=== PATIENT | female | born 1930 | race African-American/Black ===

== ENCOUNTER 2016-07-26 21:41 | Inpatient (IN) | payer MEDICARE ==
--- NOTE | 2016-07-26 21:58 | ER Document Report ---
ED Medical Screen (RME) - General Stated Complaint: HEADACHE DIFFICULTY BREATHING Time seen by provider: 21:56 Mode of Arrival: Wheelchair Information source: Patient, Relative Notes: 85-year-old female presents to ED with cold flulike symptoms with heavy breathing and wheezing. Feeling faint. Has a pacemaker and high blood pressure. Has a headache. Has a history of a previous stroke. I have greeted and performed a rapid initial assessment of this patient. A comprehensive ED assessment and evaluation of the patient, analysis of test results and completion of medical decision making process will be conducted by an additional ED providers.
[2016-07-27 00:14] LABS: HEMATOCRIT 32.6 % (36.0-47.0); HEMOGLOBIN 10.8 g/dL (12.0-15.5); HGB HCT DIFFERENCE -0.2; MEAN CORPUSCULAR HEMOGLOBIN 26.1 pg (27.0-33.4); MEAN CORPUSCULAR HGB CONC 33.1 g/dL (32.0-36.0); MEAN CORPUSCULAR VOLUME 79 fl (80-97); RED BLOOD COUNT 4.12 10^6/uL (3.72-5.28); RED CELL DISTRIBUTION WIDTH 15.7 % (11.5-14.0)
[2016-07-27] MEDS ORDERED: IPRATROPIUM/ALBUTEROL 0.5-2.5 MG/3 ML AMPUL NEB ONE (00:14)
[2016-07-27] MEDS ORDERED: FUROSEMIDE INJ/PF 40 MG/4 ML SDV IV ONE ×2 (00:15→05:00)
--- NOTE | 2016-07-27 00:15 | ER Document Report ---
ED General - General Chief Complaint: Breathing Difficulty Stated Complaint: HEADACHE DIFFICULTY BREATHING Mode of Arrival: Wheelchair Notes: Patient is an 85-year-old female with past medical history of CHF, A. fib status post pacemaker placement, hypertension and hyperlipidemia who presents with 2 days of progressively worsening shortness of breath and cough. Notes that laying flat or exerting himself worsens her symptoms. Nothing improves her symptoms. She is currently taking 30 mg of Lasix per day. She does not weigh herself daily and has not noted any increased weight gain. She denies any chest pain, headache, neck pain or altered mental status. She has not seen her primary care doctor regarding today's concerns. She has a history of similar symptoms in the past with prior CHF exacerbations. TRAVEL OUTSIDE OF THE [place] IN LAST 30 DAYS: No - Related Data Allergies/Adverse Reactions: No Known Allergies Allergy (Unverified 07/27/16 01:44) Past Medical History - General Information source: Patient, Relative - Social History Smoking Status: Never Smoker Chew tobacco use (# tins/day): No Frequency of alcohol use: None Drug Abuse: Bath salts Lives with: Spouse/Significant other Family History: Reviewed & Not Pertinent Patient has suicidal ideation: No Patient has homicidal ideation: No Renal/ Medical History: Denies: Hx Peritoneal Dialysis Review of Systems - Review of Systems Notes: Constitutional: Negative for fever. HENT: Negative for sore throat. Eyes: Negative for visual changes. Cardiovascular: Negative for chest pain. Respiratory: Positive for shortness of breath. Gastrointestinal: Negative for abdominal pain, vomiting or diarrhea. Genitourinary: Negative for dysuria. Musculoskeletal: Negative for back pain. Skin: Negative for rash. Neurological: Negative for headaches, weakness or numbness. 10 point ROS negative except as marked above and in HPI. Physical Exam - Vital signs Vitals: Temp Pulse Resp BP Pulse Ox 99.5 F 92 36 H 142/71 H 96 07/26/16 21:56 07/26/16 21:56 07/26/16 21:56 07/26/16 21:56 07/26/16 21:56 Interpretation: Hypertensive, Tachypneic Notes: PHYSICAL EXAMINATION: GENERAL: Moderately ill in appearance with associated moderate respiratory distress. HEAD: Atraumatic, normocephalic. EYES: Pupils equal round and reactive to light, extraocular movements intact, sclera anicteric, conjunctiva are normal. ENT: nares patent, oropharynx clear without exudates. Moist mucous membranes. NECK: Normal range of motion, supple without lymphadenopathy LUNGS: Bibasilar rales. Somewhat diminished air movement throughout. HEART: Regular rate and rhythm without murmurs ABDOMEN: Soft, nontender, normoactive bowel sounds. No guarding, no rebound. No masses appreciated. EXTREMITIES: Normal range of motion, 1+ pitting edema in the bilateral lower extremities. No cyanosis. NEUROLOGICAL: No focal neurological deficits. Moves all extremities spontaneously and on command. PSYCH: Normal mood, normal affect. SKIN: Warm, Dry, normal turgor, no rashes or lesions noted. Course - Re-evaluation Re-evalutation: 07/27/16 00:13 Patient arrives in respiratory distress, tachypnea with respiratory of 36 at the time my assessment. She is poor air movement bilaterally with diminished breath sounds at the bases. Her chest x-ray shows pulmonary edema and vascular congestion in addition to cardiomegaly. She is not wheezing on exam but does have tight air movement throughout. Immediately upon the time my assessment and initiated BiPAP. Awaiting laboratories. Will place patient on [facility] and reassess 07/27/16 01:30 Patient's work of breathing on to reassessments is much improved on BiPAP. Respiratory rate now is down to the mid 20s. Saturating 100% on 30% FiO2 on BiPAP. IV Lasix has been administered. Laboratories demonstrate a markedly elevated proBNP consistent with a CHF exacerbation as the etiology of patient's presentation today. Will discuss with the hospitalist for admission. - Vital Signs Vital signs: Temp Pulse Resp BP Pulse Ox 99.5 F 92 26 H 142/70 H 100 07/26/16 21:56 07/26/16 21:56 07/27/16 02:31 07/27/16 02:31 07/27/16 02:31 - Laboratory Result Diagrams: 07/26/16 23:56 07/26/16 23:56 Laboratory results interpreted by me: 07/26/16 07/26/16 07/26/16 23:56 23:56 23:56 Hgb 10.8 L Hct 32.6 L MCV 79 L MCH 26.1 L RDW 15.7 H Band Neutrophils % 2 L Monocytes % (Manual) 16 H Sodium 145.8 H Carbon Dioxide 34 H BUN 22 H Est GFR (Non-Af Amer) 52 L NT-Pro-B Natriuret Pep 8510 H - Diagnostic Test Radiology reviewed: Image reviewed, Reports reviewed Radiology results interpreted by me: 07/27/16 00:16 Chest x-ray: Vascular congestion and pulmonary edema. Cardiomegaly. - EKG Interpretation by Me Additional EKG results interpreted by me: 07/27/16 01:31 Atrial fibrillation. Rate 98. No ST elevations or depressions. QTC is 460. Critical Care Note - Critical Care Note Total time excluding time spent on procedures (mins): 35 Comments: Critical care time spent obtaining history from patient or surrogate, discussions with consultants, development of treatment plan with patient or surrogate, evaluation of patient's response to treatment, examination of patient , ordering and performing treatments and interventions, ordering and review of laboratory studies, re-evaluation of patient's condition, ordering and review of radiographic studies and review of old charts Discharge - Discharge Clinical Impression: Respiratory distress CHF exacerbation Qualifiers: Congestive heart failure type: unspecified congestive heart failure type Qualified Code(s): I50.9 - Heart failure, unspecified Condition: Fair Disposition: ADMITTED INPATIENT Admitting Provider: Hospitalist - [facility] Admitted: Telemetry
[2016-07-27 00:30] LABS: ALANINE AMINOTRANSFERASE 40 U/L (9-52); ALBUMIN 3.5 g/dL (3.5-5.0); ALKALINE PHOSPHATASE 66 U/L (38-126); ANION GAP 9 (5-19); ASPARTATE AMINO TRANSFERASE 30 U/L (14-36); BILIRUBIN,DIRECT 0.1 mg/dL (0.0-0.4); BILIRUBIN,TOTAL 0.5 mg/dL (0.2-1.3); BLOOD UREA NITROGEN 22 mg/dL (7-20); CALCIUM 9.1 mg/dL (8.4-10.2); CARBON DIOXIDE 34 mmol/L (22-30); CHLORIDE 103 mmol/L (98-107); CREATINE KINASE 105 U/L (30-135); CREATININE RESULT 1.01 mg/dL (0.52-1.25); GLUCOSE 97 mg/dL (75-110); POTASSIUM 3.8 mmol/L (3.6-5.0); SODIUM 145.8 mmol/L (137-145); TOTAL PROTEIN 6.3 g/dL (6.3-8.2)
[2016-07-27 00:42] LABS: CREATINE KINASE MB 0.98 ng/mL (<4.55); TROPONIN I 0.029 ng/mL
[2016-07-27 01:01] LABS: ANISOCYTOSIS SLIGHT; BAND NEUTROPHILS % (MANUAL) 2 % (3-5); BASOPHILS % (MANUAL) 0 % (0-2); BURR CELLS SLIGHT; EOSINOPHILS % (MANUAL) 0 % (0-6); HYPOCHROMASIA SLIGHT; LYMPHOCYTES % (MANUAL) 23 % (13-45); MICROCYTOSIS SLIGHT; OVALOCYTES SLIGHT; POIKILOCYTOSIS SLIGHT; SCHISTOCYTES SLIGHT; TOTAL CELLS COUNTED 100; TOXIC GRANULATION SLIGHT; TOXIC VACUOLATION PRESENT
[2016-07-27] MEDS ORDERED: NITROGLYCERIN/D5W 250 ML IV PRN (01:33)
[2016-07-27] MEDS ORDERED: ACETAMINOPHEN 325 MG TABLET PO PRN (01:33)
[2016-07-27] MEDS ORDERED: LACTULOSE SYRUP 20 GM/30 ML UDCUP PO ONE ×2 (01:36→05:00)
[2016-07-27] MEDS ORDERED: POTASSIUM CHLORIDE 10 MEQ TABLET.SA PO SCH (02:00)
[2016-07-27 02:39] LABS: CREATINE KINASE MB 0.95 ng/mL (<4.55); TROPONIN I 0.025 ng/mL
[2016-07-27] MEDS ORDERED: LORAZEPAM INJ 2 MG/1 ML VIAL IV ONE ×2 (06:03→14:53)
[2016-07-27] MEDS ORDERED: LORAZEPAM INJ 2 MG/1 ML VIAL ONE ×2 (06:16→14:57)
[2016-07-27] MEDS: HEPARIN SOD (PORCINE) 5,000 UNIT/ML 1 ML SYRINGE SUBCUT SCH ×2 (06:18→13:39)
[2016-07-27] MEDS ORDERED: ENALAPRILAT DIHYDRATE INJ/PF 1.25 MG/1 ML SDV IV ONE (06:20)
[2016-07-27] MEDS ORDERED: METOPROLOL TARTRATE PF/INJ 5 MG/5 ML SDV IV ONE (06:20)
--- NOTE | 2016-07-27 06:29 | PDOC H&P ---
History of Present Illness Admission Date/PCP: 07/27/16 01:33 ALBERT VIVAR MD Patient complains of: Shortness of breath History of Present Illness: MARTY GAGE is a 85 year old female with a past medical history of CHF, atrial fibrillation status post pacemaker placement, hypertension dyslipidemia and severe anxiety with Ativan dependence. Presents with 2 days of worsening exertional shortness of breath and nonproductive cough as well as orthopnea. Patient is a poor historian and with decompensated congestive heart failure and anxiety referred to the hospitalist for admission Past Medical History Cardiac Medical History: Reports: Atrial Fibrillation Psychiatric Medical History: Reports: General Anxiety Disorder Social History Information Source: [facility] Records Lives with: Spouse/Significant other Smoking Status: Never Smoker Drugs: None - Advance Directive Resuscitation Status: Full Code Family History Family History: Reviewed & Not Pertinent, Other - Unobtainable Parental Family History Reviewed: Yes - unobtainable Children Family History Reviewed: Yes Sibling(s) Family History Reviewed.: Yes Medication/Allergy Allergies/Adverse Reactions: No Known Allergies Allergy (Unverified 07/27/16 01:44) Review of Systems ROS unobtainable: Due to mental status - Unobtainable Physical Exam Vital Signs: Temp Pulse Resp BP Pulse Ox 99.5 F 92 13 138/62 H 99 07/26/16 21:56 07/26/16 21:56 07/27/16 05:01 07/27/16 05:00 07/27/16 05:01 General appearance: PRESENT: disheveled, severe distress Head exam: PRESENT: atraumatic, normocephalic Eye exam: PRESENT: conjunctiva pink, EOMI, PERRLA. ABSENT: scleral icterus Ear exam: PRESENT: normal external ear exam Mouth exam: PRESENT: moist, tongue midline Neck exam: PRESENT: JVD. ABSENT: carotid bruit, lymphadenopathy, thyromegaly Respiratory exam: PRESENT: accessory muscle use, crackles, symmetrical, tachypnea, wheezes. ABSENT: rhonchi, stridor Cardiovascular exam: PRESENT: gallop, RRR. ABSENT: diastolic murmur, rubs, systolic murmur Pulses: PRESENT: normal dorsalis pedis pul GI/Abdominal exam: PRESENT: hypoactive bowel sounds, normal bowel sounds, soft, tenderness - Without guarding left lower quadrant. ABSENT: distended, guarding , mass, organolmegaly, rebound Rectal exam: PRESENT: deferred Extremities exam: PRESENT: full ROM. ABSENT: calf tenderness, clubbing, pedal edema Neurological exam: PRESENT: alert, awake, oriented to person, oriented to place , oriented to situation, CN II-XII grossly intact. ABSENT: motor sensory deficit Psychiatric exam: PRESENT: agitated, anxious Skin exam: PRESENT: dry, intact, warm. ABSENT: cyanosis, rash Results Laboratory Results: 07/27/16 07/27/16 02:02 02:02 Creatine Kinase 90 CK-MB (CK-2) 0.95 Troponin I 0.025 Impressions: Chest X-Ray 07/26/16 21:59 IMPRESSION: CARDIAC ENLARGEMENT. VASCULAR CONGESTION.Small right pleural effusion. Assessment & Plan - Diagnosis (1) Severe anxiety Is this a current diagnosis for this admission?: YesPlan: Benzodiazepine dependent complicating shortness of breath as she is retaining CO2 she will be placed on BiPAP (2) CHF exacerbation Qualifiers: Congestive heart failure type: unspecified congestive heart failure type Qualified Code(s): I50.9 - Heart failure, unspecified Is this a current diagnosis for this admission?: YesPlan: Optimize blood pressure and heart rate with aggressive treatment of anxiety, education fluid restriction and gentle diuresis (3) Respiratory distress Is this a current diagnosis for this admission?: YesPlan: Multifactorial shortness of breath secondary to CHF exacerbation and hypoventilation as she has CO2 retention she is placed on BiPAP with albuterol Atrovent nebulizer - Time Time Spent: 30 to 50 Minutes
[2016-07-27] MEDS ORDERED: ALBUTEROL SULFATE 0.083% NEB 2.5 MG/3 ML AMPUL NEB PRN (07:47)
[2016-07-27] MEDS ORDERED: IPRATROPIUM/ALBUTEROL 0.5-2.5 MG/3 ML AMPUL NEB SCH (08:00)
--- NOTE | 2016-07-27 08:09 | EKG REPORT ---
SEVERITY:- ABNORMAL ECG - ATRIAL FIBRILLATION LEFT AXIS DEVIATION PROBABLE LVH WITH SECONDARY REPOL ABNRM : Confirmed by: Maxwell Hamilton MD 27-Jul-2016 08:08:32
[2016-07-27 09:14] LABS: CREATINE KINASE MB 1.03 ng/mL (<4.55); TROPONIN I 0.026 ng/mL
[2016-07-27] MEDS: NITROGLYCERIN 2% OINTMENT 1 GM PACKET TP SCH ×3 (09:24→22:19)
[2016-07-27] MEDS ORDERED: LORAZEPAM 0.5 MG TABLET PO SCH (10:00)
[2016-07-27] MEDS ORDERED: FUROSEMIDE INJ/PF 40 MG/4 ML SDV IV SCH (10:00)
[2016-07-27] MEDS ORDERED: METOPROLOL TARTRATE 25 MG TABLET PO SCH (10:00)
[2016-07-27] MEDS ORDERED: INFLUENZA ADLT QUAD (36MOS+) 2016-17 VAC 0.5 ML SYR IM PRN (10:23)
[2016-07-27] MEDS: POTASSIUM CHLORIDE 10 MEQ TABLET.SA PO SCH (11:43)
[2016-07-27] MEDS: DOCUSATE SODIUM 100 MG CAPSULE PO SCH (11:43)
[2016-07-27] MEDS: FUROSEMIDE INJ/PF 40 MG/4 ML SDV IV SCH ×2 (11:45→22:19)
[2016-07-27] MEDS ORDERED: HALOPERIDOL LACTATE INJ 5 MG/1 ML VIAL IV ONE (14:53)
[2016-07-27] MEDS ORDERED: HALOPERIDOL LACTATE INJ 5 MG/1 ML VIAL ONE (14:58)
[2016-07-27 16:07] LABS: CREATINE KINASE MB 1.24 ng/mL (<4.55); TROPONIN I 0.024 ng/mL
--- NOTE | 2016-07-27 16:52 | PDOC PROGRESS REPORT ---
Subjective Progress Note for:: 07/27/16 Subjective:: Patient has no complaints at the time of my evaluation. Review of systems or history limited by advanced dementia and encephalopathy. She denies chest pain , headache, abdominal pain, nausea, vomiting. Physical Exam Vital Signs: Temp Pulse Resp BP Pulse Ox 98.4 F 89 22 H 153/98 H 100 07/27/16 11:00 07/27/16 14:00 07/27/16 11:00 07/27/16 11:00 07/27/16 11:00 Intake & Output 07/26/16 07/27/16 07/28/16 06:59 06:59 06:59 Weight 70.7 kg 71.1 kg GENERAL: No acute distress HEENT: Conjunctiva clear, nonicteric, moist mucous membranes, no JVD, midline trachea RESPIRATORY: Clear to auscultation bilaterally, no wheezes, no rhonchi CARDIAC: Regular rate and rhythm, no murmurs/gallops/rubs ABDOMEN: Soft, nondistended, nontender, positive bowel sounds, no rebound, no guarding EXTREMETIES: No edema, cyanosis, clubbing NEUROLOGIC: Alert, oriented to person only, CN's grossly intact, no focal deficits SKIN: No rash, wounds PSYCH: Normal mood, normal affect Results Laboratory Results: 07/27/16 07/27/16 07/27/16 02:02 02:02 08:30 Creatine Kinase 90 94 CK-MB (CK-2) 0.95 Troponin I 0.025 07/27/16 07/27/16 07/27/16 08:30 15:27 15:27 Creatine Kinase 102 CK-MB (CK-2) 1.03 1.24 Troponin I 0.026 0.024 Impressions: Chest X-Ray 07/26/16 21:59 IMPRESSION: CARDIAC ENLARGEMENT. VASCULAR CONGESTION.Small right pleural effusion. Assessment & Plan - Diagnosis (1) Acute hypoxemic respiratory failure Is this a current diagnosis for this admission?: YesPlan: Continue oxygen supplementation. Treat CHF exacerbation. (2) CHF exacerbation Qualifiers: Congestive heart failure type: unspecified congestive heart failure type Qualified Code(s): I50.9 - Heart failure, unspecified Is this a current diagnosis for this admission?: YesPlan: Continue IV Lasix. Nitropaste. Repeat chest x-ray in the morning. Continue metoprolol. EF unknown at this time. Check echocardiogram. (3) Hypertension Is this a current diagnosis for this admission?: YesPlan: Continue Nitropaste. Resume outpatient dose of labetalol. When necessary IV hydralazine. (4) A-fib Is this a current diagnosis for this admission?: YesPlan: Pacemaker. Xarelto. Labetalol. (5) Hypothyroid Is this a current diagnosis for this admission?: YesPlan: Synthroid. (6) Severe anxiety Is this a current diagnosis for this admission?: YesPlan: When necessary Ativan. (7) Dementia Is this a current diagnosis for this admission?: YesPlan: Continue supportive care. - Time Time Spent with patient: 35 or more minutes
[2016-07-27] MEDS ORDERED: LORAZEPAM PO SCH (18:00)
[2016-07-27] MEDS: LABETALOL HCL 200 MG TABLET PO SCH (18:54)
[2016-07-27] MEDS: LORAZEPAM 1 MG TABLET PO SCH (18:55)
--- NOTE | 2016-07-27 20:33 | XCELERA REPORT ---
[address] [address] Transthoracic Echocardiogram Report Name: MARTY GAGE Age: 85 yrs Gender: Female : 1930 Patient Status: Inpatient Patient Location: 3N\S\[facility]\S\B Study Date: 07/27/2016 02:12 PM Height: 65 in Weight: 164 lb BSA: 1.8 m2 Procedure: A complete two-dimensional transthoracic echocardiogram was performed (2D, M-mode, spectral and color flow Doppler). The study was technically difficult with many images being suboptimal in quality. Reason For Study: chf Ordering Physician: NEELAM PORTILLO Performed By: Radha Pierre Interpretation Summary The left ventricular ejection fraction is normal. There is moderate concentric left ventricular hypertrophy. Doppler measurements suggest pseudonormalized left ventricular relaxation, which is associated with grade II/IV or mild to moderate diastolic dysfunction Wall motion cannot be accurately commented on, but no definite regional wall motion abnormalities noted. The left ventricle is grossly normal size. The right ventricular systolic function is normal. The left atrium is severely dilated. The right atrium is mildly dilated. There is a moderate amount of mitral regurgitation There is no mitral valve stenosis. There is moderate aortic stenosis There is a peak gradient of 55, mean 30 mm of Hg. There is a mild to moderate amount of aortic regurgitation There is a mild to moderate amount of tricuspid regurgitation There is moderate pulmonary hypertension by echo Right ventricular systolic pressure is estimated to be elevated at 50- 60mmHg. There is no pericardial effusion. MMode/2D Measurements \T\ Calculations RVDd: 2.8 cm LVIDd: 4.9 cm FS: 38.8 % Ao root diam: IVSd: 1.6 cm LVIDs: 3.0 cm EDV(Teich): 3.2 cm LVPWd: 1.7 cm 113.7 ml Ao root area: ESV(Teich): 35.2 ml 8.0 cm2 EF(Teich): LA dimension: 69.0 % 6.0 cm LVOT diam: 2.3 cm LA A2Cs: LA A4Cs: LA length: 7.7 cm LVOT area: 4.0 cm2 35.6 cm2 36.0 cm2 LA Vol Index (BP): LA Volume: 140.7 ml 77.4 ml/m2 Doppler Measurements \T\ Calculations MV E max rachele: MV P1/2t max rachele: Ao V2 max: AI max rachele: 143.8 cm/sec 146.2 cm/sec 376.4 cm/sec 437.7 cm/sec MV A max rachele: MV P1/2t: 64.5 msec Ao max PG: AI max P.3 cm/sec MVA(P1/2t): 3.4 cm2 56.7 mmHg 76.7 mmHg MV E/A: 1.7 MV dec slope: Ao V2 mean: AI dec slope: 267.3 cm/sec 251.2 cm/sec2 664.2 cm/sec2 Ao mean PG: AI P1/2t: 32.5 mmHg 510.4 msec Ao V2 VTI: 75.5 cm HEIDI(I,D): 1.7 cm2 HEIDI(V,D): 1.7 cm2 LV V1 max PG: SV(LVOT): 131.2 ml PA V2 max: TR max rachele: 10.7 mmHg 109.6 cm/sec 357.0 cm/sec LV V1 mean PG: PA max PG: TR max P.2 mmHg 4.8 mmHg 51.0 mmHg LV V1 max: 163.7 cm/sec LV V1 mean: 116.5 cm/sec LV V1 VTI: 32.6 cm Left Ventricle The left ventricle is grossly normal size. There is moderate concentric left ventricular hypertrophy. The left ventricular ejection fraction is normal. Doppler measurements suggest pseudonormalized left ventricular relaxation, which is associated with grade II/IV or mild to moderate diastolic dysfunction. Wall motion cannot be accurately commented on, but no definite regional wall motion abnormalities noted. Right Ventricle The right ventricle is grossly normal size. There is normal right ventricular wall thickness. The right ventricular systolic function is normal. Atria The right atrium is mildly dilated. The left atrium is severely dilated. Interarterial septum not well visualized and not well dopplered. Cannot comment on ASD/PFO presence. Mitral Valve There is moderate mitral annular calcification. There is no mitral valve stenosis. There is a moderate amount of mitral regurgitation. Aortic Valve The aortic valve is moderately calcified. There is moderate aortic stenosis. There is a peak gradient of 55, mean 30 mm of Hg. There is a mild to moderate amount of aortic regurgitation. Tricuspid Valve The tricuspid valve is not well visualized secondary to technical limitations. There is no tricuspid stenosis. There is a mild to moderate amount of tricuspid regurgitation. There is moderate pulmonary hypertension by echo. Right ventricular systolic pressure is estimated to be elevated at 50-60mmHg. Pulmonic Valve The pulmonic valve is not well visualized. Great Vessels The aortic root is not well visualized. The inferior vena cava appeared normal and decreased > 50% with respiration (RAP 5-10 mmHg). Effusions There is no pericardial effusion. : NEELAM PORTILLO > Seun Stark
[2016-07-27] MEDS: MIRTAZAPINE 15 MG TABLET PO SCH (22:19)
[2016-07-28] MEDS: HYDRALAZINE HCL INJ/PF 20 MG/1 ML SDV IV PRN ×2 (00:28→06:59)
[2016-07-28] MEDS: LORAZEPAM INJ 2 MG/1 ML VIAL IV PRN ×2 (01:31→06:47)
[2016-07-28] MEDS: NITROGLYCERIN 2% OINTMENT 1 GM PACKET TP SCH ×2 (03:05→09:20)
[2016-07-28] MEDS ORDERED: METOPROLOL TARTRATE PF/INJ 5 MG/5 ML SDV IV PRN (05:29)
[2016-07-28] MEDS ORDERED: METOPROLOL TARTRATE PF/INJ 5 MG/5 ML SDV IV ONE (05:47)
[2016-07-28 05:54] LABS: ARTERIAL BLOOD O2 SATURATION 96.7 % (94-98)
[2016-07-28 07:24] LABS: ABSOLUTE EOSINOPHILS # (AUTO) 0.1 10^3/uL (0.0-0.6); ABSOLUTE MONOCYTES (AUTO) 1.2 10^3/uL (0.1-1.4); ABSOLUTE NEUT (AUTO) 5.3 10^3/uL (1.7-8.2); BASOPHILS % (AUTO) 0.3 % (0-2); EOSINOPHILS % (AUTO) 0.7 % (0-6); HEMOGLOBIN 11.3 g/dL (12.0-15.5); HGB HCT DIFFERENCE -1.1; LYMPHOCYTES % (AUTO) 23.7 % (13-45); MEAN CORPUSCULAR HEMOGLOBIN 25.6 pg (27.0-33.4); MEAN CORPUSCULAR HGB CONC 32.3 g/dL (32.0-36.0); MEAN CORPUSCULAR VOLUME 79 fl (80-97); MONOCYTES % (AUTO) 13.4 % (3-13); RED BLOOD COUNT 4.43 10^6/uL (3.72-5.28); RED CELL DISTRIBUTION WIDTH 15.6 % (11.5-14.0); SEGMENTED NEUTROPHILS % (AUTO) 61.9 % (42-78); WHITE BLOOD COUNT 8.6 10^3/uL (4.0-10.5)
[2016-07-28 07:40] LABS: ANION GAP 16 (5-19); BLOOD UREA NITROGEN 20 mg/dL (7-20); CALCIUM 9.5 mg/dL (8.4-10.2); CARBON DIOXIDE 31 mmol/L (22-30); CHLORIDE 101 mmol/L (98-107); CREATININE RESULT 0.88 mg/dL (0.52-1.25); GLUCOSE 114 mg/dL (75-110); MAGNESIUM 1.5 mg/dL (1.6-2.3); POTASSIUM 3.9 mmol/L (3.6-5.0); SODIUM 147.8 mmol/L (137-145)
[2016-07-28] MEDS: LORAZEPAM 1 MG TABLET PO SCH ×2 (07:57→18:39)
[2016-07-28] MEDS: LABETALOL HCL 200 MG TABLET PO SCH (07:57)
[2016-07-28] MEDS ORDERED: (PENDING PHARMACY ID) (Lorazepam [Lorazepam] 2 MG) PO SCH (08:00)
--- NOTE | 2016-07-28 08:26 | EKG REPORT ---
SEVERITY:- ABNORMAL ECG - ATRIAL FIBRILLATION PROBABLE LVH WITH SECONDARY REPOL ABNRM : Confirmed by: Maxwell Hamilton MD 28-Jul-2016 08:26:10
[2016-07-28] MEDS: LEVOTHYROXINE SODIUM 0.1 MG TABLET PO SCH (09:20)
[2016-07-28] MEDS: LANSOPRAZOLE 30 MG TAB.RAP.DR PO SCH (09:20)
[2016-07-28] MEDS: POTASSIUM CHLORIDE 10 MEQ TABLET.SA PO SCH (09:20)
[2016-07-28] MEDS: DOCUSATE SODIUM 100 MG CAPSULE PO SCH (09:20)
[2016-07-28] MEDS: MAGNESIUM OXIDE 400 MG TABLET PO SCH ×2 (09:20→18:39)
[2016-07-28] MEDS: FUROSEMIDE INJ/PF 40 MG/4 ML SDV IV SCH ×2 (09:21→23:33)
[2016-07-28] MEDS ORDERED: BENAZEPRIL HCL 20 MG PO SCH (16:00)
--- NOTE | 2016-07-28 17:25 | PDOC PROGRESS REPORT ---
Subjective Progress Note for:: 07/28/16 Subjective:: Patient has no complaints at the time of my evaluation. Review of systems or history limited by advanced dementia and encephalopathy. She denies chest pain , headache, abdominal pain, nausea, vomiting. Physical Exam Vital Signs: Temp Pulse Resp BP Pulse Ox 98.1 F 106 H 35 H 132/73 H 100 07/28/16 07:44 07/28/16 14:00 07/28/16 09:29 07/28/16 10:54 07/28/16 10:54 Intake & Output 07/27/16 07/28/16 07/29/16 06:59 06:59 06:59 Intake Total 279 Balance 279 Weight 70.7 kg 71 kg GENERAL: No acute distress HEENT: Conjunctiva clear, nonicteric, moist mucous membranes, no JVD, midline trachea RESPIRATORY: Clear to auscultation bilaterally, no wheezes, no rhonchi CARDIAC: Regular rate and rhythm, no murmurs/gallops/rubs ABDOMEN: Soft, nondistended, nontender, positive bowel sounds, no rebound, no guarding EXTREMETIES: No edema, cyanosis, clubbing NEUROLOGIC: Alert, oriented to person only, CN's grossly intact, no focal deficits SKIN: No rash, wounds PSYCH: Normal mood, normal affect Results Laboratory Results: 07/28/16 06:07 07/28/16 06:07 07/28/16 07/28/16 07/28/16 05:40 06:07 06:07 WBC 8.6 RBC 4.43 Hgb 11.3 L Hct 35.0 L MCV 79 L MCH 25.6 L MCHC 32.3 RDW 15.6 H Plt Count 234 Seg Neutrophils % 61.9 Lymphocytes % 23.7 Monocytes % 13.4 H Eosinophils % 0.7 Basophils % 0.3 Absolute Neutrophils 5.3 Absolute Lymphocytes 2.0 Absolute Monocytes 1.2 Absolute Eosinophils 0.1 Absolute Basophils 0.0 Carbonic Acid 1.48 H HCO3/H2CO3 Ratio 23:1 ABG pH 7.46 H ABG pCO2 49.2 H ABG pO2 84.5 ABG HCO3 34.1 H ABG O2 Saturation 96.7 ABG Base Excess 9.0 FiO2 25% Sodium 147.8 H Potassium 3.9 Chloride 101 Carbon Dioxide 31 H Anion Gap 16 BUN 20 Creatinine 0.88 Est GFR ( Amer) > 60 Est GFR (Non-Af Amer) > 60 Glucose 114 H Calcium 9.5 Magnesium 1.5 L 07/27/16 07/27/16 07/27/16 02:02 02:02 08:30 Creatine Kinase 90 94 CK-MB (CK-2) 0.95 Troponin I 0.025 07/27/16 07/27/16 07/27/16 08:30 15:27 15:27 Creatine Kinase 102 CK-MB (CK-2) 1.03 1.24 Troponin I 0.026 0.024 07/28/16 06:07 Creatine Kinase CK-MB (CK-2) Troponin I 0.027 Impressions: Chest X-Ray 07/28/16 00:00 IMPRESSION: No consolidation or effusion. Resolved small right Pleural effusion seen previously. Assessment & Plan - Diagnosis (1) Acute hypoxemic respiratory failure Is this a current diagnosis for this admission?: YesPlan: Continue oxygen supplementation. Treat CHF exacerbation. (2) CHF exacerbation Qualifiers: Congestive heart failure type: unspecified congestive heart failure type Qualified Code(s): I50.9 - Heart failure, unspecified Is this a current diagnosis for this admission?: YesPlan: Acutely decompensated secondary to left ventricular diastolic dysfunction and moderate aortic stenosis, EF normal. Continue IV Lasix. Discontinue Nitropaste. Continue metoprolol. (3) Hypertension Is this a current diagnosis for this admission?: YesPlan: Discontinue nitroglycerin paste. Discontinue labetalol. Start Toprol-XL 100 mg twice daily. Start Norvasc 5 mg daily. When necessary IV hydralazine. (4) A-fib Is this a current diagnosis for this admission?: YesPlan: Pacemaker. Xarelto. Metoprolol. Followed by Dr. Cox cardiology. (5) Hypothyroid Is this a current diagnosis for this admission?: YesPlan: Synthroid. (6) Severe anxiety Is this a current diagnosis for this admission?: YesPlan: When necessary Ativan. (7) Dementia Is this a current diagnosis for this admission?: YesPlan: Continue supportive care. Family desires placement at an assisted living facility. (8) Hypomagnesemia Is this a current diagnosis for this admission?: YesPlan: Start magnesium oxide. - Time Time Spent with patient: 35 or more minutes Anticipated discharge: Other - Assisted living facility
[2016-07-28] MEDS: BENAZEPRIL HCL 20 MG TABLET PO SCH (18:38)
[2016-07-28] MEDS: RIVAROXABAN 10 MG TABLET PO SCH (18:39)
[2016-07-28] MEDS: METOPROLOL SUCCINATE 50 MG TAB.SR.24H PO SCH (23:32)
[2016-07-28] MEDS: MIRTAZAPINE 15 MG TABLET PO SCH (23:32)
[2016-07-28] MEDS: AMLODIPINE BESYLATE 5 MG TABLET PO SCH (23:33)
[2016-07-29] MEDS: LORAZEPAM 1 MG TABLET PO SCH ×2 (08:19→17:26)
[2016-07-29] MEDS: DOCUSATE SODIUM 100 MG CAPSULE PO SCH (10:20)
[2016-07-29] MEDS: FUROSEMIDE INJ/PF 40 MG/4 ML SDV IV SCH (10:20)
[2016-07-29] MEDS: LANSOPRAZOLE 30 MG TAB.RAP.DR PO SCH (10:20)
[2016-07-29] MEDS: METOPROLOL SUCCINATE 50 MG TAB.SR.24H PO SCH ×2 (10:21→21:24)
[2016-07-29] MEDS: POTASSIUM CHLORIDE 10 MEQ TABLET.SA PO SCH (10:21)
[2016-07-29] MEDS: LEVOTHYROXINE SODIUM 0.1 MG TABLET PO SCH (10:22)
[2016-07-29] MEDS: MAGNESIUM OXIDE 400 MG TABLET PO SCH ×2 (10:22→17:25)
--- NOTE | 2016-07-29 11:54 | Physician Advisory Note ---
Physician Advisor ProgressNote .: Pursuant to the plan for [facility], I have reviewed the medical record for this patient. Physician Advisor Statement: Possible documentation opportunities if attending agrees: 1. "hypernatremia, likely due to " 2. "Acute hypercapneic respiratory failure, requiring Bipap for hypercarbia" - Initial O2 sat was 96% on RA, with accessory muscle use documented in H&P. Subseq.ly has had 2 O2 sats in 80s documented, but without concomitant increased work of breathing documented to be present at that time. 3. "Acute on Chronic CHF, diastolic & valvular" [to be explicit enough to be sure not to get a query - documentation "as is" may be enough for javascript web developer, but may not] As always, if concerned about any unstable VS or abnormal labs, please comment on them & note what doing about them, & please document each day the potential clinical problems you are concerned could occur if pt not kept in hospital for tx at this time. Thanks for your help with documentation accuracy/specificity improvement! Arlen Manzano MD [facility] Physician Advisor, Fellow of Hospital Medicine
--- NOTE | 2016-07-29 15:33 | PDOC PROGRESS REPORT ---
Subjective Progress Note for:: 07/29/16 Subjective:: Patient has no complaints at the time of my evaluation. Review of systems or history limited by advanced dementia and encephalopathy. She denies chest pain , headache, abdominal pain, nausea, vomiting. Physical Exam Vital Signs: Temp Pulse Resp BP Pulse Ox 97.6 F 91 24 H 158/85 H 100 07/29/16 10:53 07/29/16 14:00 07/29/16 10:53 07/29/16 10:53 07/29/16 10:53 Intake & Output 07/28/16 07/29/16 07/30/16 06:59 06:59 06:59 Intake Total 279 45 Balance 279 45 Weight 71 kg 71 kg GENERAL: No acute distress HEENT: Conjunctiva clear, nonicteric, moist mucous membranes, no JVD, midline trachea RESPIRATORY: Clear to auscultation bilaterally, no wheezes, no rhonchi CARDIAC: Regular rate and rhythm, no murmurs/gallops/rubs ABDOMEN: Soft, nondistended, nontender, positive bowel sounds, no rebound, no guarding EXTREMETIES: No edema, cyanosis, clubbing NEUROLOGIC: Alert, oriented to person only, CN's grossly intact, no focal deficits SKIN: No rash, wounds PSYCH: Normal mood, normal affect Results Laboratory Results: 07/28/16 06:07 07/28/16 06:07 07/27/16 07/27/16 07/27/16 02:02 02:02 08:30 Creatine Kinase 90 94 CK-MB (CK-2) 0.95 Troponin I 0.025 07/27/16 07/27/16 07/27/16 08:30 15:27 15:27 Creatine Kinase 102 CK-MB (CK-2) 1.03 1.24 Troponin I 0.026 0.024 07/28/16 06:07 Creatine Kinase CK-MB (CK-2) Troponin I 0.027 Impressions: Chest X-Ray 07/28/16 00:00 IMPRESSION: No consolidation or effusion. Resolved small right Pleural effusion seen previously. Assessment & Plan - Diagnosis (1) Acute hypoxemic respiratory failure Is this a current diagnosis for this admission?: YesPlan: Continue oxygen supplementation. Treat CHF exacerbation. (2) CHF exacerbation Qualifiers: Congestive heart failure type: unspecified congestive heart failure type Qualified Code(s): I50.9 - Heart failure, unspecified Is this a current diagnosis for this admission?: YesPlan: Acutely decompensated secondary to left ventricular diastolic dysfunction and moderate aortic stenosis, EF normal. Continue IV Lasix. Continue metoprolol. (3) Hypertension Is this a current diagnosis for this admission?: YesPlan: Continue Toprol-XL 100 mg twice daily, Norvasc 5 mg daily, benazepril 20 mg daily. When necessary IV hydralazine. (4) A-fib Is this a current diagnosis for this admission?: YesPlan: Pacemaker. Xarelto. Metoprolol. Followed by Dr. Cox cardiology. (5) Hypothyroid Is this a current diagnosis for this admission?: YesPlan: Synthroid. (6) Severe anxiety Is this a current diagnosis for this admission?: YesPlan: When necessary Ativan. (7) Dementia Is this a current diagnosis for this admission?: YesPlan: Continue supportive care. Family desires placement at an assisted living facility. (8) Hypomagnesemia Is this a current diagnosis for this admission?: YesPlan: Continue magnesium oxide. - Time Time Spent with patient: 35 or more minutes
[2016-07-29] MEDS: BENAZEPRIL HCL 20 MG TABLET PO SCH (17:20)
[2016-07-29] MEDS: RIVAROXABAN 10 MG TABLET PO SCH (17:21)
[2016-07-29] MEDS: AMLODIPINE BESYLATE 5 MG TABLET PO SCH (21:25)
[2016-07-29] MEDS: MIRTAZAPINE 15 MG TABLET PO SCH (21:25)
[2016-07-29] MEDS ORDERED: FUROSEMIDE INJ/PF 20 MG/2 ML SDV IV SCH (22:00)
[2016-07-29] MEDS: LORAZEPAM INJ 2 MG/1 ML VIAL IV PRN (23:32)
[2016-07-30 05:15] LABS: ABSOLUTE EOSINOPHILS # (AUTO) 0.1 10^3/uL (0.0-0.6); ABSOLUTE LYMPHOCYTES (AUTO) 2.1 10^3/uL (0.5-4.7); ABSOLUTE NEUT (AUTO) 3.9 10^3/uL (1.7-8.2); BASOPHILS % (AUTO) 0.6 % (0-2); EOSINOPHILS % (AUTO) 2.1 % (0-6); HEMATOCRIT 38.1 % (36.0-47.0); HEMOGLOBIN 12.3 g/dL (12.0-15.5); HGB HCT DIFFERENCE -1.2; LYMPHOCYTES % (AUTO) 29.2 % (13-45); MEAN CORPUSCULAR HEMOGLOBIN 25.7 pg (27.0-33.4); MEAN CORPUSCULAR HGB CONC 32.3 g/dL (32.0-36.0); MEAN CORPUSCULAR VOLUME 80 fl (80-97); MONOCYTES % (AUTO) 13.8 % (3-13); RED BLOOD COUNT 4.79 10^6/uL (3.72-5.28); RED CELL DISTRIBUTION WIDTH 15.9 % (11.5-14.0); SEGMENTED NEUTROPHILS % (AUTO) 54.3 % (42-78); WHITE BLOOD COUNT 7.2 10^3/uL (4.0-10.5)
[2016-07-30 05:35] LABS: ANION GAP 13 (5-19); BLOOD UREA NITROGEN 24 mg/dL (7-20); CALCIUM 9.9 mg/dL (8.4-10.2); CARBON DIOXIDE 35 mmol/L (22-30); CHLORIDE 99 mmol/L (98-107); CREATININE RESULT 0.79 mg/dL (0.52-1.25); GLUCOSE 114 mg/dL (75-110); POTASSIUM 4.5 mmol/L (3.6-5.0); SODIUM 146.8 mmol/L (137-145)
[2016-07-30] MEDS: LORAZEPAM INJ 2 MG/1 ML VIAL IV PRN (05:56)
[2016-07-30] MEDS: POTASSIUM CHLORIDE 10 MEQ TABLET.SA PO SCH (09:33)
[2016-07-30] MEDS: DOCUSATE SODIUM 100 MG CAPSULE PO SCH (09:33)
[2016-07-30] MEDS: LORAZEPAM 1 MG TABLET PO SCH ×2 (09:34→22:27)
[2016-07-30] MEDS: MAGNESIUM OXIDE 400 MG TABLET PO SCH ×2 (09:34→17:56)
[2016-07-30] MEDS: LANSOPRAZOLE 30 MG TAB.RAP.DR PO SCH (09:34)
[2016-07-30] MEDS: LEVOTHYROXINE SODIUM 0.1 MG TABLET PO SCH (09:35)
[2016-07-30] MEDS: FUROSEMIDE 20 MG TABLET PO SCH (09:35)
[2016-07-30] MEDS: METOPROLOL SUCCINATE 50 MG TAB.SR.24H PO SCH ×2 (09:36→22:27)
[2016-07-30] MEDS: BENAZEPRIL HCL 20 MG TABLET PO SCH (17:55)
[2016-07-30] MEDS: RIVAROXABAN 10 MG TABLET PO SCH (17:57)
--- NOTE | 2016-07-30 22:13 | PDOC PROGRESS REPORT ---
Subjective Progress Note for:: 07/30/16 Subjective:: Patient has no complaints at the time of my evaluation. Review of systems or history limited by advanced dementia and encephalopathy. She denies chest pain , dyspnea, headache, abdominal pain, nausea, vomiting. Physical Exam Vital Signs: Temp Pulse Resp BP Pulse Ox 97.4 F 81 16 128/67 H 100 07/30/16 20:03 07/30/16 20:03 07/30/16 20:03 07/30/16 20:03 07/30/16 20:03 Intake & Output 07/29/16 07/30/16 07/31/16 06:59 06:59 06:59 Intake Total 45 249 160 Balance 45 249 160 Weight 71 kg 71 kg GENERAL: No acute distress HEENT: Conjunctiva clear, nonicteric, moist mucous membranes, no JVD, midline trachea RESPIRATORY: Clear to auscultation bilaterally, no wheezes, no rhonchi CARDIAC: Regular rate and rhythm, harsh systolic murmur ABDOMEN: Soft, nondistended, nontender, positive bowel sounds, no rebound, no guarding EXTREMETIES: No edema, cyanosis, clubbing NEUROLOGIC: Alert, oriented to person only, CN's grossly intact, no focal deficits SKIN: No rash, wounds PSYCH: Normal mood, normal affect Results Laboratory Results: 07/30/16 04:29 07/30/16 04:29 07/30/16 07/30/16 04:29 04:29 WBC 7.2 RBC 4.79 Hgb 12.3 Hct 38.1 MCV 80 MCH 25.7 L MCHC 32.3 RDW 15.9 H Plt Count 226 Seg Neutrophils % 54.3 Lymphocytes % 29.2 Monocytes % 13.8 H Eosinophils % 2.1 Basophils % 0.6 Absolute Neutrophils 3.9 Absolute Lymphocytes 2.1 Absolute Monocytes 1.0 Absolute Eosinophils 0.1 Absolute Basophils 0.0 Sodium 146.8 H Potassium 4.5 Chloride 99 Carbon Dioxide 35 H Anion Gap 13 BUN 24 H Creatinine 0.79 Est GFR ( Amer) > 60 Est GFR (Non-Af Amer) > 60 Glucose 114 H Calcium 9.9 07/27/16 07/27/16 07/27/16 02:02 02:02 08:30 Creatine Kinase 90 94 CK-MB (CK-2) 0.95 Troponin I 0.025 0307/27/16 07/27/16 08:30 15:27 15:27 Creatine Kinase 102 CK-MB (CK-2) 1.03 1.24 Troponin I 0.026 0.024 07/28/16 06:07 Creatine Kinase CK-MB (CK-2) Troponin I 0.027 Impressions: Chest X-Ray 07/28/16 00:00 IMPRESSION: No consolidation or effusion. Resolved small right Pleural effusion seen previously. Assessment & Plan - Diagnosis (1) Acute hypoxemic respiratory failure Is this a current diagnosis for this admission?: YesPlan: Continue oxygen supplementation. (2) CHF exacerbation Qualifiers: Congestive heart failure type: unspecified congestive heart failure type Qualified Code(s): I50.9 - Heart failure, unspecified Is this a current diagnosis for this admission?: YesPlan: Acutely decompensated secondary to left ventricular diastolic dysfunction and moderate aortic stenosis, EF normal. Now compensated. Stop IV Lasix. Start Lasix 20mg po daily. Avoid overdiuresis due to valvular heart disease. Continue metoprolol. (3) Hypertension Is this a current diagnosis for this admission?: YesPlan: Continue Toprol-XL 100 mg twice daily, Norvasc 5 mg daily, benazepril 20 mg daily. When necessary IV hydralazine. (4) A-fib Is this a current diagnosis for this admission?: YesPlan: Pacemaker. Xarelto. Metoprolol. Followed by Dr. Cox of cardiology in [place]. (5) Hypothyroid Is this a current diagnosis for this admission?: YesPlan: Synthroid. (6) Severe anxiety Is this a current diagnosis for this admission?: YesPlan: When necessary Ativan. Slowly taper off of scheduled Ativan (decrease to 2mg twice daily for next 5 days, then 1mg twice daily x 5 days, then 1mg QHS x 5 days, then 1mg q8 hours PRN only) and transition to Risperdal if needed for anxiety/sundowning. (7) Dementia Is this a current diagnosis for this admission?: YesPlan: Continue supportive care. Family desires placement at an assisted living facility. (8) Hypomagnesemia Is this a current diagnosis for this admission?: YesPlan: Continue magnesium oxide. - Time Time Spent with patient: 25-34 minutes Anticipated discharge: Other - assisted living Within: when bed available
[2016-07-30] MEDS: MIRTAZAPINE 15 MG TABLET PO SCH (22:26)
[2016-07-30] MEDS: AMLODIPINE BESYLATE 5 MG TABLET PO SCH (22:27)
[2016-07-31 06:34] LABS: ABSOLUTE EOSINOPHILS # (AUTO) 0.2 10^3/uL (0.0-0.6); ABSOLUTE LYMPHOCYTES (AUTO) 1.9 10^3/uL (0.5-4.7); ABSOLUTE MONOCYTES (AUTO) 0.8 10^3/uL (0.1-1.4); ABSOLUTE NEUT (AUTO) 2.4 10^3/uL (1.7-8.2); BASOPHILS % (AUTO) 0.7 % (0-2); EOSINOPHILS % (AUTO) 3.6 % (0-6); HEMATOCRIT 35.6 % (36.0-47.0); HEMOGLOBIN 11.3 g/dL (12.0-15.5); HGB HCT DIFFERENCE -1.7; LYMPHOCYTES % (AUTO) 35.1 % (13-45); MEAN CORPUSCULAR HEMOGLOBIN 25.2 pg (27.0-33.4); MEAN CORPUSCULAR HGB CONC 31.8 g/dL (32.0-36.0); MEAN CORPUSCULAR VOLUME 79 fl (80-97); MONOCYTES % (AUTO) 14.9 % (3-13); RED CELL DISTRIBUTION WIDTH 15.3 % (11.5-14.0); SEGMENTED NEUTROPHILS % (AUTO) 45.7 % (42-78); WHITE BLOOD COUNT 5.3 10^3/uL (4.0-10.5)
[2016-07-31 06:51] LABS: ANION GAP 10 (5-19); BLOOD UREA NITROGEN 28 mg/dL (7-20); CALCIUM 8.8 mg/dL (8.4-10.2); CARBON DIOXIDE 34 mmol/L (22-30); CHLORIDE 100 mmol/L (98-107); CREATININE RESULT 0.87 mg/dL (0.52-1.25); GLUCOSE 97 mg/dL (75-110); POTASSIUM 4.1 mmol/L (3.6-5.0); SODIUM 144.4 mmol/L (137-145)
[2016-07-31] MEDS: MAGNESIUM OXIDE 400 MG TABLET PO SCH ×2 (10:03→17:26)
[2016-07-31] MEDS: METOPROLOL SUCCINATE 50 MG TAB.SR.24H PO SCH ×2 (10:03→22:24)
[2016-07-31] MEDS: POTASSIUM CHLORIDE 10 MEQ TABLET.SA PO SCH (10:04)
[2016-07-31] MEDS: DOCUSATE SODIUM 100 MG CAPSULE PO SCH (10:05)
[2016-07-31] MEDS: LANSOPRAZOLE 30 MG TAB.RAP.DR PO SCH (10:05)
[2016-07-31] MEDS: LEVOTHYROXINE SODIUM 0.1 MG TABLET PO SCH (10:05)
[2016-07-31] MEDS: LORAZEPAM 1 MG TABLET PO SCH ×2 (10:05→22:25)
[2016-07-31] MEDS: FUROSEMIDE 20 MG TABLET PO SCH (10:06)
[2016-07-31] MEDS: RIVAROXABAN 10 MG TABLET PO SCH (17:24)
[2016-07-31] MEDS: BENAZEPRIL HCL 20 MG TABLET PO SCH (17:25)
--- NOTE | 2016-07-31 19:27 | PDOC PROGRESS REPORT ---
Subjective Progress Note for:: 07/31/16 Subjective:: The patient cannot give symptoms because of her advanced dementia. She seems to be breathing easily. Physical Exam Vital Signs: Temp Pulse Resp BP Pulse Ox 97.9 F 87 18 105/57 L 97 07/31/16 15:09 07/31/16 15:09 07/31/16 15:09 07/31/16 15:09 07/31/16 15:09 Intake & Output 07/30/16 07/31/16 08/01/16 06:59 06:59 06:59 Intake Total 249 340 Balance 249 340 Weight 71 kg 72.6 kg Additional comments: GENERAL: No acute distress HEENT: Conjunctiva clear, nonicteric, moist mucous membranes, no JVD, midline trachea RESPIRATORY: Clear to auscultation bilaterally, no wheezes, no rhonchi CARDIAC: Regular rate and rhythm, harsh systolic murmur ABDOMEN: Soft, nondistended, nontender, positive bowel sounds, no rebound, no guarding EXTREMETIES: No edema, cyanosis, clubbing NEUROLOGIC: Alert, oriented to person only, CN's grossly intact, no focal deficits SKIN: No rash, wounds PSYCH: Normal mood, normal affect Results Laboratory Results: 07/31/16 05:29 07/31/16 05:29 07/31/16 07/31/16 05:29 05:29 WBC 5.3 RBC 4.50 Hgb 11.3 L Hct 35.6 L MCV 79 L MCH 25.2 L MCHC 31.8 L RDW 15.3 H Plt Count 238 Seg Neutrophils % 45.7 Lymphocytes % 35.1 Monocytes % 14.9 H Eosinophils % 3.6 Basophils % 0.7 Absolute Neutrophils 2.4 Absolute Lymphocytes 1.9 Absolute Monocytes 0.8 Absolute Eosinophils 0.2 Absolute Basophils 0.0 Sodium 144.4 Potassium 4.1 Chloride 100 Carbon Dioxide 34 H Anion Gap 10 BUN 28 H Creatinine 0.87 Est GFR ( Amer) > 60 Est GFR (Non-Af Amer) > 60 Glucose 97 Calcium 8.8 07/27/16 07/27/16 07/27/16 02:02 02:02 08:30 Creatine Kinase 90 94 CK-MB (CK-2) 0.95 Troponin I 0.025 NT-Pro-B Natriuret Pep 07/27/16 07/27/16 07/27/16 08:30 15:27 15:27 Creatine Kinase 102 CK-MB (CK-2) 1.03 1.24 Troponin I 0.026 0.024 NT-Pro-B Natriuret Pep 07/28/16 07/31/16 06:07 05:29 Creatine Kinase CK-MB (CK-2) Troponin I 0.027 NT-Pro-B Natriuret Pep 6950 H Impressions: Chest X-Ray 07/28/16 00:00 IMPRESSION: No consolidation or effusion. Resolved small right Pleural effusion seen previously. Assessment & Plan - Diagnosis (1) Acute hypoxemic respiratory failure Is this a current diagnosis for this admission?: YesPlan: Continue supplemental oxygen. (2) CHF exacerbation Qualifiers: Congestive heart failure type: unspecified congestive heart failure type Qualified Code(s): I50.9 - Heart failure, unspecified Is this a current diagnosis for this admission?: YesPlan: Ejection fraction normal. She has diastolic dysfunction and moderate aortic stenosis. Compensated on current Rx. (3) Hypertension Is this a current diagnosis for this admission?: YesPlan: Continue current Rx. (4) A-fib Is this a current diagnosis for this admission?: YesPlan: On metoprolol, Xarelto, and she has a permanent pacemaker. She follows with Dr. Cox, security control center operator in [place] (5) Hypothyroid Is this a current diagnosis for this admission?: YesPlan: Continue current Rx. (6) Dementia Is this a current diagnosis for this admission?: YesPlan: Continue supportive care. Family desires placement at an assisted living facility. (7) Hypomagnesemia Is this a current diagnosis for this admission?: YesPlan: Continue supplementation.
[2016-07-31] MEDS: AMLODIPINE BESYLATE 5 MG TABLET PO SCH (22:25)
[2016-07-31] MEDS: MIRTAZAPINE 15 MG TABLET PO SCH (22:25)
[2016-08-01] MEDS: LORAZEPAM INJ 2 MG/1 ML VIAL IV PRN (04:59)
[2016-08-01] MEDS: LANSOPRAZOLE 30 MG TAB.RAP.DR PO SCH (10:33)
[2016-08-01] MEDS: POTASSIUM CHLORIDE 10 MEQ TABLET.SA PO SCH (10:33)
[2016-08-01] MEDS: MAGNESIUM OXIDE 400 MG TABLET PO SCH ×2 (10:33→16:01)
[2016-08-01] MEDS: METOPROLOL SUCCINATE 50 MG TAB.SR.24H PO SCH (10:33)
[2016-08-01] MEDS: LEVOTHYROXINE SODIUM 0.1 MG TABLET PO SCH (10:33)
[2016-08-01] MEDS: LORAZEPAM 1 MG TABLET PO SCH (10:33)
[2016-08-01] MEDS: FUROSEMIDE 20 MG TABLET PO SCH (10:33)
[2016-08-01] MEDS: DOCUSATE SODIUM 100 MG CAPSULE PO SCH (10:34)
[2016-08-01] MEDS: RIVAROXABAN 10 MG TABLET PO SCH (16:01)
[2016-08-01] MEDS: BENAZEPRIL HCL 20 MG TABLET PO SCH (16:01)
--- NOTE | 2016-08-01 16:44 | PDOC PROGRESS REPORT ---
Subjective Progress Note for:: 08/01/16 Subjective:: The patient has advanced dementia. The plan is for placement in an assisted living facility. She is unable to converse. She appears generally comfortable. Physical Exam Vital Signs: Temp Pulse Resp BP Pulse Ox 97.6 F 84 17 148/65 H 100 08/01/16 12:05 08/01/16 14:00 08/01/16 12:05 08/01/16 12:05 08/01/16 12:05 Intake & Output 07/31/16 08/01/16 08/02/16 06:59 06:59 06:59 Intake Total 340 0 Output Total 200 Balance 340 -200 Weight 72.6 kg 72.6 kg Additional comments: GENERAL: No acute distress HEENT: Conjunctiva clear, nonicteric, moist mucous membranes, no JVD, midline trachea RESPIRATORY: Clear to auscultation bilaterally, no wheezes, no rhonchi CARDIAC: Regular rate and rhythm, harsh systolic murmur ABDOMEN: Soft, nondistended, nontender, positive bowel sounds, no rebound, no guarding EXTREMETIES: No edema, cyanosis, clubbing NEUROLOGIC: Alert, oriented to person only, CN's grossly intact, no focal deficits SKIN: No rash, wounds PSYCH: Normal mood, normal affect Results Laboratory Results: 07/31/16 05:29 07/31/16 05:29 07/27/16 08:30 Blood Blood Culture - Final NO GROWTH IN 5 DAYS 07/27/16 02:02 Blood Blood Culture - Final NO GROWTH IN 5 DAYS 07/27/16 07/27/16 07/27/16 02:02 02:02 08:30 Creatine Kinase 90 94 CK-MB (CK-2) 0.95 Troponin I 0.025 NT-Pro-B Natriuret Pep 07/27/16 07/27/16 07/27/16 08:30 15:27 15:27 Creatine Kinase 102 CK-MB (CK-2) 1.03 1.24 Troponin I 0.026 0.024 NT-Pro-B Natriuret Pep 07/28/16 07/31/16 06:07 05:29 Creatine Kinase CK-MB (CK-2) Troponin I 0.027 NT-Pro-B Natriuret Pep 6950 H Impressions: Chest X-Ray 07/28/16 00:00 IMPRESSION: No consolidation or effusion. Resolved small right Pleural effusion seen previously. Assessment & Plan - Diagnosis (1) Acute hypoxemic respiratory failure Is this a current diagnosis for this admission?: YesPlan: Continue supplemental oxygen. (2) CHF exacerbation Qualifiers: Congestive heart failure type: unspecified congestive heart failure type Qualified Code(s): I50.9 - Heart failure, unspecified Is this a current diagnosis for this admission?: YesPlan: She has left ventricular diastolic dysfunction and moderate aortic stenosis, with a normal ejection fraction. CHF is compensated on current Rx. (3) Hypertension Is this a current diagnosis for this admission?: YesPlan: Continue current Rx. (4) A-fib Is this a current diagnosis for this admission?: YesPlan: Rate controlled on metoprolol. She is on Xarelto for stroke prevention. She has a permanent pacemaker. She follows with Dr. Cox, mash filter operator in [place]. (5) Hypothyroid Is this a current diagnosis for this admission?: YesPlan: Continue current Rx. (6) Dementia Is this a current diagnosis for this admission?: YesPlan: Continue supportive care. Family desires placement at an assisted living facility. (7) Hypomagnesemia Is this a current diagnosis for this admission?: YesPlan: Continue supplementation.
[2016-08-02] MEDS: METOPROLOL SUCCINATE 50 MG TAB.SR.24H PO SCH ×3 (00:21→22:49)
[2016-08-02] MEDS: LORAZEPAM 1 MG TABLET PO SCH ×3 (00:21→22:49)
[2016-08-02] MEDS: MIRTAZAPINE 15 MG TABLET PO SCH ×2 (00:22→22:49)
[2016-08-02] MEDS: AMLODIPINE BESYLATE 5 MG TABLET PO SCH ×2 (00:22→22:49)
[2016-08-02 09:47] LABS: ANION GAP 11 (5-19); BLOOD UREA NITROGEN 28 mg/dL (7-20); CALCIUM 9.5 mg/dL (8.4-10.2); CARBON DIOXIDE 33 mmol/L (22-30); CHLORIDE 101 mmol/L (98-107); CREATININE RESULT 0.96 mg/dL (0.52-1.25); GLUCOSE 91 mg/dL (75-110); POTASSIUM 4.5 mmol/L (3.6-5.0); SODIUM 144.8 mmol/L (137-145)
[2016-08-02] MEDS: FUROSEMIDE 20 MG TABLET PO SCH (11:02)
--- NOTE | 2016-08-02 11:02 | PDOC DISCHARGE SUMMARY ---
General - Admit/Disc Date/PCP Admission Date/Primary Care Provider: 07/27/16 01:33 ALBERT VIVAR MD Discharge Date: 08/02/16 - Discharge Diagnosis (1) Acute hypoxemic respiratory failure Is this a current diagnosis for this admission?: YesSummary: Continue supplemental oxygen as needed. (2) CHF exacerbation Is this a current diagnosis for this admission?: YesSummary: She has left ventricular diastolic dysfunction and moderate aortic stenosis, with a normal ejection fraction. CHF is now compensated on current Rx. (3) Hypertension Is this a current diagnosis for this admission?: YesSummary: Hypertension is controlled on current Rx. Care should be taken with antihypertensive medications and diuretics in the face of aortic stenosis. (4) Aortic stenosis, moderate Is this a current diagnosis for this admission?: Yes (5) A-fib Is this a current diagnosis for this admission?: YesSummary: Rate controlled on current medications. She is on Xarelto for stroke prevention. She has a permanent pacemaker. She follows with Dr. Cox, materials engineer in [place]. (6) Hypothyroid Is this a current diagnosis for this admission?: YesSummary: Continue current levothyroxine. (7) Dementia Is this a current diagnosis for this admission?: YesSummary: Continue supportive care. The family has directed placement at an assisted living facility. (8) Hypomagnesemia Is this a current diagnosis for this admission?: YesSummary: Continue supplementation. - Additional Information Resuscitation Status: Full Code Discharge Diet: Cardiac Discharge Activity: Activity As Tolerated, Balance Activity w/Rest, Weigh Daily Home Medications: Benazepril HCl [Lotensin] 20 mg PO ACSUPPER 07/28/16 Esomeprazole Magnesium [Nexium] 40 mg PO DAILY 07/28/16 Furosemide [Lasix] 60 mg PO DAILY 07/28/16 Levothyroxine Sodium [Synthroid 0.1 mg Tablet] 0.1 mg PO DAILY 07/28/16 Amlodipine Besylate [Norvasc 5 mg Tablet] 5 mg PO QHS #0 tablet 08/02/16 Docusate Sodium [Colace 100 mg Capsule] 100 mg PO DAILY #0 capsule 08/02/16 Lorazepam [Ativan 1 mg Tablet] 2 mg PO Q12 #0 tablet 08/02/16 Magnesium Oxide [Mag-Ox 400 mg Tablet] 400 mg PO BID #0 tablet 08/02/16 Metoprolol Succinate [Toprol Xl 50 mg Tab.sr] 100 mg PO Q12 #0 tab.sr.24h Mirtazapine [Remeron 15 mg Tablet] 15 mg PO QHS #0 tablet 08/02/16 Potassium Chloride [Klor-Con 10 Meq Tablet.sa] 40 meq PO DAILY #0 tablet.sa Rivaroxaban [Xarelto 10 mg Tablet] 10 mg PO ACSUPPER #0 tablet 08/02/16 History of Present Illness Patient complains of: Shortness of breath History of Present Illness: MARTY GAGE is a 85 year old female with a past medical history of CHF, atrial fibrillation status post pacemaker placement, hypertension dyslipidemia and severe anxiety with Ativan dependence. Presents with 2 days of worsening exertional shortness of breath and nonproductive cough as well as orthopnea. Patient is a poor historian and with decompensated congestive heart failure and anxiety referred to the hospitalist for admission Hospital Course Hospital Course: The patient's medications were adjusted. Care was taken not to overcorrect with antihypertensives and diuretics in the face of moderate aortic stenosis. The patient's benzodiazepines were reduced. Her hemodynamics remained stable. Her CHF became clinically compensated. Her breathing became unlabored. She gradually became more awake alert and her appetite improved. She has underlying dementia. The family directed admission to an assisted living facility. Physical Exam Vital Signs: Temp Pulse Resp BP Pulse Ox 97.8 F 79 24 H 149/71 H 99 08/02/16 07:44 08/02/16 07:44 08/02/16 07:44 08/02/16 07:44 08/02/16 07:44 Intake & Output 08/01/16 08/02/16 08/03/16 06:59 06:59 06:59 Intake Total 0 427 Output Total 200 Balance -200 427 Weight 72.6 kg 71.3 kg Additional comments: GENERAL: No acute distress, awake, conversant HEENT: Conjunctiva clear, nonicteric, moist mucous membranes, no JVD, midline trachea RESPIRATORY: Clear to auscultation bilaterally, no wheezes, no rhonchi CARDIAC: Regular rate and rhythm, harsh systolic murmur ABDOMEN: Soft, nondistended, nontender, positive bowel sounds, no rebound, no guarding EXTREMETIES: No edema, cyanosis, clubbing NEUROLOGIC: Alert, oriented to person only, CN's grossly intact, no focal deficits SKIN: No rash, wounds PSYCH: Normal mood, normal affect, dementia Results Laboratory Results: 07/31/16 05:29 08/02/16 09:13 08/02/16 09:13 Sodium 144.8 Potassium 4.5 Chloride 101 Carbon Dioxide 33 H Anion Gap 11 BUN 28 H Creatinine 0.96 Est GFR ( Amer) > 60 Est GFR (Non-Af Amer) 55 L Glucose 91 Calcium 9.5 Magnesium 2.0 07/27/16 08:30 Blood Blood Culture - Final NO GROWTH IN 5 DAYS 07/27/16 07/27/16 07/27/16 02:02 02:02 08:30 Creatine Kinase 90 94 CK-MB (CK-2) 0.95 Troponin I 0.025 NT-Pro-B Natriuret Pep 07/27/16 07/27/16 07/27/16 08:30 15:27 15:27 Creatine Kinase 102 CK-MB (CK-2) 1.03 1.24 Troponin I 0.026 0.024 NT-Pro-B Natriuret Pep 07/28/16 07/31/16 08/02/16 06:07 05:29 09:13 Creatine Kinase CK-MB (CK-2) Troponin I 0.027 NT-Pro-B Natriuret Pep 6950 H 9080 H Impressions: Chest X-Ray 07/28/16 00:00 IMPRESSION: No consolidation or effusion. Resolved small right Pleural effusion seen previously. Qualifiers PATEINT BEING DISCHARGED WITH ANY OF THE FOLLOWING DIAGNOSIS?: Heart Failure HF Pt with Afib discharged with Warfarin?: Yes HF Pt discharged on evidence-based Beta Nathalie?: Yes
[2016-08-02] MEDS: DOCUSATE SODIUM 100 MG CAPSULE PO SCH (11:03)
[2016-08-02] MEDS: LANSOPRAZOLE 30 MG TAB.RAP.DR PO SCH (11:03)
[2016-08-02] MEDS: POTASSIUM CHLORIDE 10 MEQ TABLET.SA PO SCH (11:03)
[2016-08-02] MEDS: LEVOTHYROXINE SODIUM 0.1 MG TABLET PO SCH (11:04)
[2016-08-02] MEDS: MAGNESIUM OXIDE 400 MG TABLET PO SCH ×2 (11:06→18:50)
[2016-08-02] MEDS: RIVAROXABAN 10 MG TABLET PO SCH (18:50)
[2016-08-02] MEDS: BENAZEPRIL HCL 20 MG TABLET PO SCH (18:50)
[2016-08-03 09:11] VITALS: BP 147/63
[2016-08-03] MEDS: LORAZEPAM 1 MG TABLET PO SCH (10:26)
[2016-08-03] MEDS: DOCUSATE SODIUM 100 MG CAPSULE PO SCH (10:26)
[2016-08-03] MEDS: LANSOPRAZOLE 30 MG TAB.RAP.DR PO SCH (10:27)
[2016-08-03] MEDS: LEVOTHYROXINE SODIUM 0.1 MG TABLET PO SCH (10:27)
[2016-08-03] MEDS: POTASSIUM CHLORIDE 10 MEQ TABLET.SA PO SCH (10:27)
[2016-08-03] MEDS: MAGNESIUM OXIDE 400 MG TABLET PO SCH (10:27)
[2016-08-03] MEDS: METOPROLOL SUCCINATE 50 MG TAB.SR.24H PO SCH (10:28)
[2016-08-03] MEDS: FUROSEMIDE 20 MG TABLET PO SCH (10:29)
== END 2016-08-03 13:30 | DRG 291 ==
LOC: ER 21:41 → EH 07-27 01:33 → UNDOADMIN 07-27 01:37 → EH 07-27 01:37 → 3N 07-27 09:43 → 4W 07-28 03:53 → 4N 07-31 06:23
PROVIDERS: ADMIT Internal Medicine; ATTEND Internal Medicine
PROC: 5A09357 Assistance with Respiratory Ventilation, Less than 24 Consecutive Hours, Continuous Positive Airway Pressure (ICD-10-PCS; principal; 2016-07-27)
PROC: 3E0F73Z Introduction of Anti-inflammatory into Respiratory Tract, Via Natural or Artificial Opening (ICD-10-PCS; 2016-07-27)
DX: I11.0 Hypertensive heart disease with heart failure (principal); J96.01 Acute respiratory failure with hypoxia; I50.33 Acute on chronic diastolic (congestive) heart failure; I35.0 Nonrheumatic aortic (valve) stenosis; I48.91 Unspecified atrial fibrillation; E03.9 Hypothyroidism, unspecified; F03.90 Unspecified dementia, unspecified severity, without behavioral disturbance, psychotic disturbance, mood disturbance, and anxiety; E83.42 Hypomagnesemia; F41.1 Generalized anxiety disorder; Z78.1 Physical restraint status; Z95.0 Presence of cardiac pacemaker; Z79.899 Other long term (current) drug therapy
CPT/HCPCS: 36415; 36600; 71010; 71020; 80048; 80053; 82550; 82553; 82803; 83735; 83880; 84443; 84484; 85025; 87040; 93005; 93010; 93306; 94660; 99291; J0360; J1630; J1644; J1940; J2060; J3490; J7620

== ENCOUNTER 2017-01-27 13:33 | Inpatient (IN) | payer MEDICARE ==
[2017-01-27] MEDS ORDERED: ALBUTEROL SULFATE 0.083% NEB 2.5 MG/3 ML AMPUL NEB ONE (14:52)
[2017-01-27] MEDS ORDERED: IPRATROPIUM/ALBUTEROL 0.5-2.5 MG/3 ML AMPUL NEB ONE (14:52)
[2017-01-27] MEDS ORDERED: ACETAMINOPHEN 325 MG TABLET PO ONE (15:00)
[2017-01-27 15:03] LABS: ABSOLUTE BASOPHILS # (AUTO) 0.1 10^3/uL (0.0-0.2); ABSOLUTE LYMPHOCYTES (AUTO) 1.9 10^3/uL (0.5-4.7); ABSOLUTE MONOCYTES (AUTO) 1.5 10^3/uL (0.1-1.4); ABSOLUTE NEUT (AUTO) 8.7 10^3/uL (1.7-8.2); BASOPHILS % (AUTO) 0.9 % (0-2); HEMATOCRIT 39.2 % (36.0-47.0); HEMOGLOBIN 12.9 g/dL (12.0-15.5); HGB HCT DIFFERENCE -0.5; LYMPHOCYTES % (AUTO) 15.5 % (13-45); MEAN CORPUSCULAR HEMOGLOBIN 26.8 pg (27.0-33.4); MEAN CORPUSCULAR VOLUME 81 fl (80-97); MONOCYTES % (AUTO) 12.5 % (3-13); RED BLOOD COUNT 4.82 10^6/uL (3.72-5.28); RED CELL DISTRIBUTION WIDTH 17.5 % (11.5-14.0); SEGMENTED NEUTROPHILS % (AUTO) 71.1 % (42-78); WHITE BLOOD COUNT 12.3 10^3/uL (4.0-10.5)
[2017-01-27 15:05] LABS: VENOUS BLOOD PCO2 45.4 mmHg (35-63); VENOUS BLOOD PH 7.44 (7.30-7.42)
[2017-01-27 15:12] LABS: PROTHROMBIN TIME 15.4 SEC (11.4-15.4)
[2017-01-27 15:27] LABS: ALANINE AMINOTRANSFERASE 62 U/L (9-52); ALBUMIN 3.7 g/dL (3.5-5.0); ALKALINE PHOSPHATASE 73 U/L (38-126); ANION GAP 11 (5-19); ASPARTATE AMINO TRANSFERASE 63 U/L (14-36); BILIRUBIN,DIRECT 0.4 mg/dL (0.0-0.4); BILIRUBIN,TOTAL 0.5 mg/dL (0.2-1.3); BLOOD UREA NITROGEN 45 mg/dL (7-20); CALCIUM 9.2 mg/dL (8.4-10.2); CARBON DIOXIDE 31 mmol/L (22-30); CHLORIDE 100 mmol/L (98-107); CREATININE RESULT 3.15 mg/dL (0.52-1.25); GLUCOSE 139 mg/dL (75-110); POTASSIUM 4.8 mmol/L (3.6-5.0); SODIUM 141.6 mmol/L (137-145); TOTAL PROTEIN 6.7 g/dL (6.3-8.2)
--- NOTE | 2017-01-27 15:29 | RADIOLOGY REPORT (SQ) ---
EXAM DESCRIPTION: CHEST SINGLE VIEW COMPLETED DATE/TIME: 01/27/2017 3:16 pm REASON FOR STUDY: db COMPARISON: 07/28/2016 EXAM PARAMETERS: NUMBER OF VIEWS: One view. TECHNIQUE: Single frontal radiographic view of the chest acquired. RADIATION DOSE: NA LIMITATIONS: None. FINDINGS: LUNGS AND PLEURA: Ill-defined small area of opacification in the left upper lobe in an are a usually obscured by the pacemaker MEDIASTINUM AND HILAR STRUCTURES: No masses. Contour normal. HEART AND VASCULAR STRUCTURES: Cardiomegaly. BONES: No acute findings. HARDWARE: None in the chest. OTHER: No other significant finding. IMPRESSION: 1. Cardiomegaly without failure. 2. Question 10 mm left pulmonary nodule. Consider CT. TECHNICAL DOCUMENTATION: JOB ID: [id number]
--- NOTE | 2017-01-27 15:49 | ER Document Report ---
ED General - General Chief Complaint: Wheezing >1yr age Stated Complaint: DIFFICULTY BREATHING Time Seen by Provider: 01/27/17 14:16 Mode of Arrival: Stretcher Information source: Relative, Outside Facility Records TRAVEL OUTSIDE OF THE [place] IN LAST 30 DAYS: No - HPI Patient complains to provider of: Fever, cough, change in mental status Onset: Other - 5 days Onset/Duration: Gradual Associated symptoms: Nonproductive cough, Fever, Shortness of breath Notes: Patient is an 86-year-old female sent from local long term for complaints of fever, cough, wheezing, niece at bedside reports symptoms have been going on for the past 5 days and worsening, patient has had decreased p.o. intake, with a nonproductive cough and now has altered mental status as well, patient was febrile on arrival with a pulse ox of 93%, patient denies any pain at time of my evaluation - Related Data Allergies/Adverse Reactions: No Known Allergies Allergy (Unverified 07/27/16 01:44) Home Medications: Current Home Medications Docusate Sodium [Colace 100 mg Capsule] 100 mg PO DAILY 01/27/17 [History] Furosemide [Lasix 20 mg Tablet] 20 mg PO DAILY 01/27/17 [History] Haloperidol [Haldol 5 mg Tablet] 5 mg PO DAILYP PRN 01/27/17 [History] Levothyroxine Sodium [Synthroid] 112 mcg PO DAILY 01/27/17 [History] Lisinopril [Prinivil] 20 mg PO QAM 01/27/17 [History] Lorazepam [Ativan] 2 mg PO DAILY 01/27/17 [History] Magnesium Oxide [Mag-Ox 400 mg Tablet] 400 mg PO BID 01/27/17 [History] Melatonin 5 mg PO QHS 01/27/17 [History] Metolazone [Zaroxolyn 2.5 Mg Tablet] 2.5 mg PO DAILY 01/27/17 [History] Metoprolol Succinate [Toprol XL 100 mg Tablet] 150 mg PO DAILY 01/27/17 [History ] Mirtazapine [Remeron 15 mg Tablet] 15 mg PO QHS 01/27/17 [History] Omeprazole 20 mg PO DAILY 01/27/17 [History] Potassium Chloride [K-Tab ER] 40 meq PO DAILY 01/27/17 [History] Rivaroxaban [Xarelto 10 mg Tablet] 10 mg PO QPM 01/27/17 [History] Past Medical History - General Information source: Patient - Social History Smoking Status: Unknown if Ever Smoked Chew tobacco use (# tins/day): No Frequency of alcohol use: None Drug Abuse: None Family History: Reviewed & Not Pertinent, Other - Unobtainable - Past Medical History Cardiac Medical History: Reports: Hx Atrial Fibrillation, Hx Congestive Heart Failure, Hx Hypercholesterolemia, Hx Hypertension Renal/ Medical History: Denies: Hx Peritoneal Dialysis Psychiatric Medical History: Denies: Hx Depression - Immunizations Hx Diphtheria, Pertussis, Tetanus Vaccination: Yes Hx Pneumococcal Vaccination: 05/09/13 Review of Systems - Review of Systems Constitutional: Fever EENT: No symptoms reported Cardiovascular: No symptoms reported Respiratory: See HPI Gastrointestinal: Poor appetite, Poor fluid intake Genitourinary: No symptoms reported Female Genitourinary: No symptoms reported Musculoskeletal: No symptoms reported Skin: No symptoms reported Hematologic/Lymphatic: No symptoms reported Neurological/Psychological: Confusion -: Yes All other systems reviewed and negative Physical Exam - Vital signs Vitals: Temp Pulse Resp BP Pulse Ox 102.0 F H 97 24 H 146/74 H 93 01/27/17 13:42 01/27/17 13:42 01/27/17 13:42 01/27/17 13:42 01/27/17 13:42 Interpretation: Hypertensive, Tachycardic, Febrile - General In distress: None - HEENT Head: Normocephalic, Atraumatic Eyes: Normal Conjunctiva: Normal Extraocular movements intact: Yes Eyelashes: Normal Pupils: PERRL Mucous membranes: Dry - Respiratory Respiratory status: No respiratory distress, Other - Pacemaker palpated in the left anterior chest wall Chest status: Nontender Breath sounds: Nonproductive cough, Rhonchi, Wheezing Chest palpation: Normal - Cardiovascular Rhythm: Irregularly irregular, Tachycardia - Abdominal Inspection: Normal Distension: No distension Bowel sounds: Normal Tenderness: Nontender Organomegaly: No organomegaly - Back Back: Normal - Extremities General upper extremity: Normal inspection General lower extremity: Normal inspection - Neurological Cognition: Confused Orientation: Disoriented to place, Disoriented to time, Disoriented to events [place] Coma Scale Eye Opening: Spontaneous [place] Coma Scale Verbal: Confused [place] Coma Scale Motor: Obeys Commands [place] Coma Scale Total: 14 - Skin Skin Temperature: Hot Skin Moisture: Dry Skin Color: Normal Course - Re-evaluation Re-evalutation: 01/27/17 16:33 Patient was discussed with hospitalist, Dr. Velez who requests a KUB, the study has been ordered, however patient has no abdominal pain or tenderness, she will be admitted for fever of unknown source with acute renal failure and leukocytosis, IV Rocephin has been ordered, IV fluids have been ordered as well , patient will be admitted for further evaluation and treatment 01/27/17 20:56 - Vital Signs Vital signs: Temp Pulse Resp BP Pulse Ox 100.2 F 99 20 128/65 H 93 01/27/17 18:00 01/27/17 18:19 01/27/17 18:00 01/27/17 18:00 01/27/17 18:00 - Laboratory Result Diagrams: 01/27/17 14:45 01/27/17 14:45 Laboratory results interpreted by me: 01/27/17 01/27/17 01/27/17 14:45 14:45 14:45 WBC 12.3 H MCH 26.8 L RDW 17.5 H Absolute Neutrophils 8.7 H Absolute Monocytes 1.5 H VBG pH 7.44 H Carbon Dioxide 31 H BUN 45 H Creatinine 3.15 H Est GFR ( Amer) 17 L Est GFR (Non-Af Amer) 14 L Glucose 139 H AST 63 H ALT 62 H Urine Protein Urine Blood 01/27/17 15:52 WBC MCH RDW Absolute Neutrophils Absolute Monocytes VBG pH Carbon Dioxide BUN Creatinine Est GFR ( Amer) Est GFR (Non-Af Amer) Glucose AST ALT Urine Protein 30 H Urine Blood MODERATE H - Diagnostic Test Radiology reviewed: Image reviewed, Reports reviewed - EKG Interpretation by Me Rate: Tachycardia Rhythm: A.Fib When compared to previous EKG there are: No significant change - Transfer of Care Care transferred to following provider: Dr Velez Discharge - Discharge Clinical Impression: SIRS (systemic inflammatory response syndrome), Acute renal insufficiency Condition: Fair Disposition: ADMITTED INPATIENT Admitting Provider: Hospitalist Unit Admitted: Telemetry Sepsis - Sepsis Documentation Sepsis Patient: Yes - Vital Signs Vitals: Temp Pulse Resp BP Pulse Ox 100.2 F 99 20 128/65 H 93 01/27/17 18:00 01/27/17 18:19 01/27/17 18:00 01/27/17 18:00 01/27/17 18:00 Interpretation: Hypertensive, Febrile - Cardiovascular Peripheral Pulse Strength: Normal Capillary refill: < 3 seconds Rhythm: Irregularly irregular Heart Sounds: Normal auscultation - Respiratory Breath Sounds: Rhonchi, Wheezing, Nonproductive cough - Skin Skin Color: Normal
[2017-01-27 16:26] LABS: APPEARANCE,URINE CLEAR; BILIRUBIN,URINE NEGATIVE (NEGATIVE); GLUCOSE, URINE NEGATIVE (NEGATIVE); KETONES,URINE NEGATIVE (NEGATIVE); LEUKOCYTE ESTERASE,URINE NEGATIVE (NEGATIVE); NITRITE,URINE NEGATIVE (NEGATIVE); PROTEIN,URINE 30 mg/dL (NEGATIVE); UROBILINOGEN,URINE NEGATIVE mg/dL (<2.0)
[2017-01-27] MEDS ORDERED: CEFTRIAXONE INJ 1000 MG VIAL IV ONE (16:29)
[2017-01-27] MEDS: NORMAL SALINE 1000 ML 1,000 ML IV PRN ×5 (16:40→18:46)
[2017-01-27 17:14] LABS: FREE T3 2.8 pg/mL (2.77-5.27)
--- NOTE | 2017-01-27 17:22 | RADIOLOGY REPORT (SQ) ---
EXAM DESCRIPTION: KUB/ABDOMEN (SINGLE VIEW) COMPLETED DATE/TIME: 01/27/2017 4:53 pm REASON FOR STUDY: fever COMPARISON: None. NUMBER OF VIEWS: One view. TECHNIQUE: Supine radiographic image of the abdomen acquired. LIMITATIONS: None. FINDINGS: BOWEL GAS PATTERN: Multiple gas-filled nondistended loops of bowel including large and sma ll bowel. CALCIFICATIONS: No suspicious calcifications. SOFT TISSUES: No gross mass or suggestion of organomegaly. HARDWARE: None in the abdomen. BONES: No acute fracture. No worrisome bone lesions. OTHER: No other significant finding. IMPRESSION: Nonspecific abdomen. Considerable bowel gas as described. TECHNICAL DOCUMENTATION: JOB ID: [id number]- All Rights Reserved
[2017-01-27 17:27] LABS: THYROID STIMULATING HORMONE 0.65 uIU/mL (0.47-4.68)
[2017-01-27] MEDS ORDERED: DEXTROSE 40% GEL 15 GM TUBE PO PRN ×2 (17:50)
[2017-01-27] MEDS ORDERED: DEXTROSE 50%-WATER 25 GM/50 ML DISP.SYRIN IV PRN ×2 (17:50)
[2017-01-27] MEDS ORDERED: GLUCAGON,HUMAN RECOMB 1 MG INJ SUBCUT PRN (17:50)
[2017-01-27] MEDS ORDERED: ONDANSETRON HCL INJ/PF 4 MG/2 ML SDV IV PRN (17:56)
--- NOTE | 2017-01-27 18:32 | EKG REPORT ---
SEVERITY:- ABNORMAL ECG - ATRIAL FIBRILLATION, V-RATE 92-134 ABNORMAL T, CONSIDER ISCHEMIA, LATERAL LEADS : Confirmed by: Maxwell Hamilton MD 27-Jan-2017 18:31:07
[2017-01-27] MEDS: DOCUSATE SODIUM 100 MG CAPSULE PO SCH (18:45)
--- NOTE | 2017-01-27 18:57 | PDOC H&P ---
History of Present Illness Admission Date/PCP: 01/27/17 16:40 MARIA VICTORIA ARMANDO Patient complains of: Altered mental status History of Present Illness: MARTY GAGE is a 86 year old female, with history of chronic atrial fibrillation, congestive heart failure, hypertension, aortic stenosis, hypothyroidism and dementia was brought to the emergency room because of change in mental status. For the past 3 days the patient has been noted to have coughing with intermittent wheezing but no definite shortness of breath. Since started to develop low-grade fever. No reported abdominal pain nausea or vomiting. Likewise there is no reported diarrhea. The patient normally does not complain according to the family. When the symptoms first started he was given cough medication and since then family noted that she was lethargic. Oral intake has declined. The patient was brought to the emergency room for evaluation. Patient temperature was elevated with mild elevation of WBC. Creatinine was likewise elevated. The patient was given intravenous fluids and was referred for admission. Patient unable to give information due to mental status therefore unobtainable and information obtained from the family at bedside and from prior records. Past Medical History Past Medical History: Medication reconciliation pending verification from the patient's pharmacist. Cardiac Medical History: Reports: Atrial Fibrillation, Congestive Heart Failure , Hyperlipidema, Hypertension, Heart Murmur - Aortic stenosis Neurological Medical History: Reports: Other - Dementia Endocrine Medical History: Reports: Hypothyroidism Psychiatric Medical History: Reports: General Anxiety Disorder Denies: Depression Past Surgical History Past Surgical History: Denies: None Social History Information Source: Relative Lives with: Longterm Smoking Status: Never Smoker Frequency of Alcohol Use: None Hx Recreational Drug Use: No Drugs: None Hx Prescription Drug Abuse: No - Advance Directive Resuscitation Status: Full Code Family History Family History: Hypertension, Other - Heart disease Parental Family History Reviewed: Yes Children Family History Reviewed: Yes Sibling(s) Family History Reviewed.: Yes Medication/Allergy Home Medications: Docusate Sodium [Colace 100 mg Capsule] 100 mg PO DAILY 01/27/17 Furosemide [Lasix 20 mg Tablet] 20 mg PO DAILY 01/27/17 Haloperidol [Haldol 5 mg Tablet] 5 mg PO DAILYP PRN 01/27/17 Levothyroxine Sodium [Synthroid] 112 mcg PO DAILY 01/27/17 Lisinopril [Prinivil] 20 mg PO QAM 01/27/17 Lorazepam [Ativan] 2 mg PO DAILY 01/27/17 Magnesium Oxide [Mag-Ox 400 mg Tablet] 400 mg PO BID 01/27/17 Melatonin 5 mg PO QHS 01/27/17 Metolazone [Zaroxolyn 2.5 Mg Tablet] 2.5 mg PO DAILY 01/27/17 Metoprolol Succinate [Toprol XL 100 mg Tablet] 150 mg PO DAILY 01/27/17 Mirtazapine [Remeron 15 mg Tablet] 15 mg PO QHS 01/27/17 Omeprazole 20 mg PO DAILY 01/27/17 Potassium Chloride [K-Tab ER] 40 meq PO DAILY 01/27/17 Rivaroxaban [Xarelto 10 mg Tablet] 10 mg PO QPM 01/27/17 Allergies/Adverse Reactions: No Known Allergies Allergy (Unverified 07/27/16 01:44) Review of Systems ROS unobtainable: Due to mental status - Other than stated in the history by the family no other information available at this time Physical Exam Vital Signs: Temp Pulse Resp BP Pulse Ox 100.2 F 99 20 128/65 H 93 01/27/17 18:00 01/27/17 18:19 01/27/17 18:00 01/27/17 18:00 01/27/17 18:00 Intake & Output 01/26/17 01/27/17 01/28/17 06:59 06:59 06:59 Weight 65.77 kg General appearance: PRESENT: no acute distress, obese, other - Occasionally answers questions Head exam: PRESENT: normocephalic Eye exam: PRESENT: conjunctiva pink, EOMI, PERRLA - Sluggish. ABSENT: scleral icterus Ear exam: PRESENT: normal external ear exam. ABSENT: drainage Mouth exam: PRESENT: dry mucosa, neck supple, tongue midline Throat exam: ABSENT: post pharyngeal erythema, tonsillar exudate Neck exam: ABSENT: carotid bruit, JVD, lymphadenopathy, thyromegaly Respiratory exam: PRESENT: wheezes - Occasional. ABSENT: rales, rhonchi, unlabored Cardiovascular exam: PRESENT: RRR. ABSENT: diastolic murmur, rubs, systolic murmur Pulses: PRESENT: normal dorsalis pedis pul Vascular exam: PRESENT: normal capillary refill GI/Abdominal exam: PRESENT: normal bowel sounds, soft. ABSENT: distended, guarding, mass, organolmegaly, rebound, tenderness Rectal exam: PRESENT: deferred Extremities exam: PRESENT: other - Trace lower extremity edema. ABSENT: calf tenderness, clubbing Neurological exam: PRESENT: altered - Occasionally responds to questions, other - Moves all 4 extremities seems to be equal Psychiatric exam: PRESENT: normal mood. ABSENT: agitated Focused psych exam: ABSENT: restlessness Skin exam: PRESENT: dry, warm. ABSENT: cyanosis Results Impressions: Chest X-Ray 01/27/17 14:52 IMPRESSION: 1. Cardiomegaly without failure. 2. Question 10 mm left pulmonary nodule. Consider CT. KUB X-Ray 01/27/17 16:32 IMPRESSION: Nonspecific abdomen. Considerable bowel gas as described. Assessment & Plan - Diagnosis (1) Altered mental status, unspecified Qualifiers: Altered mental status type: disorientation Qualified Code(s): R41.0 - Disorientation, unspecified Is this a current diagnosis for this admission?: Yes (2) Acute renal failure Qualifiers: Acute renal failure type: unspecified Qualified Code(s): N17.9 - Acute kidney failure, unspecified Is this a current diagnosis for this admission?: Yes (3) Dehydration Is this a current diagnosis for this admission?: Yes (4) Urinary tract infection Qualifiers: Urinary tract infection type: site unspecified Is this a current diagnosis for this admission?: Yes (5) Pulmonary nodule Is this a current diagnosis for this admission?: Yes (6) A-fib Qualifiers: Atrial fibrillation type: chronic Qualified Code(s): I48.2 - Chronic atrial fibrillation Is this a current diagnosis for this admission?: Yes (7) Aortic stenosis, moderate Is this a current diagnosis for this admission?: Yes (8) Dementia Qualifiers: Dementia type: unspecified type Dementia behavioral disturbance: without behavioral disturbance Qualified Code(s): F03.90 - Unspecified dementia without behavioral disturbance Is this a current diagnosis for this admission?: Yes (9) Hypertension Qualifiers: Hypertension type: essential hypertension Qualified Code(s): I10 - Essential (primary) hypertension Is this a current diagnosis for this admission?: Yes (10) Hypothyroid Qualifiers: Hypothyroidism type: acquired Qualified Code(s): E03.9 - Hypothyroidism, unspecified Is this a current diagnosis for this admission?: Yes - Time Time Spent: 50 to 70 Minutes - Inpatient Certification Based on my medical assessment, after consideration of the patient's comorbidities, presenting symptoms, or acuity I expect that the services needed warrant INPATIENT care.: Yes I certify that my determination is in accordance with my understanding of Medicare's requirements for reasonable and necessary INPATIENT services [42 CFR 412.3e].: Yes Medical Necessity: Significant Comorbidiites Make Outpatient Treatment Too Risky , Need Close Monitoring Due to Risk of Patient Decompensation, Need For IV Fluids, Need For Continuous Telemetry Monitoring, Risk of Complication if Not Cared For in Hospital 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 We will hydrate the patient with normal saline and monitor creatinine. In the meantime we will culture the urine and monitor liver functions. Begin the patient on intravenous quinolone to cover for urinary tract infection and possible respiratory tract infection. In the meantime I will check a KUB for impaction. I have discussed with family regarding presence of lung nodule and workup including biopsy. Family refused any aggressive measures at this time. DVT prophylaxis with Lovenox will be placed. We will also place the patient on oxygen protocol. As needed bronchodilators will be given for wheezing. Further testing depends on initial evaluation and response to treatment as outlined above.
[2017-01-27] MEDS ORDERED: LEVOFLOXACIN 750 MG/D5W RTU 750 MG/150 ML RTUPB IV ONE (19:00)
[2017-01-27] MEDS: IPRATROPIUM/ALBUTEROL 0.5-2.5 MG/3 ML AMPUL NEB SCH (20:39)
[2017-01-27] MEDS: HEPARIN SOD (PORCINE) 5,000 UNIT/ML 1 ML SYRINGE SUBCUT SCH (23:15)
[2017-01-27] MEDS: ACETAMINOPHEN 325 MG TABLET PO PRN (23:16)
[2017-01-28] MEDS: IPRATROPIUM/ALBUTEROL 0.5-2.5 MG/3 ML AMPUL NEB SCH ×4 (01:45→20:20)
[2017-01-28] MEDS: LANSOPRAZOLE 30 MG TAB.RAP.DR PO SCH ×2 (05:48→17:30)
[2017-01-28] MEDS: HEPARIN SOD (PORCINE) 5,000 UNIT/ML 1 ML SYRINGE SUBCUT SCH (05:48)
[2017-01-28 06:10] LABS: ABSOLUTE BASOPHILS # (AUTO) 0.1 10^3/uL (0.0-0.2); ABSOLUTE MONOCYTES (AUTO) 1.7 10^3/uL (0.1-1.4); ABSOLUTE NEUT (AUTO) 8.1 10^3/uL (1.7-8.2); BASOPHILS % (AUTO) 0.8 % (0-2); EOSINOPHILS % (AUTO) 0.1 % (0-6); HEMATOCRIT 34.9 % (36.0-47.0); HEMOGLOBIN 11.8 g/dL (12.0-15.5); HGB HCT DIFFERENCE 0.5; LYMPHOCYTES % (AUTO) 16.7 % (13-45); MEAN CORPUSCULAR HEMOGLOBIN 27.6 pg (27.0-33.4); MEAN CORPUSCULAR HGB CONC 33.9 g/dL (32.0-36.0); MEAN CORPUSCULAR VOLUME 81 fl (80-97); RED BLOOD COUNT 4.28 10^6/uL (3.72-5.28); RED CELL DISTRIBUTION WIDTH 17.6 % (11.5-14.0); SEGMENTED NEUTROPHILS % (AUTO) 68.4 % (42-78); WHITE BLOOD COUNT 11.8 10^3/uL (4.0-10.5)
[2017-01-28 06:39] LABS: ALANINE AMINOTRANSFERASE 40 U/L (9-52); ALKALINE PHOSPHATASE 61 U/L (38-126); ASPARTATE AMINO TRANSFERASE 41 U/L (14-36); BILIRUBIN,DIRECT 0.4 mg/dL (0.0-0.4); BILIRUBIN,TOTAL 0.6 mg/dL (0.2-1.3); BLOOD UREA NITROGEN 42 mg/dL (7-20); CALCIUM 8.9 mg/dL (8.4-10.2); CARBON DIOXIDE 31 mmol/L (22-30); CREATININE RESULT 3.07 mg/dL (0.52-1.25); GLUCOSE 105 mg/dL (75-110); POTASSIUM 4.4 mmol/L (3.6-5.0); SODIUM 143.2 mmol/L (137-145); TOTAL PROTEIN 5.8 g/dL (6.3-8.2)
[2017-01-28 06:40] LABS: ANION GAP 9 (5-19); CHLORIDE 103 mmol/L (98-107)
--- NOTE | 2017-01-28 09:41 | PDOC PROGRESS REPORT ---
Subjective Progress Note for:: 01/28/17 Subjective:: Patient is more awake and alert. Denies any pain or discomfort. Denies any PND orthopnea nor chest pain. No nausea or vomiting. Denies diarrhea as well. No reported distress or agitation. Physical Exam Vital Signs: Temp Pulse Resp BP Pulse Ox 98.2 F 106 H 18 124/67 97 01/28/17 03:54 01/28/17 07:49 01/28/17 07:49 01/28/17 03:54 01/28/17 07:49 Intake & Output 01/27/17 01/28/17 01/29/17 06:59 06:59 06:59 Intake Total 880 Balance 880 Weight 65.77 kg General appearance: PRESENT: no acute distress, cooperative Head exam: PRESENT: normocephalic Eye exam: PRESENT: EOMI Mouth exam: PRESENT: dry mucosa, neck supple Neck exam: ABSENT: JVD Respiratory exam: PRESENT: clear to auscultation roscoe. ABSENT: rhonchi, wheezes Cardiovascular exam: PRESENT: RRR. ABSENT: gallop GI/Abdominal exam: PRESENT: hypoactive bowel sounds, soft. ABSENT: distended Extremities exam: ABSENT: pedal edema Neurological exam: PRESENT: alert, awake Skin exam: PRESENT: dry, warm. ABSENT: cyanosis Results Laboratory Results: 01/28/17 05:56 01/28/17 05:56 01/28/17 01/28/17 01/28/17 05:56 05:56 05:56 WBC 11.8 H RBC 4.28 Hgb 11.8 L Hct 34.9 L MCV 81 MCH 27.6 MCHC 33.9 RDW 17.6 H Plt Count 140 L Seg Neutrophils % 68.4 Lymphocytes % 16.7 Monocytes % 14.0 H Eosinophils % 0.1 Basophils % 0.8 Absolute Neutrophils 8.1 Absolute Lymphocytes 2.0 Absolute Monocytes 1.7 H Absolute Eosinophils 0.0 Absolute Basophils 0.1 Sodium 143.2 Potassium 4.4 Chloride 103 Carbon Dioxide 31 H Anion Gap 9 BUN 42 H Creatinine 3.07 H Est GFR ( Amer) 17 L Est GFR (Non-Af Amer) 14 L Glucose 105 Calcium 8.9 Total Bilirubin 0.6 AST 41 H ALT 40 Alkaline Phosphatase 61 Ammonia < 8.7 L Total Protein 5.8 L Albumin 3.0 L Impressions: Chest X-Ray 01/27/17 14:52 IMPRESSION: 1. Cardiomegaly without failure. 2. Question 10 mm left pulmonary nodule. Consider CT. KUB X-Ray 01/27/17 16:32 IMPRESSION: Nonspecific abdomen. Considerable bowel gas as described. Assessment & Plan - Diagnosis (1) Altered mental status, unspecified Qualifiers: Altered mental status type: disorientation Qualified Code(s): R41.0 - Disorientation, unspecified Is this a current diagnosis for this admission?: Yes (2) Acute renal failure Qualifiers: Acute renal failure type: unspecified Qualified Code(s): N17.9 - Acute kidney failure, unspecified Is this a current diagnosis for this admission?: Yes (3) Dehydration Is this a current diagnosis for this admission?: Yes (4) Urinary tract infection Qualifiers: Urinary tract infection type: site unspecified Is this a current diagnosis for this admission?: Yes (5) Pulmonary nodule Is this a current diagnosis for this admission?: Yes (6) A-fib Qualifiers: Atrial fibrillation type: chronic Qualified Code(s): I48.2 - Chronic atrial fibrillation Is this a current diagnosis for this admission?: Yes (7) Aortic stenosis, moderate Is this a current diagnosis for this admission?: Yes (8) Dementia Qualifiers: Dementia type: unspecified type Dementia behavioral disturbance: without behavioral disturbance Qualified Code(s): F03.90 - Unspecified dementia without behavioral disturbance Is this a current diagnosis for this admission?: Yes (9) Hypertension Qualifiers: Hypertension type: essential hypertension Qualified Code(s): I10 - Essential (primary) hypertension Is this a current diagnosis for this admission?: Yes (10) Hypothyroid Qualifiers: Hypothyroidism type: acquired Qualified Code(s): E03.9 - Hypothyroidism, unspecified Is this a current diagnosis for this admission?: Yes - Time Time Spent with patient: 25-34 minutes - Plan Summary Plan Summary: Patient's anatomy slowly improving. We will continue gentle IV hydration. In the meantime I will continue to hold patient Xarelto full dose for now. We will resume the patient's beta-jac and Ativan at a lower dose. Continue antibiotics and follow cultures. Continue supportive care. We will begin diet. Physical therapy when more awake and alert.
[2017-01-28] MEDS: ACETAMINOPHEN 325 MG TABLET PO PRN (09:48)
[2017-01-28] MEDS: DOCUSATE SODIUM 100 MG CAPSULE PO SCH ×2 (09:48→17:30)
[2017-01-28] MEDS ORDERED: (PENDING PHARMACY ID) (Metoprolol Succinate [Toprol Xl 100 Mg Tablet] 150 MG) PO SCH (10:00)
[2017-01-28] MEDS ORDERED: RIVAROXABAN 15 MG TABLET PO ONE (10:30)
[2017-01-28] MEDS: LORAZEPAM 1 MG TABLET PO SCH (11:01)
[2017-01-28] MEDS: METOPROLOL SUCCINATE 50 MG TAB.SR.24H PO SCH (11:01)
[2017-01-28] MEDS: LEVOTHYROXINE SODIUM 0.112 MG TABLET PO SCH (11:01)
[2017-01-28] MEDS ORDERED: LEVOFLOXACIN 500 MG/D5W RTU 500 MG/100 ML RTUPB IV SCH (20:00)
[2017-01-28] MEDS: NORMAL SALINE 1000 ML 1,000 ML IV PRN (20:21)
[2017-01-28] MEDS: MIRTAZAPINE 15 MG TABLET PO SCH (21:39)
[2017-01-29] MEDS: IPRATROPIUM/ALBUTEROL 0.5-2.5 MG/3 ML AMPUL NEB SCH ×4 (01:12→19:51)
[2017-01-29] MEDS: ACETAMINOPHEN 325 MG TABLET PO PRN ×2 (03:48→21:02)
[2017-01-29 05:41] LABS: ANION GAP 12 (5-19); BLOOD UREA NITROGEN 46 mg/dL (7-20); CALCIUM 8.8 mg/dL (8.4-10.2); CARBON DIOXIDE 25 mmol/L (22-30); CHLORIDE 105 mmol/L (98-107); CREATININE RESULT 2.74 mg/dL (0.52-1.25); GLUCOSE 95 mg/dL (75-110); POTASSIUM 4.3 mmol/L (3.6-5.0); SODIUM 141.6 mmol/L (137-145)
--- NOTE | 2017-01-29 06:11 | EKG REPORT ---
SEVERITY:- ABNORMAL ECG - ATRIAL FIBRILLATION, V-RATE 96-165 MULTIFORM VENTRICULAR PREMATURE COMPLEXES PROBABLE LVH WITH SECONDARY REPOL ABNRM BORDERLINE PROLONGED QT INTERVAL : Confirmed by: Maxwell Hamilton MD 29-Jan-2017 06:10:32
[2017-01-29] MEDS: LANSOPRAZOLE 30 MG TAB.RAP.DR PO SCH ×2 (06:33→17:38)
--- NOTE | 2017-01-29 09:09 | PDOC PROGRESS REPORT ---
Subjective Progress Note for:: 01/29/17 Subjective:: Patient had a fever last night. No bowel movement yet so far. No reported nausea vomiting, diarrhea, shortness of breath or coughing. Patient denies any distinct pain or discomfort. Patient tolerating oral intake well. Physical Exam Vital Signs: Temp Pulse Resp BP Pulse Ox 97.8 F 120 H 16 146/88 H 98 01/29/17 03:16 01/29/17 07:00 01/29/17 03:16 01/29/17 03:16 01/29/17 03:16 Intake & Output 01/28/17 01/29/17 01/30/17 06:59 06:59 06:59 Intake Total 880 3000 Balance 880 3000 Weight 65.77 kg 65.77 kg General appearance: PRESENT: no acute distress, cooperative Head exam: PRESENT: normocephalic Eye exam: PRESENT: EOMI Mouth exam: PRESENT: moist, neck supple Neck exam: ABSENT: JVD Respiratory exam: PRESENT: clear to auscultation roscoe Cardiovascular exam: PRESENT: irregular rhythm. ABSENT: gallop GI/Abdominal exam: PRESENT: hypoactive bowel sounds, soft. ABSENT: distended Extremities exam: PRESENT: other - Trace pretibial edema Neurological exam: PRESENT: alert, awake Skin exam: PRESENT: dry, warm. ABSENT: cyanosis Results Laboratory Results: 01/28/17 05:56 01/29/17 03:42 01/29/17 03:42 Sodium 141.6 Potassium 4.3 Chloride 105 Carbon Dioxide 25 Anion Gap 12 BUN 46 H Creatinine 2.74 H Est GFR ( Amer) 20 L Est GFR (Non-Af Amer) 16 L Glucose 95 Calcium 8.8 Impressions: Chest X-Ray 01/27/17 14:52 IMPRESSION: 1. Cardiomegaly without failure. 2. Question 10 mm left pulmonary nodule. Consider CT. KUB X-Ray 01/27/17 16:32 IMPRESSION: Nonspecific abdomen. Considerable bowel gas as described. Assessment & Plan - Diagnosis (1) Altered mental status, unspecified Qualifiers: Altered mental status type: disorientation Qualified Code(s): R41.0 - Disorientation, unspecified Is this a current diagnosis for this admission?: Yes (2) Acute renal failure Qualifiers: Acute renal failure type: unspecified Qualified Code(s): N17.9 - Acute kidney failure, unspecified Is this a current diagnosis for this admission?: Yes (3) Dehydration Is this a current diagnosis for this admission?: Yes (4) Urinary tract infection Qualifiers: Urinary tract infection type: site unspecified Is this a current diagnosis for this admission?: Yes (5) Pulmonary nodule Is this a current diagnosis for this admission?: Yes (6) A-fib Qualifiers: Atrial fibrillation type: chronic Qualified Code(s): I48.2 - Chronic atrial fibrillation Is this a current diagnosis for this admission?: Yes (7) Aortic stenosis, moderate Is this a current diagnosis for this admission?: Yes (8) Dementia Qualifiers: Dementia type: unspecified type Dementia behavioral disturbance: without behavioral disturbance Qualified Code(s): F03.90 - Unspecified dementia without behavioral disturbance Is this a current diagnosis for this admission?: Yes (9) Hypertension Qualifiers: Hypertension type: essential hypertension Qualified Code(s): I10 - Essential (primary) hypertension Is this a current diagnosis for this admission?: Yes (10) Hypothyroid Qualifiers: Hypothyroidism type: acquired Qualified Code(s): E03.9 - Hypothyroidism, unspecified Is this a current diagnosis for this admission?: Yes - Time Time Spent with patient: 25-34 minutes - Plan Summary Plan Summary: Continue gentle IV hydration and monitoring of creatinine. Give Dulcolax suppository. Follow cultures. Discontinue Levaquin and begin Invanz. Continue other medication and supportive care.
[2017-01-29] MEDS ORDERED: BISACODYL 10 MG SUPP.RECT PR ONE (10:00)
[2017-01-29] MEDS ORDERED: ERTAPENEM SODIUM INJ 1 GM VIAL IV SCH (10:00)
[2017-01-29] MEDS: DOCUSATE SODIUM 100 MG CAPSULE PO SCH ×2 (10:08→17:38)
[2017-01-29] MEDS: LORAZEPAM 1 MG TABLET PO SCH (10:08)
[2017-01-29] MEDS: LEVOTHYROXINE SODIUM 0.112 MG TABLET PO SCH (10:08)
[2017-01-29] MEDS: METOPROLOL SUCCINATE 50 MG TAB.SR.24H PO SCH (10:09)
[2017-01-29] MEDS ORDERED: ERTAPENEM SODIUM 0.5 GM in NORMAL SALINE 50 ML IV SCH (12:00)
[2017-01-29] MEDS: RIVAROXABAN 15 MG TABLET PO SCH (17:37)
[2017-01-29] MEDS ORDERED: LEVOFLOXACIN 750 MG/D5W RTU 750 MG/150 ML RTUPB IV SCH (18:00)
[2017-01-29] MEDS: MIRTAZAPINE 15 MG TABLET PO SCH (21:02)
[2017-01-30] MEDS: ACETAMINOPHEN 325 MG TABLET PO PRN (01:20)
[2017-01-30] MEDS: IPRATROPIUM/ALBUTEROL 0.5-2.5 MG/3 ML AMPUL NEB SCH ×4 (01:21→20:06)
[2017-01-30] MEDS: LANSOPRAZOLE 30 MG TAB.RAP.DR PO SCH ×2 (05:21→18:05)
[2017-01-30 06:05] LABS: ANION GAP 10 (5-19); BLOOD UREA NITROGEN 42 mg/dL (7-20); CALCIUM 9.4 mg/dL (8.4-10.2); CARBON DIOXIDE 24 mmol/L (22-30); CHLORIDE 108 mmol/L (98-107); GLUCOSE 102 mg/dL (75-110); POTASSIUM 4.3 mmol/L (3.6-5.0); SODIUM 141.9 mmol/L (137-145)
[2017-01-30] MEDS ORDERED: NORMAL SALINE 1000 ML 1,000 ML IV PRN (10:08)
[2017-01-30] MEDS: DOCUSATE SODIUM 100 MG CAPSULE PO SCH ×2 (10:12→18:06)
[2017-01-30] MEDS: METOPROLOL SUCCINATE 50 MG TAB.SR.24H PO SCH (10:12)
[2017-01-30] MEDS: LEVOTHYROXINE SODIUM 0.112 MG TABLET PO SCH (10:13)
[2017-01-30] MEDS: LORAZEPAM 1 MG TABLET PO SCH (10:13)
--- NOTE | 2017-01-30 10:13 | PDOC PROGRESS REPORT ---
Subjective Progress Note for:: 01/30/17 Subjective:: No reported respiratory discomfort, temperature spikes, nausea vomiting or diarrhea. Patient noted to be tachycardic on the monitor. Patient denies pain at this time. Denies shortness of breath as well. Physical Exam Vital Signs: Temp Pulse Resp BP Pulse Ox 98.8 F 119 H 18 172/90 H 100 01/30/17 07:50 01/30/17 08:51 01/30/17 07:50 01/30/17 08:51 01/30/17 07:50 Intake & Output 01/29/17 01/30/17 01/31/17 06:59 06:59 06:59 Intake Total 3000 2460 Output Total 1800 Balance 3000 660 Weight 65.77 kg 65.7 kg General appearance: PRESENT: no acute distress, cooperative Head exam: PRESENT: normocephalic Eye exam: PRESENT: EOMI Mouth exam: PRESENT: moist, neck supple Neck exam: ABSENT: JVD Respiratory exam: PRESENT: rhonchi - Bilateral. ABSENT: wheezes Cardiovascular exam: PRESENT: irregular rhythm, tachycardia. ABSENT: gallop GI/Abdominal exam: PRESENT: soft. ABSENT: distended, tenderness Extremities exam: ABSENT: pedal edema Neurological exam: PRESENT: alert, awake Skin exam: PRESENT: dry, warm. ABSENT: cyanosis Results Laboratory Results: 01/28/17 05:56 01/30/17 04:55 01/30/17 04:55 Sodium 141.9 Potassium 4.3 Chloride 108 H Carbon Dioxide 24 Anion Gap 10 BUN 42 H Creatinine 2.60 H Est GFR ( Amer) 21 L Est GFR (Non-Af Amer) 17 L Glucose 102 Calcium 9.4 Impressions: Chest X-Ray 01/27/17 14:52 IMPRESSION: 1. Cardiomegaly without failure. 2. Question 10 mm left pulmonary nodule. Consider CT. KUB X-Ray 01/27/17 16:32 IMPRESSION: Nonspecific abdomen. Considerable bowel gas as described. Assessment & Plan - Diagnosis (1) Altered mental status, unspecified Qualifiers: Altered mental status type: disorientation Qualified Code(s): R41.0 - Disorientation, unspecified Is this a current diagnosis for this admission?: Yes (2) Acute renal failure Qualifiers: Acute renal failure type: unspecified Qualified Code(s): N17.9 - Acute kidney failure, unspecified Is this a current diagnosis for this admission?: Yes (3) Dehydration Is this a current diagnosis for this admission?: Yes (4) Urinary tract infection Qualifiers: Urinary tract infection type: site unspecified Is this a current diagnosis for this admission?: Yes (5) Pulmonary nodule Is this a current diagnosis for this admission?: Yes (6) A-fib Qualifiers: Atrial fibrillation type: chronic Qualified Code(s): I48.2 - Chronic atrial fibrillation Is this a current diagnosis for this admission?: Yes (7) Aortic stenosis, moderate Is this a current diagnosis for this admission?: Yes (8) Dementia Qualifiers: Dementia type: unspecified type Dementia behavioral disturbance: without behavioral disturbance Qualified Code(s): F03.90 - Unspecified dementia without behavioral disturbance Is this a current diagnosis for this admission?: Yes (9) Hypertension Qualifiers: Hypertension type: essential hypertension Qualified Code(s): I10 - Essential (primary) hypertension Is this a current diagnosis for this admission?: Yes (10) Hypothyroid Qualifiers: Hypothyroidism type: acquired Qualified Code(s): E03.9 - Hypothyroidism, unspecified Is this a current diagnosis for this admission?: Yes - Time Time Spent with patient: 25-34 minutes - Plan Summary Plan Summary: Obtain a chest x-ray. Give 1 dose of intravenous Lasix. Decrease intravenous fluids to 50 mL/h and monitor creatinine in the morning. We are going to give 1 dose of IV Cardizem. Continue metoprolol.
--- NOTE | 2017-01-30 11:38 | RADIOLOGY REPORT (SQ) ---
EXAM DESCRIPTION: CHEST SINGLE VIEW COMPLETED DATE/TIME: 01/30/2017 10:45 am REASON FOR STUDY: Pulmonary vascular congestion COMPARISON: 01/27/2017 EXAM PARAMETERS: NUMBER OF VIEWS: One view. TECHNIQUE: Single frontal radiographic view of the chest acquired. RADIATION DOSE: NA LIMITATIONS: None. FINDINGS: LUNGS AND PLEURA: No opacities, masses or pneumothorax. No pleural effusion. MEDIASTINUM AND HILAR STRUCTURES: No masses. Contour normal. HEART AND VASCULAR STRUCTURES: Cardiac silhouette remains enlarged and is unchanged in configuration. BONES: No acute findings. HARDWARE: Transvenous pacemaker is unchanged in position. OTHER: No other significant finding. IMPRESSION: NO ACUTE RADIOGRAPHIC FINDING IN THE CHEST. TECHNICAL DOCUMENTATION: JOB ID: [id number]
[2017-01-30] MEDS ORDERED: DILTIAZEM HCL INJ 25 MG/5 ML VIAL IV ONE (12:30)
[2017-01-30] MEDS ORDERED: FUROSEMIDE INJ/PF 40 MG/4 ML SDV IV ONE (12:30)
[2017-01-30] MEDS: RIVAROXABAN 15 MG TABLET PO SCH (18:06)
[2017-01-30] MEDS: MIRTAZAPINE 15 MG TABLET PO SCH (21:23)
[2017-01-31] MEDS: IPRATROPIUM/ALBUTEROL 0.5-2.5 MG/3 ML AMPUL NEB SCH ×4 (01:30→20:04)
[2017-01-31] MEDS ORDERED: METOPROLOL TARTRATE PF/INJ 5 MG/5 ML SDV IV PRN (02:20)
[2017-01-31] MEDS ORDERED: NORMAL SALINE 1000 ML 250 ML IV ONE (02:45)
[2017-01-31 03:23] LABS: ADD ON TESTING BLD IN LAB ACKNOWLEDGE
[2017-01-31 03:29] LABS: MAGNESIUM 1.8 mg/dL (1.6-2.3)
[2017-01-31] MEDS: LANSOPRAZOLE 30 MG TAB.RAP.DR PO SCH ×2 (05:15→17:42)
[2017-01-31 07:46] LABS: ANION GAP 11 (5-19); BLOOD UREA NITROGEN 42 mg/dL (7-20); CALCIUM 9.3 mg/dL (8.4-10.2); CARBON DIOXIDE 25 mmol/L (22-30); CHLORIDE 109 mmol/L (98-107); CREATININE RESULT 2.77 mg/dL (0.52-1.25); GLUCOSE 107 mg/dL (75-110); POTASSIUM 4.3 mmol/L (3.6-5.0); SODIUM 145.1 mmol/L (137-145)
[2017-01-31] MEDS: LORAZEPAM 1 MG TABLET PO SCH (10:07)
[2017-01-31] MEDS: DOCUSATE SODIUM 100 MG CAPSULE PO SCH ×2 (10:07→17:42)
[2017-01-31] MEDS: LEVOTHYROXINE SODIUM 0.112 MG TABLET PO SCH (10:07)
[2017-01-31] MEDS: METOPROLOL SUCCINATE 50 MG TAB.SR.24H PO SCH (10:07)
[2017-01-31] MEDS ORDERED: NORMAL SALINE 1000 ML 1,000 ML IV PRN (10:27)
--- NOTE | 2017-01-31 10:39 | PDOC PROGRESS REPORT ---
Subjective Progress Note for:: 01/31/17 Subjective:: Patient denies any nausea vomiting or chest pain. Denies having any shortness of breath at the moment. No diarrhea. [place] slightly better today than yesterday. Overall the patient improved and is more awake alert and responsive. Rating oral intake well. No reported temperature spikes. Heart rate uncontrolled, given 250 mL of bolus and started on as needed IV metoprolol. Physical Exam Vital Signs: Temp Pulse Resp BP Pulse Ox 98.6 F 115 H 18 135/80 H 95 01/31/17 07:47 01/31/17 08:32 01/31/17 08:32 01/31/17 07:47 01/31/17 08:32 Intake & Output 01/30/17 01/31/17 02/01/17 06:59 06:59 06:59 Intake Total 2460 1580 Output Total 1800 Balance 660 1580 Weight 65.7 kg 69.1 kg General appearance: PRESENT: no acute distress, cooperative Head exam: PRESENT: normocephalic Eye exam: PRESENT: EOMI Mouth exam: PRESENT: moist, neck supple Neck exam: ABSENT: JVD Respiratory exam: PRESENT: clear to auscultation roscoe - Anteriorly, other - Dry crepitations posteriorly. ABSENT: rhonchi, wheezes Cardiovascular exam: PRESENT: irregular rhythm. ABSENT: gallop GI/Abdominal exam: PRESENT: soft. ABSENT: distended, tenderness Extremities exam: PRESENT: other - Trace pretibial edema Neurological exam: PRESENT: alert, awake Results Laboratory Results: 01/28/17 05:56 01/31/17 06:50 01/30/17 01/31/17 04:55 06:50 Sodium 145.1 H Potassium 4.3 Chloride 109 H Carbon Dioxide 25 Anion Gap 11 BUN 42 H Creatinine 2.77 H Est GFR ( Amer) 20 L Est GFR (Non-Af Amer) 16 L Glucose 107 Calcium 9.3 Magnesium 1.8 Impressions: KUB X-Ray 01/27/17 16:32 IMPRESSION: Nonspecific abdomen. Considerable bowel gas as described. Chest X-Ray 01/30/17 00:00 IMPRESSION: NO ACUTE RADIOGRAPHIC FINDING IN THE CHEST. Assessment & Plan - Diagnosis (1) Altered mental status, unspecified Qualifiers: Altered mental status type: disorientation Qualified Code(s): R41.0 - Disorientation, unspecified Is this a current diagnosis for this admission?: Yes (2) Acute renal failure Qualifiers: Acute renal failure type: unspecified Qualified Code(s): N17.9 - Acute kidney failure, unspecified Is this a current diagnosis for this admission?: Yes (3) Dehydration Is this a current diagnosis for this admission?: Yes (4) Urinary tract infection Qualifiers: Urinary tract infection type: site unspecified Is this a current diagnosis for this admission?: Yes (5) Pulmonary nodule Is this a current diagnosis for this admission?: Yes (6) A-fib Qualifiers: Atrial fibrillation type: chronic Qualified Code(s): I48.2 - Chronic atrial fibrillation Is this a current diagnosis for this admission?: Yes (7) Aortic stenosis, moderate Is this a current diagnosis for this admission?: Yes (8) Dementia Qualifiers: Dementia type: unspecified type Dementia behavioral disturbance: without behavioral disturbance Qualified Code(s): F03.90 - Unspecified dementia without behavioral disturbance Is this a current diagnosis for this admission?: Yes (9) Hypertension Qualifiers: Hypertension type: essential hypertension Qualified Code(s): I10 - Essential (primary) hypertension Is this a current diagnosis for this admission?: Yes (10) Hypothyroid Qualifiers: Hypothyroidism type: acquired Qualified Code(s): E03.9 - Hypothyroidism, unspecified Is this a current diagnosis for this admission?: Yes - Time Time Spent with patient: 25-34 minutes - I am going to increase the patient's IV fluid and monitor creatinine. We will begin oral Cardizem. We will consult cardiology for further evaluation. We will check a free T4 as well. Continue supportive care.
[2017-01-31] MEDS: DILTIAZEM HCL 30 MG TABLET PO SCH ×2 (11:37→17:41)
[2017-01-31] MEDS: RIVAROXABAN 15 MG TABLET PO SCH (17:42)
[2017-01-31] MEDS: MIRTAZAPINE 15 MG TABLET PO SCH (21:51)
[2017-02-01] MEDS: DILTIAZEM HCL 30 MG TABLET PO SCH ×4 (00:03→18:04)
[2017-02-01] MEDS: IPRATROPIUM/ALBUTEROL 0.5-2.5 MG/3 ML AMPUL NEB SCH ×3 (02:03→13:34)
[2017-02-01] MEDS: LANSOPRAZOLE 30 MG TAB.RAP.DR PO SCH ×2 (05:20→18:04)
--- NOTE | 2017-02-01 09:27 | PDOC CONSULTATION ---
Consultation Consult Date: 01/31/17 Attending physician:: LIUDMILA WEISS Consult reason:: Atrial fibrillation with rapid ventricular response History of Present Illness Admission Date/PCP: 01/27/17 17:50 MARIA VICTORIA ARMANDO Patient complains of: Fatigue History of Present Illness: MARTY GAGE is a 86 year old female, with history of chronic atrial fibrillation, congestive heart failure, hypertension, aortic stenosis, hypothyroidism and dementia was brought to the emergency room because of change in mental status. For the past 3 days the patient has been noted to have coughing with intermittent wheezing but no definite shortness of breath. Since started to develop low-grade fever. No reported abdominal pain nausea or vomiting. Likewise there is no reported diarrhea. The patient normally does not complain according to the family. When the symptoms first started he was given cough medication and since then family noted that she was lethargic. Oral intake has declined. The patient was brought to the emergency room for evaluation. Patient temperature was elevated with mild elevation of WBC. Creatinine was likewise elevated. The patient was given intravenous fluids and was referred for admission. Patient unable to give information due to mental status therefore unobtainable and information obtained from the family at bedside and from prior records. A friend was in the room but no immediate family present when I examined the patient. This history was reviewed and confirmed. Past Medical History Cardiac Medical History: Reports: Atrial Fibrillation, Congestive Heart Failure , Hyperlipidema, Hypertension, Heart Murmur - Aortic stenosis Neurological Medical History: Reports: Other - Dementia Endocrine Medical History: Reports: Hypothyroidism Psychiatric Medical History: Reports: General Anxiety Disorder Denies: Depression Past Surgical History Past Surgical History: Denies: None Social History Information Source: [facility] Records [facility] with: [facility] Smoking Status: Never Smoker Frequency of Alcohol Use: None Hx Recreational Drug Use: No Drugs: None Hx Prescription Drug Abuse: No - Advance Directive Resuscitation Status: Full Code Surrogate healthcare decision maker:: Patient's daughter is the surrogate decision-maker Family History Family History: Hypertension, Other - Heart disease Parental Family History Reviewed: Yes Children Family History Reviewed: Yes Sibling(s) Family History Reviewed.: Yes Medication/Allergy Home Medications: Docusate Sodium [Colace 100 mg Capsule] 100 mg PO DAILY 01/27/17 Furosemide [Lasix 20 mg Tablet] 20 mg PO DAILY 01/27/17 Haloperidol [Haldol 5 mg Tablet] 5 mg PO DAILYP PRN 01/27/17 Levothyroxine Sodium [Synthroid] 112 mcg PO DAILY 01/27/17 Lisinopril [Prinivil] 20 mg PO QAM 01/27/17 Lorazepam [Ativan] 2 mg PO DAILY 01/27/17 Magnesium Oxide [Mag-Ox 400 mg Tablet] 400 mg PO BID 01/27/17 Melatonin 5 mg PO QHS 01/27/17 Metolazone [Zaroxolyn 2.5 Mg Tablet] 2.5 mg PO DAILY 01/27/17 Metoprolol Succinate [Toprol XL 100 mg Tablet] 150 mg PO DAILY 01/27/17 Mirtazapine [Remeron 15 mg Tablet] 15 mg PO QHS 01/27/17 Omeprazole 20 mg PO DAILY 01/27/17 Potassium Chloride [K-Tab ER] 40 meq PO DAILY 01/27/17 Rivaroxaban [Xarelto 10 mg Tablet] 10 mg PO QPM 01/27/17 Allergies/Adverse Reactions: No Known Allergies Allergy (Unverified 07/27/16 01:44) Review of Systems Review of Systems: Cannot obtain this because of dementia and no immediate family members present. Please see HPI and past medical history for details Physical Exam Vital Signs: Temp Pulse Resp BP Pulse Ox 97.5 F 101 H 20 125/62 97 01/31/17 15:57 01/31/17 20:05 01/31/17 20:05 01/31/17 15:57 01/31/17 20:05 Intake & Output 01/30/17 01/31/17 02/01/17 06:59 06:59 06:59 Intake Total 2460 1580 2103 Output Total 1800 600 Balance 660 1580 1503 Weight 65.7 kg 69.1 kg Exam: GENERAL: well-nourished and in no acute distress. Patient is alert but not oriented to place time or person. HEAD: Atraumatic, normocephalic. EYES: Pupils equal round and reactive to light, extraocular movements intact, sclera anicteric, conjunctiva are normal. ENT: TMs normal, nares patent, oropharynx clear without exudates. Moist mucous membranes. No oral ulcerations or bleeding gums noted NECK: supple without lymphadenopathy or JVD. Trachea is central. No cervical or axillary lymphadenopathy noted. Carotids are 2+ LUNGS: Breath sounds bibasilar fine crackles at bases. No significant dullness noted. CHEST: Palpation of chest wall shows no significant chest wall tenderness. HEART: [place] [employer], No PSH, 2/6 KVNG aortic area, 1/6 barber systolic murmur mitral area, rubs or gallops. ABDOMEN: Soft, no significant tenderness appreciated, normoactive bowel sounds. No guarding, no rebound. No rigidity noted . No masses appreciated. EXTREMITIES: Pedal pulses are 1-2+, no calf tenderness noted, Trace + pedal edema noted. No clubbing or cyanosis. NEUROLOGICAL: Patient is alert but is not able to participate in neurological exam because of patient's current mental status PSYCH: Patient cannot participate in a neurologic and psych exam because of the patient's current mental status SKIN: No significant ecchymosis, rash, ulcerations or signs of pruritus noted. MUSCULOSKELETAL EXAM: No significant joint swelling noted. Results Laboratory Results: 01/28/17 05:56 01/31/17 06:50 01/30/17 01/31/17 01/31/17 04:55 06:50 06:50 Sodium 145.1 H Potassium 4.3 Chloride 109 H Carbon Dioxide 25 Anion Gap 11 BUN 42 H Creatinine 2.77 H Est GFR ( Amer) 20 L Est GFR (Non-Af Amer) 16 L Glucose 107 Calcium 9.3 Magnesium 1.8 Free T4 1.62 EKG Comments: Atrial fibrillation with rapid ventricular response. No acute ST-T wave changes are noted. Impressions: KUB X-Ray 01/27/17 16:32 IMPRESSION: Nonspecific abdomen. Considerable bowel gas as described. Chest X-Ray 01/30/17 00:00 IMPRESSION: NO ACUTE RADIOGRAPHIC FINDING IN THE CHEST. Assessment & Plan - Diagnosis (1) Atrial fibrillation with RVR Is this a current diagnosis for this admission?: Yes (2) Aortic stenosis, moderate Is this a current diagnosis for this admission?: Yes (3) Acute renal insufficiency Is this a current diagnosis for this admission?: Yes (4) Dementia Qualifiers: Dementia type: unspecified type Dementia behavioral disturbance: without behavioral disturbance Qualified Code(s): F03.90 - Unspecified dementia without behavioral disturbance Is this a current diagnosis for this admission?: Yes - Notes Notes: Atrial fibrillation with rapid ventricular response. Patient has chronic atrial fibrillation. Heart rate response increased because of possibly volume depletion and fever. Agree with adding Cardizem to the regimen of beta- jac. Tight control is probably not indicated in this patient as long as she is tolerating the heart rate well. As regards chronic anticoagulation, patient would be considered just a borderline candidate and decision of chronic anticoagulation is best left to patient's primary care physician. Aortic stenosis: Patient has moderate aortic stenosis. By auscultation, did not feel that this is critical. Continue close observation. Acute renal insufficiency: Believe that patient may have some degree of chronic renal failure therefore this could be acute on chronic renal insufficiency. Continue slow hydration. Dementia: Currently stable. - Time Time Spent: 30 to 50 Minutes - CODE STATUS was discussed, patient remains full code. Surrogate decision-maker unchanged. Multiple medical problems were addressed. More than 50% of the time spent coordinating care, discussing management plans with involved caregivers. Management plans discussed with involved personnels. Medical decision making was of moderate to high complexity , patient's has multiple comorbidities. Medications reviewed and adjusted accordingly: Yes
[2017-02-01] MEDS: METOPROLOL SUCCINATE 50 MG TAB.SR.24H PO SCH (09:48)
[2017-02-01] MEDS: LEVOTHYROXINE SODIUM 0.112 MG TABLET PO SCH (09:48)
[2017-02-01] MEDS: LORAZEPAM 1 MG TABLET PO SCH (09:49)
[2017-02-01] MEDS: DOCUSATE SODIUM 100 MG CAPSULE PO SCH ×2 (09:49→18:05)
--- NOTE | 2017-02-01 12:16 | PDOC TRANSFER SUMMARY ---
General - Admit/Disc Date/PCP Admission Date/Primary Care Provider: 01/27/17 17:50 MARIA VICTORIA ARMANDO Discharge Date: 02/01/17 - Discharge Diagnosis (1) Altered mental status, unspecified Is this a current diagnosis for this admission?: Yes Summary: [place] to be secondary to a urinary tract infection. Patient does have dementia baseline but is alert and oriented currently. (2) Urinary tract infection Is this a current diagnosis for this admission?: Yes Summary: Cultures have been negative. Antibiotics have been stopped. (3) Acute renal failure Is this a current diagnosis for this admission?: Yes Summary: Patient has acute on chronic renal failure stage IV. (4) Pulmonary nodule Is this a current diagnosis for this admission?: Yes (5) Diastolic CHF Is this a current diagnosis for this admission?: Yes Summary: Chronic diastolic congestive heart failure (6) Aortic stenosis, moderate Is this a current diagnosis for this admission?: Yes (7) Dementia Is this a current diagnosis for this admission?: Yes (8) Hypertension Is this a current diagnosis for this admission?: Yes (9) Hypomagnesemia Is this a current diagnosis for this admission?: Yes (10) Hypothyroid Is this a current diagnosis for this admission?: Yes (11) A-fib Is this a current diagnosis for this admission?: Yes - Additional Information Resuscitation Status: Full Code Discharge Diet: Cardiac Discharge Activity: Activity As Tolerated Home Medications: Docusate Sodium [Colace 100 mg Capsule] 100 mg PO DAILY 01/27/17 Furosemide [Lasix 20 mg Tablet] 20 mg PO DAILY 01/27/17 Haloperidol [Haldol 5 mg Tablet] 5 mg PO DAILYP PRN 01/27/17 Levothyroxine Sodium [Synthroid] 112 mcg PO DAILY 01/27/17 Lisinopril [Prinivil] 20 mg PO QAM 01/27/17 Magnesium Oxide [Mag-Ox 400 mg Tablet] 400 mg PO BID 01/27/17 Melatonin 5 mg PO QHS 01/27/17 Metolazone [Zaroxolyn 2.5 mg Tablet] 2.5 mg PO DAILY 01/27/17 Metoprolol Succinate [Toprol XL 100 mg Tablet] 150 mg PO DAILY 01/27/17 Mirtazapine [Remeron 15 mg Tablet] 15 mg PO QHS 01/27/17 Omeprazole 20 mg PO DAILY 01/27/17 Rivaroxaban [Xarelto 10 mg Tablet] 10 mg PO QPM 01/27/17 Diltiazem HCl [Cardizem 30 mg Tablet] 30 mg PO Q6 tablet 02/01/17 Lorazepam [Ativan] 2 mg PO DAILY #30 tablet 02/01/17 History of Present Illness Admission Date/PCP: 01/27/17 17:50 MARIA VICTORIA ARMANDO History of Present Illness: MARTY GAGE is a 86 year old female, with history of chronic atrial fibrillation, congestive heart failure, hypertension, aortic stenosis, hypothyroidism and dementia was brought to the emergency room because of change in mental status. For the past 3 days the patient has been noted to have coughing with intermittent wheezing but no definite shortness of breath. Since started to develop low-grade fever. No reported abdominal pain nausea or vomiting. Likewise there is no reported diarrhea. The patient normally does not complain according to the family. When the symptoms first started he was given cough medication and since then family noted that she was lethargic. Oral intake has declined. The patient was brought to the emergency room for evaluation. Patient temperature was elevated with mild elevation of WBC. Creatinine was likewise elevated. The patient was given intravenous fluids and was referred for admission. Patient unable to give information due to mental status therefore unobtainable and information obtained from the family at bedside and from prior records. Hospital Course Hospital Course: 86-year-old female admitted with altered mental status. Patient was found to have a urinary tract infection. Patient had been treated with antibiotics including Rocephin, Levaquin, ertapenem. The patient had negative cultures. She received 3 days of antibiotics. The patient's mental status has returned to her baseline. [place] that her mental status change most likely was secondary to urinary tract infection even though the cultures were negative. Patient while hospitalized also did develop atrial fibrillation with rapid ventricular rate. Patient was evaluated by cardiology and they recommended adding on diltiazem which was done. Since that time patient has been rate controlled. She is on anticoagulation. The patient's other medical problems all were hospitalization. Unchanged during this patient is transferred back to [facility] where she was prior to this admission. Physical Exam Vital Signs: Temp Pulse Resp BP Pulse Ox 98.4 F 88 17 154/67 H 96 02/01/17 07:17 02/01/17 07:53 02/01/17 07:53 02/01/17 07:17 02/01/17 07:53 Intake & Output 01/31/17 02/01/17 02/02/17 06:59 06:59 06:59 Intake Total 1580 3609 Output Total 1500 Balance 1580 2109 Weight 69.1 kg 70.7 kg General appearance: PRESENT: no acute distress Eye exam: PRESENT: conjunctiva pink. ABSENT: scleral icterus Mouth exam: PRESENT: moist, tongue midline Neck exam: ABSENT: JVD Respiratory exam: PRESENT: clear to auscultation roscoe. ABSENT: rales, rhonchi, wheezes Cardiovascular exam: PRESENT: RRR. ABSENT: diastolic murmur, rubs, systolic murmur Pulses: PRESENT: normal dorsalis pedis pul GI/Abdominal exam: PRESENT: normal bowel sounds, soft. ABSENT: distended, guarding, mass, organolmegaly, rebound, tenderness Extremities exam: ABSENT: calf tenderness, clubbing, pedal edema Neurological exam: PRESENT: alert, awake, oriented to person, oriented to place. ABSENT: oriented to time, oriented to situation Psychiatric exam: PRESENT: appropriate affect Skin exam: PRESENT: dry, intact, warm. ABSENT: cyanosis, rash Results Laboratory Results: 01/28/17 05:56 01/31/17 06:50 Impressions: KUB X-Ray 01/27/17 16:32 IMPRESSION: Nonspecific abdomen. Considerable bowel gas as described. Chest X-Ray 01/30/17 00:00 IMPRESSION: NO ACUTE RADIOGRAPHIC FINDING IN THE CHEST. Transfer Plan - Disposition Transfer Plan: We will transfer to [facility] nurse [facility] when a bed becomes available. - Time Spent with Patient Time spent with patient: Greater than 30 Minutes Qualifiers PATEINT BEING DISCHARGED WITH ANY OF THE FOLLOWING DIAGNOSIS?: No Plan Discharge Plan: Transfer to [facility] nurse [facility]. Time Spent: Greater than 30 Minutes
[2017-02-01] MEDS: RIVAROXABAN 15 MG TABLET PO SCH (18:05)
--- NOTE | 2017-02-01 19:42 | PDOC PROGRESS REPORT ---
Subjective Progress Note for:: 02/01/17 Subjective:: Patient seems to be doing somewhat better and is showing significant improvement in general status. Patient noted to be sitting in the chair. Patient is not noted to have any chest arm or neck discomfort. Patient not noted to have or describing any PND, orthopnea.. Patient not noted to have fever chills. Patient does not seem to be in any other significant discomfort. Patient is maintaining atrial fibrillation with relatively controlled ventricular response. System review: No significant changes Medications reviewed. Physical Exam Vital Signs: Temp Pulse Resp BP Pulse Ox 97.7 F 104 H 18 150/85 H 96 02/01/17 17:32 02/01/17 17:32 02/01/17 17:32 02/01/17 17:32 02/01/17 17:32 Intake & Output 01/31/17 02/01/17 02/02/17 06:59 06:59 06:59 Intake Total 1580 3609 360 Output Total 1500 300 Balance 1580 2109 60 Weight 69.1 kg 70.7 kg Exam: GENERAL: well-nourished and in no acute distress. Patient is more alert but not oriented to place time or person. Patient does respond appropriately to questions with yes and no answers. HEAD: Atraumatic, normocephalic. EYES: Pupils equal round and reactive to light, extraocular movements intact, sclera anicteric, conjunctiva are normal. ENT: TMs normal, nares patent, oropharynx clear without exudates. Moist mucous membranes. No oral ulcerations or bleeding gums noted NECK: supple without lymphadenopathy or JVD. Trachea is central. No cervical or axillary lymphadenopathy noted. Carotids are 2+ LUNGS: Breath sounds bibasilar fine crackles at bases. No significant dullness noted. CHEST: Palpation of chest wall shows no significant chest wall tenderness. HEART: [employer], No PSH, 2/6 KVNG aortic area, 1/6 barber systolic murmur mitral area, rubs or gallops. ABDOMEN: Soft, no significant tenderness appreciated, normoactive bowel sounds. No guarding, no rebound. No rigidity noted . No masses appreciated. EXTREMITIES: Pedal pulses are 1-2+, no calf tenderness noted, Trace + pedal edema noted. No clubbing or cyanosis. NEUROLOGICAL: Patient is alert but is not able to participate in neurological exam because of patient's current mental status PSYCH: Patient cannot participate in a neurologic and psych exam because of the patient's current mental status SKIN: No significant ecchymosis, rash, ulcerations or signs of pruritus noted. MUSCULOSKELETAL EXAM: No significant joint swelling noted. Results Laboratory Results: 01/28/17 05:56 01/31/17 06:50 Impressions: KUB X-Ray 01/27/17 16:32 IMPRESSION: Nonspecific abdomen. Considerable bowel gas as described. Chest X-Ray 01/30/17 00:00 IMPRESSION: NO ACUTE RADIOGRAPHIC FINDING IN THE CHEST. Assessment & Plan - Diagnosis (1) Atrial fibrillation with RVR Is this a current diagnosis for this admission?: Yes (2) Aortic stenosis, moderate Is this a current diagnosis for this admission?: Yes (3) Acute renal insufficiency Is this a current diagnosis for this admission?: Yes (4) Dementia Qualifiers: Dementia type: unspecified type Dementia behavioral disturbance: without behavioral disturbance Qualified Code(s): F03.90 - Unspecified dementia without behavioral disturbance Is this a current diagnosis for this admission?: Yes - Notes Notes: Atrial fibrillation with rapid ventricular response. Patient has chronic atrial fibrillation. Heart rate response increased because of possibly volume depletion and fever. Heart rate is under better control. Continue with Cardizem every 30 mg q. 6 or switch to Cardizem CD 120 mg p.o. daily tight control is probably not indicated in this patient as long as she is tolerating the heart rate well. As regards chronic anticoagulation, patient would be considered just a borderline candidate and decision of chronic anticoagulation is best left to patient's primary care physician. Aortic stenosis: Patient has moderate aortic stenosis. By auscultation, did not feel that this is critical. Continue close observation. Acute renal insufficiency: Believe that patient may have some degree of chronic renal failure therefore this could be acute on chronic renal insufficiency. Continue slow hydration. Dementia: Currently stable. - Time Time with patient: 15-25 minutes - CODE STATUS was discussed, patient remains full code. Surrogate decision-maker unchanged. Multiple medical problems were addressed. More than 50% of the time spent coordinating care, discussing management plans with involved caregivers. Management plans discussed with involved personnels. Medical decision making was of moderate to high complexity , patient's has multiple comorbidities. Medications reviewed and adjusted accordingly: Yes
[2017-02-01 20:06] VITALS: BP 154/68
== END 2017-02-01 19:30 | DRG 683 ==
LOC: ER 13:33 → EH 16:40 → UNDOADMIN 16:40 → EH 17:50 → 4N 17:59 → EH 17:59
DX: N17.9 Acute kidney failure, unspecified (principal); N39.0 Urinary tract infection, site not specified; I13.0 Hypertensive heart and chronic kidney disease with heart failure and stage 1 through stage 4 chronic kidney disease, or unspecified chronic kidney disease; I50.32 Chronic diastolic (congestive) heart failure; N18.4 Chronic kidney disease, stage 4 (severe); E86.0 Dehydration; R91.1 Solitary pulmonary nodule; I35.0 Nonrheumatic aortic (valve) stenosis; F03.90 Unspecified dementia, unspecified severity, without behavioral disturbance, psychotic disturbance, mood disturbance, and anxiety; I48.2 Chronic atrial fibrillation; E83.42 Hypomagnesemia; I10 Essential (primary) hypertension; E78.5 Hyperlipidemia, unspecified; E03.9 Hypothyroidism, unspecified; F41.1 Generalized anxiety disorder; Z79.899 Other long term (current) drug therapy
CPT/HCPCS: 36415; 51701; 71010; 74000; 80048; 80053; 80076; 81001; 82140; 82803; 83605; 83735; 84439; 84443; 84481; 85025; 85610; 87040; 87086; 93005; 93010; 94640; 99285; J0696; J1335; J1644; J1940; J1956; J3490; J7030; J7620

== ENCOUNTER → 2017-04-24 | Outpatient (CLI) | payer MEDICARE, MEDICAID ==
[2017-04-24 15:36] LABS: APPEARANCE,URINE SLIGHTLY-CLOUDY; BILIRUBIN,URINE NEGATIVE (NEGATIVE); GLUCOSE, URINE NEGATIVE (NEGATIVE); KETONES,URINE NEGATIVE (NEGATIVE); LEUKOCYTE ESTERASE,URINE NEGATIVE (NEGATIVE); NITRITE,URINE NEGATIVE (NEGATIVE); PROTEIN,URINE NEGATIVE (NEGATIVE); URINE SPECIFIC GRAVITY 1.015; UROBILINOGEN,URINE NEGATIVE mg/dL (<2.0)
== END ==
LOC: PNR 15:15
PROVIDERS: ATTEND Internal Medicine
DX: N17.9 Acute kidney failure, unspecified (principal); N39.0 Urinary tract infection, site not specified
CPT/HCPCS: 81001; 87086

== ENCOUNTER 2017-05-16 14:32 | Inpatient (IN) | payer MEDICARE, MEDICAID ==
--- NOTE | 2017-05-16 14:50 | ER Document Report ---
ED General - General Chief Complaint: Altered Mental Status Stated Complaint: ALTERED MENTAL STATUS Time Seen by Provider: 05/16/17 14:40 Notes: The patient is an 86-year-old female, past medical history dementia, CKD, a fib , HTN, presents from [facility] long-term after she has been restless and more confused over the past 3 days. The niece is in the room and said that the patient is acting at baseline on arrival to the ER. Patient is noticed to have a mild right facial droop, but the niece said that this is old. Patient denies any complaints at this time and she is AAOx2 (oriented to person and time, not place). TRAVEL OUTSIDE OF THE [place] IN LAST 30 DAYS: No - Related Data Allergies/Adverse Reactions: No Known Allergies Allergy (Unverified 07/27/16 01:44) Past Medical History - General Information source: Patient - Social History Smoking Status: Unknown if Ever Smoked Family History: Hypertension, Other - Heart disease - Past Medical History Cardiac Medical History: Reports: Hx Atrial Fibrillation, Hx Congestive Heart Failure, Hx Hypercholesterolemia, Hx Hypertension, Hx Heart Murmur - Aortic stenosis Endocrine Medical History: Reports: Hx Hypothyroidism Renal/ Medical History: Denies: Hx Peritoneal Dialysis Psychiatric Medical History: Denies: Hx Depression - Immunizations Hx Diphtheria, Pertussis, Tetanus Vaccination: Yes Hx Pneumococcal Vaccination: 05/09/13 Review of Systems - Review of Systems Notes: REVIEW OF SYSTEMS: CONSTITUTIONAL: -fevers, -chills EENT: -eye pain, -difficulty swallowing, -nasal congestion CARDIOVASCULAR: -chest pain, -syncope. RESPIRATORY: -cough, -SOB GASTROINTESTINAL: -abdominal pain, -nausea, -vomiting, -diarrhea GENITOURINARY: -dysuria, -hematuria MUSCULOSKELETAL: -back pain, -neck pain SKIN: -rash or skin lesions. HEMATOLOGIC: -easy bruising or bleeding. LYMPHATIC: -swollen, enlarged glands. NEUROLOGICAL: -headache, -neurologic symptoms PSYCHIATRIC: -anxiety, -depression. ALL OTHER SYSTEMS REVIEWED AND NEGATIVE. Physical Exam - Vital signs Vitals: Temp Pulse Resp BP Pulse Ox 97.8 F 64 17 123/62 100 05/16/17 14:40 05/16/17 14:40 05/16/17 14:40 05/16/17 14:40 05/16/17 14:40 - Notes Notes: PHYSICAL EXAMINATION: GENERAL: Well-appearing, well-nourished and in no acute distress. HEAD: Atraumatic, normocephalic. EYES: Pupils equal round and reactive to light, extraocular movements intact, sclera anicteric, conjunctiva are normal. ENT: nares patent, oropharynx clear without exudates. Moist mucous membranes. NECK: Normal range of motion, supple without lymphadenopathy LUNGS: Breath sounds clear to auscultation bilaterally and equal. No wheezes rales or rhonchi. HEART: Regular rate and rhythm without murmurs ABDOMEN: Soft, nontender, normoactive bowel sounds. No guarding, no rebound. No masses appreciated. EXTREMITIES: Normal range of motion, no pitting or edema. No cyanosis. NEUROLOGICAL: Partial right-sided facial droop (chronic in nature, according to niece). Normal speech. Normal sensory and motor exams. PSYCH: Normal mood, normal affect. SKIN: Warm, Dry, normal turgor, no rashes or lesions noted. Course - Re-evaluation Re-evalutation: Patient with restlessness over the past few days. Her mental status is at baseline, according to family members. CT head and chest x-ray did not show any acute abnormalities. Her potassium is 6.9 and creatinine has slightly increased from 2.9 to 3.1 today. EKG shows early peaked T-waves in V2 and V3. Patient has no other complaints. 05/16/17 16:[address] Will (Adult Health Clinical Nurse Specialist) and she will consult on patient. Recommending the hyperkalemia cocktail, including calcium, bicarb, fluid and Lasix, insulin and dextrose and Kayexalate. Recommends admission to the hospitalist and she will consult. 05/16/17 16:[address] Tfifany Stephens. Spoke to Dr. Pulliam and will admit patient as Inpatient to IM for further treatment and monitoring of her hyperkalemia. - Vital Signs Vital signs: Temp Pulse Resp BP Pulse Ox 97.8 F 64 17 123/62 100 05/16/17 14:40 05/16/17 14:40 05/16/17 14:40 05/16/17 14:40 05/16/17 14:40 - Laboratory Result Diagrams: 05/16/17 15:22 05/16/17 15:22 Laboratory results interpreted by me: 05/16/17 05/16/17 15:22 15:22 Hgb 11.8 L MCH 26.2 L MCHC 30.6 L RDW 17.6 H Sodium 148.3 H Potassium 6.9 H* Chloride 115 H Carbon Dioxide 21 L BUN 43 H Creatinine 3.17 H Est GFR ( Amer) 17 L Est GFR (Non-Af Amer) 14 L Glucose 127 H ALT 57 H - Diagnostic Test Radiology reviewed: Image reviewed, Reports reviewed Radiology results interpreted by me: Head CT: NAD CXR: NAD - EKG Interpretation by Me EKG shows normal: Sinus rhythm Voltage: Consistant with LVH Additional EKG results interpreted by me: Early peaked T-waves in V2-V3, PVC Discharge - Discharge Clinical Impression: Hyperkalemia Condition: Stable Disposition: ADMITTED INPATIENT Admitting Provider: Hospitalist - [facility] Admitted: [facility]
--- NOTE | 2017-05-16 15:16 | RADIOLOGY REPORT (SQ) ---
EXAM DESCRIPTION: CT HEAD WITHOUT COMPLETED DATE/TIME: 05/16/2017 3:02 pm REASON FOR STUDY: AMS COMPARISON: None. TECHNIQUE: Axial images acquired through the brain without intravenous contrast. Images reviewed wi th bone, brain and subdural windows. Images stored on PACS. All CT scanners at this facility use dose modulation, iterative reconstruction, and/or weight based d osing when appropriate to reduce radiation dose to as low as reasonably achievable (ALARA). [facility]: Dose Right [facility]: CareDose [facility]: Dose Right [facility]: Teradose 4D [facility]: Smart [employer] RADIATION DOSE: CT Rad equipment meets quality standard of care and radiation dose reduction techniq ues were employed. CTDIvol: 64.6 mGy. DLP: 1163 mGy-cm.mGy. LIMITATIONS: Motion. FINDINGS: VENTRICLES: Prominent. CEREBRUM: No masses. No hemorrhage. No midline shift. Areas of low density in the white matter mos t likely due to chronic micro-vascular ischemic change. No evidence for acute infarction. CEREBELLUM: No masses. No hemorrhage. No alteration of density. No evidence for acute infarction. EXTRAAXIAL SPACES: Age-related involutional change. No fluid collections. No masses. ORBITS AND GLOBE: No intra- or extraconal masses. Normal contour of globe without masses. CALVARIUM: No fracture. PARANASAL SINUSES: No fluid or mucosal thickening. SOFT TISSUES: No mass or hematoma. OTHER: No other significant finding. IMPRESSION: CHRONIC CHANGES OF ATROPHY AND MICROVASCULAR ISCHEMIA. NO ACUTE PROCESS. EVIDENCE OF ACUTE STROKE: NO. TECHNICAL DOCUMENTATION: JOB ID: [id number] Quality ID # [id number]: Final reports with documentation of one or more dose reduction techniques (e.g., Au tomated exposure control, adjustment of the mA and/or kV according to patient size, use of iterative reconstruction technique) 2010 [employer]- All Rights Reserved
[2017-05-16 15:36] LABS: ABSOLUTE BASOPHILS # (AUTO) 0.2 10^3/uL (0.0-0.2); ABSOLUTE NEUT (AUTO) 3.9 10^3/uL (1.7-8.2); BASOPHILS % (AUTO) 1.9 % (0-2); EOSINOPHILS % (AUTO) 0.4 % (0-6); HEMATOCRIT 38.6 % (36.0-47.0); HEMOGLOBIN 11.8 g/dL (12.0-15.5); LYMPHOCYTES % (AUTO) 36.8 % (13-45); MEAN CORPUSCULAR HEMOGLOBIN 26.2 pg (27.0-33.4); MEAN CORPUSCULAR HGB CONC 30.6 g/dL (32.0-36.0); MEAN CORPUSCULAR VOLUME 86 fl (80-97); PLATELET COUNT 311 10^3/uL (150-450); RED BLOOD COUNT 4.51 10^6/uL (3.72-5.28); RED CELL DISTRIBUTION WIDTH 17.6 % (11.5-14.0); SEGMENTED NEUTROPHILS % (AUTO) 48.9 % (42-78); TOTAL CELLS COUNTED % (AUTO) 100 %; WHITE BLOOD COUNT 8.1 10^3/uL (4.0-10.5)
--- NOTE | 2017-05-16 15:44 | RADIOLOGY REPORT (SQ) ---
EXAM DESCRIPTION: CHEST SINGLE VIEW COMPLETED DATE/TIME: 05/16/2017 3:09 pm REASON FOR STUDY: AMS COMPARISON: 01/30/2017 EXAM PARAMETERS: NUMBER OF VIEWS: One view. TECHNIQUE: Single frontal radiographic view of the chest acquired. RADIATION DOSE: NA LIMITATIONS: None. FINDINGS: LUNGS AND PLEURA: No opacities, masses or pneumothorax. No pleural effusion. MEDIASTINUM AND HILAR STRUCTURES: Stable. HEART AND VASCULAR STRUCTURES: Cardiomegaly stable. No overt CHF. BONES: No acute findings. HARDWARE: Transvenous pacer. OTHER: No other significant finding. IMPRESSION: Cardiomegaly. Transvenous pacer. Nothing acute. TECHNICAL DOCUMENTATION: JOB ID: [id number] [employer]- All Rights Reserved
[2017-05-16 15:50] LABS: ALBUMIN 3.9 g/dL (3.5-5.0); ANION GAP 12 (5-19); BLOOD UREA NITROGEN 43 mg/dL (7-20); CALCIUM 9.3 mg/dL (8.4-10.2); CARBON DIOXIDE 21 mmol/L (22-30); CHLORIDE 115 mmol/L (98-107); GLUCOSE 127 mg/dL (75-110); SODIUM 148.3 mmol/L (137-145); TOTAL PROTEIN 6.6 g/dL (6.3-8.2)
[2017-05-16 15:51] LABS: ALANINE AMINOTRANSFERASE 57 U/L (9-52); ALKALINE PHOSPHATASE 84 U/L (38-126); ASPARTATE AMINO TRANSFERASE 36 U/L (14-36); BILIRUBIN,DIRECT 0.3 mg/dL (0.0-0.4); BILIRUBIN,TOTAL 0.3 mg/dL (0.2-1.3); CREATINE KINASE 77 U/L (30-135)
[2017-05-16 15:56] LABS: POTASSIUM 6.9 mmol/L (3.6-5.0)
[2017-05-16] MEDS ORDERED: SODIUM BICARBONATE 8.4% INJ 50 MEQ/50 ML DISP.SYRIN IV ONE (16:02)
[2017-05-16] MEDS ORDERED: NORMAL SALINE 1000 ML 1,000 ML IV ONE (16:02)
[2017-05-16] MEDS ORDERED: CALCIUM GLUCONATE 1000 MG/10 ML INJ IV ONE (16:02)
[2017-05-16] MEDS ORDERED: FUROSEMIDE INJ/PF 40 MG/4 ML SDV IV ONE (16:06)
[2017-05-16] MEDS ORDERED: SODIUM POLYSTYRENE SULFONATE 15 GM/60 ML PO ONE (16:06)
[2017-05-16] MEDS ORDERED: DEXTROSE 50%-WATER 25 GM/50 ML DISP.SYRIN IV ONE (16:11)
[2017-05-16] MEDS ORDERED: INSULIN REG, HUMAN 100 UNIT/ML 3 ML VIAL (PYX) IV ONE (16:11)
[2017-05-16 16:44] LABS: APPEARANCE,URINE CLEAR; BILIRUBIN,URINE NEGATIVE (NEGATIVE); COLOR,URINE YELLOW; GLUCOSE, URINE NEGATIVE (NEGATIVE); KETONES,URINE NEGATIVE (NEGATIVE); LEUKOCYTE ESTERASE,URINE NEGATIVE (NEGATIVE); NITRITE,URINE NEGATIVE (NEGATIVE); PROTEIN,URINE NEGATIVE (NEGATIVE); URINE SPECIFIC GRAVITY 1.013; UROBILINOGEN,URINE NEGATIVE mg/dL (<2.0)
--- NOTE | 2017-05-16 17:07 | EKG REPORT ---
SEVERITY:- ABNORMAL ECG - VENTRICULAR-PACED COMPLEXES, ATRIAL FIB/FLUTTER. LVH WITH SECONDARY REPOLARIZATION ABNORMALITY : Confirmed by: Maxwell Hamilton MD 16-May-2017 17:06:20
[2017-05-16] MEDS ORDERED: ONDANSETRON HCL INJ/PF 4 MG/2 ML SDV IV PRN (17:13)
[2017-05-16] MEDS ORDERED: ONDANSETRON 4 MG TAB.RAPDIS PO PRN (17:13)
[2017-05-16] MEDS ORDERED: ALBUTEROL SULFATE 0.083% NEB 2.5 MG/3 ML AMPUL NEB PRN (17:13)
--- NOTE | 2017-05-16 17:32 | PDOC H&P ---
History of Present Illness Admission Date/PCP: 05/16/17 17:19 Patient complains of: Confusion History of Present Illness: MARTY GAGE is a 86 year old female is a resident of [facility] who presents with altered mental status. The patient is unable to relate any history but according the emergency room physician the patient has had change in her mental status. She does have dementia baseline but was more confused and had some questionable facial droop. The patient presented to emergency room she was found to have an elevated potassium as well as worsening creatinine. She does have a history of chronic renal failure stage IV. The patient the time my exam denies anything and she has no children but her niece is at the bedside. Patient denies any shortness of breath. Denies any chest pain. There has been no fevers or chills. Past Medical History Cardiac Medical History: Reports: Atrial Fibrillation, Congestive Heart Failure - Diastolic dysfunction, Hyperlipidema, Hypertension, Heart Murmur - Aortic stenosis Pulmonary Medical History: Reports: Other - Pulmonary nodule. This is not being worked up because of her age and demen Endocrine Medical History: Reports: Hypothyroidism Renal/ Medical History: Reports: Chronic Kidney Disease GI Medical History: Reports: None Skin Medical History: Reports: None Psychiatric Medical History: Reports: Dementia, General Anxiety Disorder Traumatic Medical History: Reports: None Hematology: Reports: None Infectious Medical History: Reports: None Past Surgical History Past Surgical History: Reports: None Social History Information Source: Relative, Emergency Med Personnel Lives with: Group Home Smoking Status: Never Smoker Frequency of Alcohol Use: None Hx Recreational Drug Use: No Drugs: None Hx Prescription Drug Abuse: No - Advance Directive Resuscitation Status: Full Code Surrogate healthcare decision maker:: Her niece is her power of finance attorney Family History Family History: CAD, Hypertension Parental Family History Reviewed: Yes Children Family History Reviewed: No Sibling(s) Family History Reviewed.: No Medication/Allergy Home Medications: Diltiazem HCl [Cardizem] 120 mg PO DAILY 05/16/17 Docusate Sodium [Colace 100 mg Capsule] 100 mg PO DAILY 05/16/17 Furosemide [Lasix 20 mg Tablet] 20 mg PO DAILY 05/16/17 Haloperidol [Haldol 5 mg Tablet] 5 mg PO DAILYP PRN 05/16/17 Levothyroxine Sodium [Synthroid] 112 mcg PO DAILY 05/16/17 Lisinopril [Zestril] 20 mg PO QAM 05/16/17 Lorazepam [Ativan 0.5 mg Tablet] 0.5 mg PO HSP PRN 05/16/17 Lorazepam [Ativan] 2 mg PO DAILY 05/16/17 Magnesium Oxide [Mag-Ox 400 mg Tablet] 400 mg PO BID 05/16/17 Melatonin/Pyridoxine [Melatonin 5 mg Tablet] 1 tab PO QHS 05/16/17 Metoprolol Succinate [Toprol XL 100 mg Tablet] 150 mg PO DAILY 05/16/17 Mirtazapine [Remeron 15 mg Tablet] 15 mg PO QHS 05/16/17 Omeprazole 20 mg PO DAILY 05/16/17 Potassium Chloride [K-Tab ER] 40 meq PO DAILY 05/16/17 Rivaroxaban [Xarelto 15 mg Tablet] 15 mg PO DAILY 05/16/17 Tramadol HCl [Ultram 50 mg Tablet] 50 mg PO Q4HP PRN 05/16/17 Allergies/Adverse Reactions: No Known Allergies Allergy (Unverified 07/27/16 01:44) Review of Systems Constitutional: ABSENT: chills, fever(s), headache(s), weight gain, weight loss Eyes: ABSENT: visual disturbances Ears: ABSENT: hearing changes Cardiovascular: ABSENT: chest pain, dyspnea on exertion, edema, orthropnea, palpitations Respiratory: ABSENT: cough, hemoptysis Genitourinary: ABSENT: dysuria, hematuria Musculoskeletal: ABSENT: joint swelling Integumentary: ABSENT: rash, wounds Neurological: PRESENT: abnormal speech, confusion, memory loss. ABSENT: syncope Psychiatric: ABSENT: anxiety, depression Endocrine: ABSENT: cold intolerance, heat intolerance, polydipsia, polyuria Hematologic/Lymphatic: ABSENT: easy bleeding, easy bruising Physical Exam Vital Signs: Temp Pulse Resp BP Pulse Ox 97.8 F 64 17 123/62 100 05/16/17 14:40 05/16/17 14:40 05/16/17 14:40 05/16/17 14:40 05/16/17 14:40 General appearance: PRESENT: no acute distress, well-developed, well-nourished Head exam: PRESENT: atraumatic, normocephalic Eye exam: PRESENT: conjunctiva pink, EOMI, PERRLA. ABSENT: scleral icterus Ear exam: PRESENT: normal external ear exam Mouth exam: PRESENT: moist, tongue midline Neck exam: ABSENT: carotid bruit, JVD, lymphadenopathy, thyromegaly Respiratory exam: PRESENT: clear to auscultation roscoe. ABSENT: rales, rhonchi, wheezes Cardiovascular exam: PRESENT: irregular rhythm, systolic murmur. ABSENT: diastolic murmur, rubs Pulses: PRESENT: normal carotid pulses Vascular exam: PRESENT: normal capillary refill GI/Abdominal exam: PRESENT: normal bowel sounds, soft. ABSENT: distended, guarding, mass, organolmegaly, rebound, tenderness Rectal exam: PRESENT: deferred Extremities exam: PRESENT: pedal edema - Trace pedal edema. ABSENT: calf tenderness, clubbing Neurological exam: PRESENT: awake, oriented to person, CN II-XII grossly intact. ABSENT: oriented to place, oriented to time, oriented to situation, motor sensory deficit Psychiatric exam: PRESENT: appropriate affect Skin exam: PRESENT: dry, intact, warm. ABSENT: cyanosis, rash Results Impressions: Head CT 05/16/17 14:40 IMPRESSION: CHRONIC CHANGES OF ATROPHY AND MICROVASCULAR ISCHEMIA. NO ACUTE PROCESS. EVIDENCE OF ACUTE STROKE: NO. Chest X-Ray 05/16/17 14:41 IMPRESSION: Cardiomegaly. Transvenous pacer. Nothing acute. Assessment & Plan - Diagnosis (1) Hyperkalemia Is this a current diagnosis for this admission?: Yes Plan: The patient has been given Kayexalate, insulin, calcium gluconate in the emergency room. We will monitor overnight and recheck again in the morning. This most likely secondary to worsening chronic renal failure. I discussed with the family whether or not they would consider dialysis if her potassium would not improve and they were uncertain as to what action to take. Will consult Dr. Will of nephrology. (2) Acute renal failure Qualifiers: Is this a current diagnosis for this admission?: Yes Plan: Patient has stage IV chronic renal failure. Her creatinine has worsened some and she also has hyperkalemia. Patient hyperkalemia is being treated with Kayexalate, calcium gluconate. Dr. Will has been consulted (3) Aortic stenosis, moderate Is this a current diagnosis for this admission?: Yes (4) Dementia Qualifiers: Is this a current diagnosis for this admission?: Yes Plan: Patient has moderate to severe dementia. She is a resident of [facility]. (5) Hypertension Qualifiers: Is this a current diagnosis for this admission?: Yes (6) Hypothyroid Qualifiers: Is this a current diagnosis for this admission?: Yes Plan: We will continue with the Synthroid. (7) Pulmonary nodule Is this a current diagnosis for this admission?: Yes Plan: She had a pulmonary nodule present on her last chest x-ray. Given her age and dementia no workup was done at that time. Chest x-ray today does not show any obvious nodule. (8) A-fib Qualifiers: Is this a current diagnosis for this admission?: Yes Plan: Continue with diltiazem for rate control. Patient takes Xarelto for anticoagulation. (9) Diastolic CHF Is this a current diagnosis for this admission?: Yes Plan: Patient has chronic renal failure is worsening. She however appears to be euvolemic at this time. - Time Time Spent: 50 to 70 Minutes - Plan Summary Plan Summary: Patient will be admitted as an observation. If her potassium comes back at an acceptable range, she could be sent back to [facility] after being seen by nephrology tomorrow.
[2017-05-16] MEDS ORDERED: TRAMADOL HCL 50 MG TABLET PO PRN (17:33)
[2017-05-16] MEDS ORDERED: ENOXAPARIN SODIUM INJ 30 MG/0.3 ML DISP.SYRIN SUBCUT ONE (18:00)
[2017-05-16] MEDS: MAGNESIUM OXIDE 400 MG TABLET PO SCH (18:09)
[2017-05-16] MEDS ORDERED: (PENDING PHARMACY ID) (Melatonin/Pyridoxine [Melatonin 5 Mg Tablet] 1 TAB) PO SCH ×2 (19:00→22:00)
[2017-05-16 19:48] LABS: ALANINE AMINOTRANSFERASE 61 U/L (9-52); ALBUMIN 3.4 g/dL (3.5-5.0); ALKALINE PHOSPHATASE 76 U/L (38-126); ANION GAP 12 (5-19); ASPARTATE AMINO TRANSFERASE 35 U/L (14-36); BILIRUBIN,DIRECT 0.6 mg/dL (0.0-0.4); BILIRUBIN,TOTAL 0.7 mg/dL (0.2-1.3); BLOOD UREA NITROGEN 40 mg/dL (7-20); CARBON DIOXIDE 24 mmol/L (22-30); CHLORIDE 116 mmol/L (98-107); GLUCOSE 88 mg/dL (75-110); SODIUM 151.6 mmol/L (137-145)
[2017-05-16 19:58] LABS: POTASSIUM 5.9 mmol/L (3.6-5.0)
[2017-05-16] MEDS ORDERED: LORAZEPAM 0.5 MG TABLET PO PRN (22:00)
[2017-05-16] MEDS ORDERED: MIRTAZAPINE 15 MG TABLET ONE (22:31)
[2017-05-16] MEDS: FAMOTIDINE 20 MG TABLET PO SCH (22:37)
[2017-05-16] MEDS: MIRTAZAPINE 15 MG TABLET PO SCH (22:38)
[2017-05-16] MEDS: HALOPERIDOL 5 MG TABLET PO PRN (23:14)
[2017-05-17] MEDS: HYDRALAZINE HCL INJ/PF 20 MG/1 ML SDV IV PRN (02:05)
[2017-05-17] MEDS ORDERED: LORAZEPAM INJ 2 MG/1 ML VIAL IV ONE (04:15)
[2017-05-17 05:20] LABS: HEMATOCRIT 37.1 % (36.0-47.0); MEAN CORPUSCULAR HEMOGLOBIN 26.7 pg (27.0-33.4); MEAN CORPUSCULAR HGB CONC 32.3 g/dL (32.0-36.0); PLATELET COUNT 270 10^3/uL (150-450); RED BLOOD COUNT 4.49 10^6/uL (3.72-5.28); RED CELL DISTRIBUTION WIDTH 16.8 % (11.5-14.0); WHITE BLOOD COUNT 7.7 10^3/uL (4.0-10.5)
[2017-05-17 05:21] LABS: MEAN CORPUSCULAR VOLUME 83 fl (80-97)
[2017-05-17 05:34] LABS: ANION GAP 12 (5-19); BLOOD UREA NITROGEN 40 mg/dL (7-20); CALCIUM 9.7 mg/dL (8.4-10.2); CARBON DIOXIDE 23 mmol/L (22-30); CHLORIDE 113 mmol/L (98-107); GLUCOSE 112 mg/dL (75-110); POTASSIUM 5.5 mmol/L (3.6-5.0); SODIUM 147.8 mmol/L (137-145)
[2017-05-17] MEDS ORDERED: METOPROLOL TARTRATE PF/INJ 5 MG/5 ML SDV IV ONE (06:00)
[2017-05-17] MEDS ORDERED: (PENDING PHARMACY ID) (Lisinopril [Zestril] 20 MG) PO SCH (08:00)
[2017-05-17] MEDS: FAMOTIDINE 20 MG TABLET PO SCH ×2 (09:30→22:52)
[2017-05-17] MEDS: DOCUSATE SODIUM 100 MG CAPSULE PO SCH (09:30)
[2017-05-17] MEDS: MAGNESIUM OXIDE 400 MG TABLET PO SCH ×2 (09:30→18:03)
[2017-05-17] MEDS: FUROSEMIDE 20 MG TABLET PO SCH (09:31)
[2017-05-17] MEDS: LORAZEPAM 1 MG TABLET PO SCH (09:31)
[2017-05-17] MEDS: DILTIAZEM HCL 120 MG CAP.SR.24H PO SCH (09:32)
[2017-05-17] MEDS: METOPROLOL SUCCINATE 50 MG TAB.SR.24H PO SCH (09:32)
[2017-05-17] MEDS: LISINOPRIL 10 MG TABLET PO SCH (09:33)
[2017-05-17] MEDS ORDERED: (PENDING PHARMACY ID) (Diltiazem Hcl [Cardizem] 120 MG) PO SCH (10:00)
[2017-05-17] MEDS ORDERED: (PENDING PHARMACY ID) (Metoprolol Succinate [Toprol Xl 100 Mg Tablet] 150 MG) PO SCH (10:00)
[2017-05-17] MEDS ORDERED: LEVOTHYROXINE SODIUM 0.112 MG TABLET PO SCH (10:00)
[2017-05-17] MEDS ORDERED: ENOXAPARIN SODIUM INJ 30 MG/0.3 ML DISP.SYRIN SUBCUT SCH ×2 (10:00)
[2017-05-17] MEDS: LANSOPRAZOLE 15 MG TAB.RAP.DR PO SCH (11:09)
[2017-05-17] MEDS: RIVAROXABAN 15 MG TABLET PO SCH (11:13)
--- NOTE | 2017-05-17 11:57 | Physician Advisory Note ---
Physician Advisor ProgressNote .: Pursuant to the plan for Alvin Sanchez, I have reviewed the medical record for this patient. Physician Advisor Statement: Nice documentation of CKD stage IV. Please consider documenting, if you agree: 1. "Chronic diastolic CHF" - coders need both acuity as well as type, or must query 2. "Acute hypernatremia, likely due to " [intravascular volume depletion?] 3. Medical necessity: if this pt is not felt safe for d/c today, please document the reasons/concerns, & may change to Inpatient status. Ex: "continued acute hypernatremia & hyperkalemia", "persistent tachypnea " 4. Type Afib: paroxysmal? chronic? 5. likely cause of AMS - ?athersclerotic cerebrovascular disease? Status: Medicare pt. Appropriately brought in as Obs to start with electrolyte abnormalities & ARF, AMS. Today, if felt not clinically safe for d/c, may document reasons & will then be appropriate for Inpt status. Thanks! CK
[2017-05-17] MEDS ORDERED: DEXTROSE 5%-1/2 NORMAL SALINE 1,000 ML IV ONE (17:10)
--- NOTE | 2017-05-17 17:39 | PDOC CONSULTATION ---
Consultation Consult Date: 05/17/17 Attending physician:: WAI PULLIAM Consult reason:: I was asked by Dr. Pulliam to see the patient because of hyperkalemia in a patient with underlying history of chronic kidney disease History of Present Illness Admission Date/PCP: 05/16/17 17:19 History of Present Illness: MARTY GAGE is a 86 year old female is a resident of [facility] who presents with altered mental status. The patient is unable to relate any history but according the emergency room physician the patient has had change in her mental status. She does have dementia baseline but was more confused and had some questionable facial droop. The patient presented to emergency room she was found to have an elevated potassium as well as worsening creatinine. She does have a history of chronic renal failure stage IV. The patient the time my exam denies anything and she has no children but her niece is at the bedside. Patient denies any shortness of breath. Denies any chest pain. There has been no fevers or chills. Today I talked with the patient's 2 nieces at bedside when I entered the room. Her power of attorney recruiter, Wendy Larson is also at bedside. 1 of the nieces related that yesterday prior to bringing the patient to the emergency room patient was unusually weak and has been laying down a lot. They admitted the patient gets confused but she can carry a conversation. Yesterday prior to bringing her to the emergency room the niece said that she could not really talk much and she could not even sit up like usual state. They said the patient has not really been eating or drinking but unknown as to how long this been going on. Today they thought she is more confused compared to last night when they left her in the emergency room. They thought after she was given some medication yesterday she looked better than when she arrived in the emergency room. There was no note of any cough, fever, problems with urination. There are not aware of any history of kidney problems nor kidney stones in the past. They also were not aware that the patient has not seen any aerial sprayer in the past. When I asked the patient if she has any complaints the only thing she said was she is nauseated and feels weak but denies everything else I asked. So when the patient presented yesterday she had a potassium of 6.9 today it is 5.5 after giving her medications. Her BUN and creatinine yesterday were 43 and 3.17 with EGFR of 17. Today she had a B BUN of 40 and creatinine of 2.79 with EGFR of 19. Previous labs on April 28, 2017 showed a BUN of 46 and creatinine of 2.96 with EGFR of 18 which seems to be her baseline. In the ER yesterday she was given calcium gluconate, sodium bicarbonate, Lasix, Kayexalate , and a liter of normal saline. Today the patient's blood pressure has been elevated and her blood pressure medications has been resumed. Past Medical History Cardiac Medical History: Reports: Atrial Fibrillation, Heart Murmur - Aortic stenosis, Hyperlipidemia Pulmonary Medical History: Reports: Other - Pulmonary nodule. This is not being worked up because of her age and demen Endocrine Medical History: Reports: Hypothyroidism Renal/ Medical History: Reports: Chronic Kidney Disease Stage IV Psychiatric Medical History: Reports: Dementia, General Anxiety Disorder Past Surgical History Past Surgical History: Reports: Hysterectomy, Pacemaker, Other - Cataract surgery and lipoma excisions Social History Information Source: Relative Lives with: [facility] Smoking Status: Former Smoker Frequency of Alcohol Use: None Hx Recreational Drug Use: No Drugs: None Hx Prescription Drug Abuse: No - Advance Directive Resuscitation Status: Full Code Family History Family History: CAD, Hypertension, Malignancy Parental Family History Reviewed: Yes Children Family History Reviewed: NA Sibling(s) Family History Reviewed.: Yes Medication/Allergy Home Medications: Diltiazem HCl [Cardizem] 120 mg PO DAILY 05/16/17 Docusate Sodium [Colace 100 mg Capsule] 100 mg PO DAILY 05/16/17 Furosemide [Lasix 20 mg Tablet] 20 mg PO DAILY 05/16/17 Haloperidol [Haldol 5 mg Tablet] 5 mg PO DAILYP PRN 05/16/17 Levothyroxine Sodium [Synthroid] 112 mcg PO DAILY 05/16/17 Lisinopril [Zestril] 20 mg PO QAM 05/16/17 Lorazepam [Ativan 0.5 mg Tablet] 0.5 mg PO HSP PRN 05/16/17 Lorazepam [Ativan] 2 mg PO DAILY 05/16/17 Magnesium Oxide [Mag-Ox 400 mg Tablet] 400 mg PO BID 05/16/17 Melatonin/Pyridoxine [Melatonin 5 mg Tablet] 1 tab PO QHS 05/16/17 Metoprolol Succinate [Toprol XL 100 mg Tablet] 150 mg PO DAILY 05/16/17 Mirtazapine [Remeron 15 mg Tablet] 15 mg PO QHS 05/16/17 Omeprazole 20 mg PO DAILY 05/16/17 Potassium Chloride [K-Tab ER] 40 meq PO DAILY 05/16/17 Rivaroxaban [Xarelto 15 mg Tablet] 15 mg PO DAILY 05/16/17 Tramadol HCl [Ultram 50 mg Tablet] 50 mg PO Q4HP PRN 05/16/17 Allergies/Adverse Reactions: No Known Allergies Allergy (Unverified 07/27/16 01:44) Review of Systems All systems: reviewed and no additional remarkable complaints except as stated Review of Systems: Constitutional: Admits weakness ABSENT: chills, fatigue, fever(s), headache(s), weight gain, weight loss Eyes: ABSENT: visual disturbances Ears: ABSENT: hearing changes Cardiovascular: ABSENT: chest pain, dyspnea on exertion, edema, orthropnea, palpitations Respiratory: ABSENT: cough, dyspnea, hemoptysis Gastrointestinal: Admits nausea ABSENT: abdominal pain, constipation, diarrhea, hematemesis, hematochezia, vomiting Genitourinary: ABSENT: dysuria, hematuria Musculoskeletal: ABSENT: joint swelling Integumentary: ABSENT: rash, wounds Neurological: Admits confusion as baseline ABSENT: abnormal gait, abnormal speech, dizziness, focal weakness, numbness, syncope Psychiatric: ABSENT: anxiety, depression Endocrine: ABSENT: cold intolerance, heat intolerance, polydipsia, polyuria Hematologic/Lymphatic: ABSENT: easy bleeding, easy bruising, lymphadenopathy Physical Exam Vital Signs: Temp Pulse Resp BP Pulse Ox 97.9 F 89 27 H 125/74 96 05/17/17 09:24 05/17/17 14:00 05/17/17 15:01 05/17/17 15:01 05/17/17 09:40 Intake & Output 05/16/17 05/17/17 05/18/17 06:59 06:59 06:59 Intake Total 25 Balance 25 Weight 69.4 kg Exam: General appearance: no acute distress, cooperative, well-developed, well- nourished Head exam: PRESENT: atraumatic, normocephalic Eye exam: PRESENT: Conjunctiva [place], EOMI, PERRLA. ABSENT: conjunctival injection, scleral icterus Mouth exam: PRESENT: moist, neck supple, tongue midline Neck exam: PRESENT: full ROM. ABSENT: carotid bruit, JVD, lymphadenopathy, thyromegaly Respiratory exam: PRESENT: Diminished to auscultation bilaterally. ABSENT: rales, rhonchi, stridor, wheezes Cardiovascular exam: PRESENT: Irregularly irregular +S1, +S2. Grade 3/6 systolic murmur Pulses: PRESENT: normal radial pulses, normal dorsalis pedis pulses GI/Abdominal exam: PRESENT: normal bowel sounds, soft. ABSENT: guarding, mass, tenderness Rectal exam: deferred Extremities exam: PRESENT: full ROM. ABSENT: calf tenderness, pedal edema Musculoskeletal: PRESENT: full ROM. ABSENT: deformity Neurological exam: PRESENT: alert, Awake, Oriented to person only, answers very few questions with some garbled speech CN II-XII grossly intact. ABSENT: motor sensory deficit Psychiatric exam: PRESENT: appropriate affect, normal mood. ABSENT: homicidal ideation, suicidal ideation Skin exam: PRESENT: intact, dry, warm. ABSENT: rash Results Laboratory Results: 05/17/17 04:50 05/17/17 04:50 05/16/17 05/17/17 05/17/17 19:25 04:50 04:50 WBC 7.7 RBC 4.49 Hgb 12.0 Hct 37.1 MCV 83 MCH 26.7 L MCHC 32.3 RDW 16.8 H Plt Count 270 Sodium 151.6 H 147.8 H Potassium 5.9 H D 5.5 H Chloride 116 H 113 H Carbon Dioxide 24 23 Anion Gap 12 12 BUN 40 H 40 H Creatinine 2.96 H 2.79 H Est GFR ( Amer) 18 L 19 L Est GFR (Non-Af Amer) 15 L 16 L Glucose 88 112 H Calcium 10.0 9.7 Total Bilirubin 0.7 AST 35 ALT 61 H Alkaline Phosphatase 76 Total Protein 6.0 L Albumin 3.4 L Impressions: Head CT 05/16/17 14:40 IMPRESSION: CHRONIC CHANGES OF ATROPHY AND MICROVASCULAR ISCHEMIA. NO ACUTE PROCESS. EVIDENCE OF ACUTE STROKE: NO. Chest X-Ray 05/16/17 14:41 IMPRESSION: Cardiomegaly. Transvenous pacer. Nothing acute. Assessment & Plan - Diagnosis (1) Acute kidney injury superimposed on chronic kidney disease Is this a current diagnosis for this admission?: Yes Plan: She initially presented with mild worsening of her kidney function which seems to have improved now to baseline. The acute worsening of kidney function is most likely secondary to dehydration causing prerenal azotemia. She does seem to have underlying chronic kidney disease stage IV most likely secondary to hypertensive nephrosclerosis without any associated proteinuria nor microhematuria. I explained the diagnosis to the patient nieces. I just told them to think the possibility of patient's kidney function getting worse and possibility of requiring dialysis in the future but not currently. I told them to discuss amongst themselves if they would want the patient to be on dialysis if ever kidney function starts getting worse in the future. Today they could not give me an answer to that. This is understandable considering the patient's overall medical condition including dementia. However I still urged him to think about it. (2) Chronic kidney disease (CKD), stage IV (severe) Is this a current diagnosis for this admission?: Yes Plan: Likely secondary to hypertensive nephrosclerosis. (3) Hyperkalemia Is this a current diagnosis for this admission?: Yes Plan: This is due to patient's mild worsening of kidney function and potassium supplementation. Patient does not need any potassium supplement after this episode. Also needs to be on low potassium and prerenal diet. Currently this is improving. (4) Hypernatremia Is this a current diagnosis for this admission?: Yes Plan: Likely due to dehydration because of poor oral intake. I will give her a liter of D5 0.45 at a 100 mL an hour. (5) Dehydration Is this a current diagnosis for this admission?: Yes (6) Dementia Qualifiers: Is this a current diagnosis for this admission?: Yes (7) Hypertension Qualifiers: Is this a current diagnosis for this admission?: Yes Plan: Continue home medications and as needed medications. (8) A-fib Qualifiers: Is this a current diagnosis for this admission?: Yes - Notes Notes: Thank you very much for this consultation. The patient needs to be followed up as an outpatient after this episode. I will follow-up with you while here in the hospital. - Time Time Spent: Greater than 70 Minutes
[2017-05-17] MEDS: MIRTAZAPINE 15 MG TABLET PO SCH (22:52)
[2017-05-17] MEDS: HALOPERIDOL 5 MG TABLET PO PRN (23:26)
--- NOTE | 2017-05-18 00:35 | RADIOLOGY REPORT (SQ) ---
EXAM DESCRIPTION: U/S RETROPERITON [facility] CLINICAL HISTORY: TIM/CKD COMPARISON: None. TECHNIQUE: Real-time sonographic images of the retroperitoneum were obtained using a curved multihertz transducer. Suboptimal evaluation due to patient motion. FINDINGS: The right kidney measures 9.7 cm in length. The left kidney measures 7.6 cm in length. There are cortical thinning and atrophy of the left kidney. The superior pole of the right kidney there is a 2.0 cm hypodense structure which is not definitely cystic. No hydronephrosis or solid mass. Images of the urinary bladder were not obtained. IMPRESSION: 1. There is a 2.0 cm hypodensity at the superior pole of the right kidney which is not definitely cystic. Correlation with contrast-enhanced CT or MRI of the abdomen recommended. 2. Atrophy of the left kidney.
[2017-05-18] MEDS: HYDRALAZINE HCL INJ/PF 20 MG/1 ML SDV IV PRN ×2 (00:47→10:45)
[2017-05-18] MEDS: LEVOTHYROXINE SODIUM 0.112 MG TABLET PO SCH (06:23)
[2017-05-18 06:33] LABS: ANION GAP 9 (5-19); BLOOD UREA NITROGEN 36 mg/dL (7-20); CALCIUM 9.3 mg/dL (8.4-10.2); CARBON DIOXIDE 25 mmol/L (22-30); CHLORIDE 113 mmol/L (98-107); GLUCOSE 115 mg/dL (75-110); PHOSPHORUS 3.7 mg/dL (2.5-4.5); POTASSIUM 4.8 mmol/L (3.6-5.0); SODIUM 147.2 mmol/L (137-145)
[2017-05-18] MEDS: DILTIAZEM HCL 120 MG CAP.SR.24H PO SCH (10:32)
[2017-05-18] MEDS: FUROSEMIDE 20 MG TABLET PO SCH (10:54)
[2017-05-18] MEDS: MAGNESIUM OXIDE 400 MG TABLET PO SCH ×2 (11:51→17:27)
[2017-05-18] MEDS: FAMOTIDINE 20 MG TABLET PO SCH ×2 (11:51→22:21)
[2017-05-18] MEDS: DOCUSATE SODIUM 100 MG CAPSULE PO SCH (11:51)
[2017-05-18] MEDS: LANSOPRAZOLE 15 MG TAB.RAP.DR PO SCH (11:51)
[2017-05-18] MEDS: METOPROLOL SUCCINATE 50 MG TAB.SR.24H PO SCH (11:56)
[2017-05-18] MEDS: RIVAROXABAN 15 MG TABLET PO SCH (11:58)
[2017-05-18] MEDS: LORAZEPAM 1 MG TABLET PO SCH (12:00)
[2017-05-18] MEDS: LISINOPRIL 10 MG TABLET PO SCH (12:00)
--- NOTE | 2017-05-18 13:34 | PDOC PROGRESS REPORT ---
Subjective Progress Note for:: 05/17/17 Subjective:: Patient seen while in ED. Was sleeping upon entering room. Opened her eyes but Did not answer questions. No other family members were present at time of my evaluation. Reason For Visit: HYPERKALEMIA,ARF Physical Exam Vital Signs: Temp Pulse Resp BP Pulse Ox 97.8 F 95 18 97/69 L 100 05/18/17 11:54 05/18/17 11:54 05/18/17 11:54 05/18/17 11:54 05/18/17 11:54 Intake & Output 05/17/17 05/18/17 05/19/17 06:59 06:59 06:59 Intake Total 806 Balance 806 Weight 69.6 kg General appearance: PRESENT: other - Resting comfortably, opened eyes, not answering questions Head exam: PRESENT: atraumatic, normocephalic Mouth exam: PRESENT: moist Respiratory exam: PRESENT: symmetrical, unlabored Cardiovascular exam: PRESENT: RRR, other - Systolic ejection murmur GI/Abdominal exam: PRESENT: soft. ABSENT: guarding, tenderness Neurological exam: PRESENT: other - Did not answer questions or follow commands. Opened eyes. Results Laboratory Results: 05/18/17 05:43 05/18/17 05/18/17 05:43 05:43 Sodium 147.2 H Potassium 4.8 Chloride 113 H Carbon Dioxide 25 Anion Gap 9 BUN 36 H Creatinine 2.55 H Est GFR ( Amer) 22 L Est GFR (Non-Af Amer) 18 L Glucose 115 H Calcium 9.3 Phosphorus 3.7 PTH Intact 258.4 H Impressions: Head CT 05/16/17 14:40 IMPRESSION: CHRONIC CHANGES OF ATROPHY AND MICROVASCULAR ISCHEMIA. NO ACUTE PROCESS. EVIDENCE OF ACUTE STROKE: NO. Chest X-Ray 05/16/17 14:41 IMPRESSION: Cardiomegaly. Transvenous pacer. Nothing acute. Renal Ultrasound 05/17/17 00:00 IMPRESSION: 1. There is a 2.0 cm hypodensity at the superior pole of the right kidney which is not definitely cystic. Correlation with contrast-enhanced CT or MRI of the abdomen recommended. 2. Atrophy of the left kidney. Assessment & Plan - Diagnosis (1) Hyperkalemia Is this a current diagnosis for this admission?: Yes Plan: Received Kayexalate, insulin, calcium gluconate in the emergency room with improvement in labs. Evaluated by Dr. Will of Nephrology who felt that hyperkalemia is likely related to acute on chronic renal disease. (2) Acute kidney injury superimposed on chronic kidney disease Is this a current diagnosis for this admission?: Yes Plan: Evaluated by nephrology. Improved in creatinine today. Not yet back to baseline. - Will need outpatient follow up with renal once discharged. - Continue to monitor with Daily BMPs. - Renal ultrasound obtained (3) Aortic stenosis, moderate Is this a current diagnosis for this admission?: Yes Plan: Murmur on exam, NTD (4) Dementia Qualifiers: Dementia type: unspecified type Is this a current diagnosis for this admission?: Yes Plan: Known severe dementia. May be contributing to change in mental status. CT head at admission negative for acute disease process. - Time Time Spent with patient: Less than 15 minutes - Inpatient Certification Based on my medical assessment, after consideration of the patient's comorbidities, presenting symptoms, or acuity I expect that the services needed warrant INPATIENT care.: Yes Medical Necessity: Risk of Complication if Not Cared For in Hospital
--- NOTE | 2017-05-18 15:01 | PDOC PROGRESS REPORT ---
Subjective Progress Note for:: 05/18/17 Subjective:: Patient seen while in ED. Was sleeping upon entering room. Opened her eyes but Did not answer questions. No other family members were present at time of my evaluation. Reason For Visit: HYPERKALEMIA,ARF Physical Exam Vital Signs: Temp Pulse Resp BP Pulse Ox 97.8 F 83 16 97/69 L 95 05/18/17 11:54 05/18/17 14:08 05/18/17 14:08 05/18/17 11:54 05/18/17 14:08 Intake & Output 05/17/17 05/18/17 05/19/17 06:59 06:59 06:59 Intake Total 806 200 Balance 806 200 Weight 69.6 kg General appearance: PRESENT: no acute distress, other - sleeping in bed Head exam: PRESENT: atraumatic, normocephalic Mouth exam: PRESENT: moist Respiratory exam: PRESENT: chest wall tenderness Cardiovascular exam: PRESENT: irregular rhythm, other - Rate controlled GI/Abdominal exam: PRESENT: soft. ABSENT: firm, tenderness Extremities exam: ABSENT: pedal edema Neurological exam: PRESENT: other - Unable to perform neuro exam Skin exam: PRESENT: dry. ABSENT: erythema Results Laboratory Results: 05/18/17 05:43 05/18/17 05/18/17 05:43 05:43 Sodium 147.2 H Potassium 4.8 Chloride 113 H Carbon Dioxide 25 Anion Gap 9 BUN 36 H Creatinine 2.55 H Est GFR ( Amer) 22 L Est GFR (Non-Af Amer) 18 L Glucose 115 H Calcium 9.3 Phosphorus 3.7 PTH Intact 258.[address] 05/16/17 14:40 IMPRESSION: CHRONIC CHANGES OF ATROPHY AND MICROVASCULAR ISCHEMIA. NO ACUTE PROCESS. EVIDENCE OF ACUTE STROKE: NO. Chest X-Ray 05/16/17 14:41 IMPRESSION: Cardiomegaly. Transvenous pacer. Nothing acute. Renal Ultrasound 05/17/17 00:00 IMPRESSION: 1. There is a 2.0 cm hypodensity at the superior pole of the right kidney which is not definitely cystic. Correlation with contrast-enhanced CT or MRI of the abdomen recommended. 2. Atrophy of the left kidney. Impressions: Head CT 05/16/17 14:40 IMPRESSION: CHRONIC CHANGES OF ATROPHY AND MICROVASCULAR ISCHEMIA. NO ACUTE PROCESS. EVIDENCE OF ACUTE STROKE: NO. Chest X-Ray 05/16/17 14:41 IMPRESSION: Cardiomegaly. Transvenous pacer. Nothing acute. Renal Ultrasound 05/17/17 00:00 IMPRESSION: 1. There is a 2.0 cm hypodensity at the superior pole of the right kidney which is not definitely cystic. Correlation with contrast-enhanced CT or MRI of the abdomen recommended. 2. Atrophy of the left kidney. Assessment & Plan - Diagnosis (1) Hyperkalemia Is this a current diagnosis for this admission?: Yes Plan: Received Kayexalate, insulin, calcium gluconate in the emergency room with improvement in labs. Evaluated by Dr. Wlil of Nephrology who felt that hyperkalemia is likely related to acute on chronic renal disease - Trending down, Cr 2.55 on 05/18. (2) Acute kidney injury superimposed on chronic kidney disease Is this a current diagnosis for this admission?: Yes (3) Aortic stenosis, moderate Is this a current diagnosis for this admission?: Yes Plan: Murmur on exam, NTD (4) Dementia Qualifiers: Dementia type: unspecified type Is this a current diagnosis for this admission?: Yes Plan: Known severe dementia. May be contributing to change in mental status. CT head at admission negative for acute disease process. (5) Somnolence Is this a current diagnosis for this admission?: Yes Plan: Per patient's daughter, more somnulent than usual. CTH reviewed and no acute abnormalities. While acute renal failure and electrolyte dysfunction can cause confusion, there degree of abnormality is not proportional to patient's mental status. Medications reviewed. She is on multiple sedating drugs, however these are home mediations. Will continue to closely monitor. May required additional work up on 05/19 if not improved. - Time Time Spent with patient: 15-24 minutes
[2017-05-18] MEDS: ACETAMINOPHEN 325 MG TABLET PO PRN (15:48)
--- NOTE | 2017-05-18 16:51 | PDOC PROGRESS REPORT ---
Subjective Progress Note for:: 05/18/17 Subjective:: When I went in to see the patient in her room she was sleeping. However her nurse, Maxine related to me that she is better. He said patient was previously awake and communicating. I was told that she also started eating and drinking fluids. However per hospitalist notes she was still somewhat confused more than usual per her nieces. Reason For Visit: HYPERKALEMIA,ARF Physical Exam Vital Signs: Temp Pulse Resp BP Pulse Ox 97.8 F 83 16 97/69 L 95 05/18/17 11:54 05/18/17 14:08 05/18/17 14:08 05/18/17 11:54 05/18/17 14:08 Intake & Output 05/17/17 05/18/17 05/19/17 06:59 06:59 06:59 Intake Total 806 200 Balance 806 200 Weight 69.6 kg Exam: General appearance: PRESENT: no acute distress, cooperative, well-developed, well-nourished, sleeping Head exam: PRESENT: atraumatic, normocephalic Eye exam: PRESENT: conjunctiva pink, PERRLA. ABSENT: scleral icterus Neck exam: ABSENT: JVD Respiratory exam: PRESENT: Diminished breath sounds. ABSENT: crackles, rales, rhonchi, unlabored, wheezes Cardiovascular exam: PRESENT: Irregularly irregular rate rhythm -+S1, +S2. Grade 3/6 systolic murmur GI/Abdominal exam: PRESENT: normal bowel sounds, soft. ABSENT: guarding, mass, tenderness Extremities exam: ABSENT: No edema Neurological exam: PRESENT: Asleep but arousable Skin exam: PRESENT: dry, warm, Results Laboratory Results: 05/18/17 05:43 05/18/17 05/18/17 05:43 05:43 Sodium 147.2 H Potassium 4.8 Chloride 113 H Carbon Dioxide 25 Anion Gap 9 BUN 36 H Creatinine 2.55 H Est GFR ( Amer) 22 L Est GFR (Non-Af Amer) 18 L Glucose 115 H Calcium 9.3 Phosphorus 3.7 PTH Intact 258.4 H Impressions: Head CT 05/16/17 14:40 IMPRESSION: CHRONIC CHANGES OF ATROPHY AND MICROVASCULAR ISCHEMIA. NO ACUTE PROCESS. EVIDENCE OF ACUTE STROKE: NO. Chest X-Ray 05/16/17 14:41 IMPRESSION: Cardiomegaly. Transvenous pacer. Nothing acute. Renal Ultrasound 05/17/17 00:00 IMPRESSION: 1. There is a 2.0 cm hypodensity at the superior pole of the right kidney which is not definitely cystic. Correlation with contrast-enhanced CT or MRI of the abdomen recommended. 2. Atrophy of the left kidney. Assessment & Plan - Diagnosis (1) Acute kidney injury superimposed on chronic kidney disease Is this a current diagnosis for this admission?: Yes Plan: She initially presented with mild worsening of her kidney function which seems to have improved now to baseline. The acute worsening of kidney function is most likely secondary to dehydration causing prerenal azotemia. She does seem to have underlying chronic kidney disease stage IV most likely secondary to hypertensive nephrosclerosis without any associated proteinuria nor microhematuria. I explained the diagnosis to the patient nieces. I just told them to think the possibility of patient's kidney function getting worse and possibility of requiring dialysis in the future but not currently. I told them to discuss amongst themselves if they would want the patient to be on dialysis if ever kidney function starts getting worse in the future. Today they could not give me an answer to that. This is understandable considering the patient's overall medical condition including dementia. However I still urged him to think about it. I think the patient's acute kidney injury has resolved and the patient's kidney function is very close to her baseline. (2) Chronic kidney disease (CKD), stage IV (severe) Is this a current diagnosis for this admission?: Yes Plan: Likely secondary to hypertensive nephrosclerosis. She does not have any significant proteinuria nor hematuria. Kidney ultrasound showed bilateral small kidneys with atrophic left kidney at 7.6 cm and relatively small right kidney of 9.77 cm with cortical thinning. This is consistent with chronic kidney disease. Patient's kidney function is very close to baseline. She does not need any renal replacement therapy at this time. She would need outpatient follow-up post discharge. (3) Hyperkalemia Is this a current diagnosis for this admission?: Yes Plan: This is due to patient's mild worsening of kidney function and potassium supplementation. Patient does not need any potassium supplement after this episode. Also needs to be on low potassium and prerenal diet. Now resolved. (4) Hypernatremia Is this a current diagnosis for this admission?: Yes Plan: Likely due to dehydration because of poor oral intake. She received a liter of D5 0.45 at a 100 mL an hour overnight. Encourage water intake of at least a liter a day. (5) Dehydration Is this a current diagnosis for this admission?: Yes (6) Dementia Qualifiers: Dementia type: unspecified type Is this a current diagnosis for this admission?: Yes (7) Hypertension Qualifiers: Is this a current diagnosis for this admission?: Yes Plan: Continue home medications and as needed medications. This seems to be labile. Adjust medications as necessary. (8) A-fib Qualifiers: Is this a current diagnosis for this admission?: Yes (9) Renal lesion Is this a current diagnosis for this admission?: Yes Plan: There is a 2 cm hypodense area in the superior pole of the right kidney. This recommended to do a contrast CT or MRI but that cannot be done due to the patient's kidney function and the risk for worsening kidney function. It was also mentioned that there was no solid masses so I assume this was not solid. I think the risk of doing either contrast CT or MRI with contrast is greater than its benefit at this time. This can be addressed at the later time. (10) Secondary hyperparathyroidism (of renal origin) Is this a current diagnosis for this admission?: Yes Plan: Start calcitriol. - Time Time with patient: 15-25 minutes
[2017-05-18] MEDS: MIRTAZAPINE 15 MG TABLET PO SCH (22:21)
[2017-05-19] MEDS: HALOPERIDOL 5 MG TABLET PO PRN (01:06)
[2017-05-19] MEDS: ACETAMINOPHEN 325 MG TABLET PO PRN (01:31)
[2017-05-19] MEDS ORDERED: HALOPERIDOL LACTATE INJ 5 MG/1 ML VIAL ONE (08:05)
[2017-05-19] MEDS ORDERED: HALOPERIDOL LACTATE INJ 5 MG/1 ML VIAL IV ONE (08:30)
[2017-05-19 09:30] LABS: HEMATOCRIT 35.4 % (36.0-47.0); HEMOGLOBIN 11.4 g/dL (12.0-15.5); MEAN CORPUSCULAR HEMOGLOBIN 26.5 pg (27.0-33.4); MEAN CORPUSCULAR HGB CONC 32.3 g/dL (32.0-36.0); MEAN CORPUSCULAR VOLUME 82 fl (80-97); PLATELET COUNT 225 10^3/uL (150-450); RED BLOOD COUNT 4.32 10^6/uL (3.72-5.28); RED CELL DISTRIBUTION WIDTH 16.7 % (11.5-14.0); WHITE BLOOD COUNT 5.8 10^3/uL (4.0-10.5)
[2017-05-19] MEDS: CALCITRIOL 0.25 MCG CAPSULE PO SCH (09:46)
[2017-05-19] MEDS: DOCUSATE SODIUM 100 MG CAPSULE PO SCH (09:46)
[2017-05-19] MEDS: FAMOTIDINE 20 MG TABLET PO SCH ×2 (09:47→22:47)
[2017-05-19] MEDS: DILTIAZEM HCL 120 MG CAP.SR.24H PO SCH (09:47)
[2017-05-19] MEDS: LISINOPRIL 10 MG TABLET PO SCH (09:47)
[2017-05-19] MEDS: METOPROLOL SUCCINATE 50 MG TAB.SR.24H PO SCH (09:48)
[2017-05-19] MEDS: FUROSEMIDE 20 MG TABLET PO SCH (09:48)
[2017-05-19] MEDS: MAGNESIUM OXIDE 400 MG TABLET PO SCH ×2 (09:49→22:47)
[2017-05-19] MEDS: LANSOPRAZOLE 15 MG TAB.RAP.DR PO SCH (09:49)
[2017-05-19] MEDS: LORAZEPAM 1 MG TABLET PO SCH (09:49)
[2017-05-19] MEDS: RIVAROXABAN 15 MG TABLET PO SCH (09:51)
[2017-05-19] MEDS: LEVOTHYROXINE SODIUM 0.112 MG TABLET PO SCH (09:56)
[2017-05-19 11:02] LABS: ANION GAP 12 (5-19); BLOOD UREA NITROGEN 32 mg/dL (7-20); CALCIUM 9.4 mg/dL (8.4-10.2); CARBON DIOXIDE 20 mmol/L (22-30); CHLORIDE 109 mmol/L (98-107); GLUCOSE 100 mg/dL (75-110); POTASSIUM 5.1 mmol/L (3.6-5.0); SODIUM 140.7 mmol/L (137-145)
--- NOTE | 2017-05-19 18:41 | PDOC PROGRESS REPORT ---
Subjective Progress Note for:: 05/19/17 Subjective:: No overnight events. This AM agitated and combative with staff. Placed in restraints and given IV Haldol * 1 dose. Improvement in agitation. Much more awake today, interactive, and answering questions. She is complaining of nausea today and inability to "keep food down". Has had 2 episodes of vomiting and started receiving Zofran. Denies fevers, chills, CP, abdominal pain. Upon further questioning has not had bowel movement in 2 days. Reason For Visit: HYPERKALEMIA,ARF Physical Exam Vital Signs: Temp Pulse Resp BP Pulse Ox 99.1 F 89 18 147/67 H 97 05/19/17 16:17 05/19/17 16:17 05/19/17 16:17 05/19/17 16:17 05/19/17 16:17 Intake & Output 05/18/17 05/19/17 05/20/17 06:59 06:59 06:59 Intake Total 806 1395 60 Output Total 0 0 Balance 806 1395 60 Weight 69.6 kg 68.7 kg General appearance: PRESENT: no acute distress, hard of hearing, other - lying bed. Eyes awake. Head exam: PRESENT: atraumatic, normocephalic Mouth exam: PRESENT: moist Neck exam: ABSENT: JVD Cardiovascular exam: PRESENT: irregular rhythm, systolic murmur GI/Abdominal exam: PRESENT: soft. ABSENT: guarding, tenderness Extremities exam: ABSENT: pedal edema Neurological exam: PRESENT: alert, awake, other - Speaking in full sentences with fluent speech. Interactive. No focal neuro changes. Psychiatric exam: PRESENT: other - Dementia, pleasant Results Laboratory Results: 05/19/17 08:58 05/19/17 08:58 05/19/17 05/19/17 08:58 08:58 WBC 5.8 RBC 4.32 Hgb 11.4 L Hct 35.4 L MCV 82 MCH 26.5 L MCHC 32.3 RDW 16.7 H Plt Count 225 Sodium 140.7 Potassium 5.1 H Chloride 109 H Carbon Dioxide 20 L Anion Gap 12 BUN 32 H Creatinine 2.41 H Est GFR ( Amer) 23 L Est GFR (Non-Af Amer) 19 L Glucose 100 Calcium 9.4 Impressions: Head CT 05/16/17 14:40 IMPRESSION: CHRONIC CHANGES OF ATROPHY AND MICROVASCULAR ISCHEMIA. NO ACUTE PROCESS. EVIDENCE OF ACUTE STROKE: NO. Chest X-Ray 05/16/17 14:41 IMPRESSION: Cardiomegaly. Transvenous pacer. Nothing acute. Renal Ultrasound 05/17/17 00:00 IMPRESSION: 1. There is a 2.0 cm hypodensity at the superior pole of the right kidney which is not definitely cystic. Correlation with contrast-enhanced CT or MRI of the abdomen recommended. 2. Atrophy of the left kidney. Assessment & Plan - Diagnosis (1) Hyperkalemia Is this a current diagnosis for this admission?: Yes Plan: Received Kayexalate, insulin, calcium gluconate in the emergency room with improvement in labs. - Followed by Dr. Will of Nephrology who felt that hyperkalemia is likely related to acute on chronic renal disease - Trending down, Cr 2.41 on 05/19. (2) Acute kidney injury superimposed on chronic kidney disease Is this a current diagnosis for this admission?: Yes Plan: Evaluated by nephrology. Improved in creatinine today - Will need outpatient follow up with renal once discharged. - Continue to monitor with Daily BMPs. - Renal ultrasound obtained, notable for 2cm mass. Ideally would pursue further work up to determine etiology. Unable to perform CT renal with IV contrast due to CKD. Patient would not be a good surgical candidate. Would be reasonable to recheck renal u/S in 3 months to assess size. (3) Aortic stenosis, moderate Is this a current diagnosis for this admission?: Yes Plan: Murmur on exam, NTD (4) Dementia Qualifiers: Dementia type: unspecified type Is this a current diagnosis for this admission?: Yes Plan: Known severe dementia. CT head at admission negative for acute disease process. Per daughters this evening, back to baseline (5) Somnolence Is this a current diagnosis for this admission?: Yes Plan: resolved, tramadol discontinued. CTM (6) Nausea & vomiting Qualifiers: Vomiting type: unspecified Vomiting Intractability: non-intractable Qualified Code(s): R11.2 - Nausea with vomiting, unspecified Is this a current diagnosis for this admission?: Yes Plan: New symptom of 05/19. Not entirely clear what is causing this. Patient has not had BM in 2 days. Also receiving Haldol this AM which can cause nausea. Has history of GERD however currently on PPI - Ordered Miralax - Has not received additional dose of Haldol since this AM - Continue PPI - Zofran PO and IV ordered PRN for N/V control - If not improved by tomorrow, will obtain abdominal Xray and work up further - Time Time Spent with patient: 15-24 minutes Within: within 24 hours
[2017-05-19] MEDS ORDERED: POLYETHYLENE GLYCOL 3350 POWDER 17 GM/1 PACKET PO ONE (19:00)
--- NOTE | 2017-05-19 19:01 | PDOC PROGRESS REPORT ---
Subjective Progress Note for:: 05/19/17 Subjective:: Patient was nauseated and tells me that every time she eats something she throws up. Her nieces are at bedside. Nurse reports that patient became combative so he was given Haldol. She is currently being given medication for nausea and vomiting. Otherwise her nieces confirmed that her mental status is better and that she is more awake and interactive at times. She answers selective questions. Reason For Visit: HYPERKALEMIA,ARF Physical Exam Vital Signs: Temp Pulse Resp BP Pulse Ox 99.1 F 89 18 147/67 H 97 05/19/17 16:17 05/19/17 16:17 05/19/17 16:17 05/19/17 16:17 05/19/17 16:17 Intake & Output 05/18/17 05/19/17 05/20/17 06:59 06:59 06:59 Intake Total 806 1395 60 Output Total 0 0 Balance 806 1395 60 Weight 69.6 kg 68.7 kg Exam: General appearance: PRESENT: no acute distress, cooperative, fairly nourished and fairly developed Head exam: PRESENT: atraumatic, normocephalic Eye exam: PRESENT: conjunctiva pink, PERRLA. ABSENT: scleral icterus Neck exam: ABSENT: JVD Respiratory exam: PRESENT: Diminished breath sounds. ABSENT: crackles, rales, rhonchi, unlabored, wheezes Cardiovascular exam: PRESENT: Irregularly irregular rate rhythm -+S1, +S2. Grade 2/6 systolic murmur GI/Abdominal exam: PRESENT: normal bowel sounds, soft. ABSENT: guarding, mass, tenderness Extremities exam: ABSENT: No edema Neurological exam: PRESENT: alert, awake, oriented to person only. Skin exam: PRESENT: dry, warm, Results Laboratory Results: 05/19/17 08:58 05/19/17 08:58 05/19/17 05/19/17 08:58 08:58 WBC 5.8 RBC 4.32 Hgb 11.4 L Hct 35.4 L MCV 82 MCH 26.5 L MCHC 32.3 RDW 16.7 H Plt Count 225 Sodium 140.7 Potassium 5.1 H Chloride 109 H Carbon Dioxide 20 L Anion Gap 12 BUN 32 H Creatinine 2.41 H Est GFR ( Amer) 23 L Est GFR (Non-Af Amer) 19 L Glucose 100 Calcium 9.4 Impressions: Head CT 05/16/17 14:40 IMPRESSION: CHRONIC CHANGES OF ATROPHY AND MICROVASCULAR ISCHEMIA. NO ACUTE PROCESS. EVIDENCE OF ACUTE STROKE: NO. Chest X-Ray 05/16/17 14:41 IMPRESSION: Cardiomegaly. Transvenous pacer. Nothing acute. Renal Ultrasound 05/17/17 00:00 IMPRESSION: 1. There is a 2.0 cm hypodensity at the superior pole of the right kidney which is not definitely cystic. Correlation with contrast-enhanced CT or MRI of the abdomen recommended. 2. Atrophy of the left kidney. Assessment & Plan - Diagnosis (1) Acute kidney injury superimposed on chronic kidney disease Is this a current diagnosis for this admission?: Yes Plan: She initially presented with mild worsening of her kidney function which seems to have improved now to baseline. The acute worsening of kidney function is most likely secondary to dehydration causing prerenal azotemia. She does seem to have underlying chronic kidney disease stage IV most likely secondary to hypertensive nephrosclerosis without any associated proteinuria nor microhematuria. I explained the diagnosis to the patient nieces. I just told them to think the possibility of patient's kidney function getting worse and possibility of requiring dialysis in the future but not currently. I told them to discuss amongst themselves if they would want the patient to be on dialysis if ever kidney function starts getting worse in the future. Today they could not give me an answer to that. This is understandable considering the patient's overall medical condition including dementia. However I still urged him to think about it. I think the patient's acute kidney injury has resolved and the patient's kidney function is very close to her baseline. Kidney function continues to improve. (2) Chronic kidney disease (CKD), stage IV (severe) Is this a current diagnosis for this admission?: Yes Plan: Likely secondary to hypertensive nephrosclerosis. She does not have any significant proteinuria nor hematuria. Kidney ultrasound showed bilateral small kidneys with atrophic left kidney at 7.6 cm and relatively small right kidney of 9.77 cm with cortical thinning. This is consistent with chronic kidney disease. Patient's kidney function is very close to baseline. She does not need any renal replacement therapy at this time. She would need outpatient follow-up post discharge. (3) Hyperkalemia Is this a current diagnosis for this admission?: Yes Plan: This is due to patient's mild worsening of kidney function and potassium supplementation. Patient does not need any potassium supplement after this episode. Also needs to be on low potassium and prerenal diet. Borderline today. (4) Hypernatremia Is this a current diagnosis for this admission?: Yes Plan: Resolved. (5) Dehydration Is this a current diagnosis for this admission?: Yes (6) Dementia Qualifiers: Dementia type: unspecified type Is this a current diagnosis for this admission?: Yes Plan: Advanced. (7) Hypertension Qualifiers: Is this a current diagnosis for this admission?: Yes Plan: Continue home medications and as needed medications. This seems to be labile. Adjust medications as necessary. (8) A-fib Qualifiers: Is this a current diagnosis for this admission?: Yes (9) Renal lesion Is this a current diagnosis for this admission?: Yes Plan: There is a 2 cm hypodense area in the superior pole of the right kidney. Radiology recommended to do a contrast CT or MRI but that cannot be done due to the patient's kidney function and the risk for worsening kidney function. It was also mentioned that there was no solid masses so I assume this was not solid. I think the risk of doing either contrast CT or MRI with contrast is greater than its benefit at this time. This can be addressed at the later time. Also with the patient's overall addition she is not really a candidate for any surgery or chemotherapy if ever a malignancy is discovered. I discussed this with the patient's nieces. (10) Secondary hyperparathyroidism (of renal origin) Is this a current diagnosis for this admission?: Yes Plan: Start calcitriol. - Time Time with patient: 15-25 minutes
[2017-05-19] MEDS: MIRTAZAPINE 15 MG TABLET PO SCH (22:47)
[2017-05-20] MEDS: LEVOTHYROXINE SODIUM 0.112 MG TABLET PO SCH (05:31)
[2017-05-20 08:04] LABS: HEMATOCRIT 34.9 % (36.0-47.0); HEMOGLOBIN 11.3 g/dL (12.0-15.5); MEAN CORPUSCULAR HEMOGLOBIN 26.5 pg (27.0-33.4); MEAN CORPUSCULAR HGB CONC 32.4 g/dL (32.0-36.0); MEAN CORPUSCULAR VOLUME 82 fl (80-97); PLATELET COUNT 214 10^3/uL (150-450); RED BLOOD COUNT 4.27 10^6/uL (3.72-5.28); RED CELL DISTRIBUTION WIDTH 16.8 % (11.5-14.0); WHITE BLOOD COUNT 4.8 10^3/uL (4.0-10.5)
[2017-05-20 08:22] LABS: ALANINE AMINOTRANSFERASE 42 U/L (9-52); ALBUMIN 3.1 g/dL (3.5-5.0); ALKALINE PHOSPHATASE 62 U/L (38-126); ANION GAP 7 (5-19); ASPARTATE AMINO TRANSFERASE 29 U/L (14-36); BILIRUBIN,DIRECT 0.3 mg/dL (0.0-0.4); BILIRUBIN,TOTAL 0.3 mg/dL (0.2-1.3); BLOOD UREA NITROGEN 34 mg/dL (7-20); CALCIUM 9.2 mg/dL (8.4-10.2); CARBON DIOXIDE 24 mmol/L (22-30); CHLORIDE 109 mmol/L (98-107); GLUCOSE 106 mg/dL (75-110); POTASSIUM 5.1 mmol/L (3.6-5.0); SODIUM 140.4 mmol/L (137-145); TOTAL PROTEIN 5.6 g/dL (6.3-8.2)
[2017-05-20] MEDS: LANSOPRAZOLE 15 MG TAB.RAP.DR PO SCH (08:48)
[2017-05-20] MEDS: ACETAMINOPHEN 325 MG TABLET PO PRN ×2 (08:48→23:16)
[2017-05-20] MEDS: LISINOPRIL 10 MG TABLET PO SCH (08:48)
[2017-05-20] MEDS: METOPROLOL SUCCINATE 50 MG TAB.SR.24H PO SCH (09:30)
[2017-05-20] MEDS: MAGNESIUM OXIDE 400 MG TABLET PO SCH ×2 (09:32→17:39)
[2017-05-20] MEDS: DOCUSATE SODIUM 100 MG CAPSULE PO SCH (09:32)
[2017-05-20] MEDS: FUROSEMIDE 20 MG TABLET PO SCH (09:32)
[2017-05-20] MEDS: RIVAROXABAN 15 MG TABLET PO SCH (09:32)
[2017-05-20] MEDS: DILTIAZEM HCL 120 MG CAP.SR.24H PO SCH (09:32)
[2017-05-20] MEDS: FAMOTIDINE 20 MG TABLET PO SCH ×2 (09:32→23:04)
[2017-05-20] MEDS ORDERED: PROCHLORPERAZINE MALEATE 5 MG TABLET PO PRN (11:14)
--- NOTE | 2017-05-20 13:33 | RADIOLOGY REPORT (SQ) ---
EXAM DESCRIPTION: KUB/ABDOMEN (SINGLE VIEW) COMPLETED DATE/TIME: 05/20/2017 12:30 pm REASON FOR STUDY: persistent nausea/vomiting COMPARISON: 01/27/2017 NUMBER OF VIEWS: One view. TECHNIQUE: Supine radiographic image of the abdomen acquired. LIMITATIONS: None. FINDINGS: BOWEL GAS PATTERN: Normal bowel gas pattern. No dilated loops. CALCIFICATIONS: No suspicious calcifications. SOFT TISSUES: No gross mass or suggestion of organomegaly. HARDWARE: None. BONES: No bone lesions or fracture. OTHER: No other significant finding. IMPRESSION: NO RADIOGRAPHIC EVIDENCE FOR ACUTE ABDOMINAL DISEASE.
--- NOTE | 2017-05-20 16:34 | RADIOLOGY REPORT (SQ) ---
EXAM DESCRIPTION: CHEST SINGLE VIEW COMPLETED DATE/TIME: 05/20/2017 4:15 pm REASON FOR STUDY: Rule out pneumonia COMPARISON: AP chest 05/16/2017, 01/30/2017 EXAM PARAMETERS: NUMBER OF VIEWS: One view. TECHNIQUE: Single frontal radiographic view of the chest acquired. RADIATION DOSE: NA LIMITATIONS: None. FINDINGS: LUNGS AND PLEURA: No opacities, masses or pneumothorax. No pleural effusion. MEDIASTINUM AND HILAR STRUCTURES: No masses. Contour normal. HEART AND VASCULAR STRUCTURES: Stable massive cardiomegaly BONES: No acute findings. HARDWARE: Left-sided multi lead pacemaker unchanged OTHER: No other significant finding. IMPRESSION: Massive cardiomegaly. Unchanged pacemaker. No acute infiltrates TECHNICAL DOCUMENTATION: JOB ID: [id number] [facility]- All Rights Reserved
--- NOTE | 2017-05-20 16:47 | PDOC PROGRESS REPORT ---
Subjective Progress Note for:: 05/20/17 Subjective:: Patient is more awake and alert today. She is actually communicative and answering questions. She denies any nausea, vomiting, abdominal pain, no shortness of breath. Her speech is a little bit garbled so difficult to understand most of the time. But overall her mental status is much improved today. Reason For Visit: HYPERKALEMIA,ARF Physical Exam Vital Signs: Temp Pulse Resp BP Pulse Ox 98.2 F 86 19 135/47 H 97 05/20/17 15:31 05/20/17 15:31 05/20/17 15:31 05/20/17 15:31 05/20/17 15:31 Intake & Output 05/19/17 05/20/17 05/21/17 06:59 06:59 06:59 Intake Total 1395 178 590 Output Total 0 500 Balance 1395 -322 590 Weight 68.7 kg 69.1 kg Exam: General appearance: PRESENT: no acute distress, cooperative, well-developed, well-nourished Head exam: PRESENT: atraumatic, normocephalic Eye exam: PRESENT: conjunctiva slightly pale, PERRLA. ABSENT: scleral icterus Neck exam: ABSENT: JVD Respiratory exam: PRESENT: Diminished breath sounds. ABSENT: crackles, rales, rhonchi, unlabored, wheezes Cardiovascular exam: PRESENT: Irregularly irregular rate rhythm -+S1, +S2. Grade 2/6 systolic murmur GI/Abdominal exam: PRESENT: normal bowel sounds, soft. ABSENT: guarding, mass, tenderness Extremities exam: ABSENT: No edema Neurological exam: PRESENT: alert, awake, oriented to person only but answering questions more. Skin exam: PRESENT: dry, warm, Results Laboratory Results: 05/20/17 07:40 05/20/17 07:40 05/20/17 05/20/17 07:40 07:40 WBC 4.8 RBC 4.27 Hgb 11.3 L Hct 34.9 L MCV 82 MCH 26.5 L MCHC 32.4 RDW 16.8 H Plt Count 214 Sodium 140.4 Potassium 5.1 H Chloride 109 H Carbon Dioxide 24 Anion Gap 7 BUN 34 H Creatinine 2.31 H Est GFR ( Amer) 24 L Est GFR (Non-Af Amer) 20 L Glucose 106 Calcium 9.2 Total Bilirubin 0.3 AST 29 ALT 42 Alkaline Phosphatase 62 Total Protein 5.6 L Albumin 3.1 L Impressions: Head CT 05/16/17 14:40 IMPRESSION: CHRONIC CHANGES OF ATROPHY AND MICROVASCULAR ISCHEMIA. NO ACUTE PROCESS. EVIDENCE OF ACUTE STROKE: NO. Renal Ultrasound 05/17/17 00:00 IMPRESSION: 1. There is a 2.0 cm hypodensity at the superior pole of the right kidney which is not definitely cystic. Correlation with contrast-enhanced CT or MRI of the abdomen recommended. 2. Atrophy of the left kidney. Chest X-Ray 05/20/17 00:00 IMPRESSION: Massive cardiomegaly. Unchanged pacemaker. No acute infiltrates KUB X-Ray 05/20/17 00:00 IMPRESSION: NO RADIOGRAPHIC EVIDENCE FOR ACUTE ABDOMINAL DISEASE. Assessment & Plan - Diagnosis (1) Acute kidney injury superimposed on chronic kidney disease Is this a current diagnosis for this admission?: Yes Plan: She initially presented with mild worsening of her kidney function which seems to have improved now to baseline. The acute worsening of kidney function is most likely secondary to dehydration causing prerenal azotemia. She does seem to have underlying chronic kidney disease stage IV most likely secondary to hypertensive nephrosclerosis without any associated proteinuria nor microhematuria. I explained the diagnosis to the patient nieces. I just told them to think the possibility of patient's kidney function getting worse and possibility of requiring dialysis in the future but not currently. I told them to discuss amongst themselves if they would want the patient to be on dialysis if ever kidney function starts getting worse in the future. Today they could not give me an answer to that. This is understandable considering the patient's overall medical condition including dementia. However I still urged him to think about it. I think the patient's acute kidney injury has resolved and the patient's kidney function is very close to her baseline. Kidney function continues to improve. (2) Chronic kidney disease (CKD), stage IV (severe) Is this a current diagnosis for this admission?: Yes Plan: Likely secondary to hypertensive nephrosclerosis. She does not have any significant proteinuria nor hematuria. Kidney ultrasound showed bilateral small kidneys with atrophic left kidney at 7.6 cm and relatively small right kidney of 9.77 cm with cortical thinning. This is consistent with chronic kidney disease. Patient's kidney function is very close to baseline. She does not need any renal replacement therapy at this time. She would need outpatient follow-up post discharge. (3) Hyperkalemia Is this a current diagnosis for this admission?: Yes Plan: This is due to patient's mild worsening of kidney function and potassium supplementation. Patient does not need any potassium supplement after this episode. Also needs to be on low potassium and prerenal diet. Borderline today. (4) Dehydration Is this a current diagnosis for this admission?: Yes (5) Dementia Qualifiers: Dementia type: unspecified type Is this a current diagnosis for this admission?: Yes Plan: Advanced. (6) Hypertension Qualifiers: Is this a current diagnosis for this admission?: Yes Plan: Continue home medications and as needed medications. This seems to be labile. Adjust medications as necessary. (7) A-fib Qualifiers: Is this a current diagnosis for this admission?: Yes (8) Renal lesion Is this a current diagnosis for this admission?: Yes Plan: There is a 2 cm hypodense area in the superior pole of the right kidney. Radiology recommended to do a contrast CT or MRI but that cannot be done due to the patient's kidney function and the risk for worsening kidney function. I think the risk of doing either contrast CT or MRI with contrast is greater than its benefit at this time. This can be addressed at the later time with a PET scan. Also with the patient's overall addition she is not really a candidate for any surgery or chemotherapy if ever a malignancy is discovered. I discussed this with the patient's nieces. (9) Secondary hyperparathyroidism (of renal origin) Is this a current diagnosis for this admission?: Yes Plan: Start calcitriol. - Time Time with patient: 15-25 minutes
[2017-05-20] MEDS ORDERED: IPRATROPIUM/ALBUTEROL 0.5-2.5 MG/3 ML AMPUL NEB PRN (18:23)
--- NOTE | 2017-05-20 19:12 | PDOC PROGRESS REPORT ---
Subjective Progress Note for:: 05/20/17 Subjective:: No overnight events. This AM more pleasant with less agitation. Had BM this AM. Also had 1 episode of NV, has using Zofran. Denies fevers, chills, CP, abdominal pain. Reason For Visit: HYPERKALEMIA,ARF Physical Exam Vital Signs: Temp Pulse Resp BP Pulse Ox 98.2 F 86 19 135/47 H 97 05/20/17 15:31 05/20/17 15:31 05/20/17 15:31 05/20/17 15:31 05/20/17 15:31 Intake & Output 05/19/17 05/20/17 05/21/17 06:59 06:59 06:59 Intake Total 1395 178 593 Output Total 0 500 Balance 1395 -322 593 Weight 68.7 kg 69.1 kg General appearance: PRESENT: no acute distress, other - Sitting up in bed, answering questions, dementia Head exam: PRESENT: atraumatic, normocephalic Mouth exam: PRESENT: moist Respiratory exam: ABSENT: decreased breath sounds, unlabored Cardiovascular exam: PRESENT: irregular rhythm. ABSENT: tachycardia GI/Abdominal exam: PRESENT: soft. ABSENT: tenderness Extremities exam: ABSENT: pedal edema Neurological exam: PRESENT: awake - Unable to perform neuro exam Skin exam: PRESENT: dry, warm Results Laboratory Results: 05/20/17 07:40 05/20/17 07:40 05/20/17 05/20/17 07:40 07:40 WBC 4.8 RBC 4.27 Hgb 11.3 L Hct 34.9 L MCV 82 MCH 26.5 L MCHC 32.4 RDW 16.8 H Plt Count 214 Sodium 140.4 Potassium 5.1 H Chloride 109 H Carbon Dioxide 24 Anion Gap 7 BUN 34 H Creatinine 2.31 H Est GFR ( Amer) 24 L Est GFR (Non-Af Amer) 20 L Glucose 106 Calcium 9.2 Total Bilirubin 0.3 AST 29 ALT 42 Alkaline Phosphatase 62 Total Protein 5.6 L Albumin 3.1 L Impressions: Head CT 05/16/17 14:40 IMPRESSION: CHRONIC CHANGES OF ATROPHY AND MICROVASCULAR ISCHEMIA. NO ACUTE PROCESS. EVIDENCE OF ACUTE STROKE: NO. Renal Ultrasound 05/17/17 00:00 IMPRESSION: 1. There is a 2.0 cm hypodensity at the superior pole of the right kidney which is not definitely cystic. Correlation with contrast-enhanced CT or MRI of the abdomen recommended. 2. Atrophy of the left kidney. Chest X-Ray 05/20/17 00:00 IMPRESSION: Massive cardiomegaly. Unchanged pacemaker. No acute infiltrates KUB X-Ray 05/20/17 00:00 IMPRESSION: NO RADIOGRAPHIC EVIDENCE FOR ACUTE ABDOMINAL DISEASE. Assessment & Plan - Diagnosis (1) Nausea & vomiting Qualifiers: Vomiting type: unspecified Vomiting Intractability: non-intractable Qualified Code(s): R11.2 - Nausea with vomiting, unspecified Is this a current diagnosis for this admission?: Yes Plan: New symptom of 05/19. Etiology not entire clear. Had BM today. Renal function improving. On PPI. - Abdominal flat plat 05/20: no abnormality - Continue bowel regimen, PPI - Added Compazine PO, continue Zofran PO and IV PRN (2) Hyperkalemia Is this a current diagnosis for this admission?: Yes Plan: Received Kayexalate, insulin, calcium gluconate in the emergency room with improvement in labs. - Followed by Dr. Will of Nephrology who felt that hyperkalemia is likely related to acute on chronic renal disease - Trending down, K 5.1 on 05/20. (3) Acute kidney injury superimposed on chronic kidney disease Is this a current diagnosis for this admission?: Yes Plan: Evaluated by nephrology. Improved in creatinine today, currently 2.31, UOP adequate - Will need outpatient follow up with renal once discharged. - Continue to monitor with Daily BMPs. - Renal ultrasound obtained, notable for 2cm mass. Ideally would pursue further work up to determine etiology. Unable to perform CT renal with IV contrast due to CKD. Patient would not be a good surgical candidate. Would be reasonable to recheck renal u/S in 3 months to assess size. (4) Aortic stenosis, moderate Is this a current diagnosis for this admission?: Yes (5) Dementia Qualifiers: Dementia type: unspecified type Is this a current diagnosis for this admission?: Yes Plan: Known severe dementia. CT head at admission negative for acute disease process. Now back to baseline (6) Somnolence Is this a current diagnosis for this admission?: Yes Plan: resolved, tramadol discontinued. CTM - Time Time Spent with patient: Less than 15 minutes Anticipated discharge: SNF Within: within 24 hours
[2017-05-20] MEDS: MIRTAZAPINE 15 MG TABLET PO SCH (23:04)
[2017-05-21] MEDS: HALOPERIDOL 5 MG TABLET PO PRN (02:28)
[2017-05-21 04:55] LABS: HEMATOCRIT 36.1 % (36.0-47.0); HEMOGLOBIN 11.6 g/dL (12.0-15.5); MEAN CORPUSCULAR HEMOGLOBIN 26.4 pg (27.0-33.4); MEAN CORPUSCULAR HGB CONC 32.2 g/dL (32.0-36.0); MEAN CORPUSCULAR VOLUME 82 fl (80-97); PLATELET COUNT 229 10^3/uL (150-450); WHITE BLOOD COUNT 5.1 10^3/uL (4.0-10.5)
[2017-05-21 05:18] LABS: ANION GAP 9 (5-19); BLOOD UREA NITROGEN 34 mg/dL (7-20); CALCIUM 8.9 mg/dL (8.4-10.2); CARBON DIOXIDE 23 mmol/L (22-30); CHLORIDE 107 mmol/L (98-107); GLUCOSE 102 mg/dL (75-110); POTASSIUM 4.8 mmol/L (3.6-5.0); SODIUM 138.8 mmol/L (137-145)
[2017-05-21] MEDS: LEVOTHYROXINE SODIUM 0.112 MG TABLET PO SCH (06:07)
[2017-05-21] MEDS: LISINOPRIL 10 MG TABLET PO SCH (08:17)
[2017-05-21] MEDS: LANSOPRAZOLE 15 MG TAB.RAP.DR PO SCH (08:17)
[2017-05-21] MEDS: RIVAROXABAN 15 MG TABLET PO SCH (10:03)
[2017-05-21] MEDS: FAMOTIDINE 20 MG TABLET PO SCH ×2 (10:03→21:39)
[2017-05-21] MEDS: DOCUSATE SODIUM 100 MG CAPSULE PO SCH (10:03)
[2017-05-21] MEDS: DILTIAZEM HCL 120 MG CAP.SR.24H PO SCH (10:04)
[2017-05-21] MEDS: CALCITRIOL 0.25 MCG CAPSULE PO SCH (10:04)
[2017-05-21] MEDS: MAGNESIUM OXIDE 400 MG TABLET PO SCH ×2 (10:04→17:00)
[2017-05-21] MEDS: FUROSEMIDE 20 MG TABLET PO SCH (10:04)
[2017-05-21] MEDS: METOPROLOL SUCCINATE 50 MG TAB.SR.24H PO SCH (10:05)
[2017-05-21] MEDS ORDERED: LANSOPRAZOLE 30 MG TAB.RAP.DR PO ONE (11:10)
[2017-05-21] MEDS ORDERED: LIDOCAINE 2% VISCOUS SOLN 20 ML UDCUP PO ONE (11:12)
[2017-05-21] MEDS ORDERED: MAG HYDROX/AL HYDROX/SIMETH SUSP 30 ML UDCUP PO ONE (11:12)
[2017-05-21] MEDS ORDERED: METOCLOPRAMIDE HCL ORAL SOLN 10 MG/10 ML UDCUP PO ONE (11:12)
--- NOTE | 2017-05-21 15:01 | PDOC PROGRESS REPORT ---
Subjective Progress Note for:: 05/21/17 Subjective:: No overnight events. Has not had anymore nausea or vomiting. Still complaining of upper airway gurgling. Denies fevers, chills, CP, SOB, abdominal pain. Reason For Visit: HYPERKALEMIA,ARF Physical Exam Vital Signs: Temp Pulse Resp BP Pulse Ox 98.6 F 100 20 153/77 H 96 05/21/17 12:08 05/21/17 12:08 05/21/17 12:08 05/21/17 12:08 05/21/17 12:08 Intake & Output 05/20/17 05/21/17 05/22/17 06:59 06:59 06:59 Intake Total 178 1493 Output Total 500 800 Balance -322 693 Weight 69.1 kg 59.9 kg General appearance: PRESENT: no acute distress, well-developed, other - Awake and conversant when prompted Head exam: PRESENT: normocephalic Mouth exam: PRESENT: moist Respiratory exam: PRESENT: clear to auscultation roscoe. ABSENT: rhonchi, wheezes Cardiovascular exam: PRESENT: RRR, systolic murmur GI/Abdominal exam: PRESENT: soft. ABSENT: tenderness Musculoskeletal exam: PRESENT: full ROM Neurological exam: PRESENT: alert, awake - answering questions appropriately Psychiatric exam: PRESENT: other - Baseline dementia Skin exam: PRESENT: dry Results Laboratory Results: 05/21/17 04:25 05/21/17 04:25 05/21/17 05/21/17 05/21/17 04:25 04:25 04:25 WBC 5.1 RBC 4.40 Hgb 11.6 L Hct 36.1 MCV 82 MCH 26.4 L MCHC 32.2 RDW 17.0 H Plt Count 229 Sodium 138.8 Potassium 4.8 Chloride 107 Carbon Dioxide 23 Anion Gap 9 BUN 34 H Creatinine 2.32 H Est GFR ( Amer) 24 L Est GFR (Non-Af Amer) 20 L Glucose 102 Calcium 8.9 Magnesium 2.1 Impressions: Head CT 05/16/17 14:40 IMPRESSION: CHRONIC CHANGES OF ATROPHY AND MICROVASCULAR ISCHEMIA. NO ACUTE PROCESS. EVIDENCE OF ACUTE STROKE: NO. Renal Ultrasound 05/17/17 00:00 IMPRESSION: 1. There is a 2.0 cm hypodensity at the superior pole of the right kidney which is not definitely cystic. Correlation with contrast-enhanced CT or MRI of the abdomen recommended. 2. Atrophy of the left kidney. Chest X-Ray 05/20/17 00:00 IMPRESSION: Massive cardiomegaly. Unchanged pacemaker. No acute infiltrates KUB X-Ray 05/20/17 00:00 IMPRESSION: NO RADIOGRAPHIC EVIDENCE FOR ACUTE ABDOMINAL DISEASE. Assessment & Plan - Diagnosis (1) Nausea & vomiting Qualifiers: Vomiting type: unspecified Vomiting Intractability: non-intractable Qualified Code(s): R11.2 - Nausea with vomiting, unspecified Is this a current diagnosis for this admission?: Yes Plan: Improved on 05/21; was a new symptom 05/19. Work up included negative abdominal and chest Xray. Had BM. No indication for azotemia or central reason for NV. Does have history of GERD. - Abdominal flat plat 05/20: no abnormality - Continue bowel regimen - Increased dose of PPI (doubled dose) and changed H2 jac to PM dosing - Continue Compazine PO and Zofran PO and IV PRN (2) Hyperkalemia Is this a current diagnosis for this admission?: Yes Plan: Received Kayexalate, insulin, calcium gluconate in the emergency room with improvement in labs. - Followed by Dr. Will of Nephrology who felt that hyperkalemia is likely related to acute on chronic renal disease - Trending down, K 4.8 on 05/21. (3) Acute kidney injury superimposed on chronic kidney disease Is this a current diagnosis for this admission?: Yes Plan: Evaluated by nephrology. Continuse to improve/stabilize, currently 2.32, UOP adequate - Will need outpatient follow up with renal once discharged. - Continue to monitor with Daily BMPs. - Renal ultrasound obtained, notable for 2cm mass. Ideally would pursue further work up to determine etiology. Unable to perform CT renal with IV contrast due to CKD. Patient would not be a good surgical candidate. Would be reasonable to recheck renal u/S in 3 months to assess size. (4) Aortic stenosis, moderate Is this a current diagnosis for this admission?: Yes Plan: Murmur on exam, NTD (5) Dementia Qualifiers: Dementia type: unspecified type Dementia behavioral disturbance: without behavioral disturbance Qualified Code(s): F03.90 - Unspecified dementia without behavioral disturbance Is this a current diagnosis for this admission?: Yes Plan: Known severe dementia. CT head at admission negative for acute disease process. Now back to baseline (6) V tach Is this a current diagnosis for this admission?: Yes Plan: Asymptomatic 10 beat run of Vtach on 05/21 - [place] CABELLO - Will obtained EKG - Continue on conveyor monitor - Time Time Spent with patient: Less than 15 minutes Anticipated discharge: SNF Disposition: discussed with patient's family that she was medically appropriate for discharge back to facility. Concern was expressed over decreased hospital staff pharmacist over weekend and not having safe discharge over weekend. Concern acknowledged. Recommended that family check to see what staff is available over the weekend. If they feel comfortable with discharge, will send. Otherwise will plan for Tuesday. - Plan Summary Plan Summary: medically improved. Pending discharge when felt safe.
--- NOTE | 2017-05-21 16:39 | EKG REPORT ---
SEVERITY:- ABNORMAL ECG - ATRIAL FIBRILLATION, V-RATE 72-121 BORDERLINE LEFT AXIS DEVIATION ABNORMAL T, CONSIDER ISCHEMIA, LATERAL LEADS : Confirmed by: Maxwell Hamilton MD 21-May-2017 16:38:52
[2017-05-21] MEDS: ACETAMINOPHEN 325 MG TABLET PO PRN (17:01)
[2017-05-21] MEDS: MIRTAZAPINE 15 MG TABLET PO SCH (21:40)
[2017-05-22] MEDS: HYDRALAZINE HCL INJ/PF 20 MG/1 ML SDV IV PRN ×2 (03:43→23:27)
[2017-05-22] MEDS: LEVOTHYROXINE SODIUM 0.112 MG TABLET PO SCH (05:36)
[2017-05-22] MEDS ORDERED: NITROGLYCERIN 0.4 MG/TAB 25 TAB/BOTTLE ONE (07:49)
[2017-05-22] MEDS ORDERED: LIDOCAINE 2% VISCOUS SOLN 20 ML UDCUP ONE (07:51)
[2017-05-22] MEDS ORDERED: METOCLOPRAMIDE HCL ORAL SOLN 10 MG/10 ML UDCUP ONE (07:51)
[2017-05-22] MEDS ORDERED: MAG HYDROX/AL HYDROX/SIMETH SUSP 30 ML UDCUP ONE (07:55)
[2017-05-22] MEDS: NITROGLYCERIN 0.4 MG/TAB 25 TAB/BOTTLE SL PRN ×2 (08:01→08:06)
[2017-05-22] MEDS ORDERED: METOPROLOL TARTRATE PF/INJ 5 MG/5 ML SDV IV ONE (08:18)
--- NOTE | 2017-05-22 08:36 | EKG REPORT ---
SEVERITY:- ABNORMAL ECG - ATRIAL FIBRILLATION, V-RATE 70-111 MULTIPLE PREMATURE COMPLEXES, VENT . LVH WITH SECONDARY REPOLARIZATION ABNORMALITY : Confirmed by: Maxwell Hamilton MD 22-May-2017 08:35:55
[2017-05-22] MEDS: LISINOPRIL 10 MG TABLET PO SCH (10:26)
[2017-05-22] MEDS: METOPROLOL SUCCINATE 50 MG TAB.SR.24H PO SCH (10:27)
[2017-05-22] MEDS: DOCUSATE SODIUM 100 MG CAPSULE PO SCH (10:32)
[2017-05-22] MEDS: FUROSEMIDE 20 MG TABLET PO SCH (10:32)
[2017-05-22] MEDS: MAGNESIUM OXIDE 400 MG TABLET PO SCH ×2 (10:32→17:46)
[2017-05-22] MEDS: RIVAROXABAN 15 MG TABLET PO SCH (10:33)
[2017-05-22] MEDS: DILTIAZEM HCL 120 MG CAP.SR.24H PO SCH (10:33)
[2017-05-22 11:12] LABS: ANION GAP 9 (5-19); BLOOD UREA NITROGEN 31 mg/dL (7-20); CARBON DIOXIDE 24 mmol/L (22-30); CHLORIDE 107 mmol/L (98-107); GLUCOSE 85 mg/dL (75-110); MAGNESIUM 2.1 mg/dL (1.6-2.3); POTASSIUM 4.5 mmol/L (3.6-5.0); SODIUM 139.7 mmol/L (137-145)
--- NOTE | 2017-05-22 14:22 | PDOC PROGRESS REPORT ---
Subjective Progress Note for:: 05/22/17 Subjective:: No overnight events. early this AM complaining of chest pain. Also noted to be calling out for family. EKG ordered and showed Afib with RVR. Received IV lopresor 5mg * 1 dose and GI cocktail with resolution of symptoms. Continues to have upper airway gurgling per family. Still complaining of upper airway gurgling. No more episodes of nausea or vomiting. Denies fevers, chills, CP, SOB , abdominal pain. Following discussion with family, code status changed from full code to DNR today. Reason For Visit: HYPERKALEMIA,ARF Physical Exam Vital Signs: Temp Pulse Resp BP Pulse Ox 98.3 F 87 26 H 141/74 H 97 05/22/17 11:42 05/22/17 11:42 05/22/17 11:42 05/22/17 11:42 05/22/17 11:42 Intake & Output 05/21/17 05/22/17 05/23/17 06:59 06:59 06:59 Intake Total 1493 690 0 Output Total 800 Balance 693 690 0 Weight 59.9 kg 75.1 kg General appearance: PRESENT: no acute distress, well-developed, well-nourished, other - Appears comfortable resting in bed Mouth exam: PRESENT: moist Respiratory exam: PRESENT: clear to auscultation roscoe, unlabored. ABSENT: chest wall tenderness Cardiovascular exam: PRESENT: irregular rhythm. ABSENT: systolic murmur GI/Abdominal exam: PRESENT: soft. ABSENT: tenderness Neurological exam: PRESENT: awake Psychiatric exam: PRESENT: other - Baseline dementia Results Laboratory Results: 05/21/17 04:25 05/22/17 10:43 05/22/17 10:43 Sodium 139.7 Potassium 4.5 Chloride 107 Carbon Dioxide 24 Anion Gap 9 BUN 31 H Creatinine 2.31 H Est GFR ( Amer) 24 L Est GFR (Non-Af Amer) 20 L Glucose 85 Calcium 9.0 Magnesium 2.1 05/22/17 07:52 Troponin I 0.048 Impressions: Head CT 05/16/17 14:40 IMPRESSION: CHRONIC CHANGES OF ATROPHY AND MICROVASCULAR ISCHEMIA. NO ACUTE PROCESS. EVIDENCE OF ACUTE STROKE: NO. Renal Ultrasound 05/17/17 00:00 IMPRESSION: 1. There is a 2.0 cm hypodensity at the superior pole of the right kidney which is not definitely cystic. Correlation with contrast-enhanced CT or MRI of the abdomen recommended. 2. Atrophy of the left kidney. Chest X-Ray 05/20/17 00:00 IMPRESSION: Massive cardiomegaly. Unchanged pacemaker. No acute infiltrates KUB X-Ray 05/20/17 00:00 IMPRESSION: NO RADIOGRAPHIC EVIDENCE FOR ACUTE ABDOMINAL DISEASE. Assessment & Plan - Diagnosis (1) Chest pain Qualifiers: Chest pain type: other chest pain Qualified Code(s): R07.89 - Other chest pain; R07.8 - Other chest pain Is this a current diagnosis for this admission?: Yes Plan: New symptoms, CP today. NO associated SOB, NV, diaphoresis - EKG: Afib with RVR - BMP ordered and lytes wnl - Received IV Lopressor and GI cocktail with resolution of symptoms - Trop 0.046, will repeat this afternoon - Continue on telemetry (2) Hyperkalemia Is this a current diagnosis for this admission?: Yes Plan: RESOLVED. Received Kayexalate, insulin, calcium gluconate in the emergency room with improvement in labs. - Followed by Dr. Will of Nephrology who felt that hyperkalemia is likely related to acute on chronic renal disease - Trending down, K 4.5 on 05/22. (3) Nausea & vomiting Qualifiers: Vomiting type: unspecified Vomiting Intractability: non-intractable Qualified Code(s): R11.2 - Nausea with vomiting, unspecified Is this a current diagnosis for this admission?: Yes Plan: Improved on 05/22; was a new symptom 05/19. Work up included negative abdominal and chest Xray. Had BM. No indication for azotemia or central reason for NV. Does have history of GERD. - Abdominal flat plat 05/20: no abnormality - Continue bowel regimen - Increased dose of PPI (doubled dose) and changed H2 jac to PM dosing - Upon further questioning with patient's family patient may also be silently aspirating. Aspiration precautions reviewed. - Continue Compazine PO and Zofran PO and IV PRN (4) Acute kidney injury superimposed on chronic kidney disease Is this a current diagnosis for this admission?: Yes Plan: Evaluated by nephrology. Continuse to improve/stabilize, currently 2.31, UOP adequate - Will need outpatient follow up with renal once discharged. - Continue to monitor with Daily BMPs. - Renal ultrasound obtained, notable for 2cm mass. Ideally would pursue further work up to determine etiology. Unable to perform CT renal with IV contrast due to CKD. Patient would not be a good surgical candidate. Would be reasonable to recheck renal u/S in 3 months to assess size. (5) Aortic stenosis, moderate Is this a current diagnosis for this admission?: Yes Plan: Murmur on exam, NTD (6) Dementia Qualifiers: Dementia type: unspecified type Dementia behavioral disturbance: without behavioral disturbance Qualified Code(s): F03.90 - Unspecified dementia without behavioral disturbance Is this a current diagnosis for this admission?: Yes Plan: Known severe dementia. CT head at admission negative for acute disease process. Now back to baseline (7) Somnolence Is this a current diagnosis for this admission?: Yes (8) DNR (do not resuscitate) discussion Is this a current diagnosis for this admission?: Yes Plan: MARIBEL discussion with technical staff assistant on 05/22. Patient's family understanding of code status change and meaning of code status. - Code changed from FULL code to DNR - Will be properly documented prior to discharge - Time Time Spent with patient: Less than 15 minutes Anticipated discharge: SNF Within: within 24 hours - Plan Summary Plan Summary: Medically stable for discharge, will return to facility on Tuesday 05/23
[2017-05-22] MEDS: FAMOTIDINE 20 MG TABLET PO SCH (21:33)
[2017-05-22] MEDS: MIRTAZAPINE 15 MG TABLET PO SCH (21:33)
[2017-05-23] MEDS: ACETAMINOPHEN 325 MG TABLET PO PRN (00:34)
[2017-05-23] MEDS: LEVOTHYROXINE SODIUM 0.112 MG TABLET PO SCH (06:13)
[2017-05-23] MEDS: LISINOPRIL 10 MG TABLET PO SCH (08:41)
[2017-05-23] MEDS: METOPROLOL SUCCINATE 50 MG TAB.SR.24H PO SCH (10:07)
[2017-05-23] MEDS: RIVAROXABAN 15 MG TABLET PO SCH (10:07)
[2017-05-23] MEDS: DILTIAZEM HCL 120 MG CAP.SR.24H PO SCH (10:08)
[2017-05-23] MEDS: FUROSEMIDE 20 MG TABLET PO SCH (10:08)
[2017-05-23] MEDS: DOCUSATE SODIUM 100 MG CAPSULE PO SCH (10:09)
[2017-05-23] MEDS: MAGNESIUM OXIDE 400 MG TABLET PO SCH (10:09)
[2017-05-23] MEDS: HALOPERIDOL 5 MG TABLET PO PRN (11:16)
--- NOTE | 2017-05-23 11:38 | PDOC TRANSFER SUMMARY ---
General - Admit/Disc Date/PCP Admission Date/Primary Care Provider: 05/17/17 16:19 Discharge Date: 05/23/17 - Discharge Diagnosis (1) Acute kidney injury superimposed on chronic kidney disease Is this a current diagnosis for this admission?: Yes Summary: Evaluated by nephrology while admitted. Improved during admission and close to baseline. Has had good urine output. Renal ultrasound during admission found 2cm mass. Ideally would pursue further work up to determine etiology. Unable to perform CT renal with IV contrast due to CKD. Patient would not be a good surgical candidate. Outpatient management: - Check basic metabolic panel (BMP) weekly (order by PCP or nephrology who can follow up results) - Follow up with nephrology in 1-2 weeks - Consider re-check renal u/S in 3 months to assess size if desired by family. However would not be good surgical candidate (2) Hyperkalemia Is this a current diagnosis for this admission?: Yes Summary: related to chronic kidney disease. Improvement in potassium level. Stopped home oral potassium. Check weekly BMP. (3) Nausea & vomiting Is this a current diagnosis for this admission?: Yes Summary: new symptom 05/19/16, resolved by 05/22. Work up included: work up included negative abdominal and chest Xray. Had BM. No indication for azotemia or central reason for NV. GERD medications changed. Cardiac work up negative. Outpatient management: - Script given for Compazine PO, as needed - Continue bowel regimen and monitor for bowel movement every 1-2 days - Continue aspiration precautions - Continue GERD medications (PPI and H2 jac) (4) Dementia Is this a current diagnosis for this admission?: Yes Summary: History of severe dementia. Occasionally has hyperactive symptoms (agitation) and hypoactive symptoms (somnolence). Outpatient management - Avoid deleriogenic medications, would BENZO unless absolutely required; discontinued home Ativan and Tramadol - Use Haldol PRN or atypical antipsychotic for agitation - Continue to monitor, management per facility rules (5) Somnolence Is this a current diagnosis for this admission?: Yes Summary: Combination of hypoactive delirium and medications. Management per above. Outpatient management - Avoid deleriogenic medications, would BENZO unless absolutely required; discontinued home Ativan and Tramadol - Use Haldol PRN or atypical antipsychotic for agitation - Continue to monitor, management per facility rules (6) DNR (do not resuscitate) discussion Is this a current diagnosis for this admission?: Yes Summary: discussion with family during hospitalization and code status changed from FULL code to DNR. Documents signed. (7) Chest pain Is this a current diagnosis for this admission?: Yes (8) Aortic stenosis, moderate Is this a current diagnosis for this admission?: Yes Summary: Murmur on exam, NTD - Additional Information Resuscitation Status: Full Code Discharge Diet: Cardiac, Other (Comments) - Cardiac, pre-renal, low potassium diet with mechanical soft ground meats. regular liquids, aspiration precautions Prescriptions: Famotidine [Pepcid 20 mg Tablet] 20 mg PO QHS #30 tablet Prochlorperazine Maleate [Compazine 5 mg Tablet] 5 mg PO Q4HP PRN 7 Days #20 tablet PRN Reason: Home Medications: Diltiazem HCl [Cardizem] 120 mg PO DAILY 05/16/17 Docusate Sodium [Colace 100 mg Capsule] 100 mg PO DAILY 05/16/17 Furosemide [Lasix 20 mg Tablet] 20 mg PO DAILY 05/16/17 Haloperidol [Haldol 5 mg Tablet] 5 mg PO DAILYP PRN 05/16/17 Levothyroxine Sodium [Synthroid] 112 mcg PO DAILY 05/16/17 Lisinopril [Zestril] 20 mg PO QAM 05/16/17 Magnesium Oxide [Mag-Ox 400 mg Tablet] 400 mg PO BID 05/16/17 Melatonin/Pyridoxine [Melatonin 5 mg Tablet] 1 tab PO QHS 05/16/17 Metoprolol Succinate [Toprol XL 100 mg Tablet] 150 mg PO DAILY 05/16/17 Mirtazapine [Remeron 15 mg Tablet] 15 mg PO QHS 05/16/17 Omeprazole 20 mg PO DAILY 05/16/17 Rivaroxaban [Xarelto 15 mg Tablet] 15 mg PO DAILY 05/16/17 Famotidine [Pepcid 20 mg Tablet] 20 mg PO QHS #30 tablet 05/23/17 Prochlorperazine Maleate [Compazine 5 mg Tablet] 5 mg PO Q4HP PRN 7 Days #20 tablet 05/23/17 History of Present Illness Admission Date/PCP: 05/17/17 16:19 Patient complains of: Altered mental status History of Present Illness: MARTY Susan GAGE is a 86 year old female is a resident of [facility] who presents with altered mental status. The patient is unable to relate any history but according the emergency room physician the patient has had change in her mental status. She does have dementia baseline but was more confused and had some questionable facial droop. The patient presented to emergency room she was found to have an elevated potassium as well as worsening creatinine. She does have a history of chronic renal failure stage IV. The patient the time my exam denies anything and she has no children but her niece is at the bedside. Patient denies any shortness of breath. Denies any chest pain. There has been no fevers or chills. med. Hospital Course Hospital Course: Per above. Physical Exam Vital Signs: Temp Pulse Resp BP Pulse Ox 97.4 F 87 16 174/63 H 99 05/23/17 07:47 05/23/17 07:47 05/23/17 03:25 05/23/17 07:47 05/23/17 07:47 Intake & Output 05/22/17 05/23/17 05/24/17 06:59 06:59 06:59 Intake Total 690 386 Output Total 700 Balance 690 -314 Weight 75.1 kg 71.7 kg General appearance: PRESENT: no acute distress, well-developed, well-nourished, other - Sitting up in bedside chair Mouth exam: PRESENT: moist Teeth exam: PRESENT: edentulous Respiratory exam: PRESENT: clear to auscultation roscoe, unlabored. ABSENT: wheezes Cardiovascular exam: PRESENT: irregular rhythm, systolic murmur GI/Abdominal exam: PRESENT: soft. ABSENT: guarding, tenderness Neurological exam: PRESENT: alert, awake, oriented to person, oriented to place - Answering questions appropriately Psychiatric exam: PRESENT: appropriate affect Results Laboratory Results: 05/21/17 04:25 05/22/17 10:43 05/22/17 05/22/17 07:52 14:10 Troponin I 0.048 0.043 Labs- Entire Visit 05/16/17 05/16/17 05/16/17 15:22 15:22 16:20 WBC 8.1 RBC 4.51 Hgb 11.8 L Hct 38.6 MCV 86 MCH 26.2 L MCHC 30.6 L RDW 17.6 H Plt Count 311 Seg Neutrophils % 48.9 Lymphocytes % 36.8 Monocytes % 12.0 Eosinophils % 0.4 Basophils % 1.9 Absolute Neutrophils 3.9 Absolute Lymphocytes 3.0 Absolute Monocytes 1.0 Absolute Eosinophils 0.0 Absolute Basophils 0.2 Sodium 148.3 H Potassium 6.9 H* Chloride 115 H Carbon Dioxide 21 L Anion Gap 12 BUN 43 H Creatinine 3.17 H Est GFR ( Amer) 17 L Est GFR (Non-Af Amer) 14 L Glucose 127 H Calcium 9.3 Phosphorus Magnesium Total Bilirubin 0.3 Direct Bilirubin 0.3 Neonat Total Bilirubin Not Reportable Neonat Direct Bilirubin Not Reportable Neonat Indirect Bili Not Reportable AST 36 ALT 57 H Alkaline Phosphatase 84 Creatine Kinase 77 Troponin I Total Protein 6.6 Albumin 3.9 PTH Intact Urine Color YELLOW Urine Appearance CLEAR Urine pH 5.0 Ur Specific Ault 1.013 Urine Protein NEGATIVE Urine Glucose (UA) NEGATIVE Urine Ketones NEGATIVE Urine Blood NEGATIVE Urine Nitrite NEGATIVE Urine Bilirubin NEGATIVE Urine Urobilinogen NEGATIVE Ur Leukocyte Esterase NEGATIVE Urine WBC (Auto) 0 Urine RBC (Auto) 0 U Hyaline Cast (Auto) 2 Urine Bacteria (Auto) TRACE Urine Mucus (Auto) RARE Urine Ascorbic Acid NEGATIVE 05/16/17 05/17/17 05/17/17 19:25 04:50 04:50 WBC 7.7 RBC 4.49 Hgb 12.0 Hct 37.1 MCV 83 MCH 26.7 L MCHC 32.3 RDW 16.8 H Plt Count 270 Seg Neutrophils % Lymphocytes % Monocytes % Eosinophils % Basophils % Absolute Neutrophils Absolute Lymphocytes Absolute Monocytes Absolute Eosinophils Absolute Basophils Sodium 151.6 H 147.8 H Potassium 5.9 H D 5.5 H Chloride 116 H 113 H Carbon Dioxide 24 23 Anion Gap 12 12 BUN 40 H 40 H Creatinine 2.96 H 2.79 H Est GFR ( Amer) 18 L 19 L Est GFR (Non-Af Amer) 15 L 16 L Glucose 88 112 H Calcium 10.0 9.7 Phosphorus Magnesium Total Bilirubin 0.7 Direct Bilirubin 0.6 H Neonat Total Bilirubin Not Reportable Neonat Direct Bilirubin Not Reportable Neonat Indirect Bili Not Reportable AST 35 ALT 61 H Alkaline Phosphatase 76 Creatine Kinase Troponin I Total Protein 6.0 L Albumin 3.4 L PTH Intact Urine Color Urine Appearance Urine pH Ur Specific Ault Urine Protein Urine Glucose (UA) Urine Ketones Urine Blood Urine Nitrite Urine Bilirubin Urine Urobilinogen Ur Leukocyte Esterase Urine WBC (Auto) Urine RBC (Auto) U Hyaline Cast (Auto) Urine Bacteria (Auto) Urine Mucus (Auto) Urine Ascorbic Acid 05/18/17 05/18/17 05/19/17 05:43 05:43 08:58 WBC 5.8 RBC 4.32 Hgb 11.4 L Hct 35.4 L MCV 82 MCH 26.5 L MCHC 32.3 RDW 16.7 H Plt Count 225 Seg Neutrophils % Lymphocytes % Monocytes % Eosinophils % Basophils % Absolute Neutrophils Absolute Lymphocytes Absolute Monocytes Absolute Eosinophils Absolute Basophils Sodium 147.2 H Potassium 4.8 Chloride 113 H Carbon Dioxide 25 Anion Gap 9 BUN 36 H Creatinine 2.55 H Est GFR ( Amer) 22 L Est GFR (Non-Af Amer) 18 L Glucose 115 H Calcium 9.3 Phosphorus 3.7 Magnesium Total Bilirubin Direct Bilirubin Neonat Total Bilirubin Neonat Direct Bilirubin Neonat Indirect Bili AST ALT Alkaline Phosphatase Creatine Kinase Troponin I Total Protein Albumin PTH Intact 258.4 H Urine Color Urine Appearance Urine pH Ur Specific Ault Urine Protein Urine Glucose (UA) Urine Ketones Urine Blood Urine Nitrite Urine Bilirubin Urine Urobilinogen Ur Leukocyte Esterase Urine WBC (Auto) Urine RBC (Auto) U Hyaline Cast (Auto) Urine Bacteria (Auto) Urine Mucus (Auto) Urine Ascorbic Acid 05/19/17 05/20/17 05/20/17 08:58 07:40 07:40 WBC 4.8 RBC 4.27 Hgb 11.3 L Hct 34.9 L MCV 82 MCH 26.5 L MCHC 32.4 RDW 16.8 H Plt Count 214 Seg Neutrophils % Lymphocytes % Monocytes % Eosinophils % Basophils % Absolute Neutrophils Absolute Lymphocytes Absolute Monocytes Absolute Eosinophils Absolute Basophils Sodium 140.7 140.4 Potassium 5.1 H 5.1 H Chloride 109 H 109 H Carbon Dioxide 20 L 24 Anion Gap 12 7 BUN 32 H 34 H Creatinine 2.41 H 2.31 H Est GFR ( Amer) 23 L 24 L Est GFR (Non-Af Amer) 19 L 20 L Glucose 100 106 Calcium 9.4 9.2 Phosphorus Magnesium Total Bilirubin 0.3 Direct Bilirubin 0.3 Neonat Total Bilirubin Not Reportable Neonat Direct Bilirubin Not Reportable Neonat Indirect Bili Not Reportable AST 29 ALT 42 Alkaline Phosphatase 62 Creatine Kinase Troponin I Total Protein 5.6 L Albumin 3.1 L PTH Intact Urine Color Urine Appearance Urine pH Ur Specific Ault Urine Protein Urine Glucose (UA) Urine Ketones Urine Blood Urine Nitrite Urine Bilirubin Urine Urobilinogen Ur Leukocyte Esterase Urine WBC (Auto) Urine RBC (Auto) U Hyaline Cast (Auto) Urine Bacteria (Auto) Urine Mucus (Auto) Urine Ascorbic Acid 05/21/17 05/21/17 05/21/17 04:25 04:25 04:25 WBC 5.1 RBC 4.40 Hgb 11.6 L Hct 36.1 MCV 82 MCH 26.4 L MCHC 32.2 RDW 17.0 H Plt Count 229 Seg Neutrophils % Lymphocytes % Monocytes % Eosinophils % Basophils % Absolute Neutrophils Absolute Lymphocytes Absolute Monocytes Absolute Eosinophils Absolute Basophils Sodium 138.8 Potassium 4.8 Chloride 107 Carbon Dioxide 23 Anion Gap 9 BUN 34 H Creatinine 2.32 H Est GFR ( Amer) 24 L Est GFR (Non-Af Amer) 20 L Glucose 102 Calcium 8.9 Phosphorus Magnesium 2.1 Total Bilirubin Direct Bilirubin Neonat Total Bilirubin Neonat Direct Bilirubin Neonat Indirect Bili AST ALT Alkaline Phosphatase Creatine Kinase Troponin I Total Protein Albumin PTH Intact Urine Color Urine Appearance Urine pH Ur Specific Ault Urine Protein Urine Glucose (UA) Urine Ketones Urine Blood Urine Nitrite Urine Bilirubin Urine Urobilinogen Ur Leukocyte Esterase Urine WBC (Auto) Urine RBC (Auto) U Hyaline Cast (Auto) Urine Bacteria (Auto) Urine Mucus (Auto) Urine Ascorbic Acid 05/22/17 05/22/17 05/22/17 07:52 10:43 14:10 WBC RBC Hgb Hct MCV MCH MCHC RDW Plt Count Seg Neutrophils % Lymphocytes % Monocytes % Eosinophils % Basophils % Absolute Neutrophils Absolute Lymphocytes Absolute Monocytes Absolute Eosinophils Absolute Basophils Sodium 139.7 Potassium 4.5 Chloride 107 Carbon Dioxide 24 Anion Gap 9 BUN 31 H Creatinine 2.31 H Est GFR ( Amer) 24 L Est GFR (Non-Af Amer) 20 L Glucose 85 Calcium 9.0 Phosphorus Magnesium 2.1 Total Bilirubin Direct Bilirubin Neonat Total Bilirubin Neonat Direct Bilirubin Neonat Indirect Bili AST ALT Alkaline Phosphatase Creatine Kinase Troponin I 0.048 0.043 Total Protein Albumin PTH Intact Urine Color Urine Appearance Urine pH Ur Specific Ault Urine Protein Urine Glucose (UA) Urine Ketones Urine Blood Urine Nitrite Urine Bilirubin Urine Urobilinogen Ur Leukocyte Esterase Urine WBC (Auto) Urine RBC (Auto) U Hyaline Cast (Auto) Urine Bacteria (Auto) Urine Mucus (Auto) Urine Ascorbic Acid Impressions: Head CT 05/16/17 14:40 IMPRESSION: CHRONIC CHANGES OF ATROPHY AND MICROVASCULAR ISCHEMIA. NO ACUTE PROCESS. EVIDENCE OF ACUTE STROKE: NO. Renal Ultrasound 05/17/17 00:00 IMPRESSION: 1. There is a 2.0 cm hypodensity at the superior pole of the right kidney which is not definitely cystic. Correlation with contrast-enhanced CT or MRI of the abdomen recommended. 2. Atrophy of the left kidney. Chest X-Ray 05/20/17 00:00 IMPRESSION: Massive cardiomegaly. Unchanged pacemaker. No acute infiltrates KUB X-Ray 05/20/17 00:00 IMPRESSION: NO RADIOGRAPHIC EVIDENCE FOR ACUTE ABDOMINAL DISEASE. Transfer Plan - Time Spent with Patient Time spent with patient: Less than 30 Minutes Qualifiers PATEINT BEING DISCHARGED WITH ANY OF THE FOLLOWING DIAGNOSIS?: No VTE patient discharged on overlapping Therapy?: No Plan Time Spent: Greater than 30 Minutes
[2017-05-23 12:02] VITALS: BP 161/65
== END 2017-05-23 14:35 | DRG 683 ==
LOC: ER 14:32 → INTOOBSV 17:19 → EH 17:19 → OBSVTOIN 05-17 16:19 → 3W 05-17 17:50 → 3S 05-22 21:24
PROVIDERS: ADMIT Internal Medicine; ATTEND Internal Medicine
DX: N17.9 Acute kidney failure, unspecified (principal); E87.0 Hyperosmolality and hypernatremia; I13.0 Hypertensive heart and chronic kidney disease with heart failure and stage 1 through stage 4 chronic kidney disease, or unspecified chronic kidney disease; I50.32 Chronic diastolic (congestive) heart failure; I47.2 Ventricular tachycardia; N18.4 Chronic kidney disease, stage 4 (severe); I48.91 Unspecified atrial fibrillation; E87.5 Hyperkalemia; E86.0 Dehydration; Z66 Do not resuscitate; R07.89 Other chest pain; N28.89 Other specified disorders of kidney and ureter; R40.0 Somnolence; E78.5 Hyperlipidemia, unspecified; I35.0 Nonrheumatic aortic (valve) stenosis; N25.81 Secondary hyperparathyroidism of renal origin; F03.90 Unspecified dementia, unspecified severity, without behavioral disturbance, psychotic disturbance, mood disturbance, and anxiety; F41.1 Generalized anxiety disorder; Z79.899 Other long term (current) drug therapy; Z95.0 Presence of cardiac pacemaker; Z87.891 Personal history of nicotine dependence
CPT/HCPCS: 36415; 51701; 70450; 71045; 74018; 76775; 80048; 80053; 81001; 82550; 83735; 83970; 84100; 84484; 85025; 85027; 87086; 93005; 93010; 94640; 96365; 96375; 99285; G0378; J0360; J0610; J1630; J1815; J1940; J2060; J2405; J3490; J7030; J7620

== ENCOUNTER 2017-06-14 10:54 | Emergency (ER) | payer MEDICARE, MEDICAID ==
--- NOTE | 2017-06-14 11:26 | ER Document Report ---
ED Respiratory Problem - General Chief Complaint: Shortness Of Breath Stated Complaint: SHORTNESS OF BREATH Time Seen by Provider: 06/14/17 11:25 Notes: Patient is here from a local senior care to be assessed for cough and difficulty breathing this morning. She had a routine appointment at her wire brush operator's office in [facility] (Dr. Ansari) yesterday and began developing some congestion at that time. He advised the patient to increase her Lasix from 30 mg a day to 40 mg a day. Since then, she is been noted to have more increasing difficulty breathing, coughing, fever. She is not on home oxygen. However, EMS noted her O2 sats to be below 90 and put her on CPAP while trans- porting her here. EMS also gave the patient 650 mg of Tylenol. Patient denies any pains anywhere. Denies any chest pains. No abdominal pains. Does have swelling of both lower extremities. Patient was admitted to this hospital 3 weeks ago for dehydration and high potassium. Patient has some degree of dementia but can answer most questions. PMH: Jes mcclendon, CHF. TRAVEL OUTSIDE OF THE [place] IN LAST 30 DAYS: No - Related Data Allergies/Adverse Reactions: No Known Allergies Allergy (Unverified 07/27/16 01:44) Past Medical History - Social History Smoking Status: Unknown if Ever Smoked Cigarette use (# per day): No Lives with: [facility] Family History: Reviewed & Not Pertinent, Hypertension, Other - Heart disease - Past Medical History Cardiac Medical History: Reports: Hx Atrial Fibrillation, Hx Congestive Heart Failure, Hx Hypercholesterolemia, Hx Hypertension, Hx Heart Murmur - Aortic stenosis Endocrine Medical History: Reports: Hx Hypothyroidism Psychiatric Medical History: Reports: Hx Dementia Past Surgical History: Reports: Hx Hysterectomy, Hx Pacemaker, Other - Cataract surgery and lipoma excisions - Immunizations Hx Diphtheria, Pertussis, Tetanus Vaccination: Yes Hx Pneumococcal Vaccination: 05/09/13 Review of Systems - Review of Systems Notes: REVIEW OF SYSTEMS: CONSTITUTIONAL : Denies fever. EENT: Denies eye, ear, nose or mouth or throat pain or other symptoms. CARDIOVASCULAR: Denies chest pain. Has bilateral peripheral edema of the lower extremities. RESPIRATORY: See HPI. GASTROINTESTINAL: Denies abdominal pain or nausea, vomiting, or diarrhea. GENITOURINARY: Denies difficulty or painful urinating, urinary frequency, blood in urine. MUSCULOSKELETAL: Denies back or neck pain. Denies joint pain or swelling. SKIN: Denies rash or skin lesions. NEUROLOGICAL: Denies LOC or altered mental status. Denies headache. Denies sensory loss or motor deficits. ALL OTHER SYSTEMS REVIEWED AND NEGATIVE. Physical Exam - Vital signs Vitals: Pulse Ox 100 06/14/17 11:01 Interpretation: Normal. No: Hypoxic - Notes Notes: PHYSICAL EXAMINATION: GENERAL: Well-appearing, in no acute distress. Off O2, O2 sat is 95%. HEAD: Atraumatic, normocephalic. ENT: oropharynx clear without exudates. Moist mucous membranes. NECK: Normal range of motion, supple. LUNGS: Breath sounds with a few basilar rales bilaterally. HEART: Irregular rate and rhythm without murmurs. ABDOMEN: Soft, nontender. No guarding or rebound. No masses. BACK: No tenderness throughout entire back. EXTREMITIES: Normal range of motion without pain. +2 to +3 pitting edema both lower extremities. No significant tenderness and negative Homans bilaterally. NEUROLOGICAL: Normal speech, gait not assessed. Normal sensory, motor, and reflex exams. Awake, alert, but not oriented 3. Answers questions appropriately. SKIN: Warm, dry, no rashes. Course - Re-evaluation Re-evalutation: 06/14/17 20:42 Patient's workup including flu testing was all normal or nothing acute. Patient appears to have chronic congestive heart failure. She was just seen by her wire brush operator yesterday with essentially the same complaints and physical findings. He recommended slight increase in the patient's Lasix. He did not feel that she needed to be admitted to the hospital yesterday and there is nothing really significantly different today. The only time the patient has been shown to have low oxygen was when EMS arrived at the scene and put her on CPAP. However, she has been off of oxygen and CPAP during her entire stay in the department and she never dropped her O2 sats out of the 90s and for the most part stayed about 9596% on room air. I did give the patient 20 mg of Lasix IV and when the family pointed out she did not have much response to that I gave her an additional 20 mg IV. Also, the patient's developed a cough productive of some sputum which seems to be infectious in origin, although I am not sure whether it is bacterial or viral. However, I recommended we put her on Zithromax as a precaution against possible bacterial upper respiratory infection. This patient is an elderly and debilitated individual, and I hope she will do well without hospitalization, but I really cannot find a reason for the patient to be admitted to this acute care facility. I even spoke with the hospitalist about whether she met any criteria for hospitalization and we could not come up with any such criteria at this time. She does reside in a senior care where she can be provided with nursing care and supervision and observation. She will also avoid being exposed to nosocomial infections here in the hospital. Patient's niece was advised to have them bring her back for reevaluation at any time if she is concerned that she is not doing well or getting worse. - Vital Signs Vital signs: Temp Pulse Resp BP Pulse Ox 98.4 F 33 H 151/90 H 93 06/14/17 11:22 06/14/17 18:39 06/14/17 18:39 06/14/17 18:39 - Laboratory Result Diagrams: 06/14/17 11:10 06/14/17 11:10 Laboratory results interpreted by me: 06/14/17 06/14/17 06/14/17 11:10 11:10 11:10 Hgb 10.4 L Hct 32.4 L MCH 25.7 L RDW 17.0 H Lymphocytes % 5.3 L Monocytes % 18.2 H Absolute Lymphocytes 0.3 L BUN 45 H Creatinine 2.76 H Est GFR ( Amer) 20 L Est GFR (Non-Af Amer) 16 L Glucose 143 H NT-Pro-B Natriuret Pep 85030 H Total Protein 6.1 L Urine Protein Urine Blood 06/14/17 14:10 Hgb Hct MCH RDW Lymphocytes % Monocytes % Absolute Lymphocytes BUN Creatinine Est GFR ( Amer) Est GFR (Non-Af Amer) Glucose NT-Pro-B Natriuret Pep Total Protein Urine Protein 30 H Urine Blood SMALL H Discharge - Discharge Clinical Impression: Upper respiratory infection, Congestive heart failure Condition: Stable Disposition: HOME, SELF-CARE Additional Instructions: Dyspnea, Nonspecific You were evaluated for shortness of breath, or dyspnea. Dyspnea has many causes, and some are more serious than others. Sometimes it's impossible to diagnose the cause of dyspnea with the tests that are available on an emergency basis. Based on our evaluation today, you do not need hospitalization now. We found no evidence of pneumonia, collapsed lung, blood clots in the lung, tumors , or heart failure. Causes of non-specific dyspnea can include asthma or bronchospasm, hyperventilation, emotional distress, heart disease, emphysema, fibrosis of the lung, and stiffness of the chest wall. In healthy individuals with a single episode, it's sometimes reasonable to do nothing but wait to see if the problem occurs again. Additional tests used to evaluate dyspnea can include cardiac stress testing, echocardiography, pulmonary function testing, CAT scan of the chest, bronchoscopy or pulmonary biopsy. Return if shortness of breath persists or worsens, or if you develop chest pain, fever, cough, confusion, or fainting. Congestive Heart Failure You have been diagnosed as having congestive heart failure (CHF). CHF occurs when the heart is unable to pump blood efficiently, leading to fluid buildup in the veins and lungs. Typical symptoms are swelling of the legs, shortness of breath on minor exertion, and fatigue. CHF is treated with salt restriction, medicine to eliminate excess water and salt from the body, and medication to help the heart contract more efficiently. Eliminate added salt and salty foods in your diet. Decrease your activity until excess fluid has been eliminated. It will also be helpful to raise the head of your bed so you can sleep more easily. Keep a daily record of your weight. This will help your physician monitor your progress. Once extra water has been eliminated, light aerobic exercise daily -- such as walking -- will be helpful (unless your physician has told you to restrict activity for other reasons). Be sure to follow up with the physician as instructed. Contact the doctor at once if you worsen in any way. Lasix Furosemide (Lasix) has been prescribed to eliminate excess fluid from your system. Lasix forces the kidney to put out extra salt and water in the urine. It is used for fluid retention due to heart or lung disease -- improving the symptoms of swelling, shortness of breath, and fatigue. Lasix may cause potassium loss (hypokalemia), so a potassium supplement is usually prescribed. If no potassium has been recommended for you, be sure to have your serum potassium checked after a short time on the medication. Contact your doctor if you have severe weakness or palpitations. Weigh yourself daily. Changes in your weight show how much salt and water your body is eliminating (or retaining). Generally, you should not lose more than about two pounds daily. Once you have lost the desired amount of extra fluid, continued weighing is recommended to monitor your condition. You were given some Lasix 40 mg in your IV. Continue to take your Lasix at [facility] 40 mg a day as currently prescribed. UPPER RESPIRATORY ILLNESS: You have a viral infection of the respiratory passages -- a "cold." This common infection causes nasal congestion, drainage, and often sore throat and cough. It is highly contagious. The disease usually lasts about 10 to 14 days. There is no "cure" for the viral infection -- it must run its course. If there is a complication, such as bacterial infection in the nose, sinuses, middle ear, or bronchial tubes, antibiotics may be required. The antibiotics won't affect the virus. Drink plenty of fluids. A humidifier may help. An expectorant medication or decongestant may make you more comfortable. Use acetaminophen or ibuprofen for fever or aches. See the doctor if fever persists over two days, if there is any significant worsening of your symptoms, or if you simply fail to improve as expected. Azithromycin Azithromycin (Zithromax) is a broad spectrum antibiotic in the same class as erythromycin. It can treat a variety of bacterial infections, but is most frequently used for respiratory infections. Azithromycin is extremely long-lasting. It accumulates in body tissues and continues to kill bacteria for many days. In order to improve absorption, Azithromycin should be taken at least one hour before or two hours after a meal. It does not have the same strong tendency to upset the stomach as erythromycin and is usually very well tolerated. Patients who have had a rash or other true allergic reactions to erythromycin should not take this medication. Call if you develop gastrointestinal distress, severe diarrhea, rash, hives, itching, or shortness of breath. FOLLOW-UP CARE: If you have been referred to a physician for follow-up care, call the physician s office for an appointment as you were instructed or within the next two days. If you experience worsening or a significant change in your symptoms, notify the physician immediately or return to the Emergency Department at any time for re-evaluation. Prescriptions: Azithromycin 250 mg PO DAILY #4 tablet Referrals: ABHIJEET MONROY, DO [Primary Care Provider] - Follow up as needed
[2017-06-14 11:39] LABS: ABSOLUTE LYMPHOCYTES (AUTO) 0.3 10^3/uL (0.5-4.7); BASOPHILS % (AUTO) 0.3 % (0-2); EOSINOPHILS % (AUTO) 0.1 % (0-6); HEMATOCRIT 32.4 % (36.0-47.0); HEMOGLOBIN 10.4 g/dL (12.0-15.5); LYMPHOCYTES % (AUTO) 5.3 % (13-45); MEAN CORPUSCULAR HEMOGLOBIN 25.7 pg (27.0-33.4); MEAN CORPUSCULAR VOLUME 81 fl (80-97); MONOCYTES % (AUTO) 18.2 % (3-13); PLATELET COUNT 194 10^3/uL (150-450); RED BLOOD COUNT 4.02 10^6/uL (3.72-5.28); SEGMENTED NEUTROPHILS % (AUTO) 76.1 % (42-78); TOTAL CELLS COUNTED % (AUTO) 100 %; WHITE BLOOD COUNT 5.3 10^3/uL (4.0-10.5)
[2017-06-14 11:54] LABS: ALANINE AMINOTRANSFERASE 30 U/L (9-52); ALBUMIN 3.8 g/dL (3.5-5.0); ALKALINE PHOSPHATASE 68 U/L (38-126); ANION GAP 12 (5-19); ASPARTATE AMINO TRANSFERASE 26 U/L (14-36); BILIRUBIN,TOTAL 0.5 mg/dL (0.2-1.3); BLOOD UREA NITROGEN 45 mg/dL (7-20); CALCIUM 9.2 mg/dL (8.4-10.2); CARBON DIOXIDE 27 mmol/L (22-30); CHLORIDE 106 mmol/L (98-107); GLUCOSE 143 mg/dL (75-110); POTASSIUM 4.6 mmol/L (3.6-5.0); SODIUM 144.9 mmol/L (137-145); TOTAL PROTEIN 6.1 g/dL (6.3-8.2)
[2017-06-14 12:02] LABS: BILIRUBIN,DIRECT 0.3 mg/dL (0.0-0.4)
[2017-06-14 12:05] LABS: CREATINE KINASE MB 2.5 ng/mL (<4.55)
--- NOTE | 2017-06-14 12:15 | RADIOLOGY REPORT (SQ) ---
EXAM DESCRIPTION: CHEST PA/LAT COMPLETED DATE/TIME: 06/14/2017 11:43 am REASON FOR STUDY: Short of breath and difficulty breathing COMPARISON: Chest films 05/20/2017, 05/16/2017, 07/26/2016 EXAM PARAMETERS: NUMBER OF VIEWS: two views TECHNIQUE: Digital Frontal and Lateral radiographic views of the chest acquired. RADIATION DOSE: NA LIMITATIONS: none FINDINGS: LUNGS AND PLEURA: No opacities, masses or pneumothorax. No pleural effusion. MEDIASTINUM AND HILAR STRUCTURES: No masses or contour abnormalities. HEART AND VASCULAR STRUCTURES: Stable massive cardiomegaly BONES: No acute findings. HARDWARE: Left-sided multi lead pacemaker unchanged OTHER: No other significant finding. IMPRESSION: Massive cardiomegaly. No acute infiltrates TECHNICAL DOCUMENTATION: JOB ID: [id number] [employer]- All Rights Reserved
[2017-06-14 12:25] LABS: TROPONIN I 0.105 ng/mL
[2017-06-14 14:28] LABS: APPEARANCE,URINE SLIGHTLY-CLOUDY; BILIRUBIN,URINE NEGATIVE (NEGATIVE); COLOR,URINE YELLOW; GLUCOSE, URINE NEGATIVE (NEGATIVE); KETONES,URINE NEGATIVE (NEGATIVE); LEUKOCYTE ESTERASE,URINE NEGATIVE (NEGATIVE); NITRITE,URINE NEGATIVE (NEGATIVE); PROTEIN,URINE 30 mg/dL (NEGATIVE); URINE SPECIFIC GRAVITY 1.012; UROBILINOGEN,URINE NEGATIVE mg/dL (<2.0)
[2017-06-14] MEDS ORDERED: AZITHROMYCIN 250 MG TABLET PO ONE (14:50)
[2017-06-14] MEDS ORDERED: FUROSEMIDE INJ/PF 20 MG/2 ML SDV IV ONE ×2 (14:50→17:42)
[2017-06-14 15:28] LABS: A TYPE INFLUENZA AG NEGATIVE (NEGATIVE); B INFLUENZA AG NEGATIVE (NEGATIVE)
[2017-06-14 18:56] VITALS: BP 151/90
--- NOTE | 2017-06-14 22:42 | EKG REPORT ---
SEVERITY:- ABNORMAL ECG - AFIB/FLUT AND V-PACED COMPLEXES BORDERLINE LEFT AXIS DEVIATION : Confirmed by: Seun Stark 14-Jun-2017 22:41:30
== END 2017-06-14 18:45 | disposition home or self-care (01) ==
LOC: ER 10:54
DX: I11.0 Hypertensive heart disease with heart failure (principal); I50.9 Heart failure, unspecified; Z79.899 Other long term (current) drug therapy; J06.9 Acute upper respiratory infection, unspecified; R05 Cough; R50.9 Fever, unspecified; F03.90 Unspecified dementia, unspecified severity, without behavioral disturbance, psychotic disturbance, mood disturbance, and anxiety; I48.91 Unspecified atrial fibrillation; Z95.0 Presence of cardiac pacemaker
CPT/HCPCS: 93005; 96376; 99285; 96374; 36415; 87040; 87070; 87086; 87205; 82553; 85025; 80053; 81001; 84484; 87804; 83880; 71046; 93010; A9270; J1940

== ENCOUNTER 2017-06-22 16:44 | Inpatient (IN) | payer MEDICARE, MEDICAID ==
[2017-06-22] MEDS ORDERED: FUROSEMIDE INJ/PF 40 MG/4 ML SDV IV ONE ×2 (17:31→20:42)
[2017-06-22] MEDS ORDERED: ASPIRIN 81 MG TABLET, CHEWABLE PO ONE (17:31)
--- NOTE | 2017-06-22 17:34 | ER Document Report ---
ED General - General Chief Complaint: Breathing Difficulty Stated Complaint: DIFFICULTY BREATHING Time Seen by Provider: 06/22/17 17:23 Mode of Arrival: Stretcher Information source: Patient Notes: This is an 86-year-old female with a history of CHF, atrial fibrillation, chronic kidney disease and chronic pedal edema who was sent in by the carpenter's assistant for worsening CHF. The patient was seen a week ago for respiratory complaints and discharge with plan for increased Lasix. Over that time, the patient is progressively worsened as far as shortness of breath. The patient's daughter states she is she has had a 12 pound weight gain. The patient denies chest pain. TRAVEL OUTSIDE OF THE [place] IN LAST 30 DAYS: No - Related Data Allergies/Adverse Reactions: No Known Allergies Allergy (Verified 06/22/17 16:44) Past Medical History - Social History Smoking Status: Former Smoker Frequency of alcohol use: None Drug Abuse: None Family History: Reviewed & Not Pertinent, Hypertension, Other - Heart disease Patient has suicidal ideation: No Patient has homicidal ideation: No - Past Medical History Cardiac Medical History: Reports: Hx Atrial Fibrillation, Hx Congestive Heart Failure, Hx Hypercholesterolemia, Hx Hypertension, Hx Heart Murmur - Aortic stenosis Endocrine Medical History: Reports: Hx Hypothyroidism Renal/ Medical History: Denies: Hx Peritoneal Dialysis Psychiatric Medical History: Reports: Hx Dementia Denies: Hx Depression Past Surgical History: Reports: Hx Hysterectomy, Hx Pacemaker, Other - Cataract surgery and lipoma excisions - Immunizations Hx Diphtheria, Pertussis, Tetanus Vaccination: Yes Hx Pneumococcal Vaccination: 05/09/13 Physical Exam - Vital signs Vitals: Temp Pulse Resp BP Pulse Ox 97.5 F 82 20 130/64 H 95 06/22/17 16:51 06/22/17 16:51 06/22/17 16:51 06/22/17 16:51 06/22/17 16:51 Notes: Physical exam: GENERAL: 86-year-old female, alert and oriented 3, appears dyspneic HEAD: Atraumatic, normocephalic. EYES: Pupils equal round and reactive to light, extraocular movements intact, sclera anicteric, conjunctiva are normal. ENT: TMs normal, nares patent, oropharynx clear without exudates. Moist mucous membranes. NECK: Normal range of motion, supple without obvious mass or JVD. LUNGS: Crackles bilaterally HEART: Regular rate and rhythm without murmurs, rubs or gallops. ABDOMEN: Soft, normoactive bowel sounds. No tenderness to palpation. No guarding, no rebound. No masses appreciated. EXTREMITIES: 2+ pedal edema NEUROLOGICAL: Cranial nerves II through XII grossly intact. Normal speech, moving all extremities. PSYCH: Normal mood, normal affect. SKIN: Warm, Dry, normal turgor, no rashes or lesions noted. Course - Re-evaluation Re-evalutation: I discussed case with Dr. Will who did recommend getting a little bit more Lasix and following the BUN and creatinine tomorrow. She did recommend admission to the hospital. The patient did have a bump in her BUN and creatinine. She is not a candidate for dialysis as per Dr. Will. 06/22/17 20:42 - Vital Signs Vital signs: Temp Pulse Resp BP Pulse Ox 97.5 F 82 20 130/64 H 98 06/22/17 16:51 06/22/17 16:51 06/22/17 16:51 06/22/17 16:51 06/22/17 17:31 - Laboratory Result Diagrams: 06/22/17 17:28 06/22/17 17:28 Laboratory results interpreted by me: 06/22/17 06/22/17 17:28 17:28 Hgb 10.7 L Hct 34.0 L MCH 25.6 L MCHC 31.3 L RDW 17.4 H Monocytes % 17.3 H BUN 64 H Creatinine 3.25 H Est GFR ( Amer) 16 L Est GFR (Non-Af Amer) 13 L Glucose 134 H Total Protein 6.0 L Albumin 3.4 L - Diagnostic Test Radiology reviewed: Image reviewed, Reports reviewed - Cardiomegaly - EKG Interpretation by N[facility] Rhythm: A.Fib - EKG shows atrial fibrillation with a ventricular rate of 79, left axis deviation, poor R-wave progression, no acute ST-T wave changes Discharge - Discharge Clinical Impression: CHF, Acute on chronic renal failure Condition: Stable Disposition: ADMITTED INPATIENT Admitting Provider: Hospitalist - Dr. Boateng (spoke with Dr Newman) Unit Admitted: Telemetry
[2017-06-22 17:38] LABS: ABSOLUTE BASOPHILS # (AUTO) 0.1 10^3/uL (0.0-0.2); ABSOLUTE EOSINOPHILS # (AUTO) 0.1 10^3/uL (0.0-0.6); ABSOLUTE NEUT (AUTO) 2.5 10^3/uL (1.7-8.2); BASOPHILS % (AUTO) 1.9 % (0-2); HEMOGLOBIN 10.7 g/dL (12.0-15.5); LYMPHOCYTES % (AUTO) 34.8 % (13-45); MEAN CORPUSCULAR HEMOGLOBIN 25.6 pg (27.0-33.4); MEAN CORPUSCULAR HGB CONC 31.3 g/dL (32.0-36.0); MEAN CORPUSCULAR VOLUME 82 fl (80-97); MONOCYTES % (AUTO) 17.3 % (3-13); PLATELET COUNT 271 10^3/uL (150-450); RED BLOOD COUNT 4.16 10^6/uL (3.72-5.28); RED CELL DISTRIBUTION WIDTH 17.4 % (11.5-14.0); TOTAL CELLS COUNTED % (AUTO) 100 %; WHITE BLOOD COUNT 5.7 10^3/uL (4.0-10.5)
--- NOTE | 2017-06-22 17:51 | RADIOLOGY REPORT (SQ) ---
EXAM DESCRIPTION: CHEST SINGLE VIEW COMPLETED DATE/TIME: 06/22/2017 5:42 pm REASON FOR STUDY: sob COMPARISON: Of 06/14/2017 EXAM PARAMETERS: NUMBER OF VIEWS: One view. TECHNIQUE: Single frontal radiographic view of the chest acquired. RADIATION DOSE: NA LIMITATIONS: None. FINDINGS: LUNGS AND PLEURA: No opacities, masses or pneumothorax. No pleural effusion. MEDIASTINUM AND HILAR STRUCTURES: No masses. Contour normal. HEART AND VASCULAR STRUCTURES: Cardiac silhouette remains enlarged and is unchanged in configuration. BONES: No acute findings. HARDWARE: Transvenous pacemaker is unchanged in position. OTHER: No other significant finding. IMPRESSION: No significant interval change. Cardiomegaly. No acute changes. Other findings as not ed above TECHNICAL DOCUMENTATION: JOB ID: [id number] [employer]- All Rights Reserved
[2017-06-22 18:05] LABS: ALANINE AMINOTRANSFERASE 43 U/L (9-52); ALBUMIN 3.4 g/dL (3.5-5.0); ALKALINE PHOSPHATASE 96 U/L (38-126); ANION GAP 9 (5-19); ASPARTATE AMINO TRANSFERASE 36 U/L (14-36); BILIRUBIN,DIRECT 0.4 mg/dL (0.0-0.4); BILIRUBIN,TOTAL 0.4 mg/dL (0.2-1.3); BLOOD UREA NITROGEN 64 mg/dL (7-20); CARBON DIOXIDE 28 mmol/L (22-30); CHLORIDE 104 mmol/L (98-107); CREATINE KINASE 53 U/L (30-135); GLUCOSE 134 mg/dL (75-110); SODIUM 141.3 mmol/L (137-145)
[2017-06-22 18:17] LABS: CREATINE KINASE MB 1.32 ng/mL (<4.55)
[2017-06-22 18:27] LABS: TROPONIN I 0.063 ng/mL
[2017-06-22] MEDS ORDERED: ACETAMINOPHEN 325 MG TABLET PO PRN (21:08)
[2017-06-22] MEDS ORDERED: HYDRALAZINE HCL INJ/PF 20 MG/1 ML SDV IV PRN (21:08)
[2017-06-22] MEDS ORDERED: MIRTAZAPINE 15 MG TABLET PO SCH (22:00)
[2017-06-22] MEDS ORDERED: LACTULOSE SYRUP 20 GM/30 ML UDCUP PO ONE (22:00)
[2017-06-22 22:11] LABS: CREATINE KINASE MB 1.06 ng/mL (<4.55)
[2017-06-22 22:16] LABS: TROPONIN I 0.06 ng/mL
[2017-06-22] MEDS: HEPARIN SOD (PORCINE) 5,000 UNIT/ML 1 ML SYRINGE SUBCUT SCH (22:49)
[2017-06-22] MEDS: MAGNESIUM OXIDE 400 MG TABLET PO SCH (22:50)
[2017-06-22] MEDS: FAMOTIDINE 20 MG TABLET PO SCH (22:50)
[2017-06-23 03:58] LABS: CREATINE KINASE MB 1.11 ng/mL (<4.55)
[2017-06-23 04:04] LABS: TROPONIN I 0.054 ng/mL
--- NOTE | 2017-06-23 04:07 | PDOC H&P ---
History of Present Illness Admission Date/PCP: 06/22/17 18:45 ABHIJEET MONROY DO Patient complains of: Cardiology referral History of Present Illness: MARTY GAGE is a 86 year old female, [facility] resident with a past medical history of atrial fibrillation on Xarelto, stage IV chronic kidney disease, congestive heart failure with pulmonary hypertension, moderate mitral, tricuspid and aortic regurgitation and dementia. Patient presents following examination by pressing machine operator with concerns for congestive heart failure exacerbation. In the emergency room she is found to be awake and alert oriented 1 at baseline lying supine at 30 incline on room air with oxygen saturation of 97%, rate controlled atrial fibrillation 78. Patient denies complaints but family member at bedside concern for lower extremity edema. Labs reveal acute on chronic renal failure and a BNP of 20,000. Chest x-ray is without evidence of acute heart failure. Patient denies palpitations, pain or recent change in medications or diet. Past Medical History Cardiac Medical History: Reports: Atrial Fibrillation, Congestive Heart Failure , Hyperlipidema, Hypertension, Heart Murmur - Aortic stenosis Endocrine Medical History: Reports: Hypothyroidism Psychiatric Medical History: Reports: Dementia Denies: Depression Past Surgical History Past Surgical History: Reports: Hysterectomy, Pacemaker, Other - Cataract surgery and lipoma excisions Social History Information Source: Patient, [facility]ge Office, [facility] Records Lives with: Snf Smoking Status: Former Smoker Frequency of Alcohol Use: None Hx Recreational Drug Use: No Drugs: None Hx Prescription Drug Abuse: No - Advance Directive Resuscitation Status: Do Not Resuscitate Family History Family History: Reviewed & Not Pertinent, Hypertension, Other - Heart disease Parental Family History Reviewed: Yes Children Family History Reviewed: Yes Sibling(s) Family History Reviewed.: Yes Medication/Allergy Home Medications: Acetaminophen [Tylenol] 650 mg PO Q6HP PRN 06/22/17 Diltiazem HCl [Cardizem 60 mg Tablet] 120 mg PO DAILY 06/22/17 Docusate Sodium [Colace] 100 mg PO DAILY 06/22/17 Famotidine [Pepcid 20 mg Tablet] 20 mg PO QHS 06/22/17 Ipratropium/Albuterol Sulfate [Duoneb 3 ml Ampul] 1 vial NEB RTQ6HP PRN Levothyroxine Sodium [Synthroid] 112 mcg PO DAILY 06/22/17 Lisinopril 20 mg PO DAILY 06/22/17 Loratadine [Claritin 10 mg Tablet] 10 mg PO DAILY 06/22/17 Magnesium Oxide [Mag-Ox 400 mg Tablet] 400 mg PO BID 06/22/17 Melatonin 5 mg PO QHS 06/22/17 Metoprolol Succinate [Toprol XL 100 mg Tablet] 150 mg PO DAILY 06/22/17 Mirtazapine [Remeron] 15 mg PO QHS 06/22/17 Omeprazole Magnesium [Prilosec Otc] 20 mg PO DAILY 06/22/17 Rivaroxaban [Xarelto] 15 mg PO DAILY 06/22/17 Allergies/Adverse Reactions: No Known Allergies Allergy (Verified 06/22/17 16:44) Review of Systems ROS unobtainable: Due to mental status Physical Exam Vital Signs: Temp Pulse Resp BP Pulse Ox 97.5 F 82 25 H 149/85 H 100 06/22/17 16:51 06/22/17 16:51 06/23/17 03:01 06/23/17 03:01 06/23/17 03:01 General appearance: PRESENT: no acute distress, well-developed, well-nourished Head exam: PRESENT: atraumatic, normocephalic Eye exam: PRESENT: conjunctiva pink, EOMI, PERRLA. ABSENT: scleral icterus Ear exam: PRESENT: normal external ear exam Mouth exam: PRESENT: moist, tongue midline Neck exam: ABSENT: carotid bruit, JVD, lymphadenopathy, thyromegaly Respiratory exam: PRESENT: clear to auscultation roscoe, crackles, symmetrical, unlabored. ABSENT: accessory muscle use, prolonged expiratory phas, rales, rhonchi, stridor, tachypnea, wheezes Cardiovascular exam: PRESENT: irregular rhythm. ABSENT: bradycardia, diastolic murmur, rubs, systolic murmur, tachycardia Pulses: PRESENT: normal dorsalis pedis pul Vascular exam: PRESENT: normal capillary refill GI/Abdominal exam: PRESENT: normal bowel sounds, soft. ABSENT: distended, guarding, mass, organolmegaly, rebound, tenderness Rectal exam: PRESENT: deferred Extremities exam: PRESENT: full ROM. ABSENT: calf tenderness, clubbing, pedal edema Neurological exam: PRESENT: alert, awake, oriented to person, oriented to place , oriented to time, oriented to situation, CN II-XII grossly intact. ABSENT: motor sensory deficit Psychiatric exam: PRESENT: appropriate affect, normal mood. ABSENT: homicidal ideation, suicidal ideation Skin exam: PRESENT: dry, intact, warm. ABSENT: cyanosis, rash Results Laboratory Results: 06/22/17 21:27 TSH 2.94 06/22/17 06/22/17 06/22/17 21:27 21:27 21:27 Creatine Kinase 45 CK-MB (CK-2) 1.06 Troponin I 0.060 NT-Pro-B Natriuret Pep 90118 H 06/23/17 03:15 Creatine Kinase 44 CK-MB (CK-2) Troponin I NT-Pro-B Natriuret Pep Impressions: Chest X-Ray 06/22/17 17:31 IMPRESSION: No significant interval change. Cardiomegaly. No acute changes. Other findings as noted above Assessment & Plan - Diagnosis (1) Chronic kidney disease (CKD), stage IV (severe) Is this a current diagnosis for this admission?: Yes Plan: Emergency room physician consult of patient's assignment agent Dr. Will recommending IV Lasix 40 mg 2. Follow-up chemistry and nephrology consult. (2) Dementia Qualifiers: Dementia type: unspecified type Dementia behavioral disturbance: without behavioral disturbance Qualified Code(s): F03.90 - Unspecified dementia without behavioral disturbance Is this a current diagnosis for this admission?: Yes Plan: Supportive care (3) A-fib Qualifiers: Is this a current diagnosis for this admission?: Yes Plan: Well-controlled continue telemetry monitoring and outpatient regiment (4) Diastolic CHF Is this a current diagnosis for this admission?: Yes Plan: Supportive care, incentive spirometry to avoid atelectasis. (5) Venous stasis Is this a current diagnosis for this admission?: Yes Plan: ZEESHAN stockings and education - Time Time Spent: 50 to 70 Minutes - Inpatient Certification Medical Necessity: Need Close Monitoring Due to Risk of Patient Decompensation
[2017-06-23] MEDS: HEPARIN SOD (PORCINE) 5,000 UNIT/ML 1 ML SYRINGE SUBCUT SCH ×3 (05:38→21:05)
[2017-06-23] MEDS: LEVOTHYROXINE SODIUM 0.112 MG TABLET PO SCH (05:38)
[2017-06-23] MEDS: RIVAROXABAN 15 MG TABLET PO SCH (08:20)
--- NOTE | 2017-06-23 08:53 | EKG REPORT ---
SEVERITY:- ABNORMAL ECG - ATRIAL FIBRILLATION LEFT VENTRICULAR HYPERTROPHY : Confirmed by: Seun Stark 23-Jun-2017 08:52:07
[2017-06-23] MEDS ORDERED: (PENDING PHARMACY ID) (Metoprolol Succinate [Toprol Xl 100 Mg Tablet] 150 MG) PO SCH (10:00)
[2017-06-23 10:16] LABS: CREATINE KINASE MB 1.24 ng/mL (<4.55); TROPONIN I 0.055 ng/mL
[2017-06-23] MEDS: DOCUSATE SODIUM 100 MG CAPSULE PO SCH (10:23)
[2017-06-23] MEDS: LORATADINE 10 MG TABLET PO SCH (10:24)
[2017-06-23] MEDS: MAGNESIUM OXIDE 400 MG TABLET PO SCH ×2 (10:24→21:05)
[2017-06-23] MEDS: DILTIAZEM HCL 60 MG TABLET PO SCH (10:26)
[2017-06-23] MEDS: FUROSEMIDE 40 MG TABLET PO SCH ×2 (10:27→17:19)
[2017-06-23] MEDS: METOPROLOL SUCCINATE 50 MG TAB.SR.24H PO SCH (10:27)
--- NOTE | 2017-06-23 19:35 | PDOC PROGRESS REPORT ---
Subjective Progress Note for:: 06/23/17 Subjective:: Doing a little better. Still with shortness of breath but a little better at this time. Still within I extremity swelling. Denies chest pain, fever or chills, no nausea or vomiting. Reason For Visit: CHF ARF Physical Exam Vital Signs: Temp Pulse Resp BP Pulse Ox 97.4 F 70 16 101/49 L 100 06/23/17 15:19 06/23/17 15:19 06/23/17 15:19 06/23/17 15:19 06/23/17 15:19 Intake & Output 06/22/17 06/23/17 06/24/17 06:59 06:59 06:59 Intake Total 3 Output Total 475 Balance -472 GEN: NAD, well-deloped, well-nourished CV: Irregular, NL S1S2, 2/6 systolic murmur RSB LUNGS: Few basilar crackles bilaterally ABDOMEN Soft, NT, +BS EXTERMITIES: 3+ lower extremity edema NEURO: Alert, oriented Results Laboratory Results: 06/22/17 21:27 TSH 2.94 06/22/17 06/22/17 06/22/17 21:27 21:27 21:27 Creatine Kinase 45 CK-MB (CK-2) 1.06 Troponin I 0.060 NT-Pro-B Natriuret Pep 88439 H 06/23/17 06/23/17 06/23/17 03:15 03:15 09:28 Creatine Kinase 44 46 CK-MB (CK-2) 1.11 Troponin I 0.054 NT-Pro-B Natriuret Pep 06/23/17 09:28 Creatine Kinase CK-MB (CK-2) 1.24 Troponin I 0.055 NT-Pro-B Natriuret Pep Impressions: Chest X-Ray 06/22/17 17:31 IMPRESSION: No significant interval change. Cardiomegaly. No acute changes. Other findings as noted above Assessment & Plan - Diagnosis (1) CHF exacerbation Is this a current diagnosis for this admission?: Yes Plan: Suspect this is diastolic. Likely secondary to worsening renal failure. Lasix by taxicab dispatcher. Nephrology to follow-up. (2) Chronic kidney disease (CKD), stage IV (severe) Is this a current diagnosis for this admission?: Yes Plan: This is severe/worsening. Awaiting nephrology follow-up. (3) Dementia Qualifiers: Dementia type: unspecified type Dementia behavioral disturbance: without behavioral disturbance Qualified Code(s): F03.90 - Unspecified dementia without behavioral disturbance Is this a current diagnosis for this admission?: Yes (4) Hypertension Qualifiers: Plan: Stable. Monitor. (5) Diastolic CHF Is this a current diagnosis for this admission?: Yes Plan: Lasix IV by nephrology. - Inpatient Certification Based on my medical assessment, after consideration of the patient's comorbidities, presenting symptoms, or acuity I expect that the services needed warrant INPATIENT care.: Yes I certify that my determination is in accordance with my understanding of Medicare's requirements for reasonable and necessary INPATIENT services [42 CFR 412.3e].: Yes Medical Necessity: Significant Comorbidiites Make Outpatient Treatment Too Risky , Need Close Monitoring Due to Risk of Patient Decompensation - Plan Summary Plan Summary: (4) Diastolic CHF Is this a current diagnosis for this admission?: Yes Plan: Supportive care, incentive spirometry to avoid atelectasis. (1) Chronic kidney disease (CKD), stage IV (severe) Is this a current diagnosis for this admission?: Yes Plan: Emergency room physician consult of patient's taxicab dispatcher Dr. Will recommending IV Lasix 40 mg 2. Follow-up chemistry and nephrology consult. -Awaiting taxicab dispatcher recommendation. (2) Dementia Qualifiers: Dementia type: unspecified type Dementia behavioral disturbance: without behavioral disturbance Qualified Code(s): F03.90 - Unspecified dementia without behavioral disturbance Is this a current diagnosis for this admission?: Yes Plan: Supportive care (3) A-fib Qualifiers: Is this a current diagnosis for this admission?: Yes Plan: Well-controlled continue telemetry monitoring and outpatient regiment (5) Venous stasis Is this a current diagnosis for this admission?: Yes Plan: ZEESHAN stockings and education
[2017-06-23 20:25] LABS: ABSOLUTE BASOPHILS # (AUTO) 0.1 10^3/uL (0.0-0.2); ABSOLUTE EOSINOPHILS # (AUTO) 0.1 10^3/uL (0.0-0.6); ABSOLUTE LYMPHOCYTES (AUTO) 1.3 10^3/uL (0.5-4.7); ABSOLUTE NEUT (AUTO) 3.9 10^3/uL (1.7-8.2); BASOPHILS % (AUTO) 0.8 % (0-2); EOSINOPHILS % (AUTO) 1.6 % (0-6); HEMOGLOBIN 10.6 g/dL (12.0-15.5); LYMPHOCYTES % (AUTO) 20.9 % (13-45); MEAN CORPUSCULAR HEMOGLOBIN 25.6 pg (27.0-33.4); MEAN CORPUSCULAR HGB CONC 32.1 g/dL (32.0-36.0); MEAN CORPUSCULAR VOLUME 80 fl (80-97); MONOCYTES % (AUTO) 16.2 % (3-13); PLATELET COUNT 276 10^3/uL (150-450); RED BLOOD COUNT 4.14 10^6/uL (3.72-5.28); SEGMENTED NEUTROPHILS % (AUTO) 60.5 % (42-78); TOTAL CELLS COUNTED % (AUTO) 100 %; WHITE BLOOD COUNT 6.4 10^3/uL (4.0-10.5)
[2017-06-23 20:40] LABS: ANION GAP 8 (5-19); BLOOD UREA NITROGEN 65 mg/dL (7-20); CARBON DIOXIDE 30 mmol/L (22-30); CHLORIDE 102 mmol/L (98-107); GLUCOSE 109 mg/dL (75-110); POTASSIUM 4.9 mmol/L (3.6-5.0); SODIUM 139.8 mmol/L (137-145)
[2017-06-23] MEDS: FAMOTIDINE 20 MG TABLET PO SCH (21:05)
[2017-06-23] MEDS ORDERED: FUROSEMIDE 40 MG TABLET PO SCH (21:23)
--- NOTE | 2017-06-23 21:39 | PDOC CONSULTATION ---
Consultation Consult Date: 06/23/17 Attending physician:: MARTINA BERTRAND Consult reason:: I was asked to see this patient because of acute worsening of kidney function with associated acute CHF exacerbation. History of Present Illness Admission Date/PCP: 06/22/17 18:45 ABHIJEET MONROY DO History of Present Illness: MARTY GAGE is a 86 year old female, alf resident with a past medical history of atrial fibrillation on Xarelto, stage IV chronic kidney disease, congestive heart failure with pulmonary hypertension, moderate mitral, tricuspid and aortic regurgitation and dementia. Patient presents following examination by snath handle assembler, Dr. Ansari with concerns for congestive heart failure exacerbation. In the emergency room she is found to be awake and alert oriented 1 at baseline lying supine at 30 incline on room air with oxygen saturation of 97%, rate controlled atrial fibrillation 78. Patient denies complaints but family member at bedside concern for worsening lower extremity edema. Labs reveal acute on chronic renal failure and a BNP of 20,000. Chest x -ray is without evidence of acute heart failure. Patient denies palpitations, pain or recent change in medications or diet. I was called by the emergency room physician last night and they recommended giving the patient a total of Lasix 80 mg IV. Also recommended the patient gets admitted to the hospital for further observation. When I saw the patient today she is comfortably lying in bed. She is demented and no reliable history can really be obtained from her. Her niece, Ms. Wendy Larson who is her POA is at bedside. She notices increased lower extremity edema and worsening dyspnea on exertion. Other than that there is really no other complaints. The patient is not specifically having some left hand swelling today. Yesterday she was admitted with a BUN of 64 creatinine of 3.25 and today she has a BUN of 65 and creatinine 2.95 taken about an hour ago. Her creatinine usually runs anywhere from 2.3-2.7 with estimated GFR on the 20s. Patient is incontinent. Currently she is on Lasix 40 mg orally twice daily. Past Medical History Cardiac Medical History: Reports: Atrial Fibrillation, Heart Murmur - Aortic stenosis, Hyperlipidemia Pulmonary Medical History: Reports: Other - Pulmonary no deal Endocrine Medical History: Reports: Hypothyroidism Renal/ Medical History: Reports: Chronic Kidney Disease Stage IV Psychiatric Medical History: Reports: Dementia, General Anxiety Disorder Hematology Medical History: Reports Anemia of Chronic Kidney Disease Past Surgical History Past Surgical History: Reports: Hysterectomy, Pacemaker, Other - Cataract surgery and lipoma excisions Social History Information Source: [facility] Records Lives with: Shelter Smoking Status: Never Smoker Frequency of Alcohol Use: None Hx Recreational Drug Use: No Drugs: None Hx Prescription Drug Abuse: No - Advance Directive Resuscitation Status: Do Not Resuscitate Family History Family History: CAD, Hypertension, Malignancy Parental Family History Reviewed: Yes Children Family History Reviewed: NA Sibling(s) Family History Reviewed.: Yes Medication/Allergy Home Medications: Acetaminophen [Tylenol] 650 mg PO Q6HP PRN 06/22/17 Diltiazem HCl [Cardizem 60 mg Tablet] 120 mg PO DAILY 06/22/17 Docusate Sodium [Colace] 100 mg PO DAILY 06/22/17 Famotidine [Pepcid 20 mg Tablet] 20 mg PO QHS 06/22/17 Ipratropium/Albuterol Sulfate [Duoneb 3 ml Ampul] 1 vial NEB RTQ6HP PRN Levothyroxine Sodium [Synthroid] 112 mcg PO DAILY 06/22/17 Lisinopril 20 mg PO DAILY 06/22/17 Loratadine [Claritin 10 mg Tablet] 10 mg PO DAILY 06/22/17 Magnesium Oxide [Mag-Ox 400 mg Tablet] 400 mg PO BID 06/22/17 Melatonin 5 mg PO QHS 06/22/17 Metoprolol Succinate [Toprol XL 100 mg Tablet] 150 mg PO DAILY 06/22/17 Mirtazapine [Remeron] 15 mg PO QHS 06/22/17 Omeprazole Magnesium [Prilosec Otc] 20 mg PO DAILY 06/22/17 Rivaroxaban [Xarelto] 15 mg PO DAILY 06/22/17 Allergies/Adverse Reactions: No Known Allergies Allergy (Verified 06/22/17 16:44) Review of Systems ROS unobtainable: Due to mental status Physical Exam Vital Signs: Temp Pulse Resp BP Pulse Ox 97.4 F 70 16 101/49 L 100 06/23/17 15:19 06/23/17 15:19 06/23/17 15:19 06/23/17 15:19 06/23/17 15:19 Intake & Output 06/22/17 06/23/17 06/24/17 06:59 06:59 06:59 Intake Total 3 Output Total 475 Balance -472 Exam: General appearance: no acute distress, cooperative, well-developed, well- nourished Head exam: PRESENT: atraumatic, normocephalic Eye exam: PRESENT: Conjunctiva slightly pale, EOMI, PERRLA. ABSENT: conjunctival injection, scleral icterus Mouth exam: PRESENT: moist, neck supple, tongue midline Neck exam: PRESENT: full ROM. ABSENT: carotid bruit, JVD, lymphadenopathy, thyromegaly Respiratory exam: PRESENT: Diminished to auscultation bilaterally. Positive anterior and posterior expiratory wheezes ABSENT: rales, rhonchi, stridor Cardiovascular exam: PRESENT: Irregular rate and rhythm, +S1, +S2. Grade 2/6 systolic murmur Pulses: PRESENT: normal radial pulses, normal dorsalis pedis pulses GI/Abdominal exam: PRESENT: normal bowel sounds, soft. ABSENT: guarding, mass, tenderness Rectal exam: deferred Extremities exam: PRESENT: full ROM. Grade 2 bilateral lower extremity pitting edema with bilateral upper extremity edema more on the left than on the right ABSENT: calf tenderness Musculoskeletal: PRESENT: full ROM. ABSENT: deformity Neurological exam: PRESENT: alert, Awake, Oriented to person only, reflexes normal, CN II-XII grossly intact. ABSENT: motor sensory deficit Psychiatric exam: PRESENT: appropriate affect, normal mood. ABSENT: homicidal ideation, suicidal ideation Skin exam: PRESENT: intact, dry, warm. ABSENT: rash Results Laboratory Results: 06/23/17 20:00 06/23/17 20:00 06/22/17 06/23/17 06/23/17 21:27 20:00 20:00 WBC 6.4 RBC 4.14 Hgb 10.6 L Hct 33.0 L MCV 80 MCH 25.6 L MCHC 32.1 RDW 17.0 H Plt Count 276 Seg Neutrophils % 60.5 Lymphocytes % 20.9 Monocytes % 16.2 H Eosinophils % 1.6 Basophils % 0.8 Absolute Neutrophils 3.9 Absolute Lymphocytes 1.3 Absolute Monocytes 1.0 Absolute Eosinophils 0.1 Absolute Basophils 0.1 Sodium 139.8 Potassium 4.9 Chloride 102 Carbon Dioxide 30 Anion Gap 8 BUN 65 H Creatinine 2.95 H Est GFR ( Amer) 18 L Est GFR (Non-Af Amer) 15 L Glucose 109 Calcium 9.0 TSH 2.94 06/22/17 06/22/17 06/22/17 21:27 21:27 21:27 Creatine Kinase 45 CK-MB (CK-2) 1.06 Troponin I 0.060 NT-Pro-B Natriuret Pep 00956 H 06/23/17 06/23/17 06/23/17 03:15 03:15 09:28 Creatine Kinase 44 46 CK-MB (CK-2) 1.11 Troponin I 0.054 NT-Pro-B Natriuret Pep 06/23/17 09:28 Creatine Kinase CK-MB (CK-2) 1.24 Troponin I 0.055 NT-Pro-B Natriuret Pep 06/05/17 06/21/17 23:30 22:30 BUN 43 H 57 H Creatinine 2.42 H 2.58 H Est GFR ( Amer) 23 L 21 L Impressions: Chest X-Ray 06/22/17 17:31 IMPRESSION: No significant interval change. Cardiomegaly. No acute changes. Other findings as noted above Assessment & Plan - Diagnosis (1) Acute kidney injury superimposed on chronic kidney disease Is this a current diagnosis for this admission?: Yes Plan: Likely secondary to acute prerenal factors with acute congestive heart failure. This is a typical cardiorenal syndrome. Patient seems to be nonoliguric. She had good response with IV Lasix last night with a little improvement of her kidney function. I will increase her maintenance diuretics to Lasix 80 mg p.o. twice daily. Continue to monitor kidney function. I talked to the patient's POA at bedside, Ms. Wendy Larson, about possible need of renal replacement therapy if her kidney function continues to get worse in the future. At this time she could not tell me if this is something that she would agree on doing but she will think about it. At this time though patient does not need any acute renal replacement therapy. (2) Chronic kidney disease (CKD), stage IV (severe) Is this a current diagnosis for this admission?: Yes Plan: This is due to hypertensive nephrosclerosis and cardiorenal syndrome. (3) CHF exacerbation Qualifiers: Qualified Code(s): I50.9 - Heart failure, unspecified Is this a current diagnosis for this admission?: Yes Plan: This is diastolic in nature with pulmonary hypertension and valvular heart disease. Adjust diuresis. (4) Anemia in chronic kidney disease (CKD) Qualifiers: Chronic kidney disease stage: stage 4 (severe) Qualified Code(s): N18.4 - Chronic kidney disease, stage 4 (severe); D63.1 - Anemia in chronic kidney disease; D63.1 - Anemia in chronic kidney disease Is this a current diagnosis for this admission?: Yes (5) Aortic stenosis, moderate Is this a current diagnosis for this admission?: Yes (6) Hypertension Qualifiers: (7) A-fib Qualifiers: Is this a current diagnosis for this admission?: Yes Plan: Currently rate controlled. (8) Dementia Qualifiers: Dementia type: unspecified type Dementia behavioral disturbance: without behavioral disturbance Qualified Code(s): F03.90 - Unspecified dementia without behavioral disturbance Is this a current diagnosis for this admission?: Yes - Notes Notes: Thank you very much for this consultation. We will follow the patient with you. - Time Time Spent: Greater than 70 Minutes
[2017-06-23] MEDS: FUROSEMIDE 80 MG TABLET PO SCH (22:10)
[2017-06-23 22:15] LABS: ARTERIAL BLOOD BASE EXCESS 2.9 mmol/L; ARTERIAL BLOOD FIO2 2L; ARTERIAL BLOOD H2CO3 1.55 mmol/L (1.05-1.35); ARTERIAL BLOOD PCO2 51.5 mmHg (35-45); ARTERIAL BLOOD PH 7.37 (7.35-7.45); ARTERIAL BLOOD PO2 96.2 mmHg (80-100); ARTERIAL BLOOD TOTAL CO2 30.6 mmol/L (21-25)
[2017-06-23 23:17] LABS: ANION GAP 11 (5-19); BLOOD UREA NITROGEN 65 mg/dL (7-20); CALCIUM 9.1 mg/dL (8.4-10.2); CARBON DIOXIDE 29 mmol/L (22-30); CHLORIDE 101 mmol/L (98-107); GLUCOSE 110 mg/dL (75-110); POTASSIUM 4.9 mmol/L (3.6-5.0); SODIUM 141.1 mmol/L (137-145)
[2017-06-24] MEDS: HEPARIN SOD (PORCINE) 5,000 UNIT/ML 1 ML SYRINGE SUBCUT SCH ×3 (05:01→23:49)
[2017-06-24] MEDS: LEVOTHYROXINE SODIUM 0.112 MG TABLET PO SCH (05:01)
[2017-06-24] MEDS: RIVAROXABAN 15 MG TABLET PO SCH (10:22)
[2017-06-24] MEDS: METOPROLOL SUCCINATE 50 MG TAB.SR.24H PO SCH (10:23)
[2017-06-24] MEDS: MAGNESIUM OXIDE 400 MG TABLET PO SCH ×2 (10:23→23:47)
[2017-06-24] MEDS: FUROSEMIDE 80 MG TABLET PO SCH ×2 (10:24→23:47)
[2017-06-24] MEDS: DOCUSATE SODIUM 100 MG CAPSULE PO SCH (10:24)
[2017-06-24] MEDS: LORATADINE 10 MG TABLET PO SCH (10:24)
[2017-06-24] MEDS: DILTIAZEM HCL 60 MG TABLET PO SCH (10:24)
[2017-06-24 11:35] LABS: ABSOLUTE BASOPHILS # (AUTO) 0.1 10^3/uL (0.0-0.2); ABSOLUTE EOSINOPHILS # (AUTO) 0.1 10^3/uL (0.0-0.6); ABSOLUTE LYMPHOCYTES (AUTO) 1.1 10^3/uL (0.5-4.7); ABSOLUTE MONOCYTES (AUTO) 0.7 10^3/uL (0.1-1.4); ABSOLUTE NEUT (AUTO) 2.5 10^3/uL (1.7-8.2); BASOPHILS % (AUTO) 2.4 % (0-2); EOSINOPHILS % (AUTO) 2.5 % (0-6); HEMATOCRIT 31.7 % (36.0-47.0); HEMOGLOBIN 10.2 g/dL (12.0-15.5); LYMPHOCYTES % (AUTO) 24.1 % (13-45); MEAN CORPUSCULAR HEMOGLOBIN 25.6 pg (27.0-33.4); MEAN CORPUSCULAR HGB CONC 32.1 g/dL (32.0-36.0); MEAN CORPUSCULAR VOLUME 80 fl (80-97); MONOCYTES % (AUTO) 15.7 % (3-13); PLATELET COUNT 318 10^3/uL (150-450); RED BLOOD COUNT 3.99 10^6/uL (3.72-5.28); RED CELL DISTRIBUTION WIDTH 16.2 % (11.5-14.0); SEGMENTED NEUTROPHILS % (AUTO) 55.3 % (42-78); TOTAL CELLS COUNTED % (AUTO) 100 %; WHITE BLOOD COUNT 4.5 10^3/uL (4.0-10.5)
[2017-06-24 11:51] LABS: ANION GAP 11 (5-19); BLOOD UREA NITROGEN 62 mg/dL (7-20); CARBON DIOXIDE 31 mmol/L (22-30); CHLORIDE 99 mmol/L (98-107); GLUCOSE 130 mg/dL (75-110); POTASSIUM 4.4 mmol/L (3.6-5.0); SODIUM 140.8 mmol/L (137-145)
--- NOTE | 2017-06-24 17:04 | PDOC PROGRESS REPORT ---
Subjective Progress Note for:: 06/24/17 Subjective:: Patient is looking much better today. I have never seen her more awake and alert and responding to questions none today. She answered every question I had for her. She denies any chest pains no shortness of breath. She told me that she is eating. She also tells me that she feels like her leg swelling is better and not as numb like yesterday. She did not voice any complaints at all. She is making urine. Reason For Visit: CHF,ACUTE CHRONIC RENAL FAILURE Physical Exam Vital Signs: Temp Pulse Resp BP Pulse Ox 98.3 F 106 H 12 110/80 95 06/24/17 16:00 06/24/17 16:00 06/24/17 16:00 06/24/17 16:00 06/24/17 16:00 Intake & Output 06/23/17 06/24/17 06/25/17 06:59 06:59 06:59 Intake Total 3 913 Output Total 1275 400 Balance -1272 513 Weight 73 kg Exam: General appearance: PRESENT: no acute distress, cooperative, well-developed, well-nourished Head exam: PRESENT: atraumatic, normocephalic Eye exam: PRESENT: conjunctiva pale, PERRLA. ABSENT: scleral icterus Neck exam: ABSENT: JVD Respiratory exam: PRESENT: Diminished breath sounds. ABSENT: crackles, rales, rhonchi, unlabored, wheezes Cardiovascular exam: PRESENT: Irregular rate rhythm -+S1, +S2. Grade 2/6 systolic murmur GI/Abdominal exam: PRESENT: normal bowel sounds, soft. ABSENT: guarding, mass, tenderness Extremities exam: Decreased grade 2 bilateral lower extremity edema Neurological exam: PRESENT: alert, awake, oriented to person, but not to place and time. Skin exam: PRESENT: dry, warm, Results Laboratory Results: 06/24/17 11:22 06/24/17 11:22 06/23/17 06/23/17 06/23/17 20:00 20:00 21:00 WBC 6.4 RBC 4.14 Hgb 10.6 L Hct 33.0 L MCV 80 MCH 25.6 L MCHC 32.1 RDW 17.0 H Plt Count 276 Seg Neutrophils % 60.5 Lymphocytes % 20.9 Monocytes % 16.2 H Eosinophils % 1.6 Basophils % 0.8 Absolute Neutrophils 3.9 Absolute Lymphocytes 1.3 Absolute Monocytes 1.0 Absolute Eosinophils 0.1 Absolute Basophils 0.1 Carbonic Acid 1.55 H HCO3/H2CO3 Ratio 18:1 ABG pH 7.37 ABG pCO2 51.5 H ABG pO2 96.2 ABG HCO3 29.0 H ABG O2 Saturation 97.0 ABG Base Excess 2.9 FiO2 2L Sodium 139.8 Potassium 4.9 Chloride 102 Carbon Dioxide 30 Anion Gap 8 BUN 65 H Creatinine 2.95 H Est GFR ( Amer) 18 L Est GFR (Non-Af Amer) 15 L Glucose 109 Calcium 9.0 06/23/17 06/24/17 06/24/17 22:25 11:22 11:22 WBC 4.5 RBC 3.99 Hgb 10.2 L Hct 31.7 L MCV 80 MCH 25.6 L MCHC 32.1 RDW 16.2 H Plt Count 318 Seg Neutrophils % 55.3 Lymphocytes % 24.1 Monocytes % 15.7 H Eosinophils % 2.5 Basophils % 2.4 H Absolute Neutrophils 2.5 Absolute Lymphocytes 1.1 Absolute Monocytes 0.7 Absolute Eosinophils 0.1 Absolute Basophils 0.1 Carbonic Acid HCO3/H2CO3 Ratio ABG pH ABG pCO2 ABG pO2 ABG HCO3 ABG O2 Saturation ABG Base Excess FiO2 Sodium 141.1 140.8 Potassium 4.9 4.4 Chloride 101 99 Carbon Dioxide 29 31 H Anion Gap 11 11 BUN 65 H 62 H Creatinine 2.86 H 2.64 H Est GFR ( Amer) 19 L 21 L Est GFR (Non-Af Amer) 16 L 17 L Glucose 110 130 H Calcium 9.1 9.0 06/22/17 06/22/17 06/22/17 21:27 21:27 21:27 Creatine Kinase 45 CK-MB (CK-2) 1.06 Troponin I 0.060 NT-Pro-B Natriuret Pep [id number] H 06/23/17 06/23/17 06/23/17 03:15 03:15 09:28 Creatine Kinase 44 46 CK-MB (CK-2) 1.11 Troponin I 0.054 NT-Pro-B Natriuret Pep 06/23/17 09:28 Creatine Kinase CK-MB (CK-2) 1.24 Troponin I 0.055 NT-Pro-B Natriuret Pep Impressions: Chest X-Ray 06/22/17 17:31 IMPRESSION: No significant interval change. Cardiomegaly. No acute changes. Other findings as noted above Assessment & Plan - Diagnosis (1) Acute kidney injury superimposed on chronic kidney disease Is this a current diagnosis for this admission?: Yes Plan: Likely secondary to acute prerenal factors with acute congestive heart failure. This is a typical cardiorenal syndrome. Patient seems to be nonoliguric. She had good response with IV Lasix last night with a little improvement of her kidney function. I increased her maintenance diuretics to Lasix 80 mg p.o. twice daily. Continue to monitor kidney function. I talked to the patient's POA at bedside, Ms. Wendy Larson, about possible need of renal replacement therapy if her kidney function continues to get worse in the future. At this time she could not tell me if this is something that she would agree on doing but she will think about it. At this time though patient does not need any acute renal replacement therapy. Today her kidney function is slowly improving. She is making urine and her lower extremity edema is is slowly improving. I think the patient can be sent back to the long term with the same dose of Lasix 80 mg twice daily. I would want to see her in my office in 2 weeks with repeat basic metabolic panel about 2 days prior to follow-up. Discussed this with the hospitalist this morning. (2) Chronic kidney disease (CKD), stage IV (severe) Is this a current diagnosis for this admission?: Yes Plan: This is due to hypertensive nephrosclerosis and cardiorenal syndrome. (3) CHF exacerbation Qualifiers: Qualified Code(s): I50.9 - Heart failure, unspecified Is this a current diagnosis for this admission?: Yes Plan: This is diastolic in nature with pulmonary hypertension and valvular heart disease. Adjusted diuretic dose. (4) Anemia in chronic kidney disease (CKD) Qualifiers: Chronic kidney disease stage: stage 4 (severe) Qualified Code(s): N18.4 - Chronic kidney disease, stage 4 (severe); D63.1 - Anemia in chronic kidney disease; D63.1 - Anemia in chronic kidney disease Is this a current diagnosis for this admission?: Yes (5) Aortic stenosis, moderate Is this a current diagnosis for this admission?: Yes (6) Hypertension Qualifiers: Qualified Code(s): I10 - Essential (primary) hypertension Is this a current diagnosis for this admission?: Yes Plan: Well-controlled. (7) A-fib Qualifiers: Is this a current diagnosis for this admission?: Yes Plan: Currently rate controlled. (8) Dementia Qualifiers: Dementia type: unspecified type Dementia behavioral disturbance: without behavioral disturbance Qualified Code(s): F03.90 - Unspecified dementia without behavioral disturbance Is this a current diagnosis for this admission?: Yes - Time Time with patient: 15-25 minutes
--- NOTE | 2017-06-24 18:22 | PDOC PROGRESS REPORT ---
Subjective Progress Note for:: 06/24/17 Subjective:: Doing much better. Denies chest pain or shortness of breath or palpitations. No fever or chills. Has intermittent dry cough. Feels her lower extremity swelling improving. Reason For Visit: CHF,ACUTE CHRONIC RENAL FAILURE Physical Exam Vital Signs: Temp Pulse Resp BP Pulse Ox 98.3 F 106 H 12 110/80 95 06/24/17 16:00 06/24/17 16:00 06/24/17 16:00 06/24/17 16:00 06/24/17 16:00 Intake & Output 06/23/17 06/24/17 06/25/17 06:59 06:59 06:59 Intake Total 3 913 Output Total 1275 400 Balance -1272 513 Weight 73 kg GEN: NAD, well-deloped, well-nourished CV: Irregular, NL S1S2, 2/6 systolic murmur RSB LUNGS: Clear to auscultation bilaterally ABDOMEN Soft, NT, +BS EXTERMITIES: 2+ lower extremity edema NEURO: Alert, oriented Results Laboratory Results: 06/24/17 11:22 06/24/17 11:22 06/23/17 06/23/17 06/23/17 20:00 20:00 21:00 WBC 6.4 RBC 4.14 Hgb 10.6 L Hct 33.0 L MCV 80 MCH 25.6 L MCHC 32.1 RDW 17.0 H Plt Count 276 Seg Neutrophils % 60.5 Lymphocytes % 20.9 Monocytes % 16.2 H Eosinophils % 1.6 Basophils % 0.8 Absolute Neutrophils 3.9 Absolute Lymphocytes 1.3 Absolute Monocytes 1.0 Absolute Eosinophils 0.1 Absolute Basophils 0.1 Carbonic Acid 1.55 H HCO3/H2CO3 Ratio 18:1 ABG pH 7.37 ABG pCO2 51.5 H ABG pO2 96.2 ABG HCO3 29.0 H ABG O2 Saturation 97.0 ABG Base Excess 2.9 FiO2 2L Sodium 139.8 Potassium 4.9 Chloride 102 Carbon Dioxide 30 Anion Gap 8 BUN 65 H Creatinine 2.95 H Est GFR ( Amer) 18 L Est GFR (Non-Af Amer) 15 L Glucose 109 Calcium 9.0 06/23/17 06/24/17 06/24/17 22:25 11:22 11:22 WBC 4.5 RBC 3.99 Hgb 10.2 L Hct 31.7 L MCV 80 MCH 25.6 L MCHC 32.1 RDW 16.2 H Plt Count 318 Seg Neutrophils % 55.3 Lymphocytes % 24.1 Monocytes % 15.7 H Eosinophils % 2.5 Basophils % 2.4 H Absolute Neutrophils 2.5 Absolute Lymphocytes 1.1 Absolute Monocytes 0.7 Absolute Eosinophils 0.1 Absolute Basophils 0.1 Carbonic Acid HCO3/H2CO3 Ratio ABG pH ABG pCO2 ABG pO2 ABG HCO3 ABG O2 Saturation ABG Base Excess FiO2 Sodium 141.1 140.8 Potassium 4.9 4.4 Chloride 101 99 Carbon Dioxide 29 31 H Anion Gap 11 11 BUN 65 H 62 H Creatinine 2.86 H 2.64 H Est GFR ( Amer) 19 L 21 L Est GFR (Non-Af Amer) 16 L 17 L Glucose 110 130 H Calcium 9.1 9.0 06/22/17 06/22/17 06/22/17 21:27 21:27 21:27 Creatine Kinase 45 CK-MB (CK-2) 1.06 Troponin I 0.060 NT-Pro-B Natriuret Pep 41553 H 06/23/17 06/23/17 06/23/17 03:15 03:15 09:28 Creatine Kinase 44 46 CK-MB (CK-2) 1.11 Troponin I 0.054 NT-Pro-B Natriuret Pep 06/23/17 09:28 Creatine Kinase CK-MB (CK-2) 1.24 Troponin I 0.055 NT-Pro-B Natriuret Pep Impressions: Chest X-Ray 06/22/17 17:31 IMPRESSION: No significant interval change. Cardiomegaly. No acute changes. Other findings as noted above Assessment & Plan - Diagnosis (1) CHF exacerbation Qualifiers: Qualified Code(s): I50.9 - Heart failure, unspecified Is this a current diagnosis for this admission?: Yes Plan: Suspect this is diastolic. Likely secondary to worsening renal failure. Lasix per news broadcaster. Discussed with Dr. Will Of nephrology this morning. She recommended observing patient overnight and rechecking BMP on current increased dose of Lasix, with possible discharge home in a.m. if renal function remains stable. (2) Chronic kidney disease (CKD), stage IV (severe) Is this a current diagnosis for this admission?: Yes Plan: This is severe/worsening. Nephrology input appreciated. (3) Dementia Qualifiers: Dementia type: unspecified type Dementia behavioral disturbance: without behavioral disturbance Qualified Code(s): F03.90 - Unspecified dementia without behavioral disturbance Is this a current diagnosis for this admission?: Yes Plan: Stable. (4) Hypertension Qualifiers: Is this a current diagnosis for this admission?: Yes Plan: Stable. Monitor. (5) Diastolic CHF Is this a current diagnosis for this admission?: Yes Plan: Lasix IV switch to p.o, dose increased to 80 mg twice a day per news broadcaster..
[2017-06-24] MEDS ORDERED: LACTULOSE SYRUP 20 GM/30 ML UDCUP PO ONE (21:30)
[2017-06-24] MEDS ORDERED: TRAZODONE HCL 50 MG TABLET PO ONE (21:30)
[2017-06-24] MEDS: FAMOTIDINE 20 MG TABLET PO SCH (23:47)
[2017-06-25] MEDS: HEPARIN SOD (PORCINE) 5,000 UNIT/ML 1 ML SYRINGE SUBCUT SCH ×2 (05:30→13:21)
[2017-06-25] MEDS: LEVOTHYROXINE SODIUM 0.112 MG TABLET PO SCH (05:45)
[2017-06-25] MEDS: RIVAROXABAN 15 MG TABLET PO SCH (07:41)
[2017-06-25] MEDS: LORATADINE 10 MG TABLET PO SCH (09:26)
[2017-06-25] MEDS: DILTIAZEM HCL 60 MG TABLET PO SCH (09:26)
[2017-06-25] MEDS: METOPROLOL SUCCINATE 50 MG TAB.SR.24H PO SCH (09:26)
[2017-06-25] MEDS: MAGNESIUM OXIDE 400 MG TABLET PO SCH (09:26)
[2017-06-25] MEDS: FUROSEMIDE 80 MG TABLET PO SCH (09:27)
[2017-06-25] MEDS: DOCUSATE SODIUM 100 MG CAPSULE PO SCH (09:27)
[2017-06-25 10:49] LABS: ABSOLUTE BASOPHILS # (AUTO) 0.1 10^3/uL (0.0-0.2); ABSOLUTE EOSINOPHILS # (AUTO) 0.1 10^3/uL (0.0-0.6); ABSOLUTE LYMPHOCYTES (AUTO) 1.2 10^3/uL (0.5-4.7); ABSOLUTE MONOCYTES (AUTO) 0.7 10^3/uL (0.1-1.4); ABSOLUTE NEUT (AUTO) 2.5 10^3/uL (1.7-8.2); BASOPHILS % (AUTO) 1.9 % (0-2); EOSINOPHILS % (AUTO) 2.1 % (0-6); HEMATOCRIT 33.4 % (36.0-47.0); HEMOGLOBIN 10.6 g/dL (12.0-15.5); LYMPHOCYTES % (AUTO) 26.8 % (13-45); MEAN CORPUSCULAR HEMOGLOBIN 25.2 pg (27.0-33.4); MEAN CORPUSCULAR HGB CONC 31.7 g/dL (32.0-36.0); MEAN CORPUSCULAR VOLUME 79 fl (80-97); MONOCYTES % (AUTO) 15.7 % (3-13); PLATELET COUNT 332 10^3/uL (150-450); RED BLOOD COUNT 4.21 10^6/uL (3.72-5.28); RED CELL DISTRIBUTION WIDTH 16.7 % (11.5-14.0); SEGMENTED NEUTROPHILS % (AUTO) 53.5 % (42-78); TOTAL CELLS COUNTED % (AUTO) 100 %; WHITE BLOOD COUNT 4.7 10^3/uL (4.0-10.5)
[2017-06-25 11:24] LABS: ANION GAP 9 (5-19); BLOOD UREA NITROGEN 67 mg/dL (7-20); CALCIUM 9.2 mg/dL (8.4-10.2); CARBON DIOXIDE 32 mmol/L (22-30); CHLORIDE 99 mmol/L (98-107); GLUCOSE 118 mg/dL (75-110); POTASSIUM 4.1 mmol/L (3.6-5.0); SODIUM 140.1 mmol/L (137-145)
[2017-06-25 14:37] VITALS: BP 90/50
--- NOTE | 2017-06-25 15:28 | PDOC DISCHARGE SUMMARY ---
General - Admit/Disc Date/PCP Admission Date/Primary Care Provider: 06/22/17 18:45 ABHIJEET MONROY, Discharge Date: 06/25/17 - Discharge Diagnosis (1) CHF exacerbation Is this a current diagnosis for this admission?: Yes (2) Chronic kidney disease (CKD), stage IV (severe) Is this a current diagnosis for this admission?: Yes (3) Dementia Is this a current diagnosis for this admission?: Yes (4) Hypertension Is this a current diagnosis for this admission?: Yes (5) Diastolic CHF Is this a current diagnosis for this admission?: Yes - Additional Information Resuscitation Status: Do Not Resuscitate Home Medications: Acetaminophen [Tylenol] 650 mg PO Q6HP PRN 06/22/17 Diltiazem HCl [Cardizem 60 mg Tablet] 120 mg PO DAILY 06/22/17 Docusate Sodium [Colace] 100 mg PO DAILY 06/22/17 Famotidine [Pepcid 20 mg Tablet] 20 mg PO QHS 06/22/17 Ipratropium/Albuterol Sulfate [Duoneb 3 ml Ampul] 1 vial NEB RTQ6HP PRN Levothyroxine Sodium [Synthroid] 112 mcg PO DAILY 06/22/17 Loratadine [Claritin 10 mg Tablet] 10 mg PO DAILY 06/22/17 Magnesium Oxide [Mag-Ox 400 mg Tablet] 400 mg PO BID 06/22/17 Melatonin 5 mg PO QHS 06/22/17 Metoprolol Succinate [Toprol XL 100 mg Tablet] 150 mg PO DAILY 06/22/17 Mirtazapine [Remeron] 15 mg PO QHS 06/22/17 Omeprazole Magnesium [Prilosec Otc] 20 mg PO DAILY 06/22/17 Rivaroxaban [Xarelto] 15 mg PO DAILY 06/22/17 Furosemide [Lasix 80 mg Tablet] 80 mg PO Q12 tablet 06/25/17 History of Present Illness History of Present Illness: MARTY GAGE is a 86 year old female, [facility] resident, with a past medical history of atrial fibrillation on Xarelto, stage IV chronic kidney disease, congestive heart failure with pulmonary hypertension, moderate mitral, tricuspid and aortic regurgitation and dementia. Patient presented following examination by raised printer with concerns for congestive heart failure exacerbation. In the emergency room oxygen saturation was 97%, rate controlled atrial fibrillation 78. Patient had significant lower extremity edema. Labs reveal acute on chronic renal failure and a BNP of 20,000. Chest x-ray is without evidence of acute heart failure. Patient denied palpitations, pain or recent change in medications or diet. Hospital Course Hospital Course: Patient was admitted to hospitalist service with CHF exacerbation and worsening renal failure. She was seen by Dr. Everett Will of nephrology who believed this was cardiorenal syndrome, CHF was diastolic and due to worsening renal failure. Patient was treated with IV Lasix 40 mg twice daily which she responded well to. She was nonoliguric. She was thought not to need hemodialysis/renal replacement at this time. Her Lasix was transitioned to 80 mg orally daily and her creatinine remained stable. She is feeling much better, denies chest pain or shortness of breath, lower extremity swelling improving, and she is currently being discharged back to [facility]. She will follow up with Dr. Will and Elan, microsoft dynamics ax developer and raised printer respectively. Physical Exam Vital Signs: Temp Pulse Resp BP Pulse Ox 97.4 F 62 14 90/50 L 96 06/25/17 12:00 06/25/17 12:00 06/25/17 12:00 06/25/17 12:00 06/25/17 12:00 Intake & Output 06/24/17 06/25/17 06/26/17 06:59 06:59 06:59 Intake Total 3 1023 Output Total 1275 1450 Balance -1272 -427 Weight 73 kg 73.6 kg GEN: NAD, well-deloped, well-nourished CV: Irregular, NL S1S2, 2/6 systolic murmur RSB LUNGS: Clear to auscultation bilaterally ABDOMEN Soft, NT, +BS EXTERMITIES: 2+ lower extremity edema NEURO: Alert, oriented Results Laboratory Results: 06/25/17 10:28 06/25/17 10:28 06/25/17 06/25/17 10:28 10:28 WBC 4.7 RBC 4.21 Hgb 10.6 L Hct 33.4 L MCV 79 L MCH 25.2 L MCHC 31.7 L RDW 16.7 H Plt Count 332 Seg Neutrophils % 53.5 Lymphocytes % 26.8 Monocytes % 15.7 H Eosinophils % 2.1 Basophils % 1.9 Absolute Neutrophils 2.5 Absolute Lymphocytes 1.2 Absolute Monocytes 0.7 Absolute Eosinophils 0.1 Absolute Basophils 0.1 Sodium 140.1 Potassium 4.1 Chloride 99 Carbon Dioxide 32 H Anion Gap 9 BUN 67 H Creatinine 2.76 H Est GFR ( Amer) 20 L Est GFR (Non-Af Amer) 16 L Glucose 118 H Calcium 9.2 06/22/17 06/22/17 06/22/17 21:27 21:27 21:27 Creatine Kinase 45 CK-MB (CK-2) 1.06 Troponin I 0.060 NT-Pro-B Natriuret Pep 10571 H 06/23/17 06/23/17 06/23/17 03:15 03:15 09:28 Creatine Kinase 44 46 CK-MB (CK-2) 1.11 Troponin I 0.054 NT-Pro-B Natriuret Pep 06/23/17 09:28 Creatine Kinase CK-MB (CK-2) 1.24 Troponin I 0.055 NT-Pro-B Natriuret Pep Impressions: Chest X-Ray 06/22/17 17:31 IMPRESSION: No significant interval change. Cardiomegaly. No acute changes. Other findings as noted above Plan Time Spent: Greater than 30 Minutes
== END 2017-06-25 16:40 | DRG 291 ==
LOC: ER 16:44 → EH 18:45 → INTOOBSV 18:45 → OBSVTOIN 18:45 → EH 06-23 09:33 → 4S 06-23 13:50
PROVIDERS: ADMIT Internal Medicine; ATTEND Internal Medicine
PROC: 5A09457 Assistance with Respiratory Ventilation, 24-96 Consecutive Hours, Continuous Positive Airway Pressure (ICD-10-PCS; principal; 2017-06-23)
DX: I13.0 Hypertensive heart and chronic kidney disease with heart failure and stage 1 through stage 4 chronic kidney disease, or unspecified chronic kidney disease (principal); I50.33 Acute on chronic diastolic (congestive) heart failure; N18.4 Chronic kidney disease, stage 4 (severe); N17.9 Acute kidney failure, unspecified; I48.91 Unspecified atrial fibrillation; D63.1 Anemia in chronic kidney disease; I27.20 Pulmonary hypertension, unspecified; I08.3 Combined rheumatic disorders of mitral, aortic and tricuspid valves; F03.90 Unspecified dementia, unspecified severity, without behavioral disturbance, psychotic disturbance, mood disturbance, and anxiety; I87.8 Other specified disorders of veins; E78.5 Hyperlipidemia, unspecified; E03.9 Hypothyroidism, unspecified; Z90.710 Acquired absence of both cervix and uterus; Z95.0 Presence of cardiac pacemaker; Z87.891 Personal history of nicotine dependence; Z66 Do not resuscitate; Z82.49 Family history of ischemic heart disease and other diseases of the circulatory system; Z79.899 Other long term (current) drug therapy
CPT/HCPCS: 36415; 36600; 71045; 80048; 80053; 82550; 82553; 82803; 83880; 84443; 84484; 85025; 93005; 93010; 94660; 94667; 94668; 94799; 99285; G0378; J0360; J1644; J1940; J3490

== ENCOUNTER → 2017-06-28 | Outpatient (CLI) | payer MEDICARE, MEDICAID ==
[2017-06-28 15:32] LABS: ANION GAP 15 (5-19); BLOOD UREA NITROGEN 75 mg/dL (7-20); CALCIUM 8.8 mg/dL (8.4-10.2); CARBON DIOXIDE 28 mmol/L (22-30); CHLORIDE 101 mmol/L (98-107); GLUCOSE 137 mg/dL (75-110); POTASSIUM 4.5 mmol/L (3.6-5.0); SODIUM 144.4 mmol/L (137-145)
== END ==
LOC: OD 13:09
PROVIDERS: ATTEND Family Medicine
DX: N17.9 Acute kidney failure, unspecified (principal); N18.9 Chronic kidney disease, unspecified; I50.9 Heart failure, unspecified; E03.9 Hypothyroidism, unspecified
CPT/HCPCS: 36415; 80048

== ENCOUNTER 2017-10-01 22:29 | Emergency (ER) | payer MEDICARE, MEDICAID ==
[2017-10-02 00:06] LABS: ABSOLUTE BASOPHILS # (AUTO) 0.1 10^3/uL (0.0-0.2); ABSOLUTE EOSINOPHILS # (AUTO) 0.1 10^3/uL (0.0-0.6); ABSOLUTE LYMPHOCYTES (AUTO) 1.6 10^3/uL (0.5-4.7); ABSOLUTE MONOCYTES (AUTO) 0.8 10^3/uL (0.1-1.4); ABSOLUTE NEUT (AUTO) 3.3 10^3/uL (1.7-8.2); EOSINOPHILS % (AUTO) 1.1 % (0-6); HEMATOCRIT 37.2 % (36.0-47.0); LYMPHOCYTES % (AUTO) 27.6 % (13-45); MEAN CORPUSCULAR HEMOGLOBIN 25.8 pg (27.0-33.4); MEAN CORPUSCULAR HGB CONC 32.3 g/dL (32.0-36.0); MEAN CORPUSCULAR VOLUME 80 fl (80-97); MONOCYTES % (AUTO) 12.9 % (3-13); PLATELET COUNT 230 10^3/uL (150-450); RED BLOOD COUNT 4.65 10^6/uL (3.72-5.28); RED CELL DISTRIBUTION WIDTH 18.3 % (11.5-14.0); SEGMENTED NEUTROPHILS % (AUTO) 57.4 % (42-78); TOTAL CELLS COUNTED % (AUTO) 100 %; WHITE BLOOD COUNT 5.8 10^3/uL (4.0-10.5)
--- NOTE | 2017-10-02 00:22 | ER Document Report ---
ED General - General Chief Complaint: Other Stated Complaint: ABNORMAL LABS Time Seen by Provider: 10/01/17 22:46 Cannot obtain history due to: Dementia Notes: Patient is an 86-year-old female who presents from [facility] with concerns of worsening renal function on routine labs. The patient is profoundly demented, does not provide any additional history, denies any acute complaints. Family at the bedside knows nothing more than that they were contacted by the nursing facility and instructed that the patient was being transferred due to her deterioration in renal function. Review of prior medical records demonstrates the patient has a history of chronic kidney disease and her last creatinine on the 15 of this month was apparently 3.7. TRAVEL OUTSIDE OF THE [place] IN LAST 30 DAYS: No - Related Data Allergies/Adverse Reactions: No Known Allergies Allergy (Verified 06/22/17 16:44) Past Medical History - General Information source: Patient, Relative - Social History Smoking Status: Former Smoker Chew tobacco use (# tins/day): No Frequency of alcohol use: None Drug Abuse: None Lives with: [facility] Family History: Reviewed & Not Pertinent, Hypertension, Other - Heart disease Patient has suicidal ideation: No Patient has homicidal ideation: No - Past Medical History Cardiac Medical History: Reports: Hx Atrial Fibrillation, Hx Congestive Heart Failure, Hx Hypercholesterolemia, Hx Hypertension, Hx Heart Murmur - Aortic stenosis Endocrine Medical History: Reports: Hx Hypothyroidism Renal/ Medical History: Denies: Hx Peritoneal Dialysis Psychiatric Medical History: Reports: Hx Dementia Denies: Hx Depression Past Surgical History: Reports: Hx Hysterectomy, Hx Pacemaker, Other - Cataract surgery and lipoma excisions - Immunizations Hx Diphtheria, Pertussis, Tetanus Vaccination: Yes Hx Pneumococcal Vaccination: 05/09/13 Review of Systems - Review of Systems Notes: Constitutional: Negative for fever. HENT: Negative for sore throat. Eyes: Negative for visual changes. Cardiovascular: Negative for chest pain. Respiratory: Negative for shortness of breath. Gastrointestinal: Negative for abdominal pain, vomiting or diarrhea. Genitourinary: Negative for dysuria. Musculoskeletal: Negative for back pain. Skin: Negative for rash. Neurological: Negative for headaches, weakness or numbness. 10 point ROS negative except as marked above and in HPI. Physical Exam - Vital signs Vitals: Temp Pulse Resp BP Pulse Ox 97.5 F 100 16 208/86 H 98 10/01/17 23:05 10/01/17 23:05 10/01/17 23:05 10/01/17 23:05 10/01/17 23:05 Interpretation: Hypertensive Notes: PHYSICAL EXAMINATION: GENERAL: Elderly, frail, no acute distress HEAD: Atraumatic, normocephalic. EYES: Pupils equal round and reactive to light, extraocular movements intact, sclera anicteric, conjunctiva are normal. ENT: nares patent, oropharynx clear without exudates. Moderately dry mucous membranes. NECK: Normal range of motion, supple without lymphadenopathy LUNGS: Breath sounds clear to auscultation bilaterally and equal. No wheezes rales or rhonchi. HEART: Regular rate and rhythm faint systolic ejection murmur ABDOMEN: Soft, nontender, normoactive bowel sounds. No guarding, no rebound. No masses appreciated. EXTREMITIES: Normal range of motion, no pitting or edema. No cyanosis. NEUROLOGICAL: No focal neurological deficits. Moves all extremities spontaneously and on command. PSYCH: Oriented only to person. SKIN: Warm, Dry, normal turgor, no rashes or lesions noted. Course - Re-evaluation Re-evalutation: 10/02/17 00:24 Patient presents with concerns of abnormal renal function on laboratories but no additional complaints. Will recheck the labs and then reassess the patient. 10/02/17 03:02 Patient's labs are unchanged from her baseline. Vitals localized to hypertension which patient again has at baseline but no additional acute changes. I reviewed these lab findings with the family who is agreeable with discharge at this time point. - Vital Signs Vital signs: Temp Pulse Resp BP Pulse Ox 97.5 F 100 16 208/86 H 98 10/01/17 23:05 10/01/17 23:05 10/01/17 23:05 10/01/17 23:05 10/01/17 23:05 - Laboratory Result Diagrams: 10/01/17 23:57 10/01/17 23:57 Laboratory results interpreted by me: 10/01/17 10/01/17 23:57 23:57 MCH 25.8 L RDW 18.3 H Sodium 128.6 L Potassium 5.4 H Chloride 88 L BUN 75 H Creatinine 2.70 H Est GFR ( Amer) 20 L Est GFR (Non-Af Amer) 17 L Discharge - Discharge Clinical Impression: Chronic kidney disease (CKD), stage IV (severe), Hyponatremia Hypertension Qualifiers: Hypertension type: unspecified Qualified Code(s): I10 - Essential (primary) hypertension Condition: Stable Disposition: HOME, SELF-CARE Additional Instructions: Her kidney function labs are unchanged from baseline. The patient may return for any additional concerns you may have
[2017-10-02 00:33] LABS: ANION GAP 13 (5-19); BLOOD UREA NITROGEN 75 mg/dL (7-20); CALCIUM 9.1 mg/dL (8.4-10.2); CARBON DIOXIDE 28 mmol/L (22-30); CHLORIDE 88 mmol/L (98-107); GLUCOSE 110 mg/dL (75-110); POTASSIUM 5.4 mmol/L (3.6-5.0); SODIUM 128.6 mmol/L (137-145)
[2017-10-02 04:02] VITALS: BP 180/84
--- NOTE | 2017-10-02 08:47 | EKG REPORT ---
SEVERITY:- ABNORMAL ECG - ATRIAL FIBRILLATION PROBABLE LVH WITH SECONDARY REPOL ABNRM : Confirmed by: Maxwell Hamilton MD 02-Oct-2017 08:45:55
== END 2017-10-02 03:55 | disposition home or self-care (01) ==
LOC: ER 22:29
DX: I12.9 Hypertensive chronic kidney disease with stage 1 through stage 4 chronic kidney disease, or unspecified chronic kidney disease (principal); N18.4 Chronic kidney disease, stage 4 (severe); E87.1 Hypo-osmolality and hyponatremia; F03.90 Unspecified dementia, unspecified severity, without behavioral disturbance, psychotic disturbance, mood disturbance, and anxiety; Z87.891 Personal history of nicotine dependence
CPT/HCPCS: 36415; 80048; 85025; 93005; 93010; 99285

== ENCOUNTER → 2017-11-11 | Outpatient (CLI) | payer MEDICARE, MEDICAID ==
[2017-11-11 17:57] LABS: ANION GAP 12 (5-19); BLOOD UREA NITROGEN 70 mg/dL (7-20); CALCIUM 9.3 mg/dL (8.4-10.2); CARBON DIOXIDE 33 mmol/L (22-30); CHLORIDE 96 mmol/L (98-107); GLUCOSE 114 mg/dL (75-110); POTASSIUM 4.3 mmol/L (3.6-5.0); SODIUM 141.1 mmol/L (137-145)
== END ==
LOC: PNR 16:54
PROVIDERS: ATTEND Family Medicine
DX: I50.9 Heart failure, unspecified (principal); N19 Unspecified kidney failure; E03.9 Hypothyroidism, unspecified; E83.42 Hypomagnesemia
CPT/HCPCS: 80048; 83735; 84443

== ENCOUNTER 2018-04-19 19:11 | Inpatient (IN) | payer MEDICARE, MEDICAID ==
--- NOTE | 2018-04-19 19:56 | ER Document Report ---
ED General - General Chief Complaint: Chest Tightness Stated Complaint: POSSIBLE RECTAL BLEEDING Time Seen by Provider: 04/19/18 19:26 Notes: 87-year-old female patient presents emergency department for evaluation of GI bleed and abdominal pain. Patient states that she has had abdominal pain on and off for the last day. Had a large bowel movement today and there is a lot of blood in the stool. Family members are present. Brought here for further evaluation. TRAVEL OUTSIDE OF THE [place] IN LAST 30 DAYS: No - HPI Onset: Just prior to arrival Onset/Duration: Gradual Quality of pain: Achy Severity: Moderate Pain Level: 2 Similar symptoms previously: No - Related Data Allergies/Adverse Reactions: No Known Allergies Allergy (Verified 06/22/17 16:44) Past Medical History - General Information source: Patient, Relative, Outside Facility Records - Social History Smoking Status: Never Smoker Frequency of alcohol use: None Drug Abuse: None Lives with: Long-Term Family History: Reviewed & Not Pertinent, Hypertension, Other - Heart disease Patient has suicidal ideation: No Patient has homicidal ideation: No - Past Medical History Cardiac Medical History: Reports: Hx Atrial Fibrillation, Hx Congestive Heart Failure, Hx Hypercholesterolemia, Hx Hypertension, Hx Heart Murmur - Aortic stenosis Endocrine Medical History: Reports: Hx Hypothyroidism Renal/ Medical History: Denies: Hx Peritoneal Dialysis Psychiatric Medical History: Reports: Hx Dementia Denies: Hx Depression Past Surgical History: Reports: Hx Hysterectomy, Hx Pacemaker, Other - Cataract surgery and lipoma excisions - Immunizations Hx Diphtheria, Pertussis, Tetanus Vaccination: Yes Hx Pneumococcal Vaccination: 05/09/13 Review of Systems - Review of Systems Notes: Constitutional: denies: Chills, Diaphoresis, Fever, Malaise, Weakness EENT: denies: Eye discharge, Blurred vision, Tearing, Double vision, Nose congestion, Nose discharge, Throat swelling, Mouth pain Cardiovascular: denies: Palpitations, Heart racing, Orthopnea, Dyspnea, Chest pain Respiratory: denies: Cough, Hurts to breathe, Wheezing, Shortness of breath Gastrointestinal: Complaining of abdominal pain and bloody stools. Nausea. No vomiting. Genitourinary: denies: Burning, Dysuria, Discharge, Frequency, Flank pain, Hematuria Musculoskeletal: denies: Joint pain, Joint swelling, Muscle pain, Muscle stiffness, back pain Hematologic/Lymphatic: denies: Anemia, Easy bleeding, Easy bruising, Blood clots Neurological/Psychological: denies: Confusion, Dementia, Depression, Loss of consciousness Skin: No lesions, no masses, no skin breakdown, no abscesses Physical Exam - Vital signs Vitals: Pulse Ox 96 04/19/18 19:38 Interpretation: Normal - General General appearance: Appears well, Alert - HEENT Head: Normocephalic, Atraumatic Eyes: Normal Pupils: PERRL - Respiratory Respiratory status: No respiratory distress Chest status: Nontender Breath sounds: Normal Chest palpation: Normal - Cardiovascular Rhythm: Regular Heart sounds: Normal auscultation Murmur: No - Abdominal Inspection: Normal Distension: No distension Bowel sounds: Normal Tenderness: Nontender Organomegaly: No organomegaly - Rectal Stool: Heme positive Hemorrhoids: External - Back Back: Normal, Nontender - Extremities General upper extremity: Normal inspection, Nontender, Normal color, Normal ROM , Normal temperature General lower extremity: Normal inspection, Nontender, Normal color, Normal ROM , Normal temperature. No: Berny's sign - Neurological Neuro grossly intact: Yes Cognition: Normal Orientation: AAOx4 Sushil Coma Scale Eye Opening: Spontaneous Sushil Coma Scale Verbal: Oriented Moffett Coma Scale Motor: Obeys Commands Sushil Coma Scale Total: 15 Speech: Normal Motor strength normal: LUE, RUE, LLE, RLE Sensory: Normal - Psychological Associated symptoms: Normal affect, Normal mood - Skin Skin Temperature: Warm Skin Moisture: Dry Skin Color: Normal Course - Re-evaluation Re-evalutation: 04/19/18 21:51 Patient has abdominal pains and CT scan ordered. Nothing acute was seen on CT scan. Normal hemoglobin and hematocrit however heme positive stool. Based on this evaluation feel uncomfortable discharging. Will type and screen. Will admit to the hospital for observation at this time. 04/19/18 21:51 Laboratory 04/19/18 04/19/18 04/19/18 19:49 19:49 19:49 WBC 12.2 H RBC 5.22 Hgb 14.3 Hct 43.8 MCV 84 MCH 27.4 MCHC 32.7 RDW 16.0 H Plt Count 185 Seg Neutrophils % 87.5 H Lymphocytes % 6.2 L Monocytes % 5.9 Eosinophils % 0.0 Basophils % 0.4 Absolute Neutrophils 10.6 H Absolute Lymphocytes 0.8 Absolute Monocytes 0.7 Absolute Eosinophils 0.0 Absolute Basophils 0.0 PT 13.7 INR 1.00 Sodium 146.8 H Potassium 4.3 Chloride 100 Carbon Dioxide 29 Anion Gap 18 BUN 76 H Creatinine 2.39 H Est GFR ( Amer) 23 L Est GFR (Non-Af Amer) 19 L Glucose 142 H Calcium 9.9 Total Bilirubin 0.8 Direct Bilirubin 0.6 H Neonat Total Bilirubin Not Reportable Neonat Direct Bilirubin Not Reportable Neonat Indirect Bili Not Reportable AST 47 H ALT 22 Alkaline Phosphatase 116 Creatine Kinase 46 CK-MB (CK-2) Troponin I Total Protein 8.4 H Albumin 4.8 Lipase Stool Occult Blood 04/19/18 04/19/18 04/19/18 19:49 19:49 19:49 WBC RBC Hgb Hct MCV MCH MCHC RDW Plt Count Seg Neutrophils % Lymphocytes % Monocytes % Eosinophils % Basophils % Absolute Neutrophils Absolute Lymphocytes Absolute Monocytes Absolute Eosinophils Absolute Basophils PT INR Sodium Potassium Chloride Carbon Dioxide Anion Gap BUN Creatinine Est GFR ( Amer) Est GFR (Non-Af Amer) Glucose Calcium Total Bilirubin Direct Bilirubin Neonat Total Bilirubin Neonat Direct Bilirubin Neonat Indirect Bili AST ALT Alkaline Phosphatase Creatine Kinase CK-MB (CK-2) 0.92 Troponin I 0.032 Total Protein Albumin Lipase 54.6 Stool Occult Blood POSITIVE Chest X-Ray 04/19/18 19:36 IMPRESSION: Cardiomegaly. No acute findings. Abdomen/Pelvis CT 04/19/18 20:09 IMPRESSION: No acute disease. Sigmoid diverticulosis without evidence for acute diverticulitis. - Vital Signs Vital signs: Temp Pulse Resp BP Pulse Ox 96 04/19/18 19:38 - Laboratory Result Diagrams: 04/19/18 19:49 04/19/18 19:49 Laboratory results interpreted by me: 04/19/18 04/19/18 19:49 19:49 WBC 12.2 H RDW 16.0 H Seg Neutrophils % 87.5 H Lymphocytes % 6.2 L Absolute Neutrophils 10.6 H Sodium 146.8 H BUN 76 H Creatinine 2.39 H Est GFR ( Amer) 23 L Est GFR (Non-Af Amer) 19 L Glucose 142 H Direct Bilirubin 0.6 H AST 47 H Total Protein 8.4 H Discharge - Discharge Clinical Impression: GI bleed Qualifiers: GI bleed type/associated pathology: unspecified gastrointestinal hemorrhage type Qualified Code(s): K92.2 - Gastrointestinal hemorrhage, unspecified Abdominal pain Qualifiers: Abdominal location: generalized Qualified Code(s): R10.84 - Generalized abdominal pain Condition: Good Disposition: ADMITTED INPATIENT [facility] Unit Admitted: Medical Floor Referrals: CONSTANCE HOLM MD [Primary Care Provider] - Follow up as needed
--- NOTE | 2018-04-19 20:13 | RADIOLOGY REPORT (SQ) ---
EXAM DESCRIPTION: CHEST SINGLE VIEW COMPLETED DATE/TIME: 04/19/2018 8:05 pm REASON FOR STUDY: cp COMPARISON: 06/14/2017 EXAM PARAMETERS: NUMBER OF VIEWS: One view. TECHNIQUE: Single frontal radiographic view of the chest acquired. RADIATION DOSE: NA LIMITATIONS: None. FINDINGS: LUNGS AND PLEURA: No opacities, masses or pneumothorax. No pleural effusion. MEDIASTINUM AND HILAR STRUCTURES: No masses. Contour normal. HEART AND VASCULAR STRUCTURES: Heart is enlarged. No failure. BONES: No acute findings. HARDWARE: Battery pack and leads are in place. OTHER: No other significant finding. IMPRESSION: Cardiomegaly. No acute findings. TECHNICAL DOCUMENTATION: JOB ID: [id number] [employer]- All Rights Reserved Reading location - IP/workstation name: [email or web address]
[2018-04-19 20:15] LABS: ABSOLUTE LYMPHOCYTES (AUTO) 0.8 10^3/uL (0.5-4.7); ABSOLUTE MONOCYTES (AUTO) 0.7 10^3/uL (0.1-1.4); ABSOLUTE NEUT (AUTO) 10.6 10^3/uL (1.7-8.2); BASOPHILS % (AUTO) 0.4 % (0-2); HEMATOCRIT 43.8 % (36.0-47.0); HEMOGLOBIN 14.3 g/dL (12.0-15.5); LYMPHOCYTES % (AUTO) 6.2 % (13-45); MEAN CORPUSCULAR HEMOGLOBIN 27.4 pg (27.0-33.4); MEAN CORPUSCULAR HGB CONC 32.7 g/dL (32.0-36.0); MEAN CORPUSCULAR VOLUME 84 fl (80-97); MONOCYTES % (AUTO) 5.9 % (3-13); PLATELET COUNT 185 10^3/uL (150-450); RED BLOOD COUNT 5.22 10^6/uL (3.72-5.28); SEGMENTED NEUTROPHILS % (AUTO) 87.5 % (42-78); TOTAL CELLS COUNTED % (AUTO) 100 %; WHITE BLOOD COUNT 12.2 10^3/uL (4.0-10.5)
[2018-04-19 20:21] LABS: PROTHROMBIN TIME 13.7 SEC (11.4-15.4)
[2018-04-19 20:48] LABS: CREATINE KINASE MB 0.92 ng/mL (<4.55); TROPONIN I 0.032 ng/mL
--- NOTE | 2018-04-19 20:55 | EKG REPORT ---
SEVERITY:- ABNORMAL ECG - ATRIAL FIBRILLATION, V-RATE 82-126 LVH WITH SECONDARY REPOLARIZATION ABNORMALITY : Confirmed by: Annika Nielson MD 19-Apr-2018 20:55:30
[2018-04-19 21:21] LABS: ALANINE AMINOTRANSFERASE 22 U/L (9-52); ALBUMIN 4.8 g/dL (3.5-5.0); ALKALINE PHOSPHATASE 116 U/L (38-126); ANION GAP 18 (5-19); ASPARTATE AMINO TRANSFERASE 47 U/L (14-36); BILIRUBIN,DIRECT 0.6 mg/dL (0.0-0.4); BILIRUBIN,TOTAL 0.8 mg/dL (0.2-1.3); BLOOD UREA NITROGEN 76 mg/dL (7-20); CALCIUM 9.9 mg/dL (8.4-10.2); CARBON DIOXIDE 29 mmol/L (22-30); CHLORIDE 100 mmol/L (98-107); CREATINE KINASE 46 U/L (30-135); GLUCOSE 142 mg/dL (75-110); POTASSIUM 4.3 mmol/L (3.6-5.0); SODIUM 146.8 mmol/L (137-145); TOTAL PROTEIN 8.4 g/dL (6.3-8.2)
--- NOTE | 2018-04-19 21:25 | RADIOLOGY REPORT (SQ) ---
EXAM DESCRIPTION: CT ABDOMEN PELVIS WITHOUT IV CONTRAST COMPLETED DATE/TME: 04/19/2018 20:09 CLINICAL HISTORY: 87 years, Female, diffuse abd pain, GI bleed This exam was performed according to our departmental dose-optimization program which includes automated exposure control, adjustment of the mA and/or kVp according to patient size and/or use of iterative reconstruction technique where applicable. FINDINGS: Visualized lung bases are within normal limits. Liver, spleen, pancreas, gallbladder, adrenal glands are within normal limits. Small 1 cm right renal cyst. No hydronephrosis. There is no renal, ureteral or bladder calculus. No dilated loops of bowel to suggest obstruction. Appendix is normal. Mild sigmoid diverticulosis without CT evidence for acute diverticulitis. Bladder is unremarkable. No abdominal or pelvic lymphadenopathy. Abdominal aorta is moderately calcified without aneurysm. IMPRESSION: No acute disease. Sigmoid diverticulosis without evidence for acute diverticulitis.
[2018-04-19] MEDS ORDERED: NORMAL SALINE 500 ML IV ONE (21:30)
[2018-04-19] MEDS ORDERED: ONDANSETRON HCL INJ/PF 4 MG/2 ML SDV IV ONE (21:30)
[2018-04-19] MEDS ORDERED: MORPHINE SULFATE 10 MG/ML INJ IV ONE (21:30)
[2018-04-19] MEDS ORDERED: MAGNESIUM HYDROXIDE SUSP 30 ML UDCUP PO PRN (21:46)
[2018-04-19] MEDS ORDERED: ONDANSETRON HCL INJ/PF 4 MG/2 ML SDV IV PRN (21:46)
[2018-04-19] MEDS ORDERED: MAG HYDROX/AL HYDROX/SIMETH SUSP 30 ML UDCUP PO PRN (21:46)
[2018-04-19] MEDS ORDERED: ONDANSETRON 4 MG TAB.RAPDIS PO PRN (21:46)
[2018-04-19] MEDS ORDERED: IPRATROPIUM/ALBUTEROL 0.5-2.5 MG/3 ML AMPUL NEB PRN (21:53)
[2018-04-19] MEDS ORDERED: MORPHINE SULFATE 10 MG/ML INJ IV PRN ×3 (21:59)
[2018-04-19] MEDS ORDERED: ACETAMINOPHEN 650 MG SUPP.RECT PR PRN (21:59)
[2018-04-19] MEDS ORDERED: FAMOTIDINE 20 MG TABLET PO SCH (22:00)
[2018-04-19] MEDS ORDERED: DILTIAZEM HCL 120 MG CAP.SR.24H PO ONE (22:30)
[2018-04-19] MEDS: METOCLOPRAMIDE HCL 10 MG TABLET PO SCH (22:37)
[2018-04-19] MEDS: SUCRALFATE SUSP 1 GM/10 ML UDCUP PO SCH (22:37)
[2018-04-19] MEDS: MIRTAZAPINE 15 MG TABLET PO SCH (22:41)
[2018-04-19 22:45] LABS: APPEARANCE,URINE CLEAR; BILIRUBIN,URINE NEGATIVE (NEGATIVE); COLOR,URINE YELLOW; GLUCOSE, URINE NEGATIVE (NEGATIVE); KETONES,URINE TRACE mg/dL (NEGATIVE); LEUKOCYTE ESTERASE,URINE NEGATIVE (NEGATIVE); NITRITE,URINE NEGATIVE (NEGATIVE); PROTEIN,URINE 30 mg/dL (NEGATIVE); URINE SPECIFIC GRAVITY 1.013; UROBILINOGEN,URINE NEGATIVE mg/dL (<2.0)
--- NOTE | 2018-04-20 04:18 | PDOC H&P ---
History of Present Illness Admission Date/PCP: 04/19/18 21:51 CONSTANCE HOLM MD Patient complains of: Bright red blood per rectum History of Present Illness: MARTY GAGE is a 87 year old female who presents the emergency room with her family with a 1 day history of moderate intermittent sharp, crampy abdominal pain primarily in the epigastric region but occasionally moving over the entire abdomen and lasting for a few seconds to a minute or 2 at a time. The patient had a large bowel movement earlier today and after the bowel movement there was noted to be blood in the water in the stool as well as bright red blood on the bed pad underneath her in the bed. The patient and her family deny prior similar episodes and have not identified any aggravating or ameliorating factors associated with her abdominal pain or rectal bleeding. In the emergency room patient was found to have a normal hemoglobin of 14.4 and normal and stable vital signs. She was admitted for further evaluation and treatment with a surgical consultation with Dr. Nj at the recommendation of the emergency room physician. Past Medical History Cardiac Medical History: Reports: Atrial Fibrillation, Congestive Heart Failure , Hyperlipidema, Hypertension, Heart Murmur - Aortic stenosis Pulmonary Medical History: Denies: Asthma, Chronic Obstructive Pulmonary Disease (COPD) EENT Medical History: Reports: None Neurological Medical History: Denies: Hemorrhagic CVA, Ischemic CVA, Seizures Endocrine Medical History: Reports: Hypothyroidism Denies: Diabetes Mellitus Type 1, Diabetes Mellitus Type 2 Renal/ Medical History: Reports: Chronic Kidney Disease Denies: Nephrolithiasis Malignancy Medical History: Reports: None GI Medical History: Denies: Cirrhosis, Hepatitis Musculoskeltal Medical History: Denies: Arthritis, Gout Skin Medical History: Denies: Eczema, Psoriasis Psychiatric Medical History: Reports: Dementia Denies: Alcohol Dependency, Depression, Substance Abuse, Tobacco Dependency Traumatic Medical History: Reports: None Hematology: Denies: Anemia, Bleeding Tendencies Infectious Medical History: Reports: None Past Surgical History Past Surgical History: Reports: Hysterectomy, Pacemaker, Other - Cataract surgery and lipoma excisions Social History Information Source: Patient, Relative Lives with: [facility] Smoking Status: Never Smoker Frequency of Alcohol Use: None Hx Recreational Drug Use: No Drugs: None Hx Prescription Drug Abuse: No - Advance Directive Resuscitation Status: Do Not Resuscitate Surrogate healthcare decision maker:: Daughter Family History Family History: Hypertension, Other - Heart disease Parental Family History Reviewed: Yes Children Family History Reviewed: Yes Sibling(s) Family History Reviewed.: Yes Medication/Allergy Home Medications: Acetaminophen [Tylenol] 650 mg PO Q6HP PRN 06/22/17 Diltiazem HCl [Cardizem 60 mg Tablet] 120 mg PO DAILY 06/22/17 Docusate Sodium [Colace] 100 mg PO DAILY 06/22/17 Famotidine [Pepcid 20 mg Tablet] 20 mg PO QHS 06/22/17 Ipratropium/Albuterol Sulfate [Duoneb 3 ml Ampul] 1 vial NEB [id number] PRN Levothyroxine Sodium [Synthroid] 112 mcg PO DAILY 06/22/17 Loratadine [Claritin 10 mg Tablet] 10 mg PO DAILY 06/22/17 Magnesium Oxide [Mag-Ox 400 mg Tablet] 400 mg PO BID 06/22/17 Melatonin 5 mg PO QHS 06/22/17 Metoprolol Succinate [Toprol XL 100 mg Tablet] 150 mg PO DAILY 06/22/17 Mirtazapine [Remeron] 15 mg PO QHS 06/22/17 Omeprazole Magnesium [Prilosec Otc] 20 mg PO DAILY 06/22/17 Rivaroxaban [Xarelto] 15 mg PO DAILY 06/22/17 Furosemide [Lasix 80 mg Tablet] 80 mg PO Q12 tablet 06/25/17 Allergies/Adverse Reactions: No Known Allergies Allergy (Verified 06/22/17 16:44) Review of Systems Constitutional: ABSENT: chills, fever(s) Eyes: ABSENT: visual disturbances, other - Ocular pain Ears: ABSENT: hearing changes, other - Ear pain Nose, Mouth, and Throat: ABSENT: mouth pain, sore throat Cardiovascular: ABSENT: chest pain, palpitations Respiratory: ABSENT: cough, dyspnea Gastrointestinal: PRESENT: as per HPI, abdominal pain, constipation, hematochezia, other - Rectal bleeding. ABSENT: diarrhea, melena, nausea, vomiting Genitourinary: ABSENT: dysuria, hematuria Musculoskeletal: ABSENT: back pain, joint swelling Integumentary: ABSENT: pruritus, rash Neurological: PRESENT: confusion, memory loss. ABSENT: abnormal speech, syncope , vertigo Psychiatric: ABSENT: anxiety, depression Endocrine: ABSENT: cold intolerance, heat intolerance Hematologic/Lymphatic: ABSENT: easy bleeding, easy bruising Physical Exam Vital Signs: Temp Pulse Resp BP Pulse Ox 96 04/19/18 19:38 General appearance: PRESENT: no acute distress, cooperative Head exam: PRESENT: atraumatic, normocephalic Eye exam: PRESENT: conjunctiva pink, EOMI. ABSENT: scleral icterus Ear exam: PRESENT: normal external ear exam. ABSENT: bleeding Mouth exam: PRESENT: dry mucosa, neck supple Neck exam: ABSENT: JVD, thyromegaly, tracheal deviation Respiratory exam: PRESENT: clear to auscultation roscoe, symmetrical, unlabored Cardiovascular exam: PRESENT: irregular rhythm - Irregularly irregular rate and rhythm, systolic murmur - Murmur of aortic stenosis. ABSENT: clicks, gallop, rubs Pulses: PRESENT: normal radial pulses, normal dorsalis pedis pul Vascular exam: PRESENT: normal capillary refill. ABSENT: pallor GI/Abdominal exam: PRESENT: normal bowel sounds, soft, tenderness - Mild generalized tenderness with slight increased tenderness in the epigastrium on deep palpation Rectal exam: PRESENT: deferred Extremities exam: ABSENT: joint swelling, pedal edema Musculoskeletal exam: ABSENT: deformity, dislocation Neurological exam: PRESENT: alert, oriented to person, oriented to place. ABSENT: oriented to time, oriented to situation Psychiatric exam: PRESENT: appropriate affect, normal mood Skin exam: ABSENT: jaundice, rash, urticaria Results Impressions: Chest X-Ray 04/19/18 19:36 IMPRESSION: Cardiomegaly. No acute findings. Abdomen/Pelvis CT 04/19/18 20:09 IMPRESSION: No acute disease. Sigmoid diverticulosis without evidence for acute diverticulitis. Assessment & Plan - Diagnosis (1) Rectal bleeding Is this a current diagnosis for this admission?: Yes Plan: Patient will be observed for any continued rectal bleeding and serial CBCs will be obtained to evaluate blood loss. A surgical consultation with Dr. Nj has been recommended by the emergency room physician. (2) Chronic kidney disease (CKD) Qualifiers: Chronic kidney disease stage: stage 4 (severe) Qualified Code(s): N18.4 - Chronic kidney disease, stage 4 (severe) Is this a current diagnosis for this admission?: Yes Plan: Patient is under her senior technical project manager care for this problem. Her current creatinine appears to be in line with her usual baseline. Dr. Holm can be consulted if necessary. (3) Hypothyroid Qualifiers: Is this a current diagnosis for this admission?: Yes Plan: Patient will be continued on her current thyroid replacement and a thyroid profile will be obtained to assess efficacy of therapy. (4) A-fib Qualifiers: Is this a current diagnosis for this admission?: Yes Plan: Patient will be continued on her current atrial fibrillation rate control regimen. (5) Diastolic CHF Is this a current diagnosis for this admission?: Yes Plan: Patient will be continued on her current therapy for congestive heart failure. - Time Time Spent: 30 to 50 Minutes Critical Time spent with patient: Less than 15 minutes Medications reviewed and adjusted accordingly: Yes Anticipated discharge: SNF - Inpatient Certification Based on my medical assessment, after consideration of the patient's comorbidities, presenting symptoms, or acuity I expect that the services needed warrant INPATIENT care.: Yes I certify that my determination is in accordance with my understanding of Medicare's requirements for reasonable and necessary INPATIENT services [42 CFR 412.3e].: Yes Medical Necessity: Need Close Monitoring Due to Risk of Patient Decompensation, Risk of Complication if Not Cared For in Hospital, Risk of Diagnosis Which Will Require Inpatient Eval/Care/Monitoring
[2018-04-20 05:45] LABS: ABSOLUTE LYMPHOCYTES (AUTO) 1.8 10^3/uL (0.5-4.7); ABSOLUTE MONOCYTES (AUTO) 1.6 10^3/uL (0.1-1.4); BASOPHILS % (AUTO) 0.2 % (0-2); HEMATOCRIT 46.9 % (36.0-47.0); HEMOGLOBIN 15.1 g/dL (12.0-15.5); LYMPHOCYTES % (AUTO) 12.4 % (13-45); MEAN CORPUSCULAR HEMOGLOBIN 27.1 pg (27.0-33.4); MEAN CORPUSCULAR HGB CONC 32.3 g/dL (32.0-36.0); MEAN CORPUSCULAR VOLUME 84 fl (80-97); MONOCYTES % (AUTO) 10.9 % (3-13); PLATELET COUNT 160 10^3/uL (150-450); RED BLOOD COUNT 5.59 10^6/uL (3.72-5.28); RED CELL DISTRIBUTION WIDTH 16.2 % (11.5-14.0); SEGMENTED NEUTROPHILS % (AUTO) 76.5 % (42-78); TOTAL CELLS COUNTED % (AUTO) 100 %; WHITE BLOOD COUNT 14.4 10^3/uL (4.0-10.5)
[2018-04-20] MEDS: LEVOTHYROXINE SODIUM 0.112 MG TABLET PO SCH (05:46)
[2018-04-20 06:56] LABS: ANION GAP 17 (5-19); BLOOD UREA NITROGEN 73 mg/dL (7-20); CALCIUM 9.5 mg/dL (8.4-10.2); CARBON DIOXIDE 29 mmol/L (22-30); CHLORIDE 101 mmol/L (98-107); GLUCOSE 126 mg/dL (75-110); SODIUM 146.9 mmol/L (137-145)
--- NOTE | 2018-04-20 07:03 | RADIOLOGY REPORT (SQ) ---
CLINICAL DATA: 79-year-old female, possible stroke, right sided facial droop and decreased grasp strength TECHNICAL DATA: Multiple axial CT images of the brain were performed followed by sagittal and coronal reconstructed images. The CT study is performed according to ALARA (as low as reasonably achievable) or ALARA/IMAGE GENTLY, with automatic adjustment of mA and/or kV according to patient size. Performed on: 04/20/2018 at 6:25 AM Comparisons: Prior head CT performed on 05/16/2017. FINDINGS: There is no evidence of mass, acute mass effect or midline shift. There are no acute extra-axial fluid collections. There is no evidence of acute intracranial hemorrhage. 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 The cerebral sulci and ventricles are prominent consistent with mild cerebral volume loss. There are scattered patchy areas of decreased subcortical and periventricular attenuation most consistent with mild chronic microangiopathy.. There is encephalomalacia within the left occipital lobe and posterior left temporal lobe. There is trace mucosal thickening of the paranasal sinuses. The mastoid air cells are clear. The orbital contents are grossly unremarkable. No acute osseous abnormalities are identified. There are mild atherosclerotic calcifications along the cavernous carotid arteries. IMPRESSION: 1. There is no evidence of acute intracranial pathology. 2. 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 3. 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 These were not definitely identified on the prior study. These critical findings were discussed with the patient's nurse, Karen on 04/20/2018 at 6:00 AM central time
[2018-04-20 07:07] LABS: FREE T3 3.11 pg/mL (2.77-5.27); FREE T4 (FREE THYROXINE) 2.03 ng/dL (0.78-2.19)
[2018-04-20 07:21] LABS: THYROID STIMULATING HORMONE 0.08 uIU/mL (0.47-4.68)
[2018-04-20] MEDS: FAMOTIDINE 20 MG TABLET PO SCH ×4 (08:09→21:20)
[2018-04-20] MEDS: SUCRALFATE SUSP 1 GM/10 ML UDCUP PO SCH ×4 (08:09→21:20)
[2018-04-20] MEDS: ACETAMINOPHEN 325 MG TABLET PO PRN (08:10)
[2018-04-20] MEDS: METOCLOPRAMIDE HCL 10 MG TABLET PO SCH ×4 (09:56→21:20)
[2018-04-20] MEDS: TORSEMIDE 20 MG TABLET PO SCH (09:57)
[2018-04-20] MEDS: MAGNESIUM OXIDE 400 MG TABLET PO SCH ×2 (09:59→17:18)
[2018-04-20] MEDS: DOCUSATE SODIUM 100 MG CAPSULE PO SCH ×2 (09:59→17:18)
[2018-04-20] MEDS: METOPROLOL SUCCINATE 50 MG TAB.SR.24H PO SCH (09:59)
[2018-04-20] MEDS ORDERED: (PENDING PHARMACY ID) (Metoprolol Succinate [Toprol Xl 100 Mg Tablet] 150 MG) PO SCH (10:00)
[2018-04-20] MEDS ORDERED: DEXTROSE 40% GEL 15 GM TUBE PO PRN ×2 (13:11)
[2018-04-20] MEDS ORDERED: GLUCAGON,HUMAN RECOMB 1 MG INJ SUBCUT PRN (13:11)
[2018-04-20] MEDS ORDERED: DEXTROSE 50%-WATER 25 GM/50 ML DISP.SYRIN IV PRN ×2 (13:11)
[2018-04-20] MEDS ORDERED: PEG 3350/NA SULF,BICARB,CL/KCL 4000 ML PO ONE (15:00)
[2018-04-20] MEDS ORDERED: RINGERS SOLUTION,LACTATED 1,000 ML IV PRN (17:26)
--- NOTE | 2018-04-20 17:39 | PDOC PROGRESS REPORT ---
Subjective Progress Note for:: 04/20/18 Subjective:: This patient was able to wake up and speak with me this morning, her healthcare power of deputy county attorney/niece was at the bedside. Both noticed that the patient's right mouth was slightly drooped but after she started speaking and she had something to drink that resolved. Patient was alert and oriented except to place, she did not know what hospital she was in. She reported no further rectal bleeding. Her nausea and vomiting were resolved after she had a bowel movement she states. No chest pain or difficulty breathing. Her buttocks are aching and she feels like she needs to be repositioned. She feels hungry and would like to try to eat something. Her nurse told me later in the afternoon that she had a fever of about 100. Reason For Visit: ABDOMINAL PAIN WITH BRIGHT RED BLOOD IN STOOL. Physical Exam Vital Signs: Temp Pulse Resp BP Pulse Ox 99.1 F 100 28 H 156/80 H 97 04/20/18 07:28 04/20/18 07:28 04/20/18 07:28 04/20/18 07:28 04/20/18 07:28 Intake & Output 04/19/18 04/20/18 04/21/18 06:59 06:59 06:59 Intake Total 500 237 Balance 500 237 Weight 76.8 kg General appearance: PRESENT: no acute distress, thin Head exam: PRESENT: atraumatic, normocephalic, other - Some bitemporal wasting Eye exam: ABSENT: conjunctival injection Mouth exam: PRESENT: dry mucosa Neck exam: ABSENT: tenderness Respiratory exam: PRESENT: clear to auscultation roscoe, unlabored. ABSENT: rales , rhonchi, wheezes Cardiovascular exam: PRESENT: RRR Pulses: PRESENT: normal radial pulses, +1 pedal pulses bilateral GI/Abdominal exam: PRESENT: firm, normal bowel sounds, soft. ABSENT: distended , guarding, tenderness Rectal exam: PRESENT: deferred Extremities exam: ABSENT: pedal edema Musculoskeletal exam: PRESENT: normal inspection Neurological exam: PRESENT: alert, awake, oriented to person, oriented to place , CN II-XII grossly intact Psychiatric exam: PRESENT: appropriate affect. ABSENT: anxious Skin exam: PRESENT: dry, intact, warm Results Laboratory Results: 04/20/18 04:39 04/20/18 06:15 04/19/18 04/19/18 04/20/18 22:13 22:23 04:39 WBC 14.4 H RBC 5.59 H Hgb 15.1 Hct 46.9 MCV 84 MCH 27.1 MCHC 32.3 RDW 16.2 H Plt Count 160 Seg Neutrophils % 76.5 Lymphocytes % 12.4 L Monocytes % 10.9 Eosinophils % 0.0 Basophils % 0.2 Absolute Neutrophils 11.0 H Absolute Lymphocytes 1.8 Absolute Monocytes 1.6 H Absolute Eosinophils 0.0 Absolute Basophils 0.0 Sodium Potassium Chloride Carbon Dioxide Anion Gap BUN Creatinine Est GFR ( Amer) Est GFR (Non-Af Amer) Glucose Calcium Magnesium TSH Free T4 Free T3 pg/mL Urine Color YELLOW Urine Appearance CLEAR Urine pH 5.0 Ur Specific [place] 1.013 Urine Protein 30 H Urine Glucose (UA) NEGATIVE Urine Ketones TRACE H Urine Blood SMALL H Urine Nitrite NEGATIVE Ur Leukocyte Esterase NEGATIVE Urine WBC (Auto) 0 Urine RBC (Auto) 4 Blood Type O POSITIVE Antibody Screen NEGATIVE 04/20/18 04/20/18 06:15 06:15 WBC RBC Hgb Hct MCV MCH MCHC RDW Plt Count Seg Neutrophils % Lymphocytes % Monocytes % Eosinophils % Basophils % Absolute Neutrophils Absolute Lymphocytes Absolute Monocytes Absolute Eosinophils Absolute Basophils Sodium 146.9 H Potassium 4.0 Chloride 101 Carbon Dioxide 29 Anion Gap 17 BUN 73 H Creatinine 2.31 H Est GFR ( Amer) 24 L Est GFR (Non-Af Amer) 20 L Glucose 126 H Calcium 9.5 Magnesium 2.5 H TSH 0.08 L Free T4 2.03 Free T3 pg/mL 3.11 Urine Color Urine Appearance Urine pH Ur Specific Gloster Urine Protein Urine Glucose (UA) Urine Ketones Urine Blood Urine Nitrite Ur Leukocyte Esterase Urine WBC (Auto) Urine RBC (Auto) Blood Type Antibody Screen 04/20/18 00:29 Troponin I 0.046 Impressions: Chest X-Ray 04/19/18 19:36 IMPRESSION: Cardiomegaly. No acute findings. Abdomen/Pelvis CT 04/19/18 20:09 IMPRESSION: No acute disease. Sigmoid diverticulosis without evidence for acute diverticulitis. Head CT 04/20/18 00:00 IMPRESSION: 1. There is no evidence of acute intracranial pathology. 2. 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 3. 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 These were not definitely identified on the prior study. These critical findings were discussed with the patient's nurse, Karen on 04/20/2018 at 6:00 AM central time Assessment & Plan - Diagnosis (1) Urinary tract infection Qualifiers: Urinary tract infection type: site unspecified Is this a current diagnosis for this admission?: Yes Plan: Patient's urinalysis has evidence of infection. She has had a low-grade fever today, she has had some intermittent confusion. I am starting her on ceftriaxone 1 g IV every 24 hours and will order a urine culture. Also, given her infection, fever and the fact that she is being prepped for colonoscopy am concerned about dehydration and so I started her on LR at 75 mL/h, judicious due to her heart failure. We will monitor closely for evidence of dehydration. She is making good urine now per her nurse. (2) Confusion Is this a current diagnosis for this admission?: Yes Plan: This evening at about as well as last night at the patient became confused. There was concern that she might be having a stroke. She had a CT scan of the head which was negative for signs of acute stroke. This evening she received some morphine for pain and when she woke up from sleep after receiving morphine she was confused. I have therefore discontinued her morphine. We will use Tylenol for pain at this time. I think she is having acute metabolic encephalopathy related to hospitalization. There is probably also a component of acute toxic encephalopathy related to morphine. (3) Rectal bleeding Is this a current diagnosis for this admission?: Yes Plan: Patient had constipation over the last few days, per her family she struggles with this. She had some rectal bleeding when she had a bowel movement. After she had a bowel movement her nausea and vomiting and proved. However, surgeon was consulted by the ER and deems colonoscopy necessary. Patient is currently being prepped for colonoscopy. Hemoglobin is stable. (4) Abdominal pain Qualifiers: Abdominal location: generalized Qualified Code(s): R10.84 - Generalized abdominal pain Is this a current diagnosis for this admission?: Yes Plan: This is improved and was associated with nausea and vomiting. sHe feels hungry now. She drank water while I was in her room and did not have any difficulty with nausea or emesis. Will order a regular diet. (5) Chronic kidney disease (CKD) Qualifiers: Chronic kidney disease stage: stage 4 (severe) Qualified Code(s): N18.4 - Chronic kidney disease, stage 4 (severe) Is this a current diagnosis for this admission?: Yes Plan: Stable. Follows with nephrology. No need for consultation at this time. (6) DNR (do not resuscitate) discussion Is this a current diagnosis for this admission?: Yes (7) Nausea & vomiting Qualifiers: Vomiting type: unspecified Vomiting Intractability: non-intractable Qualified Code(s): R11.2 - Nausea with vomiting, unspecified Is this a current diagnosis for this admission?: Yes Plan: Please see abdominal pain above (8) A-fib Qualifiers: Is this a current diagnosis for this admission?: Yes Plan: Stable, continue her current medications. Her niece tells me that she has been on anticoagulation in the past but that was discontinued secondary to bleeding, she does not have any other details. (9) Diastolic CHF Qualifiers: Heart failure chronicity: chronic Qualified Code(s): I50.32 - Chronic diastolic (congestive) heart failure Is this a current diagnosis for this admission?: Yes Plan: No evidence of exacerbation. She received her torsemide today. I am judiciously hydrating her overnight and will reassess her hydration status and her CHF in the morning. - Time Time Spent with patient: 35 or more minutes - Inpatient Certification Based on my medical assessment, after consideration of the patient's comorbidities, presenting symptoms, or acuity I expect that the services needed warrant INPATIENT care.: Yes I certify that my determination is in accordance with my understanding of Medicare's requirements for reasonable and necessary INPATIENT services [42 CFR 412.3e].: Yes Medical Necessity: Need For IV Fluids, Need For Continuous Telemetry Monitoring , Need for IV Antibiotics, Risk of Complication if Not Cared For in Hospital - Plan Summary Plan Summary: 1) Rectal bleeding Is this a current diagnosis for this admission?: Yes Plan: Patient will be observed for any continued rectal bleeding and serial CBCs will be obtained to evaluate blood loss. A surgical consultation with Dr. Nj has been recommended by the emergency room physician. (2) Chronic kidney disease (CKD) Qualifiers: Chronic kidney disease stage: stage 4 (severe) Qualified Code(s): N18.4 - Chronic kidney disease, stage 4 (severe) Is this a current diagnosis for this admission?: Yes Plan: Patient is under her woodyard operator care for this problem. Her current creatinine appears to be in line with her usual baseline. Dr. Will can be consulted if necessary. (3) Hypothyroid Qualifiers: Is this a current diagnosis for this admission?: Yes Plan: Patient will be continued on her current thyroid replacement and a thyroid profile will be obtained to assess efficacy of therapy. (4) A-fib Qualifiers: Is this a current diagnosis for this admission?: Yes Plan: Patient will be continued on her current atrial fibrillation rate control regimen. (5) Diastolic CHF Is this a current diagnosis for this admission?: Yes Plan: Patient will be continued on her current therapy for congestive heart failure.
[2018-04-20] MEDS ORDERED: CEFTRIAXONE 1 GM/D5W RTU 1 GM/50 ML RTUPB IV SCH (18:00)
[2018-04-20] MEDS: RINGERS SOLUTION,LACTATED 1,000 ML IV PRN (18:20)
--- NOTE | 2018-04-20 20:24 | PDOC CONSULTATION ---
Consultation Consult Date: 04/20/18 Consult reason:: lower gi bleed History of Present Illness Admission Date/PCP: 04/19/18 21:51 CONSTANCE HOLM MD Patient complains of: bloody bm History of Present Illness: MARTY GAGE is a 87 year old female who was admitted yesterday after a bloody bm yesterday morning. She did have some abdominal pains associated with nausea and vomiting. Her Hemoglobin is 14. Past Medical History Cardiac Medical History: Reports: Atrial Fibrillation, Congestive Heart Failure , Hyperlipidema, Hypertension, Heart Murmur - Aortic stenosis Pulmonary Medical History: Denies: Asthma, Chronic Obstructive Pulmonary Disease (COPD) EENT Medical History: Reports: None Neurological Medical History: Denies: Hemorrhagic CVA, Ischemic CVA, Seizures Endocrine Medical History: Reports: Hypothyroidism Denies: Diabetes Mellitus Type 1, Diabetes Mellitus Type 2 Renal/ Medical History: Reports: Chronic Kidney Disease Denies: Nephrolithiasis Malignancy Medical History: Reports: None GI Medical History: Denies: Cirrhosis, Hepatitis Musculoskeltal Medical History: Denies: Arthritis, Gout Skin Medical History: Denies: Eczema, Psoriasis Psychiatric Medical History: Reports: Dementia Denies: Alcohol Dependency, Depression, Substance Abuse, Tobacco Dependency Traumatic Medical History: Reports: None Hematology: Denies: Anemia, Bleeding Tendencies Infectious Medical History: Reports: None Past Surgical History Past Surgical History: Reports: Hysterectomy, Pacemaker, Other - Cataract surgery and lipoma excisions Social History Lives with: [facility] Smoking Status: Never Smoker Frequency of Alcohol Use: None Hx Recreational Drug Use: No Drugs: None Hx Prescription Drug Abuse: No - Advance Directive Resuscitation Status: Do Not Resuscitate Family History Family History: Hypertension, Other - Heart disease Parental Family History Reviewed: Yes Children Family History Reviewed: No Sibling(s) Family History Reviewed.: No Medication/Allergy Home Medications: Acetaminophen [Tylenol] 650 mg PO Q6HP PRN 06/22/17 Docusate Sodium [Colace] 100 mg PO DAILY 06/22/17 Famotidine [Pepcid 20 mg Tablet] 20 mg PO QHS 06/22/17 Ipratropium/Albuterol Sulfate [Duoneb 3 ml Ampul] 1 vial NEB [id number] PRN Levothyroxine Sodium [Synthroid] 112 mcg PO DAILY 06/22/17 Loratadine [Claritin 10 mg Tablet] 10 mg PO DAILY 06/22/17 Magnesium Oxide [Mag-Ox 400 mg Tablet] 400 mg PO DAILY 06/22/17 Melatonin 5 mg PO QHS 06/22/17 Metoprolol Succinate [Toprol XL 100 mg Tablet] 150 mg PO DAILY 06/22/17 Mirtazapine [Remeron] 7.5 mg PO QHS 06/22/17 Omeprazole Magnesium [Prilosec Otc] 20 mg PO DAILY 06/22/17 Furosemide [Lasix 80 mg Tablet] 80 mg PO Q12 tablet 06/25/17 Diltiazem HCl [Cardizem Cd 120 mg Capsule] 1 cap.sr PO DAILY 04/20/18 Ferrous Sulfate [Feosol] 325 mg PO DAILY 04/20/18 Polyethylene Glycol 3350 [Miralax Powder 17 gm/Packet] 1 packet PO DAILY Allergies/Adverse Reactions: No Known Allergies Allergy (Verified 06/22/17 16:44) Review of Systems Constitutional: PRESENT: other - no fever/chills Eyes: PRESENT: other - no visual/hearing changes Cardiovascular: PRESENT: other - no chest pains/cough Gastrointestinal: PRESENT: abdominal pain, hematochezia Physical Exam Vital Signs: Temp Pulse Resp BP Pulse Ox 99.9 F 89 20 123/57 L 96 04/20/18 15:05 04/20/18 15:05 04/20/18 15:05 04/20/18 15:05 04/20/18 15:05 Intake & Output 04/19/18 04/20/18 04/21/18 06:59 06:59 06:59 Intake Total 500 237 Balance 500 237 Weight 76.8 kg 76.8 kg General appearance: PRESENT: no acute distress Head exam: PRESENT: atraumatic Eye exam: PRESENT: conjunctiva pink Mouth exam: PRESENT: moist Neck exam: PRESENT: full ROM Respiratory exam: PRESENT: clear to auscultation roscoe Cardiovascular exam: PRESENT: RRR Pulses: PRESENT: normal radial pulses Vascular exam: PRESENT: normal capillary refill GI/Abdominal exam: PRESENT: soft, other - mild epigastric tenderness Rectal exam: PRESENT: heme (-) stool Extremities exam: PRESENT: full ROM Musculoskeletal exam: PRESENT: ambulatory Neurological exam: PRESENT: alert, oriented to person, oriented to time, oriented to situation Psychiatric exam: PRESENT: appropriate affect Skin exam: PRESENT: normal color, warm Results Laboratory Results: 04/20/18 04:39 04/20/18 06:15 04/19/18 04/19/18 04/20/18 22:13 22:23 04:39 WBC 14.4 H RBC 5.59 H Hgb 15.1 Hct 46.9 MCV 84 MCH 27.1 MCHC 32.3 RDW 16.2 H Plt Count 160 Seg Neutrophils % 76.5 Lymphocytes % 12.4 L Monocytes % 10.9 Eosinophils % 0.0 Basophils % 0.2 Absolute Neutrophils 11.0 H Absolute Lymphocytes 1.8 Absolute Monocytes 1.6 H Absolute Eosinophils 0.0 Absolute Basophils 0.0 Sodium Potassium Chloride Carbon Dioxide Anion Gap BUN Creatinine Est GFR ( Amer) Est GFR (Non-Af Amer) Glucose Calcium Magnesium TSH Free T4 Free T3 pg/mL Urine Color YELLOW Urine Appearance CLEAR Urine pH 5.0 Ur Specific Bear 1.013 Urine Protein 30 H Urine Glucose (UA) NEGATIVE Urine Ketones TRACE H Urine Blood SMALL H Urine Nitrite NEGATIVE Ur Leukocyte Esterase NEGATIVE Urine WBC (Auto) 0 Urine RBC (Auto) 4 Blood Type O POSITIVE Antibody Screen NEGATIVE 04/20/18 04/20/18 06:15 06:15 WBC RBC Hgb Hct MCV MCH MCHC RDW Plt Count Seg Neutrophils % Lymphocytes % Monocytes % Eosinophils % Basophils % Absolute Neutrophils Absolute Lymphocytes Absolute Monocytes Absolute Eosinophils Absolute Basophils Sodium 146.9 H Potassium 4.0 Chloride 101 Carbon Dioxide 29 Anion Gap 17 BUN 73 H Creatinine 2.31 H Est GFR ( Amer) 24 L Est GFR (Non-Af Amer) 20 L Glucose 126 H Calcium 9.5 Magnesium 2.5 H TSH 0.08 L Free T4 2.03 Free T3 pg/mL 3.11 Urine Color Urine Appearance Urine pH Ur Specific Bear Urine Protein Urine Glucose (UA) Urine Ketones Urine Blood Urine Nitrite Ur Leukocyte Esterase Urine WBC (Auto) Urine RBC (Auto) Blood Type Antibody Screen 04/20/18 00:29 Troponin I 0.046 Impressions: Chest X-Ray 04/19/18 19:36 IMPRESSION: Cardiomegaly. No acute findings. Abdomen/Pelvis CT 04/19/18 20:09 IMPRESSION: No acute disease. Sigmoid diverticulosis without evidence for acute diverticulitis. Head CT 04/20/18 00:00 IMPRESSION: 1. There is no evidence of acute intracranial pathology. 2. 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 3. 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 These were not definitely identified on the prior study. These critical findings were discussed with the patient's nurse, Karen on 04/20/2018 at 6:00 AM central time Assessment & Plan - Diagnosis (1) GI bleed Qualifiers: GI bleed type/associated pathology: unspecified gastrointestinal hemorrhage type Qualified Code(s): K92.2 - Gastrointestinal hemorrhage, unspecified (2) Rectal bleeding Is this a current diagnosis for this admission?: Yes (3) Atrial fibrillation with RVR Is this a current diagnosis for this admission?: No - Time Time Spent: 30 to 50 Minutes - Inpatient Certification Medical Necessity: Need For IV Fluids, Need for Surgery, Risk of Complication if Not Cared For in Hospital - Plan Summary Plan Summary: Will place on bowel prep. For colonoscopy by Dr Ovalle tomorrow ? EGD
[2018-04-20] MEDS: CEFTRIAXONE SODIUM 1,000 MG in DEXTROSE 5%-WATER 50 ML IV SCH (20:45)
[2018-04-20] MEDS: MIRTAZAPINE 15 MG TABLET PO SCH (21:20)
[2018-04-21] MEDS: LEVOTHYROXINE SODIUM 0.112 MG TABLET PO SCH (05:33)
[2018-04-21 06:11] LABS: ABSOLUTE LYMPHOCYTES (AUTO) 1.4 10^3/uL (0.5-4.7); ABSOLUTE MONOCYTES (AUTO) 1.6 10^3/uL (0.1-1.4); ABSOLUTE NEUT (AUTO) 11.9 10^3/uL (1.7-8.2); BASOPHILS % (AUTO) 0.1 % (0-2); HEMATOCRIT 37.8 % (36.0-47.0); LYMPHOCYTES % (AUTO) 9.3 % (13-45); MEAN CORPUSCULAR HEMOGLOBIN 27.2 pg (27.0-33.4); MEAN CORPUSCULAR HGB CONC 32.9 g/dL (32.0-36.0); MEAN CORPUSCULAR VOLUME 83 fl (80-97); MONOCYTES % (AUTO) 10.8 % (3-13); PLATELET COUNT 134 10^3/uL (150-450); RED BLOOD COUNT 4.57 10^6/uL (3.72-5.28); RED CELL DISTRIBUTION WIDTH 15.7 % (11.5-14.0); SEGMENTED NEUTROPHILS % (AUTO) 79.8 % (42-78); TOTAL CELLS COUNTED % (AUTO) 100 %; WHITE BLOOD COUNT 14.9 10^3/uL (4.0-10.5)
[2018-04-21 06:14] LABS: HEMOGLOBIN 12.4 g/dL (12.0-15.5)
[2018-04-21 06:23] LABS: ANION GAP 16 (5-19); BLOOD UREA NITROGEN 64 mg/dL (7-20); CALCIUM 8.8 mg/dL (8.4-10.2); CARBON DIOXIDE 30 mmol/L (22-30); CHLORIDE 100 mmol/L (98-107); GLUCOSE 110 mg/dL (75-110); SODIUM 145.5 mmol/L (137-145)
[2018-04-21 06:30] LABS: POTASSIUM 2.9 mmol/L (3.6-5.0)
[2018-04-21] MEDS: SUCRALFATE SUSP 1 GM/10 ML UDCUP PO SCH ×4 (08:07→22:26)
[2018-04-21] MEDS: FAMOTIDINE 20 MG TABLET PO SCH ×4 (08:07→22:27)
[2018-04-21] MEDS: METOCLOPRAMIDE HCL 10 MG TABLET PO SCH ×4 (08:08→22:28)
[2018-04-21] MEDS ORDERED: POTASSIUM CHLORIDE 20 MEQ/50 ML RTU IV ONE (08:15)
[2018-04-21] MEDS: RINGERS SOLUTION,LACTATED 1,000 ML IV PRN (08:56)
[2018-04-21] MEDS: DOCUSATE SODIUM 100 MG CAPSULE PO SCH (09:15)
[2018-04-21] MEDS: METOPROLOL SUCCINATE 50 MG TAB.SR.24H PO SCH (09:15)
[2018-04-21] MEDS: MAGNESIUM OXIDE 400 MG TABLET PO SCH (09:15)
--- NOTE | 2018-04-21 09:52 | PDOC PROGRESS REPORT ---
Subjective Progress Note for:: 04/21/18 Subjective:: Patient had no more bleeding overnight Reason For Visit: ABDOMINAL PAIN WITH BRIGHT RED BLOOD IN STOOL. Physical Exam Vital Signs: Temp Pulse Resp BP Pulse Ox 100.1 F 91 16 168/70 H 96 04/21/18 04:03 04/21/18 04:03 04/21/18 04:03 04/21/18 04:03 04/21/18 04:03 Intake & Output 04/20/18 04/21/18 04/22/18 06:59 06:59 06:59 Intake Total 500 2987 1000 Balance 500 2987 1000 Weight 76.8 kg 85.6 kg General appearance: PRESENT: mild distress GI/Abdominal exam: PRESENT: other - Abdomen benign no peritoneal signs no rigidity Results Laboratory Results: 04/21/18 05:14 04/21/18 05:14 04/21/18 04/21/18 05:14 05:14 WBC 14.9 H RBC 4.57 Hgb 12.4 D Hct 37.8 MCV 83 MCH 27.2 MCHC 32.9 RDW 15.7 H Plt Count 134 L Seg Neutrophils % 79.8 H Lymphocytes % 9.3 L Monocytes % 10.8 Eosinophils % 0.0 Basophils % 0.1 Absolute Neutrophils 11.9 H Absolute Lymphocytes 1.4 Absolute Monocytes 1.6 H Absolute Eosinophils 0.0 Absolute Basophils 0.0 Sodium 145.5 H Potassium 2.9 L* D Chloride 100 Carbon Dioxide 30 Anion Gap 16 BUN 64 H Creatinine 2.02 H Est GFR ( Amer) 28 L Est GFR (Non-Af Amer) 23 L Glucose 110 Calcium 8.8 Magnesium 1.9 04/20/18 00:29 Troponin I 0.046 Impressions: Chest X-Ray 04/19/18 19:36 IMPRESSION: Cardiomegaly. No acute findings. Abdomen/Pelvis CT 04/19/18 20:09 IMPRESSION: No acute disease. Sigmoid diverticulosis without evidence for acute diverticulitis. Head CT 04/20/18 00:00 IMPRESSION: 1. There is no evidence of acute intracranial pathology. 2. 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 3. 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 These were not definitely identified on the prior study. These critical findings were discussed with the patient's nurse, Karen on 04/20/2018 at 6:00 AM central time Assessment & Plan - Diagnosis (1) Gastrointestinal bleeding Is this a current diagnosis for this admission?: Yes Plan: Impression: Gastrointestinal bleeding, now abated; hemoglobin down to 12.4; history of previous colonoscopy unknown findings Recommendations: 1. Proceed with upper and lower endoscopy, conscious sedation, fifth floor, later today. 2. Risk benefits alternatives to the planned procedure plan the patient. I believe she understands and agrees to proceed. (2) DNR (do not resuscitate) discussion Is this a current diagnosis for this admission?: Yes
[2018-04-21] MEDS ORDERED: FENTANYL CITRATE INJ/PF 100 MCG/2 ML AMPUL ONE (10:30)
[2018-04-21] MEDS ORDERED: DIPHENHYDRAMINE HCL 50 MG/ML VIAL ONE (10:30)
[2018-04-21] MEDS ORDERED: ONDANSETRON HCL INJ/PF 4 MG/2 ML SDV ONE (10:30)
[2018-04-21] MEDS ORDERED: NALOXONE HCL INJ/PF 0.4 MG/1 ML SDV ONE (10:30)
[2018-04-21] MEDS ORDERED: FLUMAZENIL INJ 0.5 MG/5 ML VIAL ONE (10:31)
[2018-04-21] MEDS ORDERED: EPINEPHRINE INJ 1 MG/10 ML DISP.SYRIN ONE (10:31)
[2018-04-21] MEDS ORDERED: GLUCAGON,HUMAN RECOMB 1 MG INJ ONE (10:31)
[2018-04-21] MEDS: POTASSI CL 20 MEQ/50 ML RIDER 20 MEQ/50 ML RTUPB IV SCH ×2 (10:37→16:42)
[2018-04-21] MEDS: TORSEMIDE 20 MG TABLET PO SCH (10:39)
[2018-04-21] MEDS: MIDAZOLAM 2 MG/2 ML INJ ONE ×2 (13:22→13:43)
--- NOTE | 2018-04-21 14:16 | Operative Report ---
Operative Report DATE OF SURGERY: 04/21/18 PREOPERATIVE DIAGNOSIS: 1. Abdominal pain. 2. Gastrointestinal bleed POSTOPERATIVE DIAGNOSIS: Same with no active gastrointestinal bleeding or source identified. 2. Hiatal hernia. 3. Sigmoid colon polyp. 4. Lesion of the ileocecal valve. 5. Sigmoid diverticulosis OPERATION: 1. Esophagogastroduodenoscopy. 2. Total colonoscopy to cecum with photodocumentation. 3. Cold forceps biopsy of ileocecal valve. 4. Cold forceps polypectomy of descending colon polyp SURGEON: WAI EM ANESTHESIA: Moderate Sedation TISSUE REMOVED OR ALTERED: Biopsies of the ileocecal and left colonic mucosa COMPLICATIONS: None ESTIMATED BLOOD LOSS: Scant INTRAOPERATIVE FINDINGS: See below PROCEDURE: Patient was taken from the nursing floor to the endoscopy suite where she was placed in a semirecumbent left lateral decubitus position. Surgical plan surgical timeout were conducted. Oral mouthpiece was inserted. The flexible adult upper endoscope was advanced to the hypopharynx, down the esophagus through the stomach into the first and second portion of the duodenum. This was an excellent study, and well tolerated by the patient. The duodenum was normal. The scope was brought back through the pylorus which was fairly unremarkable. There was no evidence of bleeding tumor, stricture, or polyp. This was taken of the stomach. There was mild gastritis but no laura ulceration the scope was retroflexed in the stomach, and a good look at the GE junction obtained. There was a hiatal hernia, small. The scope was straightened out and brought back to the GE junction then the length of the esophagus. The Z line was approximately 39 cm from the incisor. The scope was withdrawn to the patient's oropharynx. She tolerated procedure well. She was then rotated into the left lateral decubitus position instrumentation set up for colonoscopy. Rectal exam was performed. There is no visible or palpable anorectal pathology. The flexible adult colonoscope was advanced to the anal rectal canal multiple to the cecum. This was a reasonably acceptable bowel prep with mild to moderate amount of residual green liquid stool. The ileocecal valve had an erythematous lobulated appearance to it. It was photographed, and biopsied. The remainder of the cecum appeared normal. Bleeding from the biopsy site was minimal. The scope was withdrawn through the length of the colon and no other gross pathology seen. There was no evidence of bleeding clot. There was scattered sigmoid diverticulosis. The sigmoid colon approximately 40 cm from the anal verge was a small sessile polyp which was removed with a cold forceps device and sent to pathology is sigmoid colon polyp. Bleeding was minimal Scope withdrawn the patient's anus. She tolerated procedure well. Surveillance guidelines recommend follow-up colonoscopy in 3 years, but this may not apply to this advanced 87-year-old with a DNR status.
--- NOTE | 2018-04-21 16:16 | PDOC PROGRESS REPORT ---
Subjective Progress Note for:: 04/21/18 Subjective:: she feels good today, awaiting her colonoscopy, she is hungry, had large BM this am after golytely. No CP or SOB. Backside feeling better now, still some left hip aching. No abd pain. Reason For Visit: ABDOMINAL PAIN WITH BRIGHT RED BLOOD IN STOOL. Physical Exam Vital Signs: Temp Pulse Resp BP Pulse Ox 97.5 F 108 H 24 H 156/86 H 99 04/21/18 12:35 04/21/18 14:20 04/21/18 14:20 04/21/18 14:20 04/21/18 14:20 Intake & Output 04/20/18 04/21/18 04/22/18 06:59 06:59 06:59 Intake Total 500 2987 1435 Balance 500 2987 1435 Weight 76.8 kg 85.6 kg General appearance: PRESENT: no acute distress, cooperative Head exam: PRESENT: atraumatic, normocephalic Eye exam: ABSENT: conjunctival injection, periorbital swelling, scleral icterus Ear exam: PRESENT: normal external ear exam Mouth exam: PRESENT: moist, neck supple, tongue midline Teeth exam: PRESENT: edentulous Neck exam: ABSENT: tenderness Respiratory exam: PRESENT: clear to auscultation roscoe, unlabored. ABSENT: rales , wheezes Cardiovascular exam: PRESENT: RRR, systolic murmur Pulses: PRESENT: normal radial pulses GI/Abdominal exam: PRESENT: normal bowel sounds, soft. ABSENT: distended, guarding, tenderness Rectal exam: PRESENT: deferred Musculoskeletal exam: PRESENT: normal inspection Neurological exam: PRESENT: alert, awake, oriented to person, oriented to place , oriented to situation, CN II-XII grossly intact Psychiatric exam: PRESENT: appropriate affect. ABSENT: anxious Skin exam: PRESENT: dry, intact, warm Results Laboratory Results: 04/21/18 05:14 04/21/18 05:14 04/21/18 04/21/18 05:14 05:14 WBC 14.9 H RBC 4.57 Hgb 12.4 D Hct 37.8 MCV 83 MCH 27.2 MCHC 32.9 RDW 15.7 H Plt Count 134 L Seg Neutrophils % 79.8 H Lymphocytes % 9.3 L Monocytes % 10.8 Eosinophils % 0.0 Basophils % 0.1 Absolute Neutrophils 11.9 H Absolute Lymphocytes 1.4 Absolute Monocytes 1.6 H Absolute Eosinophils 0.0 Absolute Basophils 0.0 Sodium 145.5 H Potassium 2.9 L* D Chloride 100 Carbon Dioxide 30 Anion Gap 16 BUN 64 H Creatinine 2.02 H Est GFR ( Amer) 28 L Est GFR (Non-Af Amer) 23 L Glucose 110 Calcium 8.8 Magnesium 1.9 04/20/18 00:29 Troponin I 0.046 Impressions: Chest X-Ray 04/19/18 19:36 IMPRESSION: Cardiomegaly. No acute findings. Abdomen/Pelvis CT 04/19/18 20:09 IMPRESSION: No acute disease. Sigmoid diverticulosis without evidence for acute diverticulitis. Head CT 04/20/18 00:00 IMPRESSION: 1. There is no evidence of acute intracranial pathology. 2. 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 3. 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 These were not definitely identified on the prior study. These critical findings were discussed with the patient's nurse, Karen on 04/20/2018 at 6:00 AM central time Assessment & Plan - Diagnosis (1) Urinary tract infection Qualifiers: Urinary tract infection type: site unspecified Is this a current diagnosis for this admission?: Yes Plan: gram neg rods in urine, awaiting spec and sens, will cont ceftriaxone and will await blood cultures (2) Confusion Is this a current diagnosis for this admission?: Yes Plan: Is now being treated with abx for UTI and has shown improvement in terms of confusion (3) Rectal bleeding Is this a current diagnosis for this admission?: Yes Plan: Had episode of bleeding after having hard BM with constipation, surgery has seen pt and deemed that upper and lower endosopies indicated, she is post procedure and has done well. Several sites biopsied and no source of GI bleed seen. (4) Abdominal pain Qualifiers: Abdominal location: generalized Qualified Code(s): R10.84 - Generalized abdominal pain Is this a current diagnosis for this admission?: Yes Plan: resolved after large BM. She also had some nausea and vomiting and resolved after large BM. Will start her on senna BID. (5) Chronic kidney disease (CKD) Qualifiers: Chronic kidney disease stage: stage 4 (severe) Qualified Code(s): N18.4 - Chronic kidney disease, stage 4 (severe) Is this a current diagnosis for this admission?: Yes Plan: stable, follows with renal as out pt, will renally dose meds and avoid nephrotoxins (6) DNR (do not resuscitate) discussion Is this a current diagnosis for this admission?: Yes (7) Nausea & vomiting Qualifiers: Vomiting type: unspecified Vomiting Intractability: non-intractable Qualified Code(s): R11.2 - Nausea with vomiting, unspecified Is this a current diagnosis for this admission?: Yes Plan: resolved after large BM (8) A-fib Qualifiers: Is this a current diagnosis for this admission?: Yes Plan: She was started on her metoprolol several days ago, will continue that. Her heart rate has started to increase some and I think her blood pressure can tolerate adding her diltiazem 120 mg daily, that has been added now. He used to be anticoagulated but due to a bleeding event, niece did not know details, she is no longer anticoagulated. (9) Diastolic CHF Qualifiers: Heart failure chronicity: chronic Qualified Code(s): I50.32 - Chronic diastolic (congestive) heart failure Is this a current diagnosis for this admission?: Yes Plan: Patient received some IV fluids last night while she was prepping for her colonoscopy. She is now done with the procedure, has a regular diet ordered and at this point I will stop her IV fluids and continue her diuretics. She is not having any breathing difficulty. - Time Time Spent with patient: 15-24 minutes Medications reviewed and adjusted accordingly: Yes - Inpatient Certification Based on my medical assessment, after consideration of the patient's comorbidities, presenting symptoms, or acuity I expect that the services needed warrant INPATIENT care.: Yes I certify that my determination is in accordance with my understanding of Medicare's requirements for reasonable and necessary INPATIENT services [42 CFR 412.3e].: Yes Medical Necessity: Need Close Monitoring Due to Risk of Patient Decompensation, Need for IV Antibiotics
[2018-04-21] MEDS ORDERED: POTASSI CL 20 MEQ/50 ML RIDER 20 MEQ/50 ML RTUPB IV ONE (16:41)
[2018-04-21] MEDS ORDERED: DILTIAZEM HCL 120 MG CAP.SR.24H PO ONE (17:00)
[2018-04-21] MEDS ORDERED: (PENDING PHARMACY ID) (Melatonin [Melatonin] 5 MG) PO SCH (22:00)
[2018-04-21] MEDS ORDERED: FAMOTIDINE 20 MG TABLET PO SCH (22:00)
[2018-04-21] MEDS: SENNOSIDES/DOCUSATE 8.6-50 MG 1 EACH TABLET PO SCH (22:20)
[2018-04-21] MEDS: CEFTRIAXONE SODIUM 1,000 MG in DEXTROSE 5%-WATER 50 ML IV SCH (22:26)
[2018-04-21] MEDS: MELATONIN 5 MG TABLET PO SCH (22:27)
[2018-04-21] MEDS: MIRTAZAPINE 15 MG TABLET PO SCH (22:27)
[2018-04-22 05:35] LABS: HEMATOCRIT 39.6 % (36.0-47.0); HEMOGLOBIN 13.1 g/dL (12.0-15.5); MEAN CORPUSCULAR HEMOGLOBIN 27.2 pg (27.0-33.4); MEAN CORPUSCULAR VOLUME 83 fl (80-97); PLATELET COUNT 147 10^3/uL (150-450); RED CELL DISTRIBUTION WIDTH 15.5 % (11.5-14.0); WHITE BLOOD COUNT 10.3 10^3/uL (4.0-10.5)
[2018-04-22] MEDS: LEVOTHYROXINE SODIUM 0.112 MG TABLET PO SCH (05:41)
[2018-04-22 05:55] LABS: ANION GAP 13 (5-19); BLOOD UREA NITROGEN 54 mg/dL (7-20); CALCIUM 9.3 mg/dL (8.4-10.2); CARBON DIOXIDE 30 mmol/L (22-30); CHLORIDE 100 mmol/L (98-107); GLUCOSE 105 mg/dL (75-110); POTASSIUM 3.4 mmol/L (3.6-5.0); SODIUM 142.8 mmol/L (137-145)
[2018-04-22 06:06] LABS: ABSOLUTE LYMPHOCYTES# (MANUAL) 1.6 10^3/uL (0.5-4.7); ABSOLUTE MONOCYTES # (MANUAL) 0.8 10^3/uL (0.1-1.4); ABSOLUTE NEUTROPHILS# (MANUAL) 7.7 10^3/uL (1.7-8.2); BAND NEUTROPHILS % (MANUAL) 6 % (3-5); BASOPHILS % (MANUAL) 0 % (0-2); EOSINOPHILS % (MANUAL) 1 % (0-6); LYMPHOCYTES % (MANUAL) 16 % (13-45); MONOCYTES % (MANUAL) 8 % (3-13); SEGMENTED NEUTROPHILS % (MAN) 69 % (42-78); TOTAL CELLS COUNTED 100
[2018-04-22 06:07] LABS: ANISOCYTOSIS 1+; OVALOCYTES 1+; PLATELET COMMENT DECREASED; POIKILOCYTOSIS 1+; TOXIC VACUOLATION PRESENT
[2018-04-22] MEDS: METOCLOPRAMIDE HCL 10 MG TABLET PO SCH ×4 (08:43→22:18)
[2018-04-22] MEDS: FAMOTIDINE 20 MG TABLET PO SCH ×4 (08:43→22:19)
[2018-04-22] MEDS: SUCRALFATE SUSP 1 GM/10 ML UDCUP PO SCH ×4 (08:43→22:16)
[2018-04-22] MEDS: LORATADINE 10 MG TABLET PO SCH (10:11)
[2018-04-22] MEDS: SENNOSIDES/DOCUSATE 8.6-50 MG 1 EACH TABLET PO SCH ×2 (10:11→17:07)
[2018-04-22] MEDS: MAGNESIUM OXIDE 400 MG TABLET PO SCH (10:11)
[2018-04-22] MEDS: METOPROLOL SUCCINATE 50 MG TAB.SR.24H PO SCH (10:11)
[2018-04-22] MEDS: DILTIAZEM HCL 120 MG CAP.SR.24H PO SCH (10:12)
[2018-04-22] MEDS: TORSEMIDE 20 MG TABLET PO SCH (10:14)
[2018-04-22] MEDS ORDERED: POTASSIUM CHLORIDE 20 MEQ/15 ML UDCUP PO ONE (16:30)
--- NOTE | 2018-04-22 16:38 | PDOC PROGRESS REPORT ---
Subjective Progress Note for:: 04/22/18 Subjective:: Patient is feeling significantly better. She is not having nausea or vomiting. She has had no blood per rectum. She is able to eat without difficulty. She does not feel confused or excessively tired. Walk around if possible but she has had left foot pain for quite some time and does not know why, hurts with ambulation. Reason For Visit: ABDOMINAL PAIN WITH BRIGHT RED BLOOD IN STOOL. Physical Exam Vital Signs: Temp Pulse Resp BP Pulse Ox 98.0 F 90 16 145/73 H 97 04/22/18 16:12 04/22/18 16:12 04/22/18 16:12 04/22/18 16:12 04/22/18 16:12 Intake & Output 04/21/18 04/22/18 04/23/18 06:59 06:59 06:59 Intake Total 2987 2650 Output Total 600 Balance 2987 2050 Weight 85.6 kg 78.8 kg General appearance: PRESENT: no acute distress, cooperative, thin Head exam: PRESENT: atraumatic, normocephalic Eye exam: ABSENT: conjunctival injection, scleral icterus Ear exam: PRESENT: normal external ear exam Mouth exam: PRESENT: neck supple Respiratory exam: PRESENT: clear to auscultation roscoe, unlabored. ABSENT: rales , rhonchi, wheezes Cardiovascular exam: PRESENT: RRR, systolic murmur Pulses: PRESENT: normal radial pulses GI/Abdominal exam: PRESENT: normal bowel sounds, soft. ABSENT: distended, firm , guarding, tenderness Rectal exam: PRESENT: deferred Gentrourinary exam: ABSENT: indwelling catheter Extremities exam: ABSENT: pedal edema Musculoskeletal exam: PRESENT: other - Patient has tenderness to palpation over the left distal foot. Does not recall if she has had trauma to the foot. Neurological exam: PRESENT: alert, awake, oriented to person, oriented to place , oriented to situation, CN II-XII grossly intact. ABSENT: aphasic Psychiatric exam: PRESENT: appropriate affect. ABSENT: anxious Skin exam: PRESENT: dry, intact, warm Results Laboratory Results: 04/22/18 04:37 04/22/18 04:37 04/21/18 04/22/18 04/22/18 19:51 04:37 04:37 WBC 10.3 RBC 4.80 Hgb 13.1 Hct 39.6 MCV 83 MCH 27.2 MCHC 33.0 RDW 15.5 H Plt Count 147 L Seg Neutrophils % Not Reportable Lymphocytes % Not Reportable Monocytes % Not Reportable Eosinophils % Not Reportable Basophils % Not Reportable Absolute Neutrophils Not Reportable Absolute Lymphocytes Not Reportable Absolute Monocytes Not Reportable Absolute Eosinophils Not Reportable Absolute Basophils Not Reportable Sodium 142.8 Potassium 4.0 D 3.4 L Chloride 100 Carbon Dioxide 30 Anion Gap 13 BUN 54 H Creatinine 2.07 H Est GFR ( Amer) 27 L Est GFR (Non-Af Amer) 23 L Glucose 105 Calcium 9.3 Magnesium 2.0 04/19/18 22:23 Clean Catch Midstream Urine Culture - Final Escherichia Coli 04/20/18 00:29 Troponin I 0.046 Impressions: Chest X-Ray 04/19/18 19:36 IMPRESSION: Cardiomegaly. No acute findings. Abdomen/Pelvis CT 04/19/18 20:09 IMPRESSION: No acute disease. Sigmoid diverticulosis without evidence for acute diverticulitis. Head CT 04/20/18 00:00 IMPRESSION: 1. There is no evidence of acute intracranial pathology. 2. 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 3. 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 These were not definitely identified on the prior study. These critical findings were discussed with the patient's nurse, Karen on 04/20/2018 at 6:00 AM central time Assessment & Plan - Diagnosis (1) Urinary tract infection Qualifiers: Urinary tract infection type: site unspecified Is this a current diagnosis for this admission?: Yes Plan: Patient is growing pansensitive E. coli in her urine, blood cultures negative to date. Continue ceftriaxone and can transition to oral on discharge. (2) Confusion Is this a current diagnosis for this admission?: Yes Plan: Confusion really resolved when we started treating for urinary tract infection. At this point no signs of a stroke. Patient has had a little bit of sundowning but that resolves by the time she wakes up in the morning. (3) Rectal bleeding Is this a current diagnosis for this admission?: Yes Plan: Possibly secondary to constipation and hemorrhoids. Patient did undergo colonoscopy and EGD. There were 2 biopsies taken and results are not yet returned, I have asked the patient's healthcare power of pulp mixer/niece to make sure that if she does not hear from the surgeon's office about biopsy results that she calls the office to get the results herself. (4) Abdominal pain Qualifiers: Abdominal location: generalized Qualified Code(s): R10.84 - Generalized abdominal pain Is this a current diagnosis for this admission?: Yes Plan: Resolved once constipation was resolved and UTI was treated. (5) Chronic kidney disease (CKD) Qualifiers: Chronic kidney disease stage: stage 4 (severe) Qualified Code(s): N18.4 - Chronic kidney disease, stage 4 (severe) Is this a current diagnosis for this admission?: Yes Plan: Stable chronic. Patient is scheduled for outpatient bilateral renal ultrasound. Family asked if we could do this while she is in the hospital and I spoke with the casey saw operator about this. As her hospitalization is not related to her renal disease we do not think that this will be covered by insurance as an inpatient and so we will continue this as an outpatient study. (6) DNR (do not resuscitate) discussion Is this a current diagnosis for this admission?: Yes (7) Nausea & vomiting Qualifiers: Vomiting type: unspecified Vomiting Intractability: non-intractable Qualified Code(s): R11.2 - Nausea with vomiting, unspecified Is this a current diagnosis for this admission?: Yes Plan: Resolved with resolution of constipation and treatment of UTI. (8) A-fib Qualifiers: Is this a current diagnosis for this admission?: Yes Plan: And is now on her diltiazem and metoprolol. Her rate is controlled. She is not on high coagulation secondary to a bleeding event some point in the past per her niece/healthcare power of pulp mixer. (9) Diastolic CHF Qualifiers: Heart failure chronicity: chronic Qualified Code(s): I50.32 - Chronic diastolic (congestive) heart failure Is this a current diagnosis for this admission?: Yes Plan: Stable, euvolemic, continue her home diuretic. - Time Time Spent with patient: 25-34 minutes Anticipated discharge: SNF - Inpatient Certification Based on my medical assessment, after consideration of the patient's comorbidities, presenting symptoms, or acuity I expect that the services needed warrant INPATIENT care.: Yes I certify that my determination is in accordance with my understanding of Medicare's requirements for reasonable and necessary INPATIENT services [42 CFR 412.3e].: Yes - Plan Summary Plan Summary: Patient is close to her baseline. We will ambulate her in the hallway, await blood culture results, hope for discharge in the morning if she is stable.
[2018-04-22] MEDS ORDERED: POTASSIUM CHLORIDE 10 MEQ CAPSULE.ER PO ONE (17:01)
[2018-04-22] MEDS: CEFTRIAXONE SODIUM 1,000 MG in DEXTROSE 5%-WATER 50 ML IV SCH (17:07)
--- NOTE | 2018-04-22 17:28 | RADIOLOGY REPORT (SQ) ---
EXAM DESCRIPTION: FOOT LEFT 2 VIEWS COMPLETED DATE/TIME: 04/22/2018 5:17 pm REASON FOR STUDY: foot pain COMPARISON: None. NUMBER OF VIEWS: Three views left foot. LIMITATIONS: No localizing clinical information available. FINDINGS: Osteopenic. Hallux valgus with bunion. No subluxation or dislocation. No acute displace d fracture appreciated. Minimal cortical thickening and irregularity along the proximal phalanges, 2 nd through 4th digits may reflect previous fractures. Pes planus. OTHER: No other significant finding. IMPRESSION: Pes planus, osteopenia, hallux valgus. No acute seen. TECHNICAL DOCUMENTATION: JOB ID: [id number] Reading location - IP/workstation name: [email or web address]
[2018-04-22] MEDS: MIRTAZAPINE 15 MG TABLET PO SCH (22:16)
[2018-04-22] MEDS: MELATONIN 5 MG TABLET PO SCH (22:19)
[2018-04-23] MEDS: ACETAMINOPHEN 325 MG TABLET PO PRN ×4 (01:10→17:57)
[2018-04-23] MEDS: LEVOTHYROXINE SODIUM 0.112 MG TABLET PO SCH (05:55)
[2018-04-23 06:02] LABS: ANION GAP 10 (5-19); BLOOD UREA NITROGEN 54 mg/dL (7-20); CALCIUM 8.9 mg/dL (8.4-10.2); CARBON DIOXIDE 31 mmol/L (22-30); CHLORIDE 99 mmol/L (98-107); GLUCOSE 121 mg/dL (75-110); POTASSIUM 3.8 mmol/L (3.6-5.0); SODIUM 139.6 mmol/L (137-145)
[2018-04-23] MEDS: FAMOTIDINE 20 MG TABLET PO SCH ×4 (08:49→21:19)
[2018-04-23] MEDS: SUCRALFATE SUSP 1 GM/10 ML UDCUP PO SCH ×4 (08:50→21:19)
[2018-04-23] MEDS: METOCLOPRAMIDE HCL 10 MG TABLET PO SCH ×4 (08:51→21:19)
[2018-04-23] MEDS: METOPROLOL SUCCINATE 50 MG TAB.SR.24H PO SCH (10:47)
[2018-04-23] MEDS: LORATADINE 10 MG TABLET PO SCH (10:48)
[2018-04-23] MEDS: MAGNESIUM OXIDE 400 MG TABLET PO SCH (10:48)
[2018-04-23] MEDS: DILTIAZEM HCL 120 MG CAP.SR.24H PO SCH (10:49)
[2018-04-23] MEDS: SENNOSIDES/DOCUSATE 8.6-50 MG 1 EACH TABLET PO SCH ×2 (10:49→18:05)
[2018-04-23] MEDS: TORSEMIDE 20 MG TABLET PO SCH ×2 (10:50→11:34)
--- NOTE | 2018-04-23 16:31 | PDOC PROGRESS REPORT ---
Subjective Progress Note for:: 04/23/18 Subjective:: Continues to feel better. Still with left foot pain, but this is chronic. Tylenol intermittently helps with the pain. Denies chest pain or shortness of breath, no fever or chills. Has been improvement in nausea and vomiting, no abdominal pain. Reason For Visit: ABDOMINAL PAIN WITH BRIGHT RED BLOOD IN STOOL. Physical Exam Vital Signs: Temp Pulse Resp BP Pulse Ox 98 F 93 16 122/70 96 04/23/18 12:00 04/23/18 12:00 04/23/18 12:00 04/23/18 12:00 04/23/18 12:00 Intake & Output 04/22/18 04/23/18 04/24/18 06:59 06:59 06:59 Intake Total 2650 50 Output Total 600 Balance 2049 50 Weight 78.8 kg 79.2 kg General appearance: PRESENT: no acute distress, cooperative, thin Head exam: PRESENT: atraumatic, normocephalic Eye exam: ABSENT: conjunctival injection, scleral icterus Ear exam: PRESENT: normal external ear exam Mouth exam: PRESENT: neck supple Respiratory exam: PRESENT: clear to auscultation roscoe, unlabored. ABSENT: rales , rhonchi, wheezes Cardiovascular exam: PRESENT: RRR, systolic murmur Pulses: PRESENT: normal radial pulses GI/Abdominal exam: PRESENT: normal bowel sounds, soft. ABSENT: distended, firm , guarding, tenderness Rectal exam: PRESENT: deferred Gentrourinary exam: ABSENT: indwelling catheter Extremities exam: ABSENT: pedal edema Musculoskeletal exam: PRESENT: other - Patient has tenderness to palpation over the left posterior foot. Neurological exam: PRESENT: alert, awake, oriented to person, oriented to place , oriented to situation, CN II-XII grossly intact. ABSENT: aphasic Psychiatric exam: PRESENT: appropriate affect. ABSENT: anxious Skin exam: PRESENT: dry, intact, warm Results Laboratory Results: 04/22/18 04:37 04/23/18 05:06 04/23/18 05:06 Sodium 139.6 Potassium 3.8 Chloride 99 Carbon Dioxide 31 H Anion Gap 10 BUN 54 H Creatinine 2.05 H Est GFR ( Amer) 28 L Est GFR (Non-Af Amer) 23 L Glucose 121 H Calcium 8.9 04/20/18 00:29 Troponin I 0.046 Impressions: Chest X-Ray 04/19/18 19:36 IMPRESSION: Cardiomegaly. No acute findings. Abdomen/Pelvis CT 04/19/18 20:09 IMPRESSION: No acute disease. Sigmoid diverticulosis without evidence for acute diverticulitis. Head CT 04/20/18 00:00 IMPRESSION: 1. There is no evidence of acute intracranial pathology. 2. 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 3. 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 These were not definitely identified on the prior study. These critical findings were discussed with the patient's nurse, Karen on 04/20/2018 at 6:00 AM central time Foot X-Ray 04/22/18 00:00 IMPRESSION: Pes planus, osteopenia, hallux valgus. No acute seen. Assessment & Plan - Diagnosis (1) Urinary tract infection Qualifiers: Urinary tract infection type: site unspecified Is this a current diagnosis for this admission?: Yes (2) Rectal bleeding Is this a current diagnosis for this admission?: Yes (3) Chronic kidney disease (CKD) Qualifiers: Chronic kidney disease stage: stage 4 (severe) Qualified Code(s): N18.4 - Chronic kidney disease, stage 4 (severe) Is this a current diagnosis for this admission?: Yes (4) Nausea & vomiting Qualifiers: Vomiting type: unspecified Vomiting Intractability: non-intractable Qualified Code(s): R11.2 - Nausea with vomiting, unspecified Is this a current diagnosis for this admission?: Yes (5) Left foot pain Is this a current diagnosis for this admission?: Yes - Plan Summary Plan Summary: Urine culture growing E. coli pansensitive. Wound transitioned to cefdinir orally from Rocephin. Continue Tylenol as needed for pain. X-ray of the foot reveal no acute process. H&H, Chem-7 stable. Follow-up result of biopsy/polyp follow-up colonoscopy. [facility] if patient stable.
[2018-04-23] MEDS: CEFTRIAXONE SODIUM 1,000 MG in DEXTROSE 5%-WATER 50 ML IV SCH (18:02)
[2018-04-23] MEDS: MIRTAZAPINE 15 MG TABLET PO SCH (21:19)
[2018-04-23] MEDS: MELATONIN 5 MG TABLET PO SCH (21:19)
[2018-04-24] MEDS: LEVOTHYROXINE SODIUM 0.112 MG TABLET PO SCH (05:36)
[2018-04-24] MEDS: ACETAMINOPHEN 325 MG TABLET PO PRN ×2 (05:38→19:51)
[2018-04-24] MEDS: METOCLOPRAMIDE HCL 10 MG TABLET PO SCH ×4 (08:05→21:36)
[2018-04-24] MEDS: SUCRALFATE SUSP 1 GM/10 ML UDCUP PO SCH ×4 (08:07→21:34)
[2018-04-24] MEDS: FAMOTIDINE 20 MG TABLET PO SCH ×4 (09:21→21:35)
[2018-04-24] MEDS: SENNOSIDES/DOCUSATE 8.6-50 MG 1 EACH TABLET PO SCH ×2 (09:22→17:32)
[2018-04-24] MEDS: METOPROLOL SUCCINATE 50 MG TAB.SR.24H PO SCH (09:22)
[2018-04-24] MEDS: MAGNESIUM OXIDE 400 MG TABLET PO SCH (09:22)
[2018-04-24] MEDS: TORSEMIDE 20 MG TABLET PO SCH (09:23)
[2018-04-24] MEDS: DILTIAZEM HCL 120 MG CAP.SR.24H PO SCH (09:23)
[2018-04-24] MEDS: LORATADINE 10 MG TABLET PO SCH (09:23)
--- NOTE | 2018-04-24 12:19 | PDOC TRANSFER SUMMARY ---
General - Admit/Disc Date/PCP Admission Date/Primary Care Provider: 04/19/18 21:51 CONSTANCE HOLM MD Discharge Date: 04/24/18 - Discharge Diagnosis (1) Urinary tract infection Is this a current diagnosis for this admission?: Yes (2) Rectal bleeding Is this a current diagnosis for this admission?: Yes (3) Chronic kidney disease (CKD) Is this a current diagnosis for this admission?: Yes (4) Nausea & vomiting Is this a current diagnosis for this admission?: Yes (5) Left foot pain Is this a current diagnosis for this admission?: Yes - Additional Information Resuscitation Status: Do Not Resuscitate Home Medications: Acetaminophen [Tylenol] 650 mg PO Q6HP PRN 06/22/17 Docusate Sodium [Colace] 100 mg PO DAILY 06/22/17 Famotidine [Pepcid 20 mg Tablet] 20 mg PO QHS 06/22/17 Ipratropium/Albuterol Sulfate [Duoneb 3 ml Ampul] 1 vial NEB RTQ6HP PRN Levothyroxine Sodium [Synthroid] 112 mcg PO DAILY 06/22/17 Loratadine [Claritin 10 mg Tablet] 10 mg PO DAILY 06/22/17 Magnesium Oxide [Mag-Ox 400 mg Tablet] 400 mg PO DAILY 06/22/17 Melatonin 5 mg PO QHS 06/22/17 Metoprolol Succinate [Toprol XL 100 mg Tablet] 150 mg PO DAILY 06/22/17 Mirtazapine [Remeron] 7.5 mg PO QHS 06/22/17 Omeprazole Magnesium [Prilosec Otc] 20 mg PO DAILY 06/22/17 Furosemide [Lasix 80 mg Tablet] 80 mg PO Q12 tablet 06/25/17 Diltiazem HCl [Cardizem Cd 120 mg Capsule] 1 cap.sr PO DAILY 04/20/18 Ferrous Sulfate [Feosol] 325 mg PO DAILY 04/20/18 Polyethylene Glycol 3350 [Miralax Powder 17 gm/Packet] 1 packet PO DAILY History of Present Illness Admission Date/PCP: 04/19/18 21:51 CONSTANCE HOLM MD History of Present Illness: MARTY GAGE is a 87 year old female who presented into the ED with 1 day crampy abdominal pain, nausea and vomiting. They also noted blood with bowel movement. Patient was constipated. Evaluation in the ED significant for hemoglobin 14.4. Patient was also noted to have UTI. Hospital Course Hospital Course: Patient was admitted to hospitalist service and managed as follows: (1) Urinary tract infection Qualifiers: Urinary tract infection type: site unspecified Is this a current diagnosis for this admission?: Yes Plan: Patient is grew pansensitive E. coli in her urine, blood cultures negative to date. Has received 5-6 days of IV ceftriaxone, will d/c antibiotics. (2) Confusion Is this a current diagnosis for this admission?: Yes Plan: Confusion has resolved when we started treating for urinary tract infection. At this point no signs of a stroke. Patient has a little bit of sundowning sometimes but that resolves by the time she wakes up in the morning. (3) Rectal bleeding Is this a current diagnosis for this admission?: Yes Plan: Possibly secondary to constipation and hemorrhoids. Patient was seen by Drs. Castañeda of surgery and Dr. Ovalle of surgery conducted a colonoscopy and EGD. There were 2 biopsies taken and results are not yet returned. Patient's healthcare power of foundation drill operator/niece was asked to make sure to call the surgeon's office if she does not hear from from them about biopsy results. skilled nursing MD to also please follow-up result. (4) Abdominal pain Qualifiers: Abdominal location: generalized Qualified Code(s): R10.84 - Generalized abdominal pain Is this a current diagnosis for this admission?: Yes Plan: Resolved once constipation was resolved and UTI was treated. (5) Chronic kidney disease (CKD) Qualifiers: Chronic kidney disease stage: stage 4 (severe) Qualified Code(s): N18.4 - Chronic kidney disease, stage 4 (severe) Is this a current diagnosis for this admission?: Yes Plan: Stable chronic. Patient is scheduled for outpatient bilateral renal ultrasound. (6) DNR (do not resuscitate) discussion Is this a current diagnosis for this admission?: Yes (7) Nausea & vomiting Qualifiers: Vomiting type: unspecified Vomiting Intractability: non-intractable Qualified Code(s): R11.2 - Nausea with vomiting, unspecified Is this a current diagnosis for this admission?: Yes Plan: Resolved with resolution of constipation and treatment of UTI. (8) A-fib Qualifiers: Is this a current diagnosis for this admission?: Yes Plan: Pt is now on her diltiazem and metoprolol. Her rate is controlled. She is not on anticoagulation secondary to a bleeding event at some point in the past per her niece/healthcare power of foundation drill operator. (9) Diastolic CHF Qualifiers: Heart failure chronicity: chronic Qualified Code(s): I50.32 - Chronic diastolic (congestive) heart failure Is this a current diagnosis for this admission?: Yes Plan: Stable, euvolemic, continue her home diuretic. (10) Left foot pain Is this a current diagnosis for this admission?: Yes Patient complained of pain left. This was chronic, on and off. X-ray revealed some chronic changes, but no acute fracture. Patient treated with Tylenol which helps. Consider orthopedics or podiatry follow-up if if continued problems. Physical Exam Vital Signs: Temp Pulse Resp BP Pulse Ox 98.4 F 97 20 124/62 99 04/24/18 08:00 04/24/18 08:00 04/24/18 08:00 04/24/18 08:00 04/24/18 08:00 Intake & Output 04/23/18 04/24/18 04/25/18 06:59 06:59 06:59 Intake Total 50 646 Balance 50 646 Weight 79.2 kg 79.2 kg General appearance: PRESENT: no acute distress, cooperative, thin Head exam: PRESENT: atraumatic, normocephalic Eye exam: ABSENT: conjunctival injection, scleral icterus Ear exam: PRESENT: normal external ear exam Mouth exam: PRESENT: neck supple Respiratory exam: PRESENT: clear to auscultation roscoe, unlabored. ABSENT: rales , rhonchi, wheezes Cardiovascular exam: PRESENT: RRR, systolic murmur Pulses: PRESENT: normal radial pulses GI/Abdominal exam: PRESENT: normal bowel sounds, soft. ABSENT: distended, firm , guarding, tenderness Rectal exam: PRESENT: deferred Gentrourinary exam: ABSENT: indwelling catheter Extremities exam: ABSENT: pedal edema Musculoskeletal exam: PRESENT: other - Patient has tenderness to palpation over the left posterior foot. Neurological exam: PRESENT: alert, awake, oriented to person, oriented to place , oriented to situation, CN II-XII grossly intact. ABSENT: aphasic Psychiatric exam: PRESENT: appropriate affect. ABSENT: anxious Skin exam: PRESENT: dry, intact, warm Results Laboratory Results: 04/22/18 04:37 04/23/18 05:06 04/20/18 00:29 Troponin I 0.046 Impressions: Chest X-Ray 04/19/18 19:36 IMPRESSION: Cardiomegaly. No acute findings. Abdomen/Pelvis CT 04/19/18 20:09 IMPRESSION: No acute disease. Sigmoid diverticulosis without evidence for acute diverticulitis. Head CT 04/20/18 00:00 IMPRESSION: 1. There is no evidence of acute intracranial pathology. 2. 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 3. 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 These were not definitely identified on the prior study. These critical findings were discussed with the patient's nurse, Karen on 04/20/2018 at 6:00 AM central time Foot X-Ray 04/22/18 00:00 IMPRESSION: Pes planus, osteopenia, hallux valgus. No acute seen. Transfer Plan - Time Spent with Patient Time spent with patient: Greater than 30 Minutes Qualifiers - * PATIENT BEING DISCHARGED WITH ANY OF THE FOLLOWING DIAGNOSIS: No
[2018-04-24] MEDS: CEFTRIAXONE SODIUM 1,000 MG in DEXTROSE 5%-WATER 50 ML IV SCH (17:32)
--- NOTE | 2018-04-24 19:04 | RADIOLOGY REPORT (SQ) ---
EXAM DESCRIPTION: CHEST 2 VIEWS COMPLETED DATE/TIME: 04/24/2018 6:40 pm REASON FOR STUDY: SOB COMPARISON: 04/19/2018. NUMBER OF VIEWS: Two view. TECHNIQUE: Frontal and lateral radiographic views of the chest acquired. LIMITATIONS: None. FINDINGS: LUNGS AND PLEURA: No opacities, masses or pneumothorax. No pleural effusion. MEDIASTINUM AND HILAR STRUCTURES: No masses. No contour abnormalities. HEART AND VASCULAR STRUCTURES: Heart enlarged without failure. Aorta normal for age. BONES: No acute findings. HARDWARE: Pacemaker. OTHER: No other significant finding. IMPRESSION: CARDIAC ENLARGEMENT WITHOUT FAILURE. TECHNICAL DOCUMENTATION: JOB ID: [id number] All Rights Reserved Reading location - IP/workstation name: [email or web address]
--- NOTE | 2018-04-24 20:12 | Progress Note ---
Provider Note Provider Note: Patient was discharged and had to go to half-way. When ambulatory arrived patient manan stated that she did not look good, that she was short of breath and weak. Patient reported feeling weak and short of breath, stating she did not feel ready to be discharged today. Exam revealed clear lungs, irregularly irregular heart but patient with chronic A. fib. Discharge held, and chest x- ray ordered. PT/OT evaluation. Possible discharge home in a.m. if feeling better. Patient is a long-term half-way, but may need temporary rehab likely secondary to debility from current hospitalization. Also follow CBC and Chem-7 in a.m.
[2018-04-24] MEDS: MELATONIN 5 MG TABLET PO SCH (21:35)
[2018-04-24] MEDS: MIRTAZAPINE 15 MG TABLET PO SCH (21:36)
[2018-04-25] MEDS: LEVOTHYROXINE SODIUM 0.112 MG TABLET PO SCH (05:21)
[2018-04-25 05:55] LABS: HEMATOCRIT 39.9 % (36.0-47.0); HEMOGLOBIN 13.2 g/dL (12.0-15.5); MEAN CORPUSCULAR HEMOGLOBIN 27.2 pg (27.0-33.4); MEAN CORPUSCULAR VOLUME 83 fl (80-97); PLATELET COUNT 173 10^3/uL (150-450); RED BLOOD COUNT 4.84 10^6/uL (3.72-5.28); RED CELL DISTRIBUTION WIDTH 15.3 % (11.5-14.0); WHITE BLOOD COUNT 10.2 10^3/uL (4.0-10.5)
[2018-04-25 06:16] LABS: ANION GAP 11 (5-19); BLOOD UREA NITROGEN 57 mg/dL (7-20); CALCIUM 8.9 mg/dL (8.4-10.2); CARBON DIOXIDE 30 mmol/L (22-30); CHLORIDE 97 mmol/L (98-107); GLUCOSE 122 mg/dL (75-110); POTASSIUM 3.8 mmol/L (3.6-5.0); SODIUM 138.4 mmol/L (137-145)
[2018-04-25 06:27] LABS: ABSOLUTE LYMPHOCYTES# (MANUAL) 2.4 10^3/uL (0.5-4.7); ABSOLUTE MONOCYTES # (MANUAL) 1.7 10^3/uL (0.1-1.4); BAND NEUTROPHILS % (MANUAL) 9 % (3-5); BASOPHILS % (MANUAL) 0 % (0-2); EOSINOPHILS % (MANUAL) 0 % (0-6); LYMPHOCYTES % (MANUAL) 21 % (13-45); METAMYELOCYTES % (MANUAL) 1 % (0); MONOCYTES % (MANUAL) 17 % (3-13); SEGMENTED NEUTROPHILS % (MAN) 49 % (42-78); TOTAL CELLS COUNTED 100
[2018-04-25 06:28] LABS: ANISOCYTOSIS 1+; OVALOCYTES SLIGHT; PLATELET COMMENT ADEQUATE; POIKILOCYTOSIS SLIGHT
[2018-04-25] MEDS: SUCRALFATE SUSP 1 GM/10 ML UDCUP PO SCH ×4 (07:49→22:24)
[2018-04-25] MEDS: METOCLOPRAMIDE HCL 10 MG TABLET PO SCH ×4 (07:49→22:24)
[2018-04-25] MEDS: FAMOTIDINE 20 MG TABLET PO SCH ×4 (07:49→22:00)
[2018-04-25] MEDS: ACETAMINOPHEN 325 MG TABLET PO PRN (08:12)
[2018-04-25] MEDS: LORATADINE 10 MG TABLET PO SCH (10:58)
[2018-04-25] MEDS: SENNOSIDES/DOCUSATE 8.6-50 MG 1 EACH TABLET PO SCH ×2 (10:58→18:32)
[2018-04-25] MEDS: DILTIAZEM HCL 120 MG CAP.SR.24H PO SCH (10:59)
[2018-04-25] MEDS: MAGNESIUM OXIDE 400 MG TABLET PO SCH (10:59)
[2018-04-25] MEDS: METOPROLOL SUCCINATE 50 MG TAB.SR.24H PO SCH (10:59)
[2018-04-25] MEDS: TORSEMIDE 20 MG TABLET PO SCH (11:00)
[2018-04-25] MEDS: MEGESTROL ACETATE SUSP 400 MG/10 ML UDCUP PO SCH (13:30)
--- NOTE | 2018-04-25 18:59 | PDOC PROGRESS REPORT ---
Subjective Progress Note for:: 04/25/18 Subjective:: This is 87 years old black female patient transferred from senior living for bleeding per rectum and abdominal pain. Currently patient is stable and no more rectal bleeding. Her H&H is stable. Yesterday patient was about to be discharged but she became weak so the discharge is on hold. This morning I seen patient resting in bed she is awake alert and she is not in pain or distress. Physical therapy recommended placement to correction facility. Reason For Visit: ABDOMINAL PAIN WITH BRIGHT RED BLOOD IN STOOL. Physical Exam Vital Signs: Temp Pulse Resp BP Pulse Ox 99.0 F 101 H 19 124/48 L 95 04/25/18 16:31 04/25/18 16:31 04/25/18 16:31 04/25/18 16:31 04/25/18 16:31 Intake & Output 04/24/18 04/25/18 04/26/18 06:59 06:59 06:59 Intake Total 646 887 300 Balance 646 887 300 Weight 79.2 kg 79.2 kg General appearance: PRESENT: no acute distress Neck exam: ABSENT: carotid bruit, JVD, lymphadenopathy, thyromegaly Respiratory exam: PRESENT: clear to auscultation roscoe. ABSENT: rales, rhonchi, wheezes Cardiovascular exam: PRESENT: irregular rhythm GI/Abdominal exam: PRESENT: normal bowel sounds, soft. ABSENT: distended, guarding, mass, organolmegaly, rebound, tenderness Results Laboratory Results: 04/25/18 05:18 04/25/18 05:18 04/25/18 04/25/18 05:18 05:18 WBC 10.2 RBC 4.84 Hgb 13.2 Hct 39.9 MCV 83 MCH 27.2 MCHC 33.0 RDW 15.3 H Plt Count 173 Seg Neutrophils % Not Reportable Lymphocytes % Not Reportable Monocytes % Not Reportable Eosinophils % Not Reportable Basophils % Not Reportable Absolute Neutrophils Not Reportable Absolute Lymphocytes Not Reportable Absolute Monocytes Not Reportable Absolute Eosinophils Not Reportable Absolute Basophils Not Reportable Sodium 138.4 Potassium 3.8 Chloride 97 L Carbon Dioxide 30 Anion Gap 11 BUN 57 H Creatinine 1.96 H Est GFR ( Amer) 29 L Est GFR (Non-Af Amer) 24 L Glucose 122 H Calcium 8.9 04/20/18 00:29 Troponin I 0.046 Impressions: Abdomen/Pelvis CT 04/19/18 20:09 IMPRESSION: No acute disease. Sigmoid diverticulosis without evidence for acute diverticulitis. Head CT 04/20/18 00:00 IMPRESSION: 1. There is no evidence of acute intracranial pathology. 2. 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 3. 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 These were not definitely identified on the prior study. These critical findings were discussed with the patient's nurse, Karen on 04/20/2018 at 6:00 AM central time Foot X-Ray 04/22/18 00:00 IMPRESSION: Pes planus, osteopenia, hallux valgus. No acute seen. Chest X-Ray 04/24/18 00:00 IMPRESSION: CARDIAC ENLARGEMENT WITHOUT FAILURE. Assessment & Plan - Diagnosis (1) Abdominal pain Qualifiers: Abdominal location: generalized Qualified Code(s): R10.84 - Generalized abdominal pain Is this a current diagnosis for this admission?: Yes Plan: Has resolved (2) Chronic kidney disease (CKD) Qualifiers: Chronic kidney disease stage: stage 4 (severe) Qualified Code(s): N18.4 - Chronic kidney disease, stage 4 (severe) Is this a current diagnosis for this admission?: Yes Plan: Avoid nephrotoxic agents. (3) Rectal bleeding Is this a current diagnosis for this admission?: Yes Plan: Has resolved (4) Debility and deconditioning Is this a current diagnosis for this admission?: Yes Plan: Patient qualifies for correction facility placement per physical therapist (5) Chronic diastolic (congestive) heart failure Is this a current diagnosis for this admission?: Yes Plan: Compensated
[2018-04-25] MEDS: MELATONIN 5 MG TABLET PO SCH (22:20)
[2018-04-25] MEDS: MIRTAZAPINE 15 MG TABLET PO SCH (22:21)
[2018-04-25] MEDS: CEFTRIAXONE SODIUM 1,000 MG in DEXTROSE 5%-WATER 50 ML IV SCH (22:23)
[2018-04-26] MEDS: LEVOTHYROXINE SODIUM 0.112 MG TABLET PO SCH (06:47)
--- NOTE | 2018-04-26 08:28 | Progress Note ---
Provider Note Provider Note: This is brief addendum to discharge summary dictated by Dr. Redd. The patient was supposed to be discharged the day before yesterday by the discharge consult because the niece complains that patient is weak and is not a good look. Yesterday and today and patient looks much better most probably patient was weak because she was given Benadryl 50 mg on top of the Remeron that she has been getting. Initially patient was admitted for rectal bleeding after she passed large bowel movement. No rectal bleeding since admission. And her hemoglobin maintained at 13.2 to 15.1. Patient was evaluated by physical therapist who recommended rehab to [facility]. I will continue all her home medication except melatonin and Remeron as requested by her niece.
[2018-04-26] MEDS: DILTIAZEM HCL 120 MG CAP.SR.24H PO SCH (09:59)
[2018-04-26] MEDS: MEGESTROL ACETATE SUSP 400 MG/10 ML UDCUP PO SCH (09:59)
[2018-04-26] MEDS: LORATADINE 10 MG TABLET PO SCH (09:59)
[2018-04-26] MEDS: SUCRALFATE SUSP 1 GM/10 ML UDCUP PO SCH ×2 (09:59→14:43)
[2018-04-26] MEDS: TORSEMIDE 20 MG TABLET PO SCH (10:00)
[2018-04-26] MEDS: METOCLOPRAMIDE HCL 10 MG TABLET PO SCH ×2 (10:00→14:43)
[2018-04-26] MEDS: SENNOSIDES/DOCUSATE 8.6-50 MG 1 EACH TABLET PO SCH (10:00)
[2018-04-26] MEDS: FAMOTIDINE 20 MG TABLET PO SCH ×2 (10:00→14:44)
[2018-04-26] MEDS: METOPROLOL SUCCINATE 50 MG TAB.SR.24H PO SCH (10:00)
[2018-04-26] MEDS: MAGNESIUM OXIDE 400 MG TABLET PO SCH (10:00)
[2018-04-26] MEDS: ACETAMINOPHEN 325 MG TABLET PO PRN (10:40)
[2018-04-26 13:49] VITALS: BP 125/66
== END 2018-04-26 15:20 | DRG 378 ==
LOC: ER 19:11 → EH 21:51 → 4N 23:42
PROVIDERS: ADMIT Emergency Medicine; ATTEND Emergency Medicine
PROC: 0DJ08ZZ Inspection of Upper Intestinal Tract, Via Natural or Artificial Opening Endoscopic (ICD-10-PCS; 2018-04-21)
PROC: 0DBC8ZX Excision of Ileocecal Valve, Via Natural or Artificial Opening Endoscopic, Diagnostic (ICD-10-PCS; principal; 2018-04-21 13:00)
PROC: 0DBM8ZX Excision of Descending Colon, Via Natural or Artificial Opening Endoscopic, Diagnostic (ICD-10-PCS; 2018-04-21 13:00)
DX: K92.1 Melena (principal); N39.0 Urinary tract infection, site not specified; N18.4 Chronic kidney disease, stage 4 (severe); I50.32 Chronic diastolic (congestive) heart failure; I13.0 Hypertensive heart and chronic kidney disease with heart failure and stage 1 through stage 4 chronic kidney disease, or unspecified chronic kidney disease; I48.2 Chronic atrial fibrillation; Z66 Do not resuscitate; M79.672 Pain in left foot; K59.00 Constipation, unspecified; B96.20 Unspecified Escherichia coli [E. coli] as the cause of diseases classified elsewhere; K64.9 Unspecified hemorrhoids; R11.2 Nausea with vomiting, unspecified; R10.84 Generalized abdominal pain; K57.30 Diverticulosis of large intestine without perforation or abscess without bleeding; E78.00 Pure hypercholesterolemia, unspecified; E03.9 Hypothyroidism, unspecified; I35.0 Nonrheumatic aortic (valve) stenosis; F03.90 Unspecified dementia, unspecified severity, without behavioral disturbance, psychotic disturbance, mood disturbance, and anxiety; K44.9 Diaphragmatic hernia without obstruction or gangrene; K63.5 Polyp of colon; K63.9 Disease of intestine, unspecified; Z79.899 Other long term (current) drug therapy; Z90.710 Acquired absence of both cervix and uterus; Z95.0 Presence of cardiac pacemaker; Z98.49 Cataract extraction status, unspecified eye; Z82.49 Family history of ischemic heart disease and other diseases of the circulatory system
CPT/HCPCS: 36415; 43235; 45380; 70450; 71045; 71046; 74176; 80048; 80053; 81001; 82272; 82550; 82553; 82962; 83690; 83735; 84132; 84439; 84443; 84481; 84484; 85025; 85610; 86850; 86900; 86901; 87040; 87086; 87088; 87186; 88305; 93005; 93010; 96374; 96375; 99285; G8978-GP; G8979-GP; J0171; J0696; J1200; J1610; J2250; J2270; J2310; J2405; J3010; J3480; J3490; J7040; J7120

== ENCOUNTER 2018-08-13 14:33 | Inpatient (IN) | payer MEDICARE, MEDICAID ==
[2018-08-13 15:09] LABS: INTERNATIONAL RATION (INR) 1.26; PARTIAL THROMBOPLASTIN TIME 33.8 SEC (23.5-35.8); PROTHROMBIN TIME 16.4 SEC (11.4-15.4)
[2018-08-13 15:30] LABS: AMORPHOUS SEDIMENT,URINE TRACE /HPF; APPEARANCE,URINE SLIGHTLY-CLOUDY; BILIRUBIN,URINE NEGATIVE (NEGATIVE); GLUCOSE, URINE NEGATIVE (NEGATIVE); KETONES,URINE NEGATIVE (NEGATIVE); LEUKOCYTE ESTERASE,URINE LARGE (NEGATIVE); NITRITE,URINE NEGATIVE (NEGATIVE); PROTEIN,URINE NEGATIVE (NEGATIVE); URINE SPECIFIC GRAVITY 1.018; UROBILINOGEN,URINE NEGATIVE mg/dL (<2.0)
[2018-08-13 15:31] LABS: COLOR,URINE YELLOW
--- NOTE | 2018-08-13 15:53 | RADIOLOGY REPORT (SQ) ---
EXAM DESCRIPTION: CHEST SINGLE VIEW COMPLETED DATE/TIME: 08/13/2018 3:42 pm REASON FOR STUDY: AMS COMPARISON: 04/24/2018 NUMBER OF VIEWS: One view. TECHNIQUE: Single frontal radiographic image of the chest acquired. LIMITATIONS: Positioning. FINDINGS: LUNGS AND PLEURA: Small pleural effusions bilaterally. MEDIASTINUM AND HEART: Marked enlargement of the cardiac silhouette could be cardiomegaly or pericard ial effusion. SUPPORT DEVICES: Unchanged position of pacemaker. BONY STRUCTURES: No acute findings. HARDWARE: None. OTHER: No other significant finding. IMPRESSION: Cardiomegaly and pleural effusions. Cannot exclude pericardial effusion. Reading location - IP/workstation name: [email or web address]
[2018-08-13 16:16] LABS: HEMATOCRIT 40.3 % (36.0-47.0); HEMOGLOBIN 12.8 g/dL (12.0-15.5); MEAN CORPUSCULAR HEMOGLOBIN 29.5 pg (27.0-33.4); MEAN CORPUSCULAR HGB CONC 31.6 g/dL (32.0-36.0); PLATELET COUNT 223 10^3/uL (150-450); RED BLOOD COUNT 4.33 10^6/uL (3.72-5.28); RED CELL DISTRIBUTION WIDTH 20.9 % (11.5-14.0); WHITE BLOOD COUNT 7.1 10^3/uL (4.0-10.5)
[2018-08-13 16:19] LABS: MEAN CORPUSCULAR VOLUME 93 fl (80-97)
[2018-08-13 16:34] LABS: ABSOLUTE LYMPHOCYTES# (MANUAL) 2.4 10^3/uL (0.5-4.7); ABSOLUTE MONOCYTES # (MANUAL) 0.5 10^3/uL (0.1-1.4); ABSOLUTE NEUTROPHILS# (MANUAL) 4.2 10^3/uL (1.7-8.2); BASOPHILS % (MANUAL) 0 % (0-2); EOSINOPHILS % (MANUAL) 0 % (0-6); LYMPHOCYTES % (MANUAL) 34 % (13-45); MONOCYTES % (MANUAL) 7 % (3-13); NUCLEATED RED BLOOD CELLS 4 /100 WBC (0); SEGMENTED NEUTROPHILS % (MAN) 59 % (42-78); TOTAL CELLS COUNTED 100
[2018-08-13 16:37] LABS: ALANINE AMINOTRANSFERASE 31 U/L (9-52); ALBUMIN 3.5 g/dL (3.5-5.0); ALKALINE PHOSPHATASE 105 U/L (38-126); ANION GAP 11 (5-19); ASPARTATE AMINO TRANSFERASE 35 U/L (14-36); BILIRUBIN,DIRECT 0.6 mg/dL (0.0-0.4); BILIRUBIN,TOTAL 0.7 mg/dL (0.2-1.3); BLOOD UREA NITROGEN 83 mg/dL (7-20); CALCIUM 8.8 mg/dL (8.4-10.2); CARBON DIOXIDE 23 mmol/L (22-30); CHLORIDE 108 mmol/L (98-107); CREATINE KINASE 42 U/L (30-135); GLUCOSE 100 mg/dL (75-110); POTASSIUM 5.9 mmol/L (3.6-5.0); SODIUM 141.7 mmol/L (137-145); TOTAL PROTEIN 6.7 g/dL (6.3-8.2)
[2018-08-13 16:37] LABS: ANISOCYTOSIS 2+; BURR CELLS SLIGHT; OVALOCYTES 2+; POIKILOCYTOSIS 2+; POLYCHROMASIA SLIGHT
[2018-08-13 16:38] LABS: PLATELET CLUMPS PRESENT; PLATELET COMMENT ADEQUATE
[2018-08-13 16:48] LABS: CREATINE KINASE MB 1.81 ng/mL (<4.55)
[2018-08-13 16:52] LABS: TROPONIN I 0.044 ng/mL
[2018-08-13] MEDS ORDERED: NORMAL SALINE 500 ML IV ONE (17:06)
[2018-08-13 17:29] LABS: VENOUS BLOOD BASE EXCESS -5.7 mmol/L; VENOUS BLOOD HCO3 23.3 mmol/L (20-32); VENOUS BLOOD PCO2 61.6 mmHg (35-63); VENOUS BLOOD PH 7.2 (7.30-7.42)
[2018-08-13] MEDS ORDERED: PATIROMER 8.4 GM SUSP PACKET PO SCH (19:30)
[2018-08-13] MEDS ORDERED: PATIROMER 8.4 GM SUSP PACKET PO ONE (20:00)
--- NOTE | 2018-08-13 20:31 | RADIOLOGY REPORT (SQ) ---
EXAM DESCRIPTION: RadLex: CT HEAD WITHOUT IV CONTRAST CLINICAL HISTORY: 87 years Female; confusion, headache TECHNIQUE: Noncontrast CT head. All CT scans at this facility use dose modulation, iterative reconstruction, and/or weight based dosing when appropriate to reduce radiation dose to as low as reasonably achievable. COMPARISON: CT 04/20/2018 FINDINGS: No acute hemorrhage or mass effect. Posterior inferior left temporal lobe encephalomalacia is again noted, consistent with old infarct. No acute cortical edema. Hypodense chronic ischemic changes are also noted in the frontal white matter bilaterally. Ventricles and cisterns are preserved. Visualized portions of paranasal sinuses and mastoids are clear. Visualized portions of the calvarium are within normal limits. IMPRESSION: 1. No acute intracranial findings. 2. 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
--- NOTE | 2018-08-13 20:43 | RADIOLOGY REPORT (SQ) ---
EXAM DESCRIPTION: CT ABDOMEN PELVIS WITHOUT IV CONTRAST COMPLETED DATE/TME: 08/13/2018 17:07 CLINICAL HISTORY: vomiting, abd pain COMPARISON: April 19, 2018 TECHNIQUE: Contiguous axial images of the abdomen and pelvis were obtained followed by reconstruction images. This exam was performed according to our departmental dose-optimization program, which includes automated exposure control, adjustment of the mA and/or kV according to patient size and/or use of iterative reconstruction technique. FINDINGS: There is cardiomegaly. There are pacer leads within the heart. There are bilateral small pleural fluid collections. Increased opacity within the dependent portion of the lungs may representing atelectasis. There is free fluid in the abdomen and pelvis. Stranding of the subcutaneous fat compatible with anasarca. There is residual contrast material within the colon. Kidneys are small in size. Calcifications within the pelvis compatible with phleboliths. Patient is status post hysterectomy.. Low-attenuation mass within the right adrenal gland compatible with adrenal adenoma. The liver, spleen, pancreas and kidneys are otherwise within normal limits. There is no hydronephrosis or renal stones. The gallbladder is unremarkable by CT criteria. Aorta is of normal caliber and tapering. There is no bowel obstruction. The appendix is within normal limits. There is no pericecal inflammation. IMPRESSION: Anasarca, ascites and bilateral pleural fluid collections could be secondary to cardiac decompensation versus renal disease. New finding when compared with the prior exam. Cardiomegaly. Atrophic kidneys, left greater than right.
--- NOTE | 2018-08-13 21:18 | EKG REPORT ---
SEVERITY:- ABNORMAL ECG - ATRIAL FIBRILLATION BORDERLINE RIGHT AXIS DEVIATION ABNORMAL T, CONSIDER ISCHEMIA, INFERIOR LEADS : Confirmed by: Maxwell Hamilton MD 13-Aug-2018 21:18:15
[2018-08-13] MEDS ORDERED: ONDANSETRON HCL INJ/PF 4 MG/2 ML SDV IV PRN (21:58)
[2018-08-13] MEDS ORDERED: ZOLPIDEM TARTRATE 5 MG TABLET PO PRN (21:58)
[2018-08-13] MEDS ORDERED: ACETAMINOPHEN 650 MG SUPP.RECT PR PRN (21:58)
[2018-08-13] MEDS ORDERED: MAG HYDROX/AL HYDROX/SIMETH SUSP 30 ML UDCUP PO PRN (21:58)
[2018-08-13] MEDS ORDERED: MAGNESIUM HYDROXIDE SUSP 30 ML UDCUP PO PRN (21:58)
[2018-08-13] MEDS ORDERED: IPRATROPIUM/ALBUTEROL 0.5-2.5 MG/3 ML AMPUL NEB PRN (22:11)
--- NOTE | 2018-08-13 22:22 | ER Document Report ---
Entered by FANTASMA WEEMS SCRIBE 08/13/18 1602 Acting as scribe for:NANCY CRANDALL DO ED General - General Chief Complaint: Altered Mental Status Stated Complaint: ALTERED MENTAL STATE Time Seen by Provider: 08/13/18 14:51 Mode of Arrival: Ambulatory Information source: Patient Notes: 87 year old female that presents to the emergency department today with complaints of nausea and vomiting. Family reports that the patient was given a norco yesterday and when they visited her yesterday afternoon she was very lethargic. Family reports this frequently happens with her when she takes norco so they requested that she not be given anymore. Family reports the patient was still lethargic today despite not having anymore norco. Patient denies any pain. TRAVEL OUTSIDE OF THE [place] IN LAST 30 DAYS: No - Related Data Allergies/Adverse Reactions: No Known Allergies Allergy (Verified 06/22/17 16:44) Past Medical History - General Information source: Patient, [facility] Records - Social History Smoking Status: Never Smoker Cigarette use (# per day): No Frequency of alcohol use: None Drug Abuse: None Family History: Hypertension, Other - Heart disease Patient has suicidal ideation: No Patient has homicidal ideation: No - Past Medical History Cardiac Medical History: Reports: Hx Atrial Fibrillation, Hx Congestive Heart Failure, Hx Hypercholesterolemia, Hx Hypertension, Hx Heart Murmur - Aortic stenosis Endocrine Medical History: Reports: Hx Hypothyroidism GI Medical History: Reports: Hx Gastroesophageal Reflux Disease Psychiatric Medical History: Reports: Hx Dementia Past Surgical History: Reports: Hx Pacemaker, Other - Cataract surgery and lipoma excisions - Immunizations Hx Diphtheria, Pertussis, Tetanus Vaccination: Yes Hx Pneumococcal Vaccination: 05/09/13 Review of Systems - Review of Systems Constitutional: No symptoms reported EENT: No symptoms reported Cardiovascular: No symptoms reported Respiratory: No symptoms reported Gastrointestinal: See HPI, Nausea, Vomiting Genitourinary: No symptoms reported Female Genitourinary: No symptoms reported Musculoskeletal: No symptoms reported Skin: No symptoms reported Hematologic/Lymphatic: No symptoms reported Neurological/Psychological: No symptoms reported -: Yes All other systems reviewed and negative Physical Exam - Vital signs Vitals: Resp BP Pulse Ox 25 H 168/74 H 94 08/13/18 15:01 08/13/18 15:01 08/13/18 15:01 - Notes Notes: PHYSICAL EXAM GENERAL: Alert, interacts well. No acute distress. Overweight HEAD: Normocephalic, atraumatic. EYES: Pupils equal, round, and reactive to light. Extraocular movements intact. ENT: Oral mucosa moist, tongue midline. NECK: Full range of motion. Supple. Trachea midline. LUNGS: Expiratory rhonchi in the right lower lobe with crackles at the bases bilaterally. No respiratory distress. HEART: Regular rate and rhythm. No gallops or rubs. 3/6 systolic ejection murmur best heard at the right upper sternal border. ABDOMEN: Soft, mild generalized abdominal tenderness with palpation. Non- distended. Bowel sounds present in all 4 quadrants. No guarding, rigidity, or rebound. EXTREMITIES: Moves all 4 extremities spontaneously. Pitting edema to bilateral lower extremities, edema extends up to the level of the knee on the right and up to about 1/2 up the adler on the left, radial and dorsalis pedis pulses 2/4 bilaterally. No cyanosis. NEUROLOGICAL: Alert and oriented x3. Normal speech. Right sided facial droop that corrects with smile. PSYCH: Normal affect, normal mood. SKIN: Warm, dry. No rashes or lesions noted. Course - Re-evaluation Re-evalutation: 08/14/18 11:58 CBC unremarkable, no anemia, no INR slightly prolonged at 1.26, chemistries show elevated potassium at 5.9, acute renal failure with a BUN of 83 and a creatinine of 3.81, this is significantly higher than it was 2 weeks ago on July 28, lactic acid is normal is indeterminate, proBNP is markedly elevated at 42,500, urinalysis shows large leukocyte esterase but only trace bacteria and [address] scan of the head does not reveal any acute process, chest x-ray reveals pleural effusions and CT scan of the abdomen pelvis reveals ascites and anasarca as well as pleural effusion. Patient appears to be in acute on chronic renal failure and also congestive heart failure. Patient had initially been given a small amount of fluid when we identified the renal failure however when we identified the congestive heart failure patient was also given Lasix. Patient was discussed with Dr. Dillard the hospitalist for admission and he agreed to accept the patient to his service in the [facility]. Patient was also hypoxic and required 4 L via nasal cannula room the patient was 88% on room air with good Plath on the pulse oximeter this is hypoxic per my interpretation. After adding 4 L via nasal cannula she was 100% on 4 L with good Plath on the pulse oximeter per my interpretation. - Vital Signs Vital signs: Temp Pulse Resp BP Pulse Ox 97.5 F 92 18 166/76 H 99 08/14/18 07:32 08/14/18 07:32 08/14/18 07:32 08/14/18 07:32 08/14/18 07:32 - Laboratory Result Diagrams: 08/14/18 06:53 08/14/18 06:53 Laboratory results interpreted by me: 08/13/18 08/13/18 08/13/18 14:48 14:54 15:52 MCHC 31.6 L RDW 20.9 H PT 16.4 H VBG pH Potassium Chloride BUN Creatinine Est GFR ( Amer) Est GFR (Non-Af Amer) Direct Bilirubin NT-Pro-B Natriuret Pep Ur Leukocyte Esterase LARGE H 08/13/18 08/13/18 08/13/18 16:00 16:00 17:11 MCHC RDW PT VBG pH 7.20 L Potassium 5.9 H Chloride 108 H BUN 83 H Creatinine 3.81 H Est GFR ( Amer) 14 L Est GFR (Non-Af Amer) 11 L Direct Bilirubin 0.6 H NT-Pro-B Natriuret Pep 31118 H Ur Leukocyte Esterase - EKG Interpretation by Me Additional EKG results interpreted by me: 08/14/18 12:00 EKG shows atrial fibrillation at a rate of 81, there are new T wave inversions in 2, 3, aVF compared to prior EKG however the prior T wave inversions in aVL have normalized, no ST segment elevations or depressions, normal axis, normal QRS per my interpretation. Critical Care Note - Critical Care Note Total time excluding time spent on procedures (mins): 35 Discharge - Discharge Clinical Impression: Acute kidney injury superimposed on chronic kidney disease, Hyperkalemia, Acute respiratory failure with hypoxia CHF exacerbation Qualifiers: Heart failure type: unspecified Qualified Code(s): I50.9 - Heart failure, unspecified Condition: Fair Disposition: ADMITTED INPATIENT Admitting Provider: Mitesh (Hospitalist) Unit Admitted: [facility]U I personally performed the services described in the documentation, reviewed and edited the documentation which was dictated to the scribe in my presence, and it accurately records my words and actions.
[2018-08-13] MEDS ORDERED: FUROSEMIDE INJ/PF 40 MG/4 ML SDV IV ONE (22:30)
[2018-08-13] MEDS ORDERED: FAMOTIDINE 20 MG TABLET PO ONE (22:30)
--- NOTE | 2018-08-13 23:25 | PDOC H&P ---
History of Present Illness Admission Date/PCP: 08/13/2018 ANTONIO HITCHCOCK MD Patient complains of: Lack of energy and shortness of breath History of Present Illness: MARTY GAGE is a 87 year old -Chinese female with history of multiple medical problems that will be mentioned below presented to the emergency room with acute onset of decreased energy over the last 3 days as well as worsening dyspnea over the last week with associated wheezing and worsening lower extremity edema. She has been having mild orthopnea. She lives at [facility]. No fever or chills. No nausea or vomiting or abdominal pain. She denies any chest pain or palpitations. Upon presentation to the emergency room blood pressure was 168/74 with a pulse of 76 respiratory to 25 and pulse oximetry of 95% on room air. Her CBC was unremarkable PT was 16.4 and INR 1.26 with PTT of 33.8. CMP was remarkable for hyperkalemia of 5.9 with a chloride of 108 BUN 83 and creatinine 3.81 up from 45/2.05 last month with a proBNP of 42,005 100. Her urinalysis showed large leukocyte esterase and 7 RBCs with 2 RBCs and trace bacteria. The patient denied urinary symptoms including dysuria, oliguria or hematuria or flank pain but she is a poor historian.. Her EKG showed atrial ablation with controlled ventricular response of 81. 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 The patient was given 8.4 g of p.o. Veltassa twice, 80 mg g IV Lasix and and 20 mg of p.o. Pepcid. She will be admitted to an IMU bed for further evaluation and management Past Medical History Past Medical History: History of CVA with residual right facial droop. Cardiac Medical History: Reports: Atrial Fibrillation, Congestive Heart Failure, Hyperlipidema, Hypertension, Heart Murmur - Aortic stenosis Pulmonary Medical History: Denies: Asthma, Chronic Obstructive Pulmonary Disease (COPD) Neurological Medical History: Denies: Seizures Endocrine Medical History: Reports: Hypothyroidism Denies: Diabetes Mellitus Type 1, Diabetes Mellitus Type 2 GI Medical History: Reports: Gastroesophageal Reflux Disease Denies: Cirrhosis, Hepatitis Musculoskeltal Medical History: Denies: Arthritis, Gout Skin Medical History: Denies: Eczema, Psoriasis Psychiatric Medical History: Reports: Dementia Denies: Depression Hematology: Denies: Anemia, Bleeding Tendencies Past Surgical History Past Surgical History: Reports: Pacemaker, Other - Cataract surgery and lipoma excisions Denies: Hysterectomy Social History Smoking Status: Never Smoker Frequency of Alcohol Use: None Hx Recreational Drug Use: No Drugs: None Hx Prescription Drug Abuse: No Family History Family History: Hypertension, Other - Heart disease Parental Family History Reviewed: Yes Children Family History Reviewed: Yes Sibling(s) Family History Reviewed.: Yes Medication/Allergy Home Medications: Acetaminophen [Tylenol] 650 mg PO Q6HP PRN 06/22/17 Docusate Sodium [Colace] 100 mg PO DAILY 06/22/17 Famotidine [Pepcid 20 mg Tablet] 20 mg PO QHS 06/22/17 Ipratropium/Albuterol Sulfate [Duoneb 3 ml Ampul] 1 vial NEB RTQ6HP PRN 06/22/17 Levothyroxine Sodium [Synthroid] 112 mcg PO DAILY 06/22/17 Loratadine [Claritin 10 mg Tablet] 10 mg PO DAILY 06/22/17 Magnesium Oxide [Mag-Ox 400 mg Tablet] 400 mg PO DAILY 06/22/17 Metoprolol Succinate [Toprol XL 100 mg Tablet] 150 mg PO DAILY 06/22/17 Omeprazole Magnesium [Prilosec Otc] 20 mg PO DAILY 06/22/17 Furosemide [Lasix 80 mg Tablet] 80 mg PO Q12 tablet 06/25/17 Diltiazem HCl [Cardizem Cd 120 mg Capsule] 1 cap.sr PO DAILY 04/20/18 Ferrous Sulfate [Feosol] 325 mg PO DAILY 04/20/18 Polyethylene Glycol 3350 [Miralax Powder 17 gm/Packet] 1 packet PO DAILY 04/20/18 Acetaminophen [Tylenol 325 mg Tablet] 650 mg PO Q4HP PRN tablet 04/24/18 Mag Hydrox/Al Hydrox/Simeth [Maalox Plus Susp 30 Udcup] 30 ml PO Q6HP PRN udc 04/24/18 Magnesium Hydroxide [Milk of Magnesia 30 ml Udcup] 30 ml PO HSP PRN udc 04/08 11/23 Sennosides/Docusate 8.6-50 mg [Senna Plus Tablet] 1 each PO BID tablet 04/24/18 Allergies/Adverse Reactions: No Known Allergies Allergy (Verified 06/22/17 16:44) Review of Systems Review of Systems: As per history of present illness. All pertinent systems were reviewed above. Constitutional, HEENT, cardiovascular, respiratory, GI, , musculoskeletal, neuro, psychiatric, endocrine, integumentary and hematologic systems were reviewed and are otherwise negative/unremarkable except for positive findings mentioned above in the HPI. Physical Exam Vital Signs: Temp Pulse Resp BP Pulse Ox 97.4 F 79 13 137/73 H 93 08/13/18 15:11 08/13/18 16:17 08/13/18 20:14 08/13/18 19:31 08/13/18 20:14 Intake & Output 08/12/18 08/13/18 08/14/18 06:59 06:59 06:59 Intake Total 500 Balance 500 Weight 76.8 kg Exam: Generally: Pleasant elderly -Chinese female in mild respiratory distress with conversational dyspnea Vital signs-as listed Head - atraumatic, normocephalic. Pupils - equal, round and reactive to light and accommodation. Extraocular movements are intact. No scleral icterus. Oropharynx - moist mucous membranes and tongue. No pharyngeal erythema or exudate. Neck - supple. No JVD. Carotid pulses 2+ bilaterally. No carotid bruits. No palpable thyromegaly or lymphadenopathy. Cardiovascular - regular rate and rhythm. Normal S1 and S2. No murmurs, gallops or rubs. Lungs -diminished bibasilar breath sounds with mild bibasilar rales Abdomen - soft and nontender. Positive bowel sounds. No palpable organomegaly or masses. Extremities -to 3+ bilateral lower extremity pitting edema, with no clubbing or cyanosis. Neuro - grossly non-focal. Skin - no rashes. Breast, pelvic and rectal - deferred Results Laboratory Results: 08/13/18 15:52 08/13/18 16:00 08/13/18 08/13/18 08/13/18 14:48 14:48 14:54 WBC Cancelled RBC Cancelled Hgb Cancelled Hct Cancelled MCV Cancelled MCH Cancelled MCHC Cancelled RDW Cancelled Plt Count Cancelled Seg Neutrophils % Cancelled Lymphocytes % Cancelled Monocytes % Cancelled Eosinophils % Cancelled Basophils % Cancelled Absolute Neutrophils Cancelled Absolute Lymphocytes Cancelled Absolute Monocytes Cancelled Absolute Eosinophils Cancelled Absolute Basophils Cancelled VBG pH VBG pCO2 VBG HCO3 VBG Base Excess Sodium Cancelled Potassium Cancelled Chloride Cancelled Carbon Dioxide Cancelled Anion Gap Cancelled BUN Cancelled Creatinine Cancelled Est GFR ( Amer) Cancelled Est GFR (Non-Af Amer) Cancelled Glucose Cancelled Lactic Acid Calcium Cancelled Total Bilirubin Cancelled AST Cancelled ALT Cancelled Alkaline Phosphatase Cancelled Total Protein Cancelled Albumin Cancelled Urine Color YELLOW Urine Appearance SLIGHTLY-CLOUDY Urine pH 5.0 Ur Specific [place] 1.018 Urine Protein NEGATIVE Urine Glucose (UA) NEGATIVE Urine Ketones NEGATIVE Urine Blood NEGATIVE Urine Nitrite NEGATIVE Ur Leukocyte Esterase LARGE H Urine WBC (Auto) 7 Urine RBC (Auto) 2 08/13/18 08/13/18 08/13/18 15:52 16:00 16:00 WBC 7.1 RBC 4.33 Hgb 12.8 Hct 40.3 MCV 93 D MCH 29.5 MCHC 31.6 L RDW 20.9 H Plt Count 223 Seg Neutrophils % Not Reportable Lymphocytes % Not Reportable Monocytes % Not Reportable Eosinophils % Not Reportable Basophils % Not Reportable Absolute Neutrophils Not Reportable Absolute Lymphocytes Not Reportable Absolute Monocytes Not Reportable Absolute Eosinophils Not Reportable Absolute Basophils Not Reportable VBG pH VBG pCO2 VBG HCO3 VBG Base Excess Sodium 141.7 Potassium 5.9 H Chloride 108 H Carbon Dioxide 23 Anion Gap 11 BUN 83 H Creatinine 3.81 H Est GFR ( Amer) 14 L Est GFR (Non-Af Amer) 11 L Glucose 100 Lactic Acid 1.8 Calcium 8.8 Total Bilirubin 0.7 AST 35 ALT 31 Alkaline Phosphatase 105 Total Protein 6.7 Albumin 3.5 Urine Color Urine Appearance Urine pH Ur Specific [place] Urine Protein Urine Glucose (UA) Urine Ketones Urine Blood Urine Nitrite Ur Leukocyte Esterase Urine WBC (Auto) Urine RBC (Auto) 08/13/18 17:11 WBC RBC Hgb Hct MCV MCH MCHC RDW Plt Count Seg Neutrophils % Lymphocytes % Monocytes % Eosinophils % Basophils % Absolute Neutrophils Absolute Lymphocytes Absolute Monocytes Absolute Eosinophils Absolute Basophils VBG pH 7.20 L VBG pCO2 61.6 VBG HCO3 23.3 VBG Base Excess -5.7 Sodium Potassium Chloride Carbon Dioxide Anion Gap BUN Creatinine Est GFR ( Amer) Est GFR (Non-Af Amer) Glucose Lactic Acid Calcium Total Bilirubin AST ALT Alkaline Phosphatase Total Protein Albumin Urine Color Urine Appearance Urine pH Ur Specific [place] Urine Protein Urine Glucose (UA) Urine Ketones Urine Blood Urine Nitrite Ur Leukocyte Esterase Urine WBC (Auto) Urine RBC (Auto) 08/13/18 08/13/18 08/13/18 14:48 14:48 16:00 Creatine Kinase Cancelled CK-MB (CK-2) Cancelled 1.81 Troponin I Cancelled 0.044 NT-Pro-B Natriuret Pep 08/13/18 08/13/18 16:00 16:00 Creatine Kinase 42 CK-MB (CK-2) Troponin I NT-Pro-B Natriuret Pep [id number] H Impressions: Chest X-Ray 08/13/18 14:52 IMPRESSION: Cardiomegaly and pleural effusions. Cannot exclude pericardial effusion. Head CT 08/13/18 15:41 IMPRESSION: 1. No acute intracranial findings. 2. 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 Abdomen/Pelvis CT 08/13/18 17:07 IMPRESSION: Anasarca, ascites and bilateral pleural fluid collections could be secondary to cardiac decompensation versus renal disease. New finding when compared with the prior exam. Cardiomegaly. Atrophic kidneys, left greater than right. Assessment and Plan - Diagnosis (1) Acute on chronic diastolic CHF (congestive heart failure) Is this a current diagnosis for this admission?: Yes Plan: The patient will be admitted to a telemetry bed and will be diuresed with IV Lasix. Will follow serial cardiac enzymes. Will obtain a 2D echo and a cardiology consultation in a.m. the patient's last 2D echo was on 07/27/16 revealing normal systolic function and severe left atrial dilatation and mild right atrial dilatation with moderate aortic stenosis. (2) Acute kidney injury superimposed on chronic kidney disease Is this a current diagnosis for this admission?: Yes Plan: This is likely prerenal due to acute CHF with likely subsequent renal hypoperfusion. Will monitor BMP with diuresis. (3) Urinary tract infection Qualifiers: Urinary tract infection type: site unspecified Is this a current diagnosis for this admission?: Yes Plan: IV Rocephin and follow urine culture and sensitivity. (4) Hypothyroidism Is this a current diagnosis for this admission?: Yes Plan: We will continue Synthroid and check TSH level. (5) Hypertension Is this a current diagnosis for this admission?: Yes Plan: We will continue Cardizem (6) DVT prophylaxis Is this a current diagnosis for this admission?: Yes Plan: Subtest heparin - Time Within: within 72 hours - Inpatient Certification Medical Necessity: Need Close Monitoring Due to Risk of Patient Decompensation, Need For Continuous Telemetry Monitoring, Risk of Complication if Not Cared For in Hospital - Plan Summary Plan Summary: The plan of care was discussed in details with the patient. I answered all questions. The patient agreed to proceed with the above-mentioned plan. The patient is presumably full code. This note was created by [employer] software and may contain typo errors that may have not been proofread.
[2018-08-13] MEDS ORDERED: PATIROMER 8.4 GM SUSP PACKET ONE (23:54)
[2018-08-13] MEDS ORDERED: CEFTRIAXONE 1 GM/D5W RTU 1 GM/50 ML RTUPB IV ONE (23:59)
[2018-08-14] MEDS: HEPARIN SOD (PORCINE) 5,000 UNIT/ML 1 ML SYRINGE SUBCUT SCH ×3 (00:06→22:33)
[2018-08-14] MEDS ORDERED: ACETAMINOPHEN 325 MG TABLET PO PRN (03:05)
[2018-08-14 07:25] LABS: HEMATOCRIT 39.3 % (36.0-47.0); HEMOGLOBIN 12.5 g/dL (12.0-15.5); MEAN CORPUSCULAR HEMOGLOBIN 29.1 pg (27.0-33.4); MEAN CORPUSCULAR HGB CONC 31.8 g/dL (32.0-36.0); MEAN CORPUSCULAR VOLUME 92 fl (80-97); PLATELET COUNT 202 10^3/uL (150-450); RED BLOOD COUNT 4.29 10^6/uL (3.72-5.28); RED CELL DISTRIBUTION WIDTH 20.7 % (11.5-14.0); WHITE BLOOD COUNT 5.6 10^3/uL (4.0-10.5)
[2018-08-14] MEDS ORDERED: ONDANSETRON HCL INJ/PF 4 MG/2 ML SDV IV PRN (07:30)
[2018-08-14 07:41] LABS: ANION GAP 11 (5-19); BLOOD UREA NITROGEN 79 mg/dL (7-20); CALCIUM 8.9 mg/dL (8.4-10.2); CARBON DIOXIDE 20 mmol/L (22-30); CHLORIDE 110 mmol/L (98-107); GLUCOSE 98 mg/dL (75-110); POTASSIUM 5.3 mmol/L (3.6-5.0); SODIUM 140.6 mmol/L (137-145)
[2018-08-14 08:33] LABS: ABSOLUTE LYMPHOCYTES# (MANUAL) 2.1 10^3/uL (0.5-4.7); ABSOLUTE MONOCYTES # (MANUAL) 0.3 10^3/uL (0.1-1.4); ABSOLUTE NEUTROPHILS# (MANUAL) 3.2 10^3/uL (1.7-8.2); BASOPHILS % (MANUAL) 0 % (0-2); EOSINOPHILS % (MANUAL) 1 % (0-6); LYMPHOCYTES % (MANUAL) 37 % (13-45); MONOCYTES % (MANUAL) 5 % (3-13); SEGMENTED NEUTROPHILS % (MAN) 57 % (42-78); TOTAL CELLS COUNTED 100
[2018-08-14 08:34] LABS: NUCLEATED RED BLOOD CELLS 8 /100 WBC (0)
[2018-08-14 08:36] LABS: ANISOCYTOSIS 2+; POIKILOCYTOSIS 2+
[2018-08-14 08:37] LABS: BURR CELLS 1+; OVALOCYTES 2+; PLATELET COMMENT ADEQUATE; POLYCHROMASIA SLIGHT; SCHISTOCYTES 1+
[2018-08-14] MEDS: PANTOPRAZOLE SODIUM 20 MG TABLET.DR PO SCH (08:57)
[2018-08-14] MEDS: LEVOTHYROXINE SODIUM 0.112 MG TABLET PO SCH (08:58)
[2018-08-14] MEDS: LORATADINE 10 MG TABLET PO SCH (09:13)
[2018-08-14] MEDS: FUROSEMIDE INJ/PF 100 MG/10 ML SDV IV SCH ×2 (09:13→22:32)
[2018-08-14] MEDS: DILTIAZEM HCL 120 MG CAP.SR.24H PO SCH (09:13)
[2018-08-14] MEDS: SENNOSIDES/DOCUSATE 8.6-50 MG 1 EACH TABLET PO SCH ×2 (09:13→16:49)
[2018-08-14] MEDS: METOPROLOL SUCCINATE 50 MG TAB.SR.24H PO SCH (09:13)
[2018-08-14] MEDS: FERROUS SULFATE 325 MG TABLET PO SCH (09:13)
[2018-08-14] MEDS: MAGNESIUM OXIDE 400 MG TABLET PO SCH ×2 (09:13→10:22)
[2018-08-14] MEDS: DOCUSATE SODIUM 100 MG CAPSULE PO SCH (09:13)
[2018-08-14] MEDS: POLYETHYLENE GLYCOL 3350 POWDER 17 GM/1 PACKET PO SCH (09:14)
[2018-08-14] MEDS ORDERED: FUROSEMIDE INJ/PF 40 MG/4 ML SDV IV SCH (10:00)
[2018-08-14] MEDS: ACETAMINOPHEN 325 MG TABLET PO PRN ×2 (10:07→16:10)
[2018-08-14] MEDS: CALCITRIOL 0.25 MCG CAPSULE PO SCH (10:38)
--- NOTE | 2018-08-14 11:04 | PROGRESS NOTE E ---
Progress Note NAME: MARTY GAGE : 1930 AGE: 87Y DATE: 08/14/2018 ROOM: 327 SUBJECTIVE: The patient is currently lying in bed. The patient states she is quite sleepy, stating that she did not get much rest overnight. The patient has had no reported episodes of vomiting nor diarrhea. The patient appears much more comfortable. The patient has been afebrile. Her blood pressure has been in acceptable range, and the patient does not voice any concerns at this time. BRIEF HISTORY: The patient is an 87-year-old -Nigerian female that is well known to the hospitalist service. 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 The patient resides at a longterm facility. The patient came in overnight due to shortness of breath. The patient was diuresed, but does not have a significant amount of urine output at this time. The patient continues to be diuresed and does not voice any concerns at this time. REVIEW OF SYSTEMS: Rest of review of systems negative. MEDICATIONS: Medications have been reviewed. OBJECTIVE: GENERAL: The patient is an 87-year-old -Nigerian female who is awake and alert, but she is sleepy this morning. She does not appear to be distressed. VITAL SIGNS: Temperature is 97.5, pulse 92, respirations 18, blood pressure is 166/76, oxygen saturation is 99% on 1.5 L nasal cannula. SKIN: Warm, dry. No rash. Not diaphoretic. HEENT: Pupils are reactive. Conjunctiva is pink. The patient has JVP to the right clavicle. CARDIOVASCULAR SYSTEM: Heart is regular. No rub. CHEST: Has bilateral basilar crackles. ABDOMEN: Soft, nontender. EXTREMITIES: The patient does have 2+ bilateral lower extremity edema. PSYCHIATRIC: The patient is sleepy this morning. DIAGNOSTICS: Lab values are as follows: Hematology obtained on 08/14/2018: WBCs are 5.6, hemoglobin is 12.5, hematocrit is 39.3, platelet count is 202,000. Chemistry obtained on 08/14/2018: Sodium is 140, potassium 5.3, chloride is 110, carbon dioxide 20, BUN 79, creatinine is 3.61, glucose 98, calcium is 8.9, magnesium is 2.5. IMPRESSION AND PLAN: 1. ACUTE ON CHRONIC DIASTOLIC CONGESTIVE HEART FAILURE. THE PATIENT MAY ALSO HAVE A COMPONENT OF CARDIORENAL SYNDROME. The patient is currently being diuresed with Lasix. Echocardiogram is pending. 2. ACUTE KIDNEY INJURY. MOST LIKELY THIS IS SECONDARY TO ACUTELY DECOMPENSATED HEART FAILURE. The patient may have cardiorenal syndrome or renal cardio syndrome. The patient hopefully will improve creatinine with diuresis. Will follow. 3. URINARY TRACT INFECTION. The patient is on Rocephin. Will follow culture and sensitivity. 4. HYPOTHYROIDISM. Will continue levothyroxine. 5. HYPERTENSION. The patient has been resumed on her home medications. 6. DVT PROPHYLAXIS. The patient is on subcu heparin. 7. ANEMIA OF CHRONIC DISEASE. Will monitor the patient's hemoglobin. 8. PAROXYSMAL ATRIAL FIBRILLATION. The patient is currently in sinus rhythm. Continue her current medications. 9. VASCULAR DEMENTIA. The patient appears to be at baseline. 10. CEREBROVASCULAR DISEASE. The patient has had numerous strokes in the past. Will continue supportive therapy. DISPOSITION: The patient is a FULL CODE. Pending patient's symptomatology and diagnostic findings, will re-evaluate in the a.m. Time spent on this followup including assessment, plan, physical examination, patient education, and review of records is 35 minutes. DICTATING PHYSICIAN: CHRISTIAN DUNBAR NP [id number] PHY#: [id number] ID: [id number] JOB#: [id number] ACCT: [id number] cc: >
[2018-08-14 12:45] LABS: PATH REVIEW PATHOLOGIST REVIEWED
[2018-08-14] MEDS: PATIROMER 8.4 GM SUSP PACKET PO SCH (16:10)
[2018-08-14] MEDS ORDERED: CEFTRIAXONE 1 GM/D5W RTU 1 GM/50 ML RTUPB IV SCH (22:00)
[2018-08-14] MEDS: FAMOTIDINE 20 MG TABLET PO SCH (22:13)
[2018-08-14] MEDS: MIRTAZAPINE 15 MG TABLET PO SCH (22:13)
[2018-08-14] MEDS: CEFTRIAXONE SODIUM 1,000 MG in DEXTROSE 5%-WATER 50 ML IV SCH (22:33)
[2018-08-15] MEDS: ACETAMINOPHEN 325 MG TABLET PO PRN (01:00)
[2018-08-15] MEDS: PANTOPRAZOLE SODIUM 20 MG TABLET.DR PO SCH (05:29)
[2018-08-15] MEDS: LEVOTHYROXINE SODIUM 0.112 MG TABLET PO SCH (05:29)
[2018-08-15 05:52] LABS: HEMOGLOBIN 12.6 g/dL (12.0-15.5); MEAN CORPUSCULAR HGB CONC 31.6 g/dL (32.0-36.0); MEAN CORPUSCULAR VOLUME 92 fl (80-97); PLATELET COUNT 197 10^3/uL (150-450); RED BLOOD COUNT 4.36 10^6/uL (3.72-5.28); RED CELL DISTRIBUTION WIDTH 20.7 % (11.5-14.0)
[2018-08-15 06:16] LABS: ANION GAP 11 (5-19); BLOOD UREA NITROGEN 81 mg/dL (7-20); CARBON DIOXIDE 19 mmol/L (22-30); CHLORIDE 108 mmol/L (98-107); GLUCOSE 104 mg/dL (75-110); POTASSIUM 5.8 mmol/L (3.6-5.0); SODIUM 137.8 mmol/L (137-145)
[2018-08-15 06:58] LABS: ABSOLUTE LYMPHOCYTES# (MANUAL) 1.6 10^3/uL (0.5-4.7); ABSOLUTE MONOCYTES # (MANUAL) 0.3 10^3/uL (0.1-1.4); ABSOLUTE NEUTROPHILS# (MANUAL) 3.2 10^3/uL (1.7-8.2); BASOPHILS % (MANUAL) 0 % (0-2); EOSINOPHILS % (MANUAL) 0 % (0-6); LYMPHOCYTES % (MANUAL) 31 % (13-45); MONOCYTES % (MANUAL) 6 % (3-13); NUCLEATED RED BLOOD CELLS 3 /100 WBC (0); SEGMENTED NEUTROPHILS % (MAN) 63 % (42-78); TOTAL CELLS COUNTED 100
[2018-08-15 07:00] LABS: ANISOCYTOSIS 2+; POIKILOCYTOSIS 2+; TOXIC GRANULATION SLIGHT
[2018-08-15 07:01] LABS: BURR CELLS SLIGHT; OVALOCYTES 2+; PLATELET COMMENT ADEQUATE; SCHISTOCYTES 1+
[2018-08-15] MEDS: POLYETHYLENE GLYCOL 3350 POWDER 17 GM/1 PACKET PO SCH (09:41)
[2018-08-15] MEDS: HEPARIN SOD (PORCINE) 5,000 UNIT/ML 1 ML SYRINGE SUBCUT SCH ×2 (09:41→22:08)
[2018-08-15] MEDS: SENNOSIDES/DOCUSATE 8.6-50 MG 1 EACH TABLET PO SCH ×2 (09:42→18:29)
[2018-08-15] MEDS: METOPROLOL SUCCINATE 50 MG TAB.SR.24H PO SCH (09:42)
[2018-08-15] MEDS: ASPIRIN 81 MG TABLET, ENT COATED PO SCH (09:42)
[2018-08-15] MEDS: FUROSEMIDE INJ/PF 100 MG/10 ML SDV IV SCH (09:42)
[2018-08-15] MEDS: FERROUS SULFATE 325 MG TABLET PO SCH (09:42)
[2018-08-15] MEDS: LORATADINE 10 MG TABLET PO SCH (09:42)
[2018-08-15] MEDS: DOCUSATE SODIUM 100 MG CAPSULE PO SCH (09:42)
[2018-08-15] MEDS: MAGNESIUM OXIDE 400 MG TABLET PO SCH (09:42)
[2018-08-15] MEDS: DILTIAZEM HCL 120 MG CAP.SR.24H PO SCH (09:44)
--- NOTE | 2018-08-15 15:45 | PDOC PROGRESS REPORT ---
Subjective Progress Note for:: 08/15/18 Subjective:: This is 87 years old black female patient with multiple comorbidities including the chronic atrial fibrillation, CHF, hypertension, lipidemia, hypothyroidism, dementia and CKD transferred from assisted with chief complaint of lack of energy and shortness of breath. At presentation her BNP is 42,500. Her urinalysis compatible with UTI and her urine culture grew E. coli which is pansensitive. It has been treated with ceftriaxone. And Lasix and cardioprotective medications for her congestive heart failure. This morning I seen patient resting in bed she is complaining of pain in her legs. Reason For Visit: ACUTE ON CHRONIC CHF,HYPERKALEMIA,ACUTE KIDNEY Physical Exam Vital Signs: Temp Pulse Resp BP Pulse Ox 97.5 F 67 17 149/67 H 98 08/15/18 11:15 08/15/18 14:00 08/15/18 11:15 08/15/18 11:15 08/15/18 11:15 Intake & Output 08/14/18 08/15/18 08/16/18 06:59 06:59 06:59 Intake Total 650 337 350 Output Total 300 Balance 350 337 350 Weight 71.1 kg 69.8 kg General appearance: PRESENT: no acute distress Eye exam: PRESENT: conjunctiva pink Neck exam: ABSENT: carotid bruit, JVD, lymphadenopathy, thyromegaly Respiratory exam: PRESENT: decreased breath sounds Cardiovascular exam: PRESENT: irregular rhythm Neurological exam: PRESENT: alert, awake Results Laboratory Results: 08/15/18 05:00 08/15/18 05:00 08/15/18 08/15/18 05:00 05:00 WBC 5.0 RBC 4.36 Hgb 12.6 Hct 40.0 MCV 92 MCH 29.0 MCHC 31.6 L RDW 20.7 H Plt Count 197 Seg Neutrophils % Not Reportable Lymphocytes % Not Reportable Monocytes % Not Reportable Eosinophils % Not Reportable Basophils % Not Reportable Absolute Neutrophils Not Reportable Absolute Lymphocytes Not Reportable Absolute Monocytes Not Reportable Absolute Eosinophils Not Reportable Absolute Basophils Not Reportable Sodium 137.8 Potassium 5.8 H Chloride 108 H Carbon Dioxide 19 L Anion Gap 11 BUN 81 H Creatinine 3.61 H Est GFR ( Amer) 14 L Est GFR (Non-Af Amer) 12 L Glucose 104 Calcium 9.0 08/13/18 14:54 Catheterized Urine Urine Culture - Final Escherichia Coli 08/13/18 08/13/18 08/13/18 14:48 14:48 16:00 Creatine Kinase Cancelled CK-MB (CK-2) Cancelled 1.81 Troponin I Cancelled 0.044 NT-Pro-B Natriuret Pep 08/13/18 08/13/18 16:00 16:00 Creatine Kinase 42 CK-MB (CK-2) Troponin I NT-Pro-B Natriuret Pep [id number] H Impressions: Chest X-Ray 08/13/18 14:52 IMPRESSION: Cardiomegaly and pleural effusions. Cannot exclude pericardial effusion. Head CT 08/13/18 15:41 IMPRESSION: 1. No acute intracranial findings. 2. 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 Abdomen/Pelvis CT 08/13/18 17:07 IMPRESSION: Anasarca, ascites and bilateral pleural fluid collections could be secondary to cardiac decompensation versus renal disease. New finding when compared with the prior exam. Cardiomegaly. Atrophic kidneys, left greater than right. Assessment and Plan - Diagnosis (1) Acute on chronic diastolic CHF (congestive heart failure), NYHA class 3 Is this a current diagnosis for this admission?: Yes Plan: Continue Lasix. (2) Complicated UTI (urinary tract infection) Is this a current diagnosis for this admission?: Yes Plan: Continue antibiotics. (3) Hyperkalemia Is this a current diagnosis for this admission?: Yes Plan: Morning her potassium is 5.9. Kayexalate ordered. BMP in a.m. (4) TIM on stage III CKD Is this a current diagnosis for this admission?: Yes Plan: We will cautiously diurese the patient and will avoid other nephrotoxic agents. (5) Chronic a-fib Is this a current diagnosis for this admission?: Yes Plan: Rate controlled (6) Hypothyroidism Qualifiers: Hypothyroidism type: acquired Qualified Code(s): E03.9 - Hypothyroidism, unspecified Is this a current diagnosis for this admission?: Yes Plan: Continue Synthroid. (7) Dementia Is this a current diagnosis for this admission?: Yes Plan: Continue Aricept (8) Hypertension Qualifiers: Hypertension type: essential hypertension Qualified Code(s): I10 - Es sential (primary) hypertension Is this a current diagnosis for this admission?: Yes Plan: Continue current regimen (9) Hyperlipidemia Qualifiers: Hyperlipidemia type: unspecified Qualified Code(s): E78.5 - Hyperlipidemia, unspecified Is this a current diagnosis for this admission?: Yes Plan: Continue current regimen.
[2018-08-15] MEDS: PATIROMER 8.4 GM SUSP PACKET PO SCH ×2 (16:13→18:00)
--- NOTE | 2018-08-15 17:28 | PDOC CONSULTATION ---
Consultation Consult Date: 08/15/18 Consult reason:: Acute kidney injury. History of Present Illness Admission Date/PCP: 08/13/18 22:55 ANTONIO HITCHCOCK MD History of Present Illness: MARTY GAGE is a 87 year old female with multiple comorbidities including the chronic atrial fibrillation, CHF, hypertension, lipidemia, hypothyroidism, dementia and CKD transferred from shelter with chief complaint of lack of energy and shortness of breath. Evaluations done in the ER revealed that she was in congestive heart failure. Further lab evaluations revealed that she was having UTI with E. coli as well as acute on chronic kidney disease with a creatinine in the 3+ range with a base creatinine of around 2.5. She has been put on IV Lasix and appropriate antibiotics presently looks getting better. Patient has got altered mental status possibly from her acute sepsis state plus dementia. She is unable to answer the questions appropriately. Discussions were carried out with the treating nurse. Labs and medications were reviewed.Noncontrasted CT scan of the abdomen done couple of days earlier was reviewed that shows bilateral atrophic kidneys with anasarca. Past Medical History Cardiac Medical History: Reports: Atrial Fibrillation, Heart Murmur - Aortic stenosis, Hyperlipidemia Pulmonary Medical History: Denies: Asthma, Chronic Obstructive Pulmonary Disease (COPD) Neurological Medical History: Denies: Seizures Endocrine Medical History: Reports: Hypothyroidism Denies: Diabetes Mellitus Type 1, Diabetes Mellitus Type 2 Renal/ Medical History: Reports: Chronic Kidney Disease Stage IV GI Medical History: Reports: Gastroesophageal Reflux Disease Denies: Cirrhosis, Hepatitis Musculoskeltal Medical History: Denies: Arthritis, Gout Skin Medical History: Denies: Eczema, Psoriasis Psychiatric Medical History: Reports: Dementia, Depression Past Surgical History Past Surgical History: Reports: Pacemaker, Other - Cataract surgery and lipoma excisions Denies: Hysterectomy Social History Smoking Status: Never Smoker Frequency of Alcohol Use: None Hx Recreational Drug Use: No Drugs: None Hx Prescription Drug Abuse: No - Advance Directive Resuscitation Status: Do Not Resuscitate Family History Parental Family History Reviewed: No Children Family History Reviewed: No Sibling(s) Family History Reviewed.: No Medication/Allergy Home Medications: Acetaminophen [Tylenol] 650 mg PO Q6HP PRN 06/22/17 Docusate Sodium [Colace] 100 mg PO DAILY 06/22/17 Famotidine [Pepcid 20 mg Tablet] 20 mg PO QHS 06/22/17 Ipratropium/Albuterol Sulfate [Duoneb 3 ml Ampul] 1 vial NEB RTQ4HP PRN 06/22/17 Levothyroxine Sodium [Synthroid] 112 mcg PO Q6AM 06/22/17 Loratadine [Claritin 10 mg Tablet] 10 mg PO DAILY 06/22/17 Metoprolol Succinate [Toprol XL 100 mg Tablet] 150 mg PO DAILY 06/22/17 Omeprazole Magnesium [Prilosec Otc] 20 mg PO DAILY 06/22/17 Diltiazem HCl [Cardizem Cd 120 mg Capsule] 1 cap.sr PO DAILY 04/20/18 Ferrous Sulfate [Feosol] 325 mg PO DAILY 04/20/18 Polyethylene Glycol 3350 [Miralax Powder 17 gm/Packet] 1 packet PO DAILY 04/20/18 Allopurinol [Zyloprim 100 mg Tablet] 100 mg PO DAILY 08/14/18 Aspirin [Lo-Dose Aspirin EC] 81 mg PO DAILY 08/14/18 Calcitriol [Rocaltrol] 0.25 mcg PO MOWEFR 08/14/18 Furosemide [Lasix] 40 mg PO DAILY 08/14/18 Melatonin [Melatonin 5 mg Tablet] 5 mg PO QHS 08/14/18 Mineral Oil/Petrolatum,White [Eucerin Cream 114 gm] 1 applic TOP BID 08/14/18 Mirtazapine 7.5 mg PO QHS 08/14/18 Allergies/Adverse Reactions: No Known Allergies Allergy (Verified 06/22/17 16:44) Review of Systems ROS unobtainable: Due to mental status Eyes: PRESENT: as per HPI Physical Exam Vital Signs: Temp Pulse Resp BP Pulse Ox 98.0 F 35 L 16 143/59 H 99 08/15/18 15:32 08/15/18 15:32 08/15/18 15:32 08/15/18 15:32 08/15/18 15:32 Intake & Output 08/14/18 08/15/18 08/16/18 06:59 06:59 06:59 Intake Total 650 337 350 Output Total 300 Balance 350 337 350 Weight 71.1 kg 69.8 kg General appearance: PRESENT: no acute distress Eye exam: PRESENT: EOMI, PERRLA Ear exam: PRESENT: normal external ear exam Mouth exam: PRESENT: moist, neck supple Neck exam: ABSENT: meningismus, tenderness, thyromegaly, tracheal deviation Respiratory exam: PRESENT: clear to auscultation roscoe, crackles - Scattered., decreased breath sounds. ABSENT: rhonchi Cardiovascular exam: PRESENT: +S1, +S2 GI/Abdominal exam: PRESENT: normal bowel sounds, soft. ABSENT: organomegaly, tenderness Extremities exam: PRESENT: +1 edema Neurological exam: PRESENT: altered Psychiatric exam: PRESENT: anxious Skin exam: ABSENT: cyanosis, erythema, mottled, rash Results Laboratory Results: 08/15/18 05:00 08/15/18 05:00 08/15/18 08/15/18 05:00 05:00 WBC 5.0 RBC 4.36 Hgb 12.6 Hct 40.0 MCV 92 MCH 29.0 MCHC 31.6 L RDW 20.7 H Plt Count 197 Seg Neutrophils % Not Reportable Lymphocytes % Not Reportable Monocytes % Not Reportable Eosinophils % Not Reportable Basophils % Not Reportable Absolute Neutrophils Not Reportable Absolute Lymphocytes Not Reportable Absolute Monocytes Not Reportable Absolute Eosinophils Not Reportable Absolute Basophils Not Reportable Sodium 137.8 Potassium 5.8 H Chloride 108 H Carbon Dioxide 19 L Anion Gap 11 BUN 81 H Creatinine 3.61 H Est GFR ( Amer) 14 L Est GFR (Non-Af Amer) 12 L Glucose 104 Calcium 9.0 08/13/18 14:54 Catheterized Urine Urine Culture - Final Escherichia Coli 08/13/18 08/13/18 08/13/18 14:48 14:48 16:00 Creatine Kinase Cancelled CK-MB (CK-2) Cancelled 1.81 Troponin I Cancelled 0.044 NT-Pro-B Natriuret Pep 08/13/18 08/13/18 16:00 16:00 Creatine Kinase 42 CK-MB (CK-2) Troponin I NT-Pro-B Natriuret Pep 35134 H Impressions: Chest X-Ray 08/13/18 14:52 IMPRESSION: Cardiomegaly and pleural effusions. Cannot exclude pericardial effusion. Head CT 08/13/18 15:41 IMPRESSION: 1. No acute intracranial findings. 2. 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 Abdomen/Pelvis CT 08/13/18 17:07 IMPRESSION: Anasarca, ascites and bilateral pleural fluid collections could be secondary to cardiac decompensation versus renal disease. New finding when compared with the prior exam. Cardiomegaly. Atrophic kidneys, left greater than right. Assessment & Plan - Diagnosis (1) Acute kidney injury superimposed on chronic kidney disease Plan: She is got acute on chronic kidney disease in the face of congestive heart failure and UTI. Continue current medications including IV diuresis. She is not a candidate for renal replacement therapy for obvious reasons. (2) Acute on chronic diastolic CHF (congestive heart failure) Is this a current diagnosis for this admission?: Yes Plan: On IV diuretics. Monitor. (3) Chronic a-fib Is this a current diagnosis for this admission?: Yes Plan: Currently rate controlled. (4) Complicated UTI (urinary tract infection) Is this a current diagnosis for this admission?: Yes Plan: E. coli. On IV antibiotics as per microbiology (5) Dementia Is this a current diagnosis for this admission?: Yes Plan: Obviously made worse with the current crisis. Monitor. As per hospitalist. (6) Hyperkalemia Plan: Will titrate the dose of Veltassa.
[2018-08-15] MEDS ORDERED: FUROSEMIDE INJ/PF 100 MG/10 ML SDV IV SCH (22:00)
[2018-08-15] MEDS: FUROSEMIDE INJ/PF 40 MG/4 ML SDV IV SCH (22:07)
[2018-08-15] MEDS: MIRTAZAPINE 15 MG TABLET PO SCH (22:08)
[2018-08-15] MEDS: CEFTRIAXONE SODIUM 1,000 MG in DEXTROSE 5%-WATER 50 ML IV SCH (22:08)
[2018-08-15] MEDS: FAMOTIDINE 20 MG TABLET PO SCH (22:08)
[2018-08-16] MEDS: LEVOTHYROXINE SODIUM 0.112 MG TABLET PO SCH (05:19)
[2018-08-16] MEDS: PANTOPRAZOLE SODIUM 20 MG TABLET.DR PO SCH (05:19)
[2018-08-16 06:28] LABS: HEMATOCRIT 40.6 % (36.0-47.0); HEMOGLOBIN 12.9 g/dL (12.0-15.5); MEAN CORPUSCULAR HEMOGLOBIN 29.1 pg (27.0-33.4); MEAN CORPUSCULAR HGB CONC 31.7 g/dL (32.0-36.0); MEAN CORPUSCULAR VOLUME 92 fl (80-97); PLATELET COUNT 196 10^3/uL (150-450); RED BLOOD COUNT 4.42 10^6/uL (3.72-5.28); RED CELL DISTRIBUTION WIDTH 20.5 % (11.5-14.0); WHITE BLOOD COUNT 6.2 10^3/uL (4.0-10.5)
[2018-08-16 06:53] LABS: ANION GAP 13 (5-19); BLOOD UREA NITROGEN 79 mg/dL (7-20); CARBON DIOXIDE 22 mmol/L (22-30); CHLORIDE 105 mmol/L (98-107); GLUCOSE 98 mg/dL (75-110); POTASSIUM 4.7 mmol/L (3.6-5.0)
[2018-08-16 07:15] LABS: ABSOLUTE LYMPHOCYTES# (MANUAL) 2.3 10^3/uL (0.5-4.7); ABSOLUTE MONOCYTES # (MANUAL) 0.2 10^3/uL (0.1-1.4); ABSOLUTE NEUTROPHILS# (MANUAL) 3.7 10^3/uL (1.7-8.2); BASOPHILS % (MANUAL) 0 % (0-2); EOSINOPHILS % (MANUAL) 0 % (0-6); LYMPHOCYTES % (MANUAL) 37 % (13-45); MONOCYTES % (MANUAL) 4 % (3-13); NUCLEATED RED BLOOD CELLS 2 /100 WBC (0); SEGMENTED NEUTROPHILS % (MAN) 59 % (42-78); TOTAL CELLS COUNTED 100
[2018-08-16 07:16] LABS: HYPOCHROMASIA 1+; POLYCHROMASIA SLIGHT
[2018-08-16 07:17] LABS: ANISOCYTOSIS 2+
[2018-08-16 08:10] LABS: PLATELET COMMENT ADEQUATE
[2018-08-16] MEDS: FUROSEMIDE INJ/PF 40 MG/4 ML SDV IV SCH ×2 (11:30→23:38)
[2018-08-16] MEDS: HEPARIN SOD (PORCINE) 5,000 UNIT/ML 1 ML SYRINGE SUBCUT SCH ×3 (11:31→23:52)
[2018-08-16] MEDS: MAGNESIUM OXIDE 400 MG TABLET PO SCH (11:32)
[2018-08-16] MEDS: SENNOSIDES/DOCUSATE 8.6-50 MG 1 EACH TABLET PO SCH ×2 (11:32→19:22)
[2018-08-16] MEDS: LORATADINE 10 MG TABLET PO SCH (11:32)
[2018-08-16] MEDS: DOCUSATE SODIUM 100 MG CAPSULE PO SCH (11:32)
[2018-08-16] MEDS: DILTIAZEM HCL 120 MG CAP.SR.24H PO SCH (11:32)
[2018-08-16] MEDS: ASPIRIN 81 MG TABLET, ENT COATED PO SCH (11:32)
[2018-08-16] MEDS: POLYETHYLENE GLYCOL 3350 POWDER 17 GM/1 PACKET PO SCH (11:33)
[2018-08-16] MEDS: FERROUS SULFATE 325 MG TABLET PO SCH (11:33)
[2018-08-16] MEDS: METOPROLOL SUCCINATE 50 MG TAB.SR.24H PO SCH (11:33)
--- NOTE | 2018-08-16 14:18 | PDOC PROGRESS REPORT ---
Subjective Progress Note for:: 08/16/18 Subjective:: I seen patient resting in bed comfortably. She is awake alert and responds to verbal stimuli appropriately. During my encounter her daughter was in the room I discussed about the patient's clinical progress. Reason For Visit: ACUTE ON CHRONIC CHF,HYPERKALEMIA,ACUTE KIDNEY Physical Exam Vital Signs: Temp Pulse Resp BP Pulse Ox 97.6 F 83 18 140/63 H 97 08/16/18 11:18 08/16/18 11:18 08/16/18 11:18 08/16/18 11:18 08/16/18 11:18 Intake & Output 08/15/18 08/16/18 08/17/18 06:59 06:59 06:59 Intake Total 337 565 Balance 337 565 Weight 69.8 kg 71.5 kg General appearance: PRESENT: no acute distress Head exam: PRESENT: atraumatic Eye exam: PRESENT: conjunctiva pink Mouth exam: PRESENT: moist Neck exam: ABSENT: carotid bruit, JVD, lymphadenopathy, thyromegaly Respiratory exam: PRESENT: clear to auscultation roscoe. ABSENT: rales, rhonchi, wheezes Cardiovascular exam: PRESENT: RRR. ABSENT: diastolic murmur, rubs, systolic murmur Neurological exam: PRESENT: alert, awake Results Laboratory Results: 08/16/18 05:36 08/16/18 05:36 08/16/18 08/16/18 05:36 05:36 WBC 6.2 RBC 4.42 Hgb 12.9 Hct 40.6 MCV 92 MCH 29.1 MCHC 31.7 L RDW 20.5 H Plt Count 196 Seg Neutrophils % Not Reportable Lymphocytes % Not Reportable Monocytes % Not Reportable Eosinophils % Not Reportable Basophils % Not Reportable Absolute Neutrophils Not Reportable Absolute Lymphocytes Not Reportable Absolute Monocytes Not Reportable Absolute Eosinophils Not Reportable Absolute Basophils Not Reportable Sodium 140.0 Potassium 4.7 Chloride 105 Carbon Dioxide 22 Anion Gap 13 BUN 79 H Creatinine 3.31 H Est GFR ( Amer) 16 L Est GFR (Non-Af Amer) 13 L Glucose 98 Calcium 9.0 08/13/18 08/13/18 08/13/18 14:48 14:48 16:00 Creatine Kinase Cancelled CK-MB (CK-2) Cancelled 1.81 Troponin I Cancelled 0.044 NT-Pro-B Natriuret Pep 08/13/18 08/13/18 16:00 16:00 Creatine Kinase 42 CK-MB (CK-2) Troponin I NT-Pro-B Natriuret Pep 70186 H Impressions: Chest X-Ray 08/13/18 14:52 IMPRESSION: Cardiomegaly and pleural effusions. Cannot exclude pericardial effusion. Head CT 08/13/18 15:41 IMPRESSION: 1. No acute intracranial findings. 2. 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 Abdomen/Pelvis CT 08/13/18 17:07 IMPRESSION: Anasarca, ascites and bilateral pleural fluid collections could be secondary to cardiac decompensation versus renal disease. New finding when compared with the prior exam. Cardiomegaly. Atrophic kidneys, left greater than right. Assessment and Plan - Diagnosis (1) Acute on chronic diastolic CHF (congestive heart failure), NYHA class 3 Is this a current diagnosis for this admission?: Yes Plan: Her edema and shortness of breath is improving. (2) Complicated UTI (urinary tract infection) Is this a current diagnosis for this admission?: Yes Plan: Continue antibiotics. (3) Hyperkalemia Is this a current diagnosis for this admission?: Yes Plan: Resolved. (4) TIM on stage III CKD Is this a current diagnosis for this admission?: Yes Plan: We will cautiously diurese the patient and will avoid other nephrotoxic agents. (5) Chronic a-fib Is this a current diagnosis for this admission?: Yes Plan: Rate controlled (6) Hypothyroidism Qualifiers: Hypothyroidism type: acquired Qualified Code(s): E03.9 - Hypothyroidism, unspecified Is this a current diagnosis for this admission?: Yes Plan: Continue Synthroid. (7) Dementia Is this a current diagnosis for this admission?: Yes Plan: Continue Aricept (8) Hypertension Qualifiers: Hypertension type: essential hypertension Qualified Code(s): I10 - Essential (primary) hypertension Is this a current diagnosis for this admission?: Yes Plan: Continue current regimen (9) Hyperlipidemia Qualifiers: Hyperlipidemia type: unspecified Qualified Code(s): E78.5 - Hyperlipidemia, unspecified Is this a current diagnosis for this admission?: Yes Plan: Continue current regimen.
[2018-08-16] MEDS: LIDOCAINE 5% (700 MG) TRANSDERMAL ADH..PATCH TP SCH (17:28)
[2018-08-16] MEDS: CALCITRIOL 0.25 MCG CAPSULE PO SCH (17:35)
[2018-08-16] MEDS: PATIROMER 8.4 GM SUSP PACKET PO SCH (17:36)
[2018-08-16] MEDS: FAMOTIDINE 20 MG TABLET PO SCH (23:30)
[2018-08-16] MEDS: MIRTAZAPINE 15 MG TABLET PO SCH (23:30)
[2018-08-16] MEDS: CEFTRIAXONE SODIUM 1,000 MG in DEXTROSE 5%-WATER 50 ML IV SCH (23:37)
[2018-08-17] MEDS: PANTOPRAZOLE SODIUM 20 MG TABLET.DR PO SCH (05:41)
[2018-08-17] MEDS: LEVOTHYROXINE SODIUM 0.112 MG TABLET PO SCH (05:42)
[2018-08-17] MEDS: ACETAMINOPHEN 650 MG SUPP.RECT PR PRN (06:11)
[2018-08-17 06:38] LABS: ANION GAP 13 (5-19); BLOOD UREA NITROGEN 79 mg/dL (7-20); CALCIUM 9.4 mg/dL (8.4-10.2); CARBON DIOXIDE 20 mmol/L (22-30); CHLORIDE 109 mmol/L (98-107); GLUCOSE 94 mg/dL (75-110); POTASSIUM 4.7 mmol/L (3.6-5.0); SODIUM 141.6 mmol/L (137-145)
[2018-08-17] MEDS: FUROSEMIDE INJ/PF 40 MG/4 ML SDV IV SCH ×2 (11:07→21:34)
[2018-08-17] MEDS: SENNOSIDES/DOCUSATE 8.6-50 MG 1 EACH TABLET PO SCH ×2 (11:09→18:08)
[2018-08-17] MEDS: DILTIAZEM HCL 120 MG CAP.SR.24H PO SCH (11:09)
[2018-08-17] MEDS: DOCUSATE SODIUM 100 MG CAPSULE PO SCH (11:10)
[2018-08-17] MEDS: MAGNESIUM OXIDE 400 MG TABLET PO SCH (11:10)
[2018-08-17] MEDS: FERROUS SULFATE 325 MG TABLET PO SCH (11:10)
[2018-08-17] MEDS: METOPROLOL SUCCINATE 50 MG TAB.SR.24H PO SCH (11:11)
[2018-08-17] MEDS: LORATADINE 10 MG TABLET PO SCH (11:12)
[2018-08-17] MEDS: ASPIRIN 81 MG TABLET, ENT COATED PO SCH (11:12)
[2018-08-17] MEDS: HEPARIN SOD (PORCINE) 5,000 UNIT/ML 1 ML SYRINGE SUBCUT SCH ×2 (11:21→21:34)
[2018-08-17] MEDS: LIDOCAINE 5% (700 MG) TRANSDERMAL ADH..PATCH TP SCH (11:28)
[2018-08-17] MEDS: POLYETHYLENE GLYCOL 3350 POWDER 17 GM/1 PACKET PO SCH (11:28)
--- NOTE | 2018-08-17 15:24 | PDOC PROGRESS REPORT ---
Subjective Progress Note for:: 08/17/18 Subjective:: I seen patient propped up in bed. She is more awake alert and conversant. Her kidney function is relatively improving her creatinine trended down from 3.61- 3.19 and her GFR from 12-14. Reason For Visit: ACUTE ON CHRONIC CHF,HYPERKALEMIA,ACUTE KIDNEY Physical Exam Vital Signs: Temp Pulse Resp BP Pulse Ox 98.0 F 101 H 20 170/79 H 94 08/17/18 08:56 08/17/18 08:56 08/17/18 08:56 08/17/18 08:56 08/17/18 08:56 Intake & Output 08/16/18 08/17/18 08/18/18 06:59 06:59 06:59 Intake Total 565 50 237 Balance 565 50 237 Weight 71.5 kg 72.4 kg General appearance: PRESENT: no acute distress Head exam: PRESENT: atraumatic Eye exam: PRESENT: conjunctiva pink Teeth exam: PRESENT: edentulous Neck exam: ABSENT: carotid bruit, JVD, lymphadenopathy, thyromegaly Respiratory exam: PRESENT: decreased breath sounds Neurological exam: PRESENT: alert, awake Results Laboratory Results: 08/16/18 05:36 08/17/18 05:39 08/17/18 05:39 Sodium 141.6 Potassium 4.7 Chloride 109 H Carbon Dioxide 20 L Anion Gap 13 BUN 79 H Creatinine 3.19 H Est GFR ( Amer) 17 L Est GFR (Non-Af Amer) 14 L Glucose 94 Calcium 9.4 08/13/18 08/13/18 08/13/18 14:48 14:48 16:00 Creatine Kinase Cancelled CK-MB (CK-2) Cancelled 1.81 Troponin I Cancelled 0.044 NT-Pro-B Natriuret Pep 08/13/18 08/13/18 08/17/18 16:00 16:00 05:39 Creatine Kinase 42 CK-MB (CK-2) Troponin I NT-Pro-B Natriuret Pep 21119 H 86879 H Impressions: Chest X-Ray 08/13/18 14:52 IMPRESSION: Cardiomegaly and pleural effusions. Cannot exclude pericardial effusion. Head CT 08/13/18 15:41 IMPRESSION: 1. No acute intracranial findings. 2. 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 Abdomen/Pelvis CT 08/13/18 17:07 IMPRESSION: Anasarca, ascites and bilateral pleural fluid collections could be secondary to cardiac decompensation versus renal disease. New finding when compared with the prior exam. Cardiomegaly. Atrophic kidneys, left greater than right. Assessment and Plan - Diagnosis (1) Acute on chronic diastolic CHF (congestive heart failure), NYHA class 3 Is this a current diagnosis for this admission?: Yes Plan: Her shortness of breath relatively improved. (2) Complicated UTI (urinary tract infection) Is this a current diagnosis for this admission?: Yes Plan: Continue ceftriaxone. (3) Hyperkalemia Is this a current diagnosis for this admission?: Yes Plan: Resolved. (4) TIM on stage III CKD Is this a current diagnosis for this admission?: Yes Plan: Kidney function relatively improving. (5) Chronic a-fib Is this a current diagnosis for this admission?: Yes Plan: Rate controlled (6) Hypothyroidism Qualifiers: Hypothyroidism type: acquired Qualified Code(s): E03.9 - Hypothyroidism, unspecified Is this a current diagnosis for this admission?: Yes Plan: Continue Synthroid. (7) Dementia Is this a current diagnosis for this admission?: Yes Plan: Continue Aricept (8) Hypertension Qualifiers: Hypertension type: essential hypertension Qualified Code(s): I10 - Essential (primary) hypertension Is this a current diagnosis for this admission?: Yes Plan: Continue current regimen (9) Hyperlipidemia Qualifiers: Hyperlipidemia type: unspecified Qualified Code(s): E78.5 - Hyperlipidemia, unspecified Is this a current diagnosis for this admission?: Yes Plan: Continue current regimen.
[2018-08-17] MEDS: CHOLECALCIFEROL (D3) 1,000 UNIT TABLET PO SCH (15:59)
[2018-08-17] MEDS: PATIROMER 8.4 GM SUSP PACKET PO SCH (18:00)
[2018-08-17] MEDS: ACETAMINOPHEN 325 MG TABLET PO PRN (19:53)
[2018-08-17] MEDS: MIRTAZAPINE 15 MG TABLET PO SCH (21:11)
[2018-08-17] MEDS: FAMOTIDINE 20 MG TABLET PO SCH (21:11)
[2018-08-17] MEDS: CEFTRIAXONE SODIUM 1,000 MG in DEXTROSE 5%-WATER 50 ML IV SCH (21:34)
[2018-08-18] MEDS: LEVOTHYROXINE SODIUM 0.112 MG TABLET PO SCH (05:19)
[2018-08-18] MEDS: PANTOPRAZOLE SODIUM 20 MG TABLET.DR PO SCH (05:19)
[2018-08-18] MEDS ORDERED: OXYCODONE-ACETAMINOPHEN 5-325 MG TABLET PO PRN (10:07)
[2018-08-18] MEDS: METOPROLOL SUCCINATE 50 MG TAB.SR.24H PO SCH (10:49)
[2018-08-18] MEDS: LORATADINE 10 MG TABLET PO SCH (10:50)
[2018-08-18] MEDS: CHOLECALCIFEROL (D3) 1,000 UNIT TABLET PO SCH (10:51)
[2018-08-18] MEDS: DILTIAZEM HCL 120 MG CAP.SR.24H PO SCH (10:51)
[2018-08-18] MEDS: DOCUSATE SODIUM 100 MG CAPSULE PO SCH (10:52)
[2018-08-18] MEDS: FERROUS SULFATE 325 MG TABLET PO SCH (10:52)
[2018-08-18] MEDS: ASPIRIN 81 MG TABLET, ENT COATED PO SCH (10:53)
[2018-08-18] MEDS: SENNOSIDES/DOCUSATE 8.6-50 MG 1 EACH TABLET PO SCH ×2 (10:53→19:57)
[2018-08-18] MEDS: HEPARIN SOD (PORCINE) 5,000 UNIT/ML 1 ML SYRINGE SUBCUT SCH ×2 (11:03→21:40)
[2018-08-18] MEDS: MULTIVITAMIN ORAL LIQUID 60 ML PO SCH (11:07)
[2018-08-18] MEDS: FUROSEMIDE INJ/PF 40 MG/4 ML SDV IV SCH (11:10)
[2018-08-18] MEDS: MAGNESIUM OXIDE 400 MG TABLET PO SCH (11:11)
[2018-08-18] MEDS: POLYETHYLENE GLYCOL 3350 POWDER 17 GM/1 PACKET PO SCH (11:12)
[2018-08-18] MEDS: CALCITRIOL 0.25 MCG CAPSULE PO SCH (11:12)
[2018-08-18] MEDS: LIDOCAINE 5% (700 MG) TRANSDERMAL ADH..PATCH TP SCH (11:17)
--- NOTE | 2018-08-18 14:26 | RADIOLOGY REPORT (SQ) ---
EXAM DESCRIPTION: CT HEAD WITHOUT COMPLETED DATE/TIME: 08/18/2018 2:11 pm REASON FOR STUDY: TIA/STROKE COMPARISON: 08/13/2018 and 04/20/2018. TECHNIQUE: Axial images acquired through the brain without intravenous contrast. Images reviewed wi th bone, brain and subdural windows. Additional sagittal and coronal reconstructions were generated. Images stored on PACS. All CT scanners at this facility use dose modulation, iterative reconstruction, and/or weight based d osing when appropriate to reduce radiation dose to as low as reasonably achievable (ALARA). [facility]: Dose Right [facility]: CareDose [facility]: Dose Right [facility]: Teradose 4D [facility]: US [employer] RADIATION DOSE: CT Rad equipment meets quality standard of care and radiation dose reduction techniq ues were employed. CTDIvol: 48.6 mGy. DLP: 954 mGy-cm.mGy. LIMITATIONS: None. FINDINGS: VENTRICLES: Prominent. CEREBRUM: No masses. No hemorrhage. No midline shift. Areas of low density in the white matter mos t likely due to chronic micro-vascular ischemic change. Stable old infarct in the medial left tempor al lobe and occipital lobe. No evidence for acute infarction. CEREBELLUM: No masses. No hemorrhage. No alteration of density. No evidence for acute infarction. EXTRAAXIAL SPACES: Age-related involutional change. No fluid collections. No masses. ORBITS AND GLOBE: No intra- or extraconal masses. Normal contour of globe without masses. CALVARIUM: No fracture. PARANASAL SINUSES: No fluid or mucosal thickening. SOFT TISSUES: No mass or hematoma. OTHER: No other significant finding. IMPRESSION: CHRONIC CHANGES OF ATROPHY AND MICROVASCULAR ISCHEMIA. STABLE OLD INFARCT IN THE MEDIAL LEFT TEMPORAL LOBE AND OCCIPITAL LOBE. NO ACUTE PROCESS. EVIDENCE OF ACUTE STROKE: NO. TECHNICAL DOCUMENTATION: JOB ID: [id number] Quality ID # [id number]: Final reports with documentation of one or more dose reduction techniques (e.g., Au tomated exposure control, adjustment of the mA and/or kV according to patient size, use of iterative reconstruction technique) 2010 [employer]- All Rights Reserved Reading location - IP/workstation name: [email or web address]
--- NOTE | 2018-08-18 15:41 | PDOC PROGRESS REPORT ---
Subjective Progress Note for:: 08/18/18 Subjective:: I seen this patient propped up in bed. She complains of chest pain. Her first troponin is mildly elevated to 0.046. Her chest pain subsided after she is given Percocet. Her daughter her speech is difficult and to understand. And she states this is not her baseline. CT head is done and is negative for acute intracranial process or evidence of acute stroke. MRI of the brain could not be done because patient has pacemaker. Reason For Visit: ACUTE ON CHRONIC CHF,HYPERKALEMIA,ACUTE KIDNEY Physical Exam Vital Signs: Temp Pulse Resp BP Pulse Ox 98.0 F 72 21 H 169/81 H 96 08/18/18 11:11 08/18/18 11:11 08/18/18 11:11 08/18/18 11:11 08/18/18 11:11 Intake & Output 08/17/18 08/18/18 08/19/18 06:59 06:59 06:59 Intake Total 50 437 100 Balance 50 437 100 Weight 72.4 kg 71.9 kg Results Laboratory Results: 08/16/18 05:36 08/17/18 05:39 08/13/18 14:48 Blood Blood Culture - Final NO GROWTH IN 5 DAYS 08/13/18 08/13/18 08/13/18 14:48 14:48 16:00 Creatine Kinase Cancelled CK-MB (CK-2) Cancelled 1.81 Troponin I Cancelled 0.044 NT-Pro-B Natriuret Pep 08/13/18 08/13/18 08/17/18 16:00 16:00 05:39 Creatine Kinase 42 CK-MB (CK-2) Troponin I NT-Pro-B Natriuret Pep 47003 H 57007 H 08/18/18 11:05 Creatine Kinase CK-MB (CK-2) Troponin I 0.048 NT-Pro-B Natriuret Pep Impressions: Chest X-Ray 08/13/18 14:52 IMPRESSION: Cardiomegaly and pleural effusions. Cannot exclude pericardial effusion. Abdomen/Pelvis CT 08/13/18 17:07 IMPRESSION: Anasarca, ascites and bilateral pleural fluid collections could be secondary to cardiac decompensation versus renal disease. New finding when compared with the prior exam. Cardiomegaly. Atrophic kidneys, left greater than right. Head CT 08/18/18 00:00 IMPRESSION: CHRONIC CHANGES OF ATROPHY AND MICROVASCULAR ISCHEMIA. STABLE OLD INFARCT IN THE MEDIAL LEFT TEMPORAL LOBE AND OCCIPITAL LOBE. NO ACUTE PROCESS. EVIDENCE OF ACUTE STROKE: NO. Assessment and Plan - Diagnosis (1) Acute on chronic diastolic CHF (congestive heart failure), NYHA class 3 Is this a current diagnosis for this admission?: Yes Plan: Her shortness of breath relatively improved. (2) Complicated UTI (urinary tract infection) Is this a current diagnosis for this admission?: Yes Plan: Continue ceftriaxone. (3) Hyperkalemia Is this a current diagnosis for this admission?: Yes Plan: Resolved. (4) TIM on stage III CKD Is this a current diagnosis for this admission?: Yes Plan: Kidney function relatively improving. (5) Chronic a-fib Is this a current diagnosis for this admission?: Yes Plan: Rate controlled (6) Hypothyroidism Qualifiers: Hypothyroidism type: acquired Qualified Code(s): E03.9 - Hypothyroidism, unspecified Is this a current diagnosis for this admission?: Yes Plan: Continue Synthroid. (7) Dementia Is this a current diagnosis for this admission?: Yes Plan: Continue Aricept (8) Hypertension Qualifiers: Hypertension type: essential hypertension Qualified Code(s): I10 - Essential (primary) hypertension Is this a current diagnosis for this admission?: Yes Plan: Continue current regimen (9) Hyperlipidemia Qualifiers: Hyperlipidemia type: unspecified Qualified Code(s): E78.5 - Hyperlipidemia, unspecified Is this a current diagnosis for this admission?: Yes Plan: Continue current regimen. (10) Chest pain Qualifiers: Chest pain type: other chest pain Qualified Code(s): R07.89 - Other chest pain; R07.8 - Other chest pain Is this a current diagnosis for this admission?: Yes Plan: Nitro sublingual. And Percocet for breakthrough pain. Repeat second set troponin.
[2018-08-18] MEDS ORDERED: NITROGLYCERIN 0.4 MG/TAB 25 TAB/BOTTLE SL PRN (15:42)
[2018-08-18] MEDS ORDERED: CLOPIDOGREL BISULFATE 75 MG TABLET PO ONE (16:00)
[2018-08-18] MEDS ORDERED: ASPIRIN 325 MG TABLET PO ONE (16:00)
[2018-08-18] MEDS: PATIROMER 8.4 GM SUSP PACKET PO SCH (19:55)
[2018-08-18] MEDS: CEFTRIAXONE SODIUM 1,000 MG in DEXTROSE 5%-WATER 50 ML IV SCH (21:39)
[2018-08-18] MEDS: FAMOTIDINE 20 MG TABLET PO SCH (21:47)
[2018-08-18] MEDS: MIRTAZAPINE 15 MG TABLET PO SCH (21:47)
[2018-08-19] MEDS: PANTOPRAZOLE SODIUM 20 MG TABLET.DR PO SCH (05:42)
[2018-08-19] MEDS: LEVOTHYROXINE SODIUM 0.112 MG TABLET PO SCH (05:42)
[2018-08-19] MEDS ORDERED: HEPARIN SOD (PORCINE) 5,000 UNIT/ML 1 ML SYRINGE SUBCUT SCH (10:00)
[2018-08-19] MEDS ORDERED: ENOXAPARIN SODIUM INJ 80 MG/0.8 ML DISP.SYRIN SUBCUT SCH ×2 (10:00)
[2018-08-19] MEDS: CLOPIDOGREL BISULFATE 75 MG TABLET PO SCH (10:28)
[2018-08-19] MEDS: DILTIAZEM HCL 120 MG CAP.SR.24H PO SCH (10:29)
[2018-08-19] MEDS: FERROUS SULFATE 325 MG TABLET PO SCH (10:29)
[2018-08-19] MEDS: MAGNESIUM OXIDE 400 MG TABLET PO SCH (10:29)
[2018-08-19] MEDS: METOPROLOL SUCCINATE 50 MG TAB.SR.24H PO SCH (10:29)
[2018-08-19] MEDS: CHOLECALCIFEROL (D3) 1,000 UNIT TABLET PO SCH (10:29)
[2018-08-19] MEDS: DOCUSATE SODIUM 100 MG CAPSULE PO SCH (10:29)
[2018-08-19] MEDS: ASPIRIN 81 MG TABLET, ENT COATED PO SCH (10:29)
[2018-08-19] MEDS: SENNOSIDES/DOCUSATE 8.6-50 MG 1 EACH TABLET PO SCH ×2 (10:29→17:31)
[2018-08-19] MEDS: LORATADINE 10 MG TABLET PO SCH (10:29)
[2018-08-19] MEDS: FUROSEMIDE INJ/PF 40 MG/4 ML SDV IV SCH (10:30)
[2018-08-19] MEDS: POLYETHYLENE GLYCOL 3350 POWDER 17 GM/1 PACKET PO SCH (10:30)
[2018-08-19] MEDS: MULTIVITAMIN ORAL LIQUID 60 ML PO SCH (10:30)
[2018-08-19] MEDS: LIDOCAINE 5% (700 MG) TRANSDERMAL ADH..PATCH TP SCH (10:31)
--- NOTE | 2018-08-19 13:55 | PDOC PROGRESS REPORT ---
Subjective Progress Note for:: 08/19/18 Subjective:: Patient seen propped up in bed. She is awake alert. She reports this she feels much better today than yesterday. Her troponin first set was 0.048 the second 0.47 and the surgery set 0.051. Patient remained chest pain-free. Patient has been started on Lipitor, aspirin, and Plavix. Dr. Siddiqui consulted for second opinion. Reason For Visit: ACUTE ON CHRONIC CHF,HYPERKALEMIA,ACUTE KIDNEY Physical Exam Vital Signs: Temp Pulse Resp BP Pulse Ox 98.0 F 88 14 157/75 H 98 08/19/18 11:17 08/19/18 11:17 08/19/18 11:17 08/19/18 11:17 08/19/18 11:17 Intake & Output 08/18/18 08/19/18 08/20/18 06:59 06:59 06:59 Intake Total 437 607 25 Balance 437 607 25 Weight 71.9 kg 71.1 kg General appearance: PRESENT: no acute distress Head exam: PRESENT: atraumatic Eye exam: PRESENT: conjunctiva pink Mouth exam: PRESENT: moist Neck exam: ABSENT: carotid bruit, JVD, lymphadenopathy, thyromegaly Respiratory exam: PRESENT: clear to auscultation roscoe. ABSENT: rales, rhonchi, wheezes Cardiovascular exam: PRESENT: RRR. ABSENT: diastolic murmur, rubs, systolic murmur GI/Abdominal exam: PRESENT: normal bowel sounds, soft. ABSENT: distended, gua rding, mass, organolmegaly, rebound, tenderness Neurological exam: PRESENT: alert, awake Results Laboratory Results: 08/16/18 05:36 08/17/18 05:39 08/13/18 16:00 Blood Blood Culture - Final NO GROWTH IN 5 DAYS 08/13/18 14:48 Blood Blood Culture - Final NO GROWTH IN 5 DAYS 08/13/18 08/13/18 08/13/18 14:48 14:48 16:00 Creatine Kinase Cancelled CK-MB (CK-2) Cancelled 1.81 Troponin I Cancelled 0.044 NT-Pro-B Natriuret Pep 08/13/18 08/13/18 08/17/18 16:00 16:00 05:39 Creatine Kinase 42 CK-MB (CK-2) Troponin I NT-Pro-B Natriuret Pep 84741 H 24606 H 08/18/18 08/18/18 08/18/18 11:05 15:58 22:05 Creatine Kinase CK-MB (CK-2) Troponin I 0.048 0.047 0.051 NT-Pro-B Natriuret Pep Impressions: Chest X-Ray 08/13/18 14:52 IMPRESSION: Cardiomegaly and pleural effusions. Cannot exclude pericardial effusion. Abdomen/Pelvis CT 08/13/18 17:07 IMPRESSION: Anasarca, ascites and bilateral pleural fluid collections could be secondary to cardiac decompensation versus renal disease. New finding when compared with the prior exam. Cardiomegaly. Atrophic kidneys, left greater than right. Head CT 08/18/18 00:00 IMPRESSION: CHRONIC CHANGES OF ATROPHY AND MICROVASCULAR ISCHEMIA. STABLE OLD INFARCT IN THE MEDIAL LEFT TEMPORAL LOBE AND OCCIPITAL LOBE. NO ACUTE PROCESS. EVIDENCE OF ACUTE STROKE: NO. Assessment and Plan - Diagnosis (1) Elevated troponin Is this a current diagnosis for this admission?: Yes Plan: Patient has indeterminately elevated troponin. Possibly secondary to demand ischemia. Because of her age and multiple comorbidities patient is not a good candidate for cardiac catheterization. I optimize her medical management. (2) Acute on chronic diastolic CHF (congestive heart failure), NYHA class 3 Is this a current diagnosis for this admission?: Yes Plan: Her shortness of breath relatively improved. (3) Complicated UTI (urinary tract infection) Is this a current diagnosis for this admission?: Yes Plan: Continue ceftriaxone. (4) Hyperkalemia Is this a current diagnosis for this admission?: Yes Plan: Resolved. 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 (6) Chronic a-fib Is this a current diagnosis for this admission?: Yes Plan: Rate controlled (7) Hypothyroidism Qualifiers: Hypothyroidism type: acquired Qualified Code(s): E03.9 - Hypothyroidism, unspecified Is this a current diagnosis for this admission?: Yes Plan: Continue Synthroid. (8) Dementia Is this a current diagnosis for this admission?: Yes Plan: Continue Aricept (9) Hypertension Qualifiers: Hypertension type: essential hypertension Qualified Code(s): I10 - Essential (primary) hypertension Is this a current diagnosis for this admission?: Yes Plan: Continue current regimen (10) Hyperlipidemia Qualifiers: Hyperlipidemia type: unspecified Qualified Code(s): E78.5 - Hyperlipidemia, unspecified Is this a current diagnosis for this admission?: Yes Plan: Continue current regimen. (11) Chest pain Qualifiers: Chest pain type: other chest pain Qualified Code(s): R07.89 - Other chest pain; R07.8 - Other chest pain Is this a current diagnosis for this admission?: Yes
[2018-08-19] MEDS: HEPARIN SOD (PORCINE) 5,000 UNIT/ML 1 ML SYRINGE SUBCUT SCH ×2 (14:52→21:47)
[2018-08-19] MEDS: PATIROMER 8.4 GM SUSP PACKET PO SCH (17:27)
--- NOTE | 2018-08-19 19:05 | RADIOLOGY REPORT (SQ) ---
EXAM DESCRIPTION: U/S RETROPERITON (RENAL/AORTA) COMPLETED DATE/TIME: 08/19/2018 6:50 pm REASON FOR STUDY: flank pain COMPARISON: CT abdomen and pelvis 08/13/2018. Renal ultrasound 05/17/2017. TECHNIQUE: Grayscale images acquired of the kidneys and bladder and recorded on PACS. Additional ronda ected color Doppler images recorded. LIMITATIONS: None. FINDINGS: RIGHT KIDNEY: Measures 9.8 x 4.5 x 3.8 cm. There is increased echogenicity of the renal p arenchyma, suggestive of medical renal disease. No hydronephrosis. No renal calculi are identified by ultrasound. LEFT KIDNEY: Measures 5.3 x 3.1 x 3.6 cm. There is increased echogenicity of the renal parenchyma, suggestive of medical renal disease. No hydronephrosis. No renal calculi are identified by ultrasou nd. BLADDER: Decompressed. OTHER FINDINGS: Incidental note is made of small amount of free fluid at the upper abdomen. There is a 2 cm gallstone. IMPRESSION: 1. No hydronephrosis. Medical renal disease. Left renal atrophy. 2. Small ascites. 3. Cholelithiasis. TECHNICAL DOCUMENTATION: JOB ID: [id number]- All Rights Reserved Reading location - IP/workstation name: [email or web address]
[2018-08-19] MEDS: CEFTRIAXONE SODIUM 1,000 MG in DEXTROSE 5%-WATER 50 ML IV SCH (21:44)
[2018-08-19] MEDS: MIRTAZAPINE 15 MG TABLET PO SCH (21:45)
[2018-08-19] MEDS: ATORVASTATIN CALCIUM 40 MG TABLET PO SCH (21:46)
[2018-08-19] MEDS: FAMOTIDINE 20 MG TABLET PO SCH (21:46)
[2018-08-19] MEDS: ACETAMINOPHEN 325 MG TABLET PO PRN (21:47)
[2018-08-19] MEDS ORDERED: ATORVASTATIN CALCIUM 20 MG TABLET PO SCH (22:00)
[2018-08-20] MEDS: PANTOPRAZOLE SODIUM 20 MG TABLET.DR PO SCH (05:18)
[2018-08-20] MEDS: LEVOTHYROXINE SODIUM 0.112 MG TABLET PO SCH (05:19)
[2018-08-20] MEDS: HEPARIN SOD (PORCINE) 5,000 UNIT/ML 1 ML SYRINGE SUBCUT SCH ×3 (05:19→21:03)
[2018-08-20 09:21] LABS: INTERNATIONAL RATION (INR) 1.07; PROTHROMBIN TIME 14.5 SEC (11.4-15.4)
[2018-08-20 09:27] LABS: ANION GAP 6 (5-19); BLOOD UREA NITROGEN 63 mg/dL (7-20); CALCIUM 8.7 mg/dL (8.4-10.2); CARBON DIOXIDE 33 mmol/L (22-30); CHLORIDE 106 mmol/L (98-107); GLUCOSE 113 mg/dL (75-110)
[2018-08-20] MEDS ORDERED: DILTIAZEM HCL 120 MG CAP.SR.24H PO SCH (10:00)
[2018-08-20] MEDS: CLOPIDOGREL BISULFATE 75 MG TABLET PO SCH (10:58)
[2018-08-20] MEDS: MAGNESIUM OXIDE 400 MG TABLET PO SCH (10:58)
[2018-08-20] MEDS: FERROUS SULFATE 325 MG TABLET PO SCH ×2 (10:58→11:24)
[2018-08-20] MEDS: ASPIRIN 81 MG TABLET, ENT COATED PO SCH ×2 (10:58→11:24)
[2018-08-20] MEDS: METOPROLOL SUCCINATE 50 MG TAB.SR.24H PO SCH ×2 (10:58→11:24)
[2018-08-20] MEDS: DILTIAZEM HCL 180 MG CAPSULE.CR PO SCH ×2 (10:58→11:22)
[2018-08-20] MEDS: DOCUSATE SODIUM 100 MG CAPSULE PO SCH ×2 (10:58→11:23)
[2018-08-20] MEDS: FUROSEMIDE INJ/PF 40 MG/4 ML SDV IV SCH (10:59)
[2018-08-20] MEDS: MULTIVITAMIN ORAL LIQUID 60 ML PO SCH (10:59)
[2018-08-20] MEDS: SENNOSIDES/DOCUSATE 8.6-50 MG 1 EACH TABLET PO SCH ×2 (10:59→17:55)
[2018-08-20] MEDS: CHOLECALCIFEROL (D3) 1,000 UNIT TABLET PO SCH (10:59)
[2018-08-20] MEDS: POLYETHYLENE GLYCOL 3350 POWDER 17 GM/1 PACKET PO SCH (10:59)
[2018-08-20] MEDS: LORATADINE 10 MG TABLET PO SCH (10:59)
[2018-08-20] MEDS: LIDOCAINE 5% (700 MG) TRANSDERMAL ADH..PATCH TP SCH (11:00)
[2018-08-20] MEDS: ISOSORBIDE DINITRATE 20 MG TABLET PO SCH ×2 (11:00→21:04)
[2018-08-20] MEDS: ASPIRIN 81 MG TABLET, CHEWABLE PO SCH (11:39)
[2018-08-20] MEDS: DILTIAZEM HCL 60 MG TABLET PO SCH ×2 (11:39→21:03)
[2018-08-20] MEDS: METOPROLOL TARTRATE 50 MG TABLET PO SCH ×2 (11:39→21:03)
[2018-08-20] MEDS: FERROUS SULFATE LIQUID 300 MG/5 ML UDC PO SCH (11:39)
[2018-08-20] MEDS: DOCUSATE SODIUM 100 MG/10 ML UDC PO SCH (11:53)
[2018-08-20] MEDS ORDERED: HYDRALAZINE HCL 50 MG TABLET PO SCH (14:00)
--- NOTE | 2018-08-20 14:41 | PDOC PROGRESS REPORT ---
Subjective Progress Note for:: 08/20/18 Subjective:: Patient seen resting in bed comfortably. No new complaints. Her kidney function is improving gradually. Reason For Visit: ACUTE ON CHRONIC CHF,HYPERKALEMIA,ACUTE KIDNEY Physical Exam Vital Signs: Temp Pulse Resp BP Pulse Ox 97.6 F 104 H 16 161/86 H 97 08/20/18 11:20 08/20/18 11:20 08/20/18 11:20 08/20/18 11:20 08/20/18 11:20 Intake & Output 08/19/18 08/20/18 08/21/18 06:59 06:59 06:59 Intake Total 607 412 0 Balance 607 412 0 Weight 71.1 kg 67.7 kg General appearance: PRESENT: no acute distress Mouth exam: PRESENT: moist Neck exam: ABSENT: carotid bruit, JVD, lymphadenopathy, thyromegaly Respiratory exam: PRESENT: decreased breath sounds Cardiovascular exam: PRESENT: irregular rhythm Neurological exam: PRESENT: alert, awake Results Laboratory Results: 08/16/18 05:36 08/20/18 08:45 08/20/18 08:45 Sodium 145.0 Potassium 4.0 Chloride 106 Carbon Dioxide 33 H Anion Gap 6 BUN 63 H Creatinine 2.36 H Est GFR ( Amer) 24 L Est GFR (Non-Af Amer) 19 L Glucose 113 H Calcium 8.7 08/13/18 08/13/18 08/13/18 14:48 14:48 16:00 Creatine Kinase Cancelled CK-MB (CK-2) Cancelled 1.81 Troponin I Cancelled 0.044 NT-Pro-B Natriuret Pep 08/13/18 08/13/18 08/17/18 16:00 16:00 05:39 Creatine Kinase 42 CK-MB (CK-2) Troponin I NT-Pro-B Natriuret Pep 93420 H 25789 H 08/18/18 08/18/18 08/18/18 11:05 15:58 22:05 Creatine Kinase CK-MB (CK-2) Troponin I 0.048 0.047 0.051 NT-Pro-B Natriuret Pep Impressions: Chest X-Ray 08/13/18 14:52 IMPRESSION: Cardiomegaly and pleural effusions. Cannot exclude pericardial effusion. Abdomen/Pelvis CT 08/13/18 17:07 IMPRESSION: Anasarca, ascites and bilateral pleural fluid collections could be secondary to cardiac decompensation versus renal disease. New finding when compared with the prior exam. Cardiomegaly. Atrophic kidneys, left greater than right. Head CT 08/18/18 00:00 IMPRESSION: CHRONIC CHANGES OF ATROPHY AND MICROVASCULAR ISCHEMIA. STABLE OLD INFARCT IN THE MEDIAL LEFT TEMPORAL LOBE AND OCCIPITAL LOBE. NO ACUTE PROCESS. EVIDENCE OF ACUTE STROKE: NO. Renal Ultrasound 08/19/18 00:00 IMPRESSION: 1. No hydronephrosis. Medical renal disease. Left renal atrophy. 2. Small ascites. 3. Cholelithiasis. Assessment and Plan - Diagnosis (1) Elevated troponin Is this a current diagnosis for this admission?: Yes Plan: Patient has been on Plavix, metoprolol and Lipitor. Patient has been evaluated by Dr. Siddiqui who recommended medical management. (2) Acute on chronic diastolic CHF (congestive heart failure), NYHA class 3 Is this a current diagnosis for this admission?: Yes Plan: Her shortness of breath relatively improved. (3) Complicated UTI (urinary tract infection) Is this a current diagnosis for this admission?: Yes Plan: Treated (4) Hyperkalemia Is this a current diagnosis for this admission?: Yes Plan: Resolved. 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 (6) Chronic a-fib Is this a current diagnosis for this admission?: Yes Plan: Rate controlled (7) Hypothyroidism Qualifiers: Hypothyroidism type: acquired Qualified Code(s): E03.9 - Hypothyroidism, unspecified Is this a current diagnosis for this admission?: Yes Plan: Continue Synthroid. (8) Dementia Is this a current diagnosis for this admission?: Yes Plan: Continue Aricept (9) Hypertension Qualifiers: Hypertension type: essential hypertension Qualified Code(s): I10 - Essential (primary) hypertension Is this a current diagnosis for this admission?: Yes Plan: Continue current regimen (10) Hyperlipidemia Qualifiers: Hyperlipidemia type: unspecified Qualified Code(s): E78.5 - Hyperlipidemia, unspecified Is this a current diagnosis for this admission?: Yes Plan: Continue current regimen. (11) Chest pain Qualifiers: Chest pain type: other chest pain Qualified Code(s): R07.89 - Other chest pain; R07.8 - Other chest pain Is this a current diagnosis for this admission?: Yes Plan: Nitro sublingual. And Percocet for breakthrough pain. Repeat second set troponin.
[2018-08-20] MEDS: HYDRALAZINE HCL 25 MG TABLET PO SCH ×2 (14:58→21:03)
--- NOTE | 2018-08-20 15:39 | PDOC CONSULTATION ---
Consultation Consult Date: 08/20/18 Consult reason:: elevated troponin History of Present Illness Admission Date/PCP: 08/13/18 22:55 ANTONIO HITCHCOCK MD History of Present Illness: MARTY GAGE is a 87 year old female With past medical history of hypertension, chronic kidney disease, dementia who was admitted on 08/13/2018 with complaints of nausea and vomiting and found to have urinary tract infection for which she is being treated. She also has a history of pacemaker and CVA. During the course of her hospitalization cardiac biomarkers were checked and they were borderline elevated and we were consulted to evaluate patient for the same. Patient seen at bedside and she is baseline dementia but responds to her name and follows simple commands. She is denying any chest pain but does get short of breath at times. Patient is forgetful and not able to give us a detailed history. No family is present at bedside. Ac cording to the nurse patient is unable to get out of bed by herself or ambulate. She is currently living in a nursing facility. Past Medical History Cardiac Medical History: Reports: Atrial Fibrillation, Congestive Heart Failure, Hyperlipidema, Hypertension, Heart Murmur - Aortic stenosis Pulmonary Medical History: Denies: Asthma, Chronic Obstructive Pulmonary Disease (COPD) Neurological Medical History: Denies: Seizures Endocrine Medical History: Reports: Hypothyroidism Denies: Diabetes Mellitus Type 1, Diabetes Mellitus Type 2 GI Medical History: Reports: Gastroesophageal Reflux Disease Denies: Cirrhosis, Hepatitis Musculoskeltal Medical History: Denies: Arthritis, Gout Skin Medical History: Denies: Eczema, Psoriasis Psychiatric Medical History: Reports: Dementia, Depression Hematology: Denies: Anemia, Bleeding Tendencies Past Surgical History Past Surgical History: Reports: Pacemaker, Other - Cataract surgery and lipoma excisions Denies: Hysterectomy Social History Smoking Status: Never Smoker Frequency of Alcohol Use: None Hx Recreational Drug Use: No Drugs: None Hx Prescription Drug Abuse: No - Advance Directive Resuscitation Status: Do Not Resuscitate Family History Family History: Reviewed & Not Pertinent, Hypertension, Other - Heart disease Parental Family History Reviewed: No Children Family History Reviewed: No Sibling(s) Family History Reviewed.: No - Patient forgetful and unable to provide a detailed family history. Medication/Allergy Home Medications: Acetaminophen [Tylenol] 650 mg PO Q6HP PRN 06/22/17 Docusate Sodium [Colace] 100 mg PO DAILY 06/22/17 Famotidine [Pepcid 20 mg Tablet] 20 mg PO QHS 06/22/17 Ipratropium/Albuterol Sulfate [Duoneb 3 ml Ampul] 1 vial NEB RTQ4HP PRN 06/22/17 Levothyroxine Sodium [Synthroid] 112 mcg PO Q6AM 06/22/17 Loratadine [Claritin 10 mg Tablet] 10 mg PO DAILY 06/22/17 Metoprolol Succinate [Toprol XL 100 mg Tablet] 150 mg PO DAILY 06/22/17 Omeprazole Magnesium [Prilosec Otc] 20 mg PO DAILY 06/22/17 Diltiazem HCl [Cardizem Cd 120 mg Capsule] 1 cap.sr PO DAILY 04/20/18 Ferrous Sulfate [Feosol] 325 mg PO DAILY 04/20/18 Polyethylene Glycol 3350 [Miralax Powder 17 gm/Packet] 1 packet PO DAILY 04/20/18 Allopurinol [Zyloprim 100 mg Tablet] 100 mg PO DAILY 08/14/18 Aspirin [Lo-Dose Aspirin EC] 81 mg PO DAILY 08/14/18 Calcitriol [Rocaltrol] 0.25 mcg PO MOWEFR 08/14/18 Furosemide [Lasix] 40 mg PO DAILY 08/14/18 Melatonin [Melatonin 5 mg Tablet] 5 mg PO QHS 08/14/18 Mineral Oil/Petrolatum,White [Eucerin Cream 114 gm] 1 applic TOP BID 08/14/18 Mirtazapine 7.5 mg PO QHS 08/14/18 Allergies/Adverse Reactions: No Known Allergies Allergy (Verified 06/22/17 16:44) Review of Systems ROS unobtainable: Due to mental status Constitutional: PRESENT: weakness Respiratory: PRESENT: dyspnea Gastrointestinal: PRESENT: nausea, vomiting Neurological: PRESENT: memory loss - Review of systems incomplete because of patient being forgetful and no family present at bedside. Physical Exam Vital Signs: Temp Pulse Resp BP Pulse Ox 97.6 F 104 H 16 161/86 H 97 08/20/18 11:20 08/20/18 11:20 08/20/18 11:20 08/20/18 11:20 08/20/18 11:20 Intake & Output 08/19/18 08/20/18 08/21/18 06:59 06:59 06:59 Intake Total 607 412 0 Balance 607 412 0 Weight 71.1 kg 67.7 kg General appearance: PRESENT: no acute distress Head exam: PRESENT: atraumatic - Patient appears pleasantly confused. Bilateral air entry heard in both lungs with occasional crepitus. No wheeze heard. Respiratory exam: PRESENT: crackles - Left side chest wall device palpable under the skin. Cardiovascular exam: PRESENT: +S1, +S2 Pulses: PRESENT: +2 pedal pulses bilateral - Facial asymmetry noted with left- sided hemiparesis. Results Laboratory Results: 08/16/18 05:36 08/20/18 08:45 08/20/18 08:45 Sodium 145.0 Potassium 4.0 Chloride 106 Carbon Dioxide 33 H Anion Gap 6 BUN 63 H Creatinine 2.36 H Est GFR ( Amer) 24 L Est GFR (Non-Af Amer) 19 L Glucose 113 H Calcium 8.7 08/13/18 08/13/18 08/13/18 14:48 14:48 16:00 Creatine Kinase Cancelled CK-MB (CK-2) Cancelled 1.81 Troponin I Cancelled 0.044 NT-Pro-B Natriuret Pep 08/13/18 08/13/18 08/17/18 16:00 16:00 05:39 Creatine Kinase 42 CK-MB (CK-2) Troponin I NT-Pro-B Natriuret Pep 53437 H 24041 H 08/18/18 08/18/18 08/18/18 11:05 15:58 22:05 Creatine Kinase CK-MB (CK-2) Troponin I 0.048 0.047 0.051 NT-Pro-B Natriuret Pep Impressions: Chest X-Ray 08/13/18 14:52 IMPRESSION: Cardiomegaly and pleural effusions. Cannot exclude pericardial e ffusion. Abdomen/Pelvis CT 08/13/18 17:07 IMPRESSION: Anasarca, ascites and bilateral pleural fluid collections could be secondary to cardiac decompensation versus renal disease. New finding when compared with the prior exam. Cardiomegaly. Atrophic kidneys, left greater than right. Head CT 08/18/18 00:00 IMPRESSION: CHRONIC CHANGES OF ATROPHY AND MICROVASCULAR ISCHEMIA. STABLE OLD INFARCT IN THE MEDIAL LEFT TEMPORAL LOBE AND OCCIPITAL LOBE. NO ACUTE PROCESS. EVIDENCE OF ACUTE STROKE: NO. Renal Ultrasound 08/19/18 00:00 IMPRESSION: 1. No hydronephrosis. Medical renal disease. Left renal atrophy. 2. Small ascites. 3. Cholelithiasis. 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 Patient appears euvolemic on exam at this time in no acute distress. Borderline elevated cardiac biomarkers in the setting of UTI with acute on chronic kidney disease and the absence of any anginal symptoms may reflect elevated cardiac biomarkers secondary to cardiomyopathy. Reasonable to get an echocardiogram to evaluate current systolic and diastolic function but in the absence of any anginal symptoms and baseline dementia with more or less nonambulatory status would not recommend aggressive cardiac workup. Patient already on dual antiplatelet therapy for history of CVA along with statin and beta-jac. No information available about type of device patient has, whether its a pacemaker or defibrillator and from what company. Recommend outpatient follow-up with patient's butadiene converter operator for interrogating the device to check for any recent arrhythmias and battery status. Please call us if any questions arise. At this time will recommend conservative medical therapy. - Time Time Spent: 30 to 50 Minutes
[2018-08-20] MEDS ORDERED: LACTULOSE SYRUP 20 GM/30 ML UDCUP PO ONE (16:45)
[2018-08-20] MEDS: PATIROMER 8.4 GM SUSP PACKET PO SCH (17:52)
[2018-08-20] MEDS: ATORVASTATIN CALCIUM 40 MG TABLET PO SCH (21:03)
[2018-08-20] MEDS: MIRTAZAPINE 15 MG TABLET PO SCH (21:03)
[2018-08-20] MEDS: FAMOTIDINE 20 MG TABLET PO SCH (21:03)
[2018-08-20] MEDS: CEFTRIAXONE SODIUM 1,000 MG in DEXTROSE 5%-WATER 50 ML IV SCH (21:04)
[2018-08-21] MEDS: LEVOTHYROXINE SODIUM 0.112 MG TABLET PO SCH (05:12)
[2018-08-21] MEDS: HEPARIN SOD (PORCINE) 5,000 UNIT/ML 1 ML SYRINGE SUBCUT SCH ×3 (05:12→22:07)
[2018-08-21] MEDS: HYDRALAZINE HCL 25 MG TABLET PO SCH ×3 (05:12→22:06)
[2018-08-21] MEDS ORDERED: PANTOPRAZOLE SODIUM 40 MG PACKET.DR PO SCH (06:00)
[2018-08-21 06:46] LABS: HEMATOCRIT 40.1 % (36.0-47.0); HEMOGLOBIN 12.5 g/dL (12.0-15.5); MEAN CORPUSCULAR HEMOGLOBIN 28.8 pg (27.0-33.4); MEAN CORPUSCULAR VOLUME 93 fl (80-97); PLATELET COUNT 219 10^3/uL (150-450); RED BLOOD COUNT 4.32 10^6/uL (3.72-5.28); RED CELL DISTRIBUTION WIDTH 19.4 % (11.5-14.0); WHITE BLOOD COUNT 7.1 10^3/uL (4.0-10.5)
[2018-08-21] MEDS: SENNOSIDES/DOCUSATE 8.6-50 MG 1 EACH TABLET PO SCH ×3 (10:49→17:39)
[2018-08-21] MEDS: CHOLECALCIFEROL (D3) 1,000 UNIT TABLET PO SCH ×2 (10:49→11:29)
[2018-08-21] MEDS: CLOPIDOGREL BISULFATE 75 MG TABLET PO SCH ×2 (10:49→11:29)
[2018-08-21] MEDS: FUROSEMIDE INJ/PF 40 MG/4 ML SDV IV SCH (10:49)
[2018-08-21] MEDS: METOPROLOL TARTRATE 50 MG TABLET PO SCH ×3 (10:49→22:06)
[2018-08-21] MEDS: FERROUS SULFATE LIQUID 300 MG/5 ML UDC PO SCH ×2 (10:49→11:26)
[2018-08-21] MEDS: ASPIRIN 81 MG TABLET, CHEWABLE PO SCH ×2 (10:49→11:23)
[2018-08-21] MEDS: MAGNESIUM OXIDE 400 MG TABLET PO SCH ×2 (10:49→11:27)
[2018-08-21] MEDS: LORATADINE 10 MG TABLET PO SCH ×2 (10:49→11:24)
[2018-08-21] MEDS: DILTIAZEM HCL 60 MG TABLET PO SCH ×3 (10:49→22:06)
[2018-08-21] MEDS: LORAZEPAM 0.5 MG TABLET PO ONE ×2 (10:49→11:23)
[2018-08-21] MEDS: MULTIVITAMIN ORAL LIQUID 60 ML PO SCH ×2 (10:50→11:29)
[2018-08-21] MEDS: ISOSORBIDE DINITRATE 20 MG TABLET PO SCH ×3 (10:50→22:05)
[2018-08-21] MEDS: POLYETHYLENE GLYCOL 3350 POWDER 17 GM/1 PACKET PO SCH ×2 (10:50→11:28)
[2018-08-21] MEDS: LIDOCAINE 5% (700 MG) TRANSDERMAL ADH..PATCH TP SCH (10:50)
[2018-08-21] MEDS: DOCUSATE SODIUM 100 MG/10 ML UDC PO SCH ×2 (10:50→11:26)
[2018-08-21] MEDS: CALCITRIOL 0.25 MCG CAPSULE PO SCH (11:29)
--- NOTE | 2018-08-21 13:03 | RADIOLOGY REPORT (SQ) ---
EXAM DESCRIPTION: CHEST SINGLE VIEW COMPLETED DATE/TIME: 08/21/2018 12:44 pm REASON FOR STUDY: SOB COMPARISON: 08/13/2018 EXAM PARAMETERS: NUMBER OF VIEWS: One view. TECHNIQUE: Single frontal radiographic view of the chest acquired. RADIATION DOSE: NA LIMITATIONS: None. FINDINGS: LUNGS AND PLEURA: Opacification in the right lung in the middle lobe and upper lobe. Locu lated pleural effusion in the right base. There is apparent retrocardiac opacification on the left. The left hemidiaphragm is indistinct. MEDIASTINUM AND HILAR STRUCTURES: No masses. Contour normal. HEART AND VASCULAR STRUCTURES: Cardiomegaly. No laura pulmonary edema. BONES: No acute findings. HARDWARE: Pacemaker. OTHER: No other significant finding. IMPRESSION: Possible multicentric pneumonia. Small loculated right pleural effusion. Cardiomegaly without laura pulmonary edema. TECHNICAL DOCUMENTATION: JOB ID: [id number]- All Rights Reserved Reading location - IP/workstation name: [email or web address]
[2018-08-21] MEDS ORDERED: CEFEPIME 2 GM/D5W RTU 2 GM/50 ML RTUPB IV SCH (13:30)
[2018-08-21] MEDS ORDERED: VANCOMYCIN HCL 0 MG in DEXTROSE 5%-WATER 250 ML IV NR (13:30)
--- NOTE | 2018-08-21 13:36 | PDOC PROGRESS REPORT ---
Subjective Progress Note for:: 08/21/18 Subjective:: This is 87 years old black female patient with multiple comorbidities including the chronic atrial fibrillation, CHF, hypertension, lipidemia, hypothyroidism, dementia and CKD transferred from [facility] with chief complaint of lack of energy and shortness of breath. At presentation her BNP is 42,500. Her urinalysis compatible with UTI and her urine culture grew E. coli which is pansensitive. Patient completed course of antibiotic for the UTI. And Lasix and cardioprotective medications for her congestive heart failure. On19/08/18 patient started complaining of chest pain on the left side so troponin was done and the first set was 0.048 the second 0.047 and the third set was 0.051. I started the patient on Plavix and Lipitor and continue metoprolol and aspirin that she has been getting already. Patient seen and evaluated by wind energy project manager and recommended to optimize her medical management since patient did not a candidate for invasive cardiac workup. This morning I discontinued her Plavix and Lipitor because her daughter told me she has history of bleeding with Plavix and muscle cramps with Lipitor. This morning also patient complaini ng of shortness of breath and chest x-ray stat is done and and reported as possible multicentric pneumonia. Blood cultures start and patient started on cefepime and vancomycin. Reason For Visit: ACUTE ON CHRONIC CHF,HYPERKALEMIA,ACUTE KIDNEY Physical Exam Vital Signs: Temp Pulse Resp BP Pulse Ox 97.9 F 82 16 128/60 H 95 08/21/18 10:55 08/21/18 10:55 08/21/18 10:55 08/21/18 10:55 08/21/18 10:55 Intake & Output 08/20/18 08/21/18 08/22/18 06:59 06:59 06:59 Intake Total 412 437 200 Balance 412 437 200 Weight 67.7 kg 67.6 kg General appearance: PRESENT: mild distress Head exam: PRESENT: atraumatic Eye exam: PRESENT: conjunctiva pink Mouth exam: PRESENT: moist Neck exam: ABSENT: carotid bruit, JVD, lymphadenopathy, thyromegaly Respiratory exam: PRESENT: crackles Cardiovascular exam: PRESENT: systolic murmur GI/Abdominal exam: PRESENT: normal bowel sounds, soft. ABSENT: distended, guarding, mass, organolmegaly, rebound, tenderness Psychiatric exam: PRESENT: depressed Results Laboratory Results: 08/21/18 05:39 08/20/18 08:45 08/21/18 05:39 WBC 7.1 RBC 4.32 Hgb 12.5 Hct 40.1 MCV 93 MCH 28.8 MCHC 31.0 L RDW 19.4 H Plt Count 219 08/13/18 08/13/18 08/13/18 14:48 14:48 16:00 Creatine Kinase Cancelled CK-MB (CK-2) Cancelled 1.81 Troponin I Cancelled 0.044 NT-Pro-B Natriuret Pep 08/13/18 08/13/18 08/17/18 16:00 16:00 05:39 Creatine Kinase 42 CK-MB (CK-2) Troponin I NT-Pro-B Natriuret Pep 08779 H 37810 H 08/18/18 08/18/18 08/18/18 11:05 15:58 22:05 Creatine Kinase CK-MB (CK-2) Troponin I 0.048 0.047 0.051 NT-Pro-B Natriuret Pep Impressions: Abdomen/Pelvis CT 08/13/18 17:07 IMPRESSION: Anasarca, ascites and bilateral pleural fluid collections could be secondary to cardiac decompensation versus renal disease. New finding when compared with the prior exam. Cardiomegaly. Atrophic kidneys, left greater than right. Head CT 08/18/18 00:00 IMPRESSION: CHRONIC CHANGES OF ATROPHY AND MICROVASCULAR ISCHEMIA. STABLE OLD INFARCT IN THE MEDIAL LEFT TEMPORAL LOBE AND OCCIPITAL LOBE. NO ACUTE PROCESS. EVIDENCE OF ACUTE STROKE: NO. Renal Ultrasound 08/19/18 00:00 IMPRESSION: 1. No hydronephrosis. Medical renal disease. Left renal atrophy. 2. Small ascites. 3. Cholelithiasis. Chest X-Ray 08/21/18 00:00 IMPRESSION: Possible multicentric pneumonia. Small loculated right pleural effusion. Cardiomegaly without laura pulmonary edema. Assessment and Plan - Diagnosis (1) Possible HCAP Is this a current diagnosis for this admission?: Yes Plan: Patient has been started empirically on cefepime and vancomycin. (2) Elevated troponin Is this a current diagnosis for this admission?: Yes Plan: Patient has been on Plavix, metoprolol and Lipitor. Patient has been evaluated by Dr. Siddiqui who recommended medical management. (3) Acute on chronic diastolic CHF (congestive heart failure), NYHA class 3 Is this a current diagnosis for this admission?: Yes Plan: Her shortness of breath relatively improved. (4) Complicated UTI (urinary tract infection) Is this a current diagnosis for this admission?: Yes Plan: Patient completed course of ceftriaxone. (5) Hyperkalemia Is this a current diagnosis for this admission?: Yes Plan: Resolved. 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 (7) Chronic a-fib Is this a current diagnosis for this admission?: Yes Plan: Rate controlled (8) Hypothyroidism Qualifiers: Hypothyroidism type: acquired Qualified Code(s): E03.9 - Hypothyroidism, unspecified Is this a current diagnosis for this admission?: Yes Plan: Continue Synthroid. (9) Dementia Is this a current diagnosis for this admission?: Yes Plan: Continue Aricept (10) Hypertension Qualifiers: Hypertension type: essential hypertension Qualified Code(s): I10 - Essential (primary) hypertension Is this a current diagnosis for this admission?: Yes Plan: Continue current regimen (11) Hyperlipidemia Qualifiers: Hyperlipidemia type: unspecified Qualified Code(s): E78.5 - Hyperlipidemia, unspecified Is this a current diagnosis for this admission?: Yes Plan: Continue current regimen. (12) Chest pain Qualifiers: Chest pain type: other chest pain Qualified Code(s): R07.89 - Other chest pain; R07.8 - Other chest pain Is this a current diagnosis for this admission?: Yes Plan: Nitro sublingual. And Percocet for breakthrough pain. Repeat second set troponin.
[2018-08-21] MEDS: CEFEPIME HCL 2 GM in DEXTROSE 5%-WATER 50 ML IV SCH (15:24)
[2018-08-21] MEDS: PATIROMER 8.4 GM SUSP PACKET PO SCH (17:40)
[2018-08-21] MEDS: VANCOMYCIN HCL 1,000 MG in DEXTROSE 5%-WATER 250 ML IV SCH (17:40)
[2018-08-21] MEDS ORDERED: VANCOMYCIN HCL 1,000 MG in DEXTROSE 5%-WATER 250 ML IV SCH (18:00)
[2018-08-21] MEDS: MIRTAZAPINE 15 MG TABLET PO SCH (22:05)
[2018-08-21] MEDS: FAMOTIDINE 20 MG TABLET PO SCH (22:07)
[2018-08-22] MEDS ORDERED: PANTOPRAZOLE SODIUM 20 MG TABLET.DR PO SCH (06:00)
[2018-08-22] MEDS: HEPARIN SOD (PORCINE) 5,000 UNIT/ML 1 ML SYRINGE SUBCUT SCH ×3 (06:12→21:48)
[2018-08-22] MEDS: LEVOTHYROXINE SODIUM 0.112 MG TABLET PO SCH (06:12)
[2018-08-22] MEDS: HYDRALAZINE HCL 25 MG TABLET PO SCH ×3 (06:12→21:48)
[2018-08-22] MEDS: DILTIAZEM HCL 60 MG TABLET PO SCH ×2 (10:10→21:48)
[2018-08-22] MEDS: ASPIRIN 81 MG TABLET, CHEWABLE PO SCH (10:10)
[2018-08-22] MEDS: CHOLECALCIFEROL (D3) 1,000 UNIT TABLET PO SCH (10:11)
[2018-08-22] MEDS: ISOSORBIDE DINITRATE 20 MG TABLET PO SCH ×2 (10:11→21:51)
[2018-08-22] MEDS: FERROUS SULFATE LIQUID 300 MG/5 ML UDC PO SCH (10:11)
[2018-08-22] MEDS: FUROSEMIDE INJ/PF 40 MG/4 ML SDV IV SCH (10:12)
[2018-08-22] MEDS: POLYETHYLENE GLYCOL 3350 POWDER 17 GM/1 PACKET PO SCH (10:12)
[2018-08-22] MEDS: DOCUSATE SODIUM 100 MG/10 ML UDC PO SCH (10:12)
[2018-08-22] MEDS: SENNOSIDES/DOCUSATE 8.6-50 MG 1 EACH TABLET PO SCH ×2 (10:13→17:06)
[2018-08-22] MEDS: MULTIVITAMIN ORAL LIQUID 60 ML PO SCH (10:14)
[2018-08-22] MEDS: MAGNESIUM OXIDE 400 MG TABLET PO SCH (10:14)
[2018-08-22] MEDS: CEFEPIME HCL 2 GM in DEXTROSE 5%-WATER 50 ML IV SCH (10:15)
[2018-08-22] MEDS: LORATADINE 10 MG TABLET PO SCH (10:19)
[2018-08-22] MEDS: METOPROLOL TARTRATE 50 MG TABLET PO SCH ×2 (10:19→21:49)
[2018-08-22] MEDS: LIDOCAINE 5% (700 MG) TRANSDERMAL ADH..PATCH TP SCH (10:20)
--- NOTE | 2018-08-22 15:44 | PDOC PROGRESS REPORT ---
Subjective Progress Note for:: 08/22/18 Subjective:: 87 years old female with multiple comorbidities including the chronic atrial fibrillation, CHF, hypertension, hyperlipidemia, hypothyroidism, dementia and CKD transferred from group home with chief complaint of lack of energy and shortness of breath. In ED her BNP is 42,500. Positive UA urine culture grew E. coli pansensitive completed a course of antibiotics. On19/08/18 she started complaining of chest pain on the left side and troponins were obtained 0.048, 0.047, 0.051. Was started on on Plavix and Lipitor and continue metoprolol and aspirin. Dr.Mehra driver ardiologist and recommended to optimize her medical management since patient did not a candidate for invasive cardiac workup. Plavix and Lipitor were discontinued because her daughter told history of bleeding with Plavix and situs due to Lipitor. She was complaining of shortness of breath and a chest x-ray was positive for possible multicentric pneumonia. Blood cultures start and patient started on cefepime and vancomycin. 08/22/2018 No acute events overnight. SBP low 100s, heart rate 82-118 afebrile, saturating low 90s on nasal cannula. On my encounter patient is alert and oriented does not seem to be in acute distress enjoying her breakfast. Answers my questions appropriately however with very low tone while she is playing at the same time. Denying any fever, chills, nausea, vomiting, diarrhea, constipation, chest pain, shortness of breath or any urinary symptoms. Reason For Visit: ACUTE ON CHRONIC CHF,HYPERKALEMIA,ACUTE KIDNEY Physical Exam Vital Signs: Temp Pulse Resp BP Pulse Ox 97.4 F 118 H 24 H 104/51 L 89 L 08/22/18 11:14 08/22/18 11:14 08/22/18 11:14 08/22/18 11:54 08/22/18 11:14 Intake & Output 08/21/18 08/22/18 08/23/18 06:59 06:59 06:59 Intake Total 437 740 50 Balance 437 740 50 Weight 67.6 kg 68.8 kg General appearance: PRESENT: no acute distress Head exam: PRESENT: atraumatic, normocephalic Respiratory exam: PRESENT: clear to auscultation roscoe. ABSENT: rales, rhonchi, wheezes Cardiovascular exam: PRESENT: RRR, tachycardia. ABSENT: diastolic murmur, rubs, systolic murmur Pulses: PRESENT: normal dorsalis pedis pul GI/Abdominal exam: PRESENT: normal bowel sounds, soft. ABSENT: distended, guarding, mass, organolmegaly, rebound, tenderness Neurological exam: PRESENT: alert, awake, oriented to person, oriented to place, CN II-XII grossly intact. ABSENT: motor sensory deficit Results Laboratory Results: 08/21/18 05:39 08/20/18 08:45 08/21/18 15:54 Stool Occult Blood NEGATIVE 08/13/18 08/13/18 08/13/18 14:48 14:48 16:00 Creatine Kinase Cancelled CK-MB (CK-2) Cancelled 1.81 Troponin I Cancelled 0.044 NT-Pro-B Natriuret Pep 08/13/18 08/13/18 08/17/18 16:00 16:00 05:39 Creatine Kinase 42 CK-MB (CK-2) Troponin I NT-Pro-B Natriuret Pep 58787 H 56500 H 08/18/18 08/18/18 08/18/18 11:05 15:58 22:05 Creatine Kinase CK-MB (CK-2) Troponin I 0.048 0.047 0.051 NT-Pro-B Natriuret Pep Impressions: Abdomen/Pelvis CT 08/13/18 17:07 IMPRESSION: Anasarca, ascites and bilateral pleural fluid collections could be secondary to cardiac decompensation versus renal disease. New finding when compared with the prior exam. Cardiomegaly. Atrophic kidneys, left greater than right. Head CT 08/18/18 00:00 IMPRESSION: CHRONIC CHANGES OF ATROPHY AND MICROVASCULAR ISCHEMIA. STABLE OLD INFARCT IN THE MEDIAL LEFT TEMPORAL LOBE AND OCCIPITAL LOBE. NO ACUTE PROCESS. EVIDENCE OF ACUTE STROKE: NO. Renal Ultrasound 08/19/18 00:00 IMPRESSION: 1. No hydronephrosis. Medical renal disease. Left renal atrophy. 2. Small ascites. 3. Cholelithiasis. Chest X-Ray 08/21/18 00:00 IMPRESSION: Possible multicentric pneumonia. Small loculated right pleural effusion. Cardiomegaly without laura pulmonary edema. Assessment and Plan - Diagnosis (1) Possible HCAP Is this a current diagnosis for this admission?: Yes Plan: WBC within normal limits. Blood culture from 08/21/2018 no growth times 24 hours. Day 2 vancomycin and cefepime. (2) Acute on chronic diastolic CHF (congestive heart failure), NYHA class 3 Is this a current diagnosis for this admission?: Yes Plan: Cardiac diet, volume restriction, beta-blockers, and diuretics. Currently not on ILDA due to CKD. Patient will benefit from ILDA once kidney function is stable. Outpatient follow-up with nephrology. 07/27/2016. 2D echo normal ejection fraction. Mild diastolic dysfunction. Monitor volume status. (3) TIM on stage III CKD Is this a current diagnosis for this admission?: Yes Plan: Creatinine stable. Electrolytes within normal limits. Monitor volume status. Outpatient nephrology appointment. Nonoliguric. (4) Chronic a-fib Is this a current diagnosis for this admission?: Yes Plan: Rate controlled. Continue diltiazem, metoprolol. Not on anticoagulation. (5) Complicated UTI (urinary tract infection) Is this a current diagnosis for this admission?: Yes Plan: Completed a course of ceftriaxone. Denies any urinary symptoms. (6) Dementia Is this a current diagnosis for this admission?: Yes Plan: Supportive measures. Transfer back to group home once patient is ready. (7) Elevated troponin Is this a current diagnosis for this admission?: Yes Plan: Denies any chest pain. Likely due to CKD. Continue aspirin, metoprolol, Lipitor. Cardiology was consulted and medical management was recommended. (8) Hyperkalemia Is this a current diagnosis for this admission?: Yes Plan: Resolved. (9) Hypothyroidism Is this a current diagnosis for this admission?: Yes Plan: TSH within normal limits. Continue levothyroxine.
[2018-08-22] MEDS: PATIROMER 8.4 GM SUSP PACKET PO SCH (17:01)
[2018-08-22] MEDS: MIRTAZAPINE 15 MG TABLET PO SCH (21:49)
[2018-08-22] MEDS: FAMOTIDINE 20 MG TABLET PO SCH (21:50)
[2018-08-23] MEDS: HEPARIN SOD (PORCINE) 5,000 UNIT/ML 1 ML SYRINGE SUBCUT SCH ×3 (06:39→21:12)
[2018-08-23] MEDS: LEVOTHYROXINE SODIUM 0.112 MG TABLET PO SCH (06:40)
[2018-08-23] MEDS: HYDRALAZINE HCL 25 MG TABLET PO SCH ×3 (06:40→21:12)
[2018-08-23] MEDS: PANTOPRAZOLE SODIUM 40 MG PACKET.DR PO SCH (06:41)
[2018-08-23 08:07] LABS: HEMATOCRIT 38.1 % (36.0-47.0); HEMOGLOBIN 12.1 g/dL (12.0-15.5); MEAN CORPUSCULAR HEMOGLOBIN 29.3 pg (27.0-33.4); MEAN CORPUSCULAR HGB CONC 31.8 g/dL (32.0-36.0); MEAN CORPUSCULAR VOLUME 92 fl (80-97); PLATELET COUNT 240 10^3/uL (150-450); RED BLOOD COUNT 4.13 10^6/uL (3.72-5.28); RED CELL DISTRIBUTION WIDTH 18.2 % (11.5-14.0); WHITE BLOOD COUNT 6.4 10^3/uL (4.0-10.5)
[2018-08-23] MEDS: CEFEPIME HCL 2 GM in DEXTROSE 5%-WATER 50 ML IV SCH (10:11)
[2018-08-23] MEDS: SENNOSIDES/DOCUSATE 8.6-50 MG 1 EACH TABLET PO SCH ×2 (10:16→17:55)
[2018-08-23] MEDS: FERROUS SULFATE LIQUID 300 MG/5 ML UDC PO SCH (10:16)
[2018-08-23] MEDS: POLYETHYLENE GLYCOL 3350 POWDER 17 GM/1 PACKET PO SCH (10:16)
[2018-08-23] MEDS: LIDOCAINE 5% (700 MG) TRANSDERMAL ADH..PATCH TP SCH (10:16)
[2018-08-23] MEDS: MAGNESIUM OXIDE 400 MG TABLET PO SCH (10:17)
[2018-08-23] MEDS: DILTIAZEM HCL 60 MG TABLET PO SCH ×2 (10:17→21:12)
[2018-08-23] MEDS: LORATADINE 10 MG TABLET PO SCH (10:18)
[2018-08-23] MEDS: ASPIRIN 81 MG TABLET, CHEWABLE PO SCH (10:18)
[2018-08-23] MEDS: ISOSORBIDE DINITRATE 20 MG TABLET PO SCH ×2 (10:18→21:15)
[2018-08-23] MEDS: CHOLECALCIFEROL (D3) 1,000 UNIT TABLET PO SCH (10:18)
[2018-08-23] MEDS: MULTIVITAMIN ORAL LIQUID 60 ML PO SCH (10:19)
[2018-08-23] MEDS: DOCUSATE SODIUM 100 MG/10 ML UDC PO SCH (10:19)
[2018-08-23] MEDS: FUROSEMIDE INJ/PF 40 MG/4 ML SDV IV SCH (10:23)
[2018-08-23] MEDS: METOPROLOL TARTRATE 50 MG TABLET PO SCH ×2 (10:29→21:12)
[2018-08-23 11:26] LABS: ALANINE AMINOTRANSFERASE 19 U/L (9-52); ALBUMIN 3.1 g/dL (3.5-5.0); ALKALINE PHOSPHATASE 70 U/L (38-126); ANION GAP 8 (5-19); ASPARTATE AMINO TRANSFERASE 27 U/L (14-36); BILIRUBIN,DIRECT 0.4 mg/dL (0.0-0.4); BILIRUBIN,TOTAL 0.4 mg/dL (0.2-1.3); BLOOD UREA NITROGEN 71 mg/dL (7-20); CALCIUM 8.8 mg/dL (8.4-10.2); CARBON DIOXIDE 30 mmol/L (22-30); CHLORIDE 106 mmol/L (98-107); GLUCOSE 129 mg/dL (75-110); POTASSIUM 4.9 mmol/L (3.6-5.0); SODIUM 143.6 mmol/L (137-145); TOTAL PROTEIN 6.5 g/dL (6.3-8.2)
[2018-08-23] MEDS: CALCITRIOL 0.25 MCG CAPSULE PO SCH (11:45)
--- NOTE | 2018-08-23 14:43 | PDOC PROGRESS REPORT ---
Subjective Progress Note for:: 08/23/18 Subjective:: 87 years old female with multiple comorbidities including the chronic atrial fibrillation, CHF, hypertension, hyperlipidemia, hypothyroidism, dementia and CKD transferred from [facility] with chief complaint of lack of energy and shortness of breath. In ED her BNP is 42,500. Positive UA urine culture grew E. coli pansensitive completed a course of antibiotics. On19/08/18 she started complaining of chest pain on the left side and troponins were obtained 0.048, 0.047, 0.051. Was started on on Plavix and Lipitor and continue metoprolol and aspirin. Dr.Mehra driver ardiologist and recommended to optimize her medical management since patient did not a candidate for invasive cardiac workup. Plavix and Lipitor were discontinued because her daughter told history of bleeding with Plavix and situs due to Lipitor. She was complaining of shortness of breath and a chest x-ray was positive for possible multicentric pneumonia. Blood cultures start and patient started on cefepime and vancomycin. 08/22/2018 No acute events overnight. SBP low 100s, heart rate 82-118 afebrile, saturating low 90s on nasal cannula. On my encounter patient is alert and oriented does not seem to be in acute distress enjoying her breakfast. Answers my questions appropriately however with very low tone while she is playing at the same time. Denying any fever, chills, nausea, vomiting, diarrhea, constipation, chest pain, shortness of breath or any urinary symptoms. 08/23/2018. No acute events overnight. Patient alert oriented x3, in no apparent distress, denies any fever, chills, nausea, vomiting, diarrhea, constipation or any urinary symptoms. She is communicating better and cooperative with physical examination compared to yesterday. She still seems to be weak and cannot reposition herself without help. Reason For Visit: ACUTE ON CHRONIC CHF,HYPERKALEMIA,ACUTE KIDNEY Physical Exam Vital Signs: Temp Pulse Resp BP Pulse Ox 97.4 F 90 16 146/63 H 93 08/23/18 11:08 08/23/18 11:08 08/23/18 11:08 08/23/18 11:08 08/23/18 11:08 Intake & Output 08/22/18 08/23/18 08/24/18 06:59 06:59 06:59 Intake Total 740 510 150 Balance 740 510 150 Weight 68.8 kg 69.9 kg General appearance: PRESENT: no acute distress, well-developed, well-nourished Head exam: PRESENT: atraumatic, normocephalic Neck exam: ABSENT: carotid bruit, JVD, lymphadenopathy, thyromegaly Respiratory exam: PRESENT: clear to auscultation roscoe. ABSENT: rales, rhonchi, wheezes Cardiovascular exam: PRESENT: RRR. ABSENT: diastolic murmur, rubs, systolic murmur GI/Abdominal exam: PRESENT: normal bowel sounds, soft. ABSENT: distended, guarding, mass, organolmegaly, rebound, tenderness Extremities exam: PRESENT: full ROM. ABSENT: calf tenderness, clubbing, pedal edema Neurological exam: PRESENT: alert, awake, oriented to person, oriented to place, CN II-XII grossly intact. ABSENT: motor sensory deficit Results Laboratory Results: 08/23/18 07:43 08/23/18 10:44 08/23/18 08/23/18 08/23/18 07:43 07:43 10:44 WBC 6.4 RBC 4.13 Hgb 12.1 Hct 38.1 MCV 92 MCH 29.3 MCHC 31.8 L RDW 18.2 H Plt Count 240 Sodium Cancelled 143.6 Potassium Cancelled 4.9 Chloride Cancelled 106 Carbon Dioxide Cancelled 30 Anion Gap Cancelled 8 BUN Cancelled 71 H Creatinine Cancelled 2.76 H Est GFR ( Amer) Cancelled 20 L Est GFR (Non-Af Amer) Cancelled 16 L Glucose Cancelled 129 H Calcium Cancelled 8.8 Magnesium Cancelled 2.9 H Total Bilirubin Cancelled 0.4 AST Cancelled 27 ALT Cancelled 19 Alkaline Phosphatase Cancelled 70 Total Protein Cancelled 6.5 Albumin Cancelled 3.1 L 08/13/18 08/13/18 08/13/18 14:48 14:48 16:00 Creatine Kinase Cancelled CK-MB (CK-2) Cancelled 1.81 Troponin I Cancelled 0.044 NT-Pro-B Natriuret Pep 08/13/18 08/13/18 08/17/18 16:00 16:00 05:39 Creatine Kinase 42 CK-MB (CK-2) Troponin I NT-Pro-B Natriuret Pep 34868 H 76377 H 08/18/18 08/18/18 08/18/18 11:05 15:58 22:05 Creatine Kinase CK-MB (CK-2) Troponin I 0.048 0.047 0.051 NT-Pro-B Natriuret Pep Impressions: Abdomen/Pelvis CT 08/13/18 17:07 IMPRESSION: Anasarca, ascites and bilateral pleural fluid collections could be secondary to cardiac decompensation versus renal disease. New finding when compared with the prior exam. Cardiomegaly. Atrophic kidneys, left greater than right. Head CT 08/18/18 00:00 IMPRESSION: CHRONIC CHANGES OF ATROPHY AND MICROVASCULAR ISCHEMIA. STABLE OLD INFARCT IN THE MEDIAL LEFT TEMPORAL LOBE AND OCCIPITAL LOBE. NO ACUTE PROCESS. EVIDENCE OF ACUTE STROKE: NO. Renal Ultrasound 08/19/18 00:00 IMPRESSION: 1. No hydronephrosis. Medical renal disease. Left renal atrophy. 2. Small ascites. 3. Cholelithiasis. Chest X-Ray 08/21/18 00:00 IMPRESSION: Possible multicentric pneumonia. Small loculated right pleural effusion. Cardiomegaly without laura pulmonary edema. Assessment and Plan - Diagnosis (1) Possible HCAP Is this a current diagnosis for this admission?: Yes Plan: WBC within normal limits. Blood culture from 08/21/2018 no growth times 48 hours. Day 3 vancomycin and cefepime. (2) Acute on chronic diastolic CHF (congestive heart failure), NYHA class 3 Is this a current diagnosis for this admission?: Yes Plan: Cardiac diet, volume restriction, beta-blockers, and diuretics. Currently not on ILDA due to CKD. Patient will benefit from ILDA once kidney function is stable. Outpatient follow-up with nephrology. 07/27/2016. 2D echo normal ejection fraction. Mild diastolic dysfunction. Monitor volume status. (3) TIM on stage III CKD Is this a current diagnosis for this admission?: Yes Plan: Creatinine stable. Electrolytes within normal limits. Monitor volume status. Outpatient nephrology appointment. Nonoliguric. Followed by Dr. Rashel Chew from nephrology. Outpatient nephrology follow-up. (4) Chronic a-fib Is this a current diagnosis for this admission?: Yes Plan: Rate controlled. Continue diltiazem, metoprolol. Not on anticoagulation. (5) Complicated UTI (urinary tract infection) Is this a current diagnosis for this admission?: Yes Plan: Completed a course of ceftriaxone. Denies any urinary symptoms. (6) Dementia Is this a current diagnosis for this admission?: Yes Plan: Continue Aricept. Supportive measures. Transfer back to [facility] once patient is ready. (7) Elevated troponin Is this a current diagnosis for this admission?: Yes Plan: Denies any chest pain. Likely due to CKD. Continue aspirin, metoprolol, Lipitor. Cardiology was consulted and medical management was recommended. (8) Hyperkalemia Is this a current diagnosis for this admission?: Yes Plan: Within normal limits. Continue Veltassa. Titrate dosage as needed. Followed by Dr. Rashel Chew from nephrology. Outpatient nephrology follow-up. (9) Hypothyroidism Is this a current diagnosis for this admission?: Yes Plan: TSH within normal limits. Continue levothyroxine.
[2018-08-23 15:10] LABS: APPEARANCE,URINE CLOUDY; BILIRUBIN,URINE NEGATIVE (NEGATIVE); COLOR,URINE YELLOW; GLUCOSE, URINE NEGATIVE (NEGATIVE); KETONES,URINE NEGATIVE (NEGATIVE); LEUKOCYTE ESTERASE,URINE NEGATIVE (NEGATIVE); NITRITE,URINE NEGATIVE (NEGATIVE); PROTEIN,URINE 30 mg/dL (NEGATIVE); URINE SPECIFIC GRAVITY 1.017; UROBILINOGEN,URINE NEGATIVE mg/dL (<2.0)
[2018-08-23] MEDS: VANCOMYCIN HCL 1,000 MG in DEXTROSE 5%-WATER 250 ML IV SCH (17:53)
[2018-08-23] MEDS: PATIROMER 8.4 GM SUSP PACKET PO SCH (17:53)
[2018-08-23] MEDS ORDERED: FUROSEMIDE INJ/PF 40 MG/4 ML SDV IV SCH ×2 (18:00)
[2018-08-23] MEDS: FUROSEMIDE INJ/PF 20 MG/2 ML SDV IV SCH (18:20)
[2018-08-23] MEDS: MIRTAZAPINE 15 MG TABLET PO SCH (21:11)
[2018-08-23] MEDS: FAMOTIDINE 20 MG TABLET PO SCH (21:12)
[2018-08-24] MEDS: LEVOTHYROXINE SODIUM 0.112 MG TABLET PO SCH (05:15)
[2018-08-24] MEDS: HYDRALAZINE HCL 25 MG TABLET PO SCH ×3 (05:15→21:48)
[2018-08-24] MEDS: HEPARIN SOD (PORCINE) 5,000 UNIT/ML 1 ML SYRINGE SUBCUT SCH ×3 (05:16→21:39)
[2018-08-24] MEDS: PANTOPRAZOLE SODIUM 40 MG PACKET.DR PO SCH (05:16)
[2018-08-24 06:46] LABS: ALANINE AMINOTRANSFERASE 26 U/L (9-52); ALBUMIN 3.2 g/dL (3.5-5.0); ALKALINE PHOSPHATASE 63 U/L (38-126); ANION GAP 7 (5-19); ASPARTATE AMINO TRANSFERASE 41 U/L (14-36); BILIRUBIN,DIRECT 0.5 mg/dL (0.0-0.4); BILIRUBIN,TOTAL 0.5 mg/dL (0.2-1.3); BLOOD UREA NITROGEN 75 mg/dL (7-20); CALCIUM 8.9 mg/dL (8.4-10.2); CARBON DIOXIDE 31 mmol/L (22-30); CHLORIDE 106 mmol/L (98-107); GLUCOSE 120 mg/dL (75-110); POTASSIUM 5.3 mmol/L (3.6-5.0); SODIUM 143.9 mmol/L (137-145); TOTAL PROTEIN 6.7 g/dL (6.3-8.2)
[2018-08-24 06:47] LABS: ABSOLUTE BASOPHILS # (AUTO) 0.1 10^3/uL (0.0-0.2); ABSOLUTE LYMPHOCYTES (AUTO) 1.5 10^3/uL (0.5-4.7); ABSOLUTE MONOCYTES (AUTO) 0.8 10^3/uL (0.1-1.4); ABSOLUTE NEUT (AUTO) 3.4 10^3/uL (1.7-8.2); BASOPHILS % (AUTO) 1.8 % (0-2); EOSINOPHILS % (AUTO) 0.4 % (0-6); HEMATOCRIT 39.9 % (36.0-47.0); HEMOGLOBIN 12.4 g/dL (12.0-15.5); LYMPHOCYTES % (AUTO) 26.3 % (13-45); MEAN CORPUSCULAR HEMOGLOBIN 28.7 pg (27.0-33.4); MEAN CORPUSCULAR HGB CONC 31.1 g/dL (32.0-36.0); MEAN CORPUSCULAR VOLUME 92 fl (80-97); MONOCYTES % (AUTO) 13.9 % (3-13); PLATELET COUNT 254 10^3/uL (150-450); RED BLOOD COUNT 4.34 10^6/uL (3.72-5.28); RED CELL DISTRIBUTION WIDTH 18.4 % (11.5-14.0); SEGMENTED NEUTROPHILS % (AUTO) 57.6 % (42-78); TOTAL CELLS COUNTED % (AUTO) 100 %; WHITE BLOOD COUNT 5.9 10^3/uL (4.0-10.5)
[2018-08-24] MEDS ORDERED: CALCIUM GLUCONATE 1000 MG/10 ML INJ IV ONE (08:52)
[2018-08-24] MEDS: FUROSEMIDE INJ/PF 20 MG/2 ML SDV IV SCH ×3 (10:25→18:31)
[2018-08-24] MEDS: CEFEPIME HCL 2 GM in DEXTROSE 5%-WATER 50 ML IV SCH (10:26)
[2018-08-24] MEDS: METOPROLOL TARTRATE 50 MG TABLET PO SCH ×2 (10:28→21:48)
[2018-08-24] MEDS: FERROUS SULFATE LIQUID 300 MG/5 ML UDC PO SCH (10:28)
[2018-08-24] MEDS: CHOLECALCIFEROL (D3) 1,000 UNIT TABLET PO SCH (10:28)
[2018-08-24] MEDS: DILTIAZEM HCL 60 MG TABLET PO SCH ×2 (10:29→21:48)
[2018-08-24] MEDS: ISOSORBIDE DINITRATE 20 MG TABLET PO SCH ×2 (10:29→21:48)
[2018-08-24] MEDS: POLYETHYLENE GLYCOL 3350 POWDER 17 GM/1 PACKET PO SCH (10:29)
[2018-08-24] MEDS: LORATADINE 10 MG TABLET PO SCH (10:29)
[2018-08-24] MEDS: ASPIRIN 81 MG TABLET, CHEWABLE PO SCH (10:29)
[2018-08-24] MEDS: LIDOCAINE 5% (700 MG) TRANSDERMAL ADH..PATCH TP SCH (10:29)
[2018-08-24] MEDS: SENNOSIDES/DOCUSATE 8.6-50 MG 1 EACH TABLET PO SCH ×2 (10:29→18:20)
[2018-08-24] MEDS: DOCUSATE SODIUM 100 MG/10 ML UDC PO SCH (10:29)
[2018-08-24] MEDS: MAGNESIUM OXIDE 400 MG TABLET PO SCH (10:29)
[2018-08-24] MEDS: MULTIVITAMIN ORAL LIQUID 60 ML PO SCH (10:30)
[2018-08-24] MEDS ORDERED: VANCOMYCIN HCL 0 MG in DEXTROSE 5%-WATER 250 ML IV NR (14:00)
[2018-08-24] MEDS: PATIROMER 8.4 GM SUSP PACKET PO SCH (16:42)
[2018-08-24 17:17] LABS: ANION GAP 7 (5-19); BLOOD UREA NITROGEN 75 mg/dL (7-20); CALCIUM 9.1 mg/dL (8.4-10.2); CARBON DIOXIDE 28 mmol/L (22-30); CHLORIDE 107 mmol/L (98-107); GLUCOSE 101 mg/dL (75-110); POTASSIUM 5.4 mmol/L (3.6-5.0); SODIUM 142.3 mmol/L (137-145)
[2018-08-24 17:40] LABS: ARTERIAL BLOOD BASE EXCESS 3.8 mmol/L; ARTERIAL BLOOD H2CO3 1.91 mmol/L (1.05-1.35); ARTERIAL BLOOD O2 SATURATION 95.7 % (94-98); ARTERIAL BLOOD PCO2 63.3 mmHg (35-45); ARTERIAL BLOOD PH 7.32 (7.35-7.45); ARTERIAL BLOOD PO2 87.4 mmHg (80-100); ARTERIAL BLOOD TOTAL CO2 33.9 mmol/L (21-25)
[2018-08-24 17:41] LABS: ARTERIAL BLOOD FIO2 1.5L
--- NOTE | 2018-08-24 18:12 | RADIOLOGY REPORT (SQ) ---
EXAM DESCRIPTION: CT HEAD WITHOUT COMPLETED DATE/TIME: 08/24/2018 6:00 pm REASON FOR STUDY: AMS COMPARISON: 08/18/2018 TECHNIQUE: Axial images acquired through the brain without intravenous contrast. Images reviewed wi th bone, brain and subdural windows. Additional sagittal and coronal reconstructions were generated. Images stored on PACS. All CT scanners at this facility use dose modulation, iterative reconstruction, and/or weight based d osing when appropriate to reduce radiation dose to as low as reasonably achievable (ALARA). [facility]: Dose Right [facility]: CareDose [facility]: Dose Right [facility]: Teradose 4D [facility]: [employer] RADIATION DOSE: CT Rad equipment meets quality standard of care and radiation dose reduction techniq ues were employed. CTDIvol: 55.2 mGy. DLP: 974 mGy-cm. mGy. LIMITATIONS: None. FINDINGS: VENTRICLES: Prominent ventricles secondary to involutional atrophy. CEREBRUM: Cortical atrophy. Old infarction in the medial left temporal lobe and occipital lobe. No hemorrhage. No midline shift. Areas of low density in the white matter most likely chronic small ves ronda ischemic changes. CEREBELLUM: No masses. No hemorrhage. No alteration of density. No evidence for acute infarction. EXTRAAXIAL SPACES: No fluid collections. No masses. ORBITS AND GLOBE: No intra- or extraconal masses. Normal contour of globe without masses. CALVARIUM: No fracture. PARANASAL SINUSES: No fluid or mucosal thickening. SOFT TISSUES: No mass or hematoma. OTHER: No other significant finding. 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 Involutional ramírez nges of aging with microvascular ischemic changes. EVIDENCE OF ACUTE STROKE: NO. COMMENT: Quality ID # [id number]: Final reports with documentation of one or more dose reduction techniques (e.g., Automated exposure control, adjustment of the mA and/or kV according to patient size, use of iterative reconstruction technique) TECHNICAL DOCUMENTATION: JOB ID: [id number] [employer]- All Rights Reserved Reading location - IP/workstation name: [email or web address]
--- NOTE | 2018-08-24 19:33 | PDOC PROGRESS REPORT ---
Subjective Progress Note for:: 08/24/18 Subjective:: 87 years old female with multiple comorbidities including the chronic atrial fibrillation, CHF, hypertension, hyperlipidemia, hypothyroidism, dementia and CKD transferred from long term with chief complaint of lack of energy and shortness of breath. In ED her BNP is 42,500. Positive UA urine culture grew E. coli pansensitive completed a course of antibiotics. On19/08/18 she started complaining of chest pain on the left side and troponins were obtained 0.048, 0.047, 0.051. Was started on on Plavix and Lipitor and continue metoprolol and aspirin. Dr.Mehra driver ardiologist and recommended to optimize her medical management since patient did not a candidate for invasive cardiac workup. Plavix and Lipitor were discontinued because her daughter told history of bleeding with Plavix and situs due to Lipitor. She was complaining of shortness of breath and a chest x-ray was positive for possible multicentric pneumonia. Blood cultures start and patient started on cefepime and vancomycin. 08/22/2018 No acute events overnight. SBP low 100s, heart rate 82-118 afebrile, saturating low 90s on nasal cannula. On my encounter patient is alert and oriented does not seem to be in acute distress enjoying her breakfast. Answers my questions appropriately however with very low tone while she is playing at the same time. Denying any fever, chills, nausea, vomiting, diarrhea, constipation, chest pain, shortness of breath or any urinary symptoms. 08/23/2018. No acute events overnight. Patient alert oriented x3, in no apparent distress, denies any fever, chills, nausea, vomiting, diarrhea, constipation or any urinary symptoms. She is communicating better and cooperative with physical examination compared to yesterday. She still seems to be weak and cannot reposition herself without help. 08/24/2017. No acute events overnight however patient has been somnolent and lethargic all day. CT head did not show any acute stroke however an ABG showed elevated CO2 possibly causing her to be somnolent. Arousable but very lethargic. Started on BiPAP. Ammonia level within normal limits. Reason For Visit: ACUTE ON CHRONIC CHF,HYPERKALEMIA,ACUTE KIDNEY Physical Exam Vital Signs: Temp Pulse Resp BP Pulse Ox 97.8 F 92 18 151/74 H 99 08/24/18 15:10 08/24/18 15:10 08/24/18 15:10 08/24/18 15:10 08/24/18 15:10 Intake & Output 08/23/18 08/24/18 08/25/18 06:59 06:59 06:59 Intake Total 510 570 50 Output Total 175 100 Balance 510 395 -50 Weight 69.9 kg 69.6 kg General appearance: PRESENT: no acute distress Respiratory exam: PRESENT: clear to auscultation roscoe. ABSENT: rales, rhonchi, wheezes Cardiovascular exam: PRESENT: RRR. ABSENT: diastolic murmur, rubs, systolic murmur GI/Abdominal exam: PRESENT: normal bowel sounds, soft. ABSENT: distended, guarding, mass, organolmegaly, rebound, tenderness Neurological exam: PRESENT: alert, awake, oriented to person, oriented to place, oriented to time, oriented to situation, CN II-XII grossly intact. ABSENT: motor sensory deficit Results Laboratory Results: 08/24/18 05:32 08/24/18 16:43 08/24/18 08/24/18 08/24/18 05:32 05:32 16:38 WBC 5.9 RBC 4.34 Hgb 12.4 Hct 39.9 MCV 92 MCH 28.7 MCHC 31.1 L RDW 18.4 H Plt Count 254 Seg Neutrophils % 57.6 Lymphocytes % 26.3 Monocytes % 13.9 H Eosinophils % 0.4 Basophils % 1.8 Absolute Neutrophils 3.4 Absolute Lymphocytes 1.5 Absolute Monocytes 0.8 Absolute Eosinophils 0.0 Absolute Basophils 0.1 Carbonic Acid 1.91 H HCO3/H2CO3 Ratio 16:1 ABG pH 7.32 L ABG pCO2 63.3 H ABG pO2 87.4 ABG HCO3 32.0 H ABG O2 Saturation 95.7 ABG Base Excess 3.8 FiO2 1.5L Sodium 143.9 Potassium 5.3 H Chloride 106 Carbon Dioxide 31 H Anion Gap 7 BUN 75 H Creatinine 2.99 H Est GFR ( Amer) 18 L Est GFR (Non-Af Amer) 15 L Glucose 120 H Calcium 8.9 Magnesium 3.1 H Total Bilirubin 0.5 AST 41 H ALT 26 Alkaline Phosphatase 63 Ammonia Total Protein 6.7 Albumin 3.2 L 08/24/18 08/24/18 16:43 16:43 WBC RBC Hgb Hct MCV MCH MCHC RDW Plt Count Seg Neutrophils % Lymphocytes % Monocytes % Eosinophils % Basophils % Absolute Neutrophils Absolute Lymphocytes Absolute Monocytes Absolute Eosinophils Absolute Basophils Carbonic Acid HCO3/H2CO3 Ratio ABG pH ABG pCO2 ABG pO2 ABG HCO3 ABG O2 Saturation ABG Base Excess FiO2 Sodium 142.3 Potassium 5.4 H Chloride 107 Carbon Dioxide 28 Anion Gap 7 BUN 75 H Creatinine 2.63 H Est GFR ( Amer) 21 L Est GFR (Non-Af Amer) 17 L Glucose 101 Calcium 9.1 Magnesium Total Bilirubin AST ALT Alkaline Phosphatase Ammonia 16.6 Total Protein Albumin 08/13/18 08/13/18 08/13/18 14:48 14:48 16:00 Creatine Kinase Cancelled CK-MB (CK-2) Cancelled 1.81 Troponin I Cancelled 0.044 NT-Pro-B Natriuret Pep 08/13/18 08/13/18 08/17/18 16:00 16:00 05:39 Creatine Kinase 42 CK-MB (CK-2) Troponin I NT-Pro-B Natriuret Pep 88605 H 60809 H 08/18/18 08/18/18 08/18/18 11:05 15:58 22:05 Creatine Kinase CK-MB (CK-2) Troponin I 0.048 0.047 0.051 NT-Pro-B Natriuret Pep Impressions: Abdomen/Pelvis CT 08/13/18 17:07 IMPRESSION: Anasarca, ascites and bilateral pleural fluid collections could be secondary to cardiac decompensation versus renal disease. New finding when compared with the prior exam. Cardiomegaly. Atrophic kidneys, left greater than right. Renal Ultrasound 08/19/18 00:00 IMPRESSION: 1. No hydronephrosis. Medical renal disease. Left renal atrophy. 2. Small ascites. 3. Cholelithiasis. Chest X-Ray 08/21/18 00:00 IMPRESSION: Possible multicentric pneumonia. Small loculated right pleural ef fusion. Cardiomegaly without laura pulmonary edema. 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 Involutional changes of aging with microvascular ischemic changes. EVIDENCE OF ACUTE STROKE: NO. Assessment and Plan - Diagnosis (1) Metabolic encephalopathy Is this a current diagnosis for this admission?: Yes Plan: Possibly due to CO2 retention. Will start on BiPAP. Continue treatment for un derlying pneumonia. Ammonia level within normal limits.. CT head no acute stroke. (2) Possible HCAP Is this a current diagnosis for this admission?: Yes Plan: WBC within normal limits. Blood culture from 08/21/2018 no growth times 72 hours. Day 4 vancomycin and cefepime. (3) Acute on chronic diastolic CHF (congestive heart failure), NYHA class 3 Is this a current diagnosis for this admission?: Yes Plan: Cardiac diet, volume restriction, beta-blockers, and diuretics. Currently not on ILDA due to CKD. Patient will benefit from ILDA once kidney function is stable. Outpatient follow-up with nephrology. 07/27/2016. 2D echo normal ejection fraction. Mild diastolic dysfunction. Monitor volume status. (4) Chronic a-fib Is this a current diagnosis for this admission?: Yes Plan: Rate controlled. Continue diltiazem, metoprolol. Not on anticoagulation. 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 Electrolytes within normal limits. Monitor volume status. Outpatient nephrology appointment. Nonoliguric. Followed by Dr. Rashel Chew from nephrology. Outpatient nephrology follow-up. (6) Complicated UTI (urinary tract infection) Is this a current diagnosis for this admission?: Yes Plan: Completed a course of ceftriaxone. Denies any urinary symptoms. (7) Dementia Is this a current diagnosis for this admission?: Yes Plan: Supportive measures. Transfer back to long term once patient is ready. (8) Elevated troponin Is this a current diagnosis for this admission?: Yes Plan: Denies any chest pain. Likely due to CKD. Continue aspirin, metoprolol, Lipitor. Cardiology was consulted and medical management was recommended. (9) Hyperkalemia Is this a current diagnosis for this admission?: Yes Plan: Within normal limits. Continue Veltassa. Titrate dosage as needed. Followed by Dr. Rashel Chew from nephrology. Outpatient nephrology follow-up. (10) Hypothyroidism Is this a current diagnosis for this admission?: Yes Plan: TSH within normal limits. Continue levothyroxine.
[2018-08-24] MEDS: FAMOTIDINE 20 MG TABLET PO SCH (21:49)
[2018-08-24] MEDS: PHARMACY COMMUNICATION ORDER MC SCH (23:00)
[2018-08-25] MEDS: HYDRALAZINE HCL INJ/PF 20 MG/1 ML SDV IV PRN ×3 (04:01→21:50)
[2018-08-25] MEDS: HYDRALAZINE HCL 25 MG TABLET PO SCH ×3 (05:45→21:37)
[2018-08-25] MEDS: PANTOPRAZOLE SODIUM 40 MG PACKET.DR PO SCH (05:45)
[2018-08-25] MEDS: HEPARIN SOD (PORCINE) 5,000 UNIT/ML 1 ML SYRINGE SUBCUT SCH ×3 (05:45→21:39)
[2018-08-25] MEDS: LEVOTHYROXINE SODIUM 0.112 MG TABLET PO SCH (05:46)
[2018-08-25 06:31] LABS: ARTERIAL BLOOD BASE EXCESS 3.3 mmol/L; ARTERIAL BLOOD H2CO3 1.41 mmol/L (1.05-1.35); ARTERIAL BLOOD HCO3 28.7 mmol/L (20-24); ARTERIAL BLOOD O2 SATURATION 95.3 % (94-98); ARTERIAL BLOOD PCO2 46.7 mmHg (35-45); ARTERIAL BLOOD PH 7.41 (7.35-7.45); ARTERIAL BLOOD PO2 76.9 mmHg (80-100); ARTERIAL BLOOD TOTAL CO2 30.1 mmol/L (21-25)
[2018-08-25 06:32] LABS: ARTERIAL BLOOD FIO2 24%
[2018-08-25 06:40] LABS: HEMATOCRIT 40.1 % (36.0-47.0); HEMOGLOBIN 12.7 g/dL (12.0-15.5); MEAN CORPUSCULAR HGB CONC 31.7 g/dL (32.0-36.0); MEAN CORPUSCULAR VOLUME 91 fl (80-97); PLATELET COUNT 249 10^3/uL (150-450); RED BLOOD COUNT 4.39 10^6/uL (3.72-5.28); RED CELL DISTRIBUTION WIDTH 18.5 % (11.5-14.0)
[2018-08-25 06:49] LABS: ALANINE AMINOTRANSFERASE 22 U/L (9-52); ALBUMIN 3.3 g/dL (3.5-5.0); ALKALINE PHOSPHATASE 74 U/L (38-126); ANION GAP 8 (5-19); ASPARTATE AMINO TRANSFERASE 33 U/L (14-36); BILIRUBIN,DIRECT 0.6 mg/dL (0.0-0.4); BILIRUBIN,TOTAL 0.7 mg/dL (0.2-1.3); BLOOD UREA NITROGEN 77 mg/dL (7-20); CALCIUM 9.4 mg/dL (8.4-10.2); CARBON DIOXIDE 28 mmol/L (22-30); CHLORIDE 108 mmol/L (98-107); GLUCOSE 94 mg/dL (75-110); POTASSIUM 4.7 mmol/L (3.6-5.0); SODIUM 144.2 mmol/L (137-145); TOTAL PROTEIN 6.9 g/dL (6.3-8.2)
[2018-08-25] MEDS ORDERED: METOPROLOL TARTRATE 50 MG TABLET PO SCH (10:00)
[2018-08-25] MEDS ORDERED: CLONIDINE 0.2 MG/24 HR PATCH.TDWK TD SCH (11:00)
[2018-08-25] MEDS: CEFEPIME HCL 2 GM in DEXTROSE 5%-WATER 50 ML IV SCH (11:00)
[2018-08-25] MEDS: FUROSEMIDE INJ/PF 20 MG/2 ML SDV IV SCH ×2 (11:01→17:51)
[2018-08-25] MEDS: LIDOCAINE 5% (700 MG) TRANSDERMAL ADH..PATCH TP SCH (11:01)
[2018-08-25] MEDS: LORATADINE 10 MG TABLET PO SCH (14:06)
[2018-08-25] MEDS: ASPIRIN 81 MG TABLET, CHEWABLE PO SCH (14:06)
[2018-08-25] MEDS: DILTIAZEM HCL 60 MG TABLET PO SCH ×2 (14:06→21:37)
[2018-08-25] MEDS: MAGNESIUM OXIDE 400 MG TABLET PO SCH (14:07)
[2018-08-25] MEDS: DOCUSATE SODIUM 100 MG/10 ML UDC PO SCH (14:07)
[2018-08-25] MEDS: ISOSORBIDE DINITRATE 20 MG TABLET PO SCH ×2 (14:07→21:38)
[2018-08-25] MEDS: FERROUS SULFATE LIQUID 300 MG/5 ML UDC PO SCH (14:07)
[2018-08-25] MEDS: CHOLECALCIFEROL (D3) 1,000 UNIT TABLET PO SCH (14:08)
[2018-08-25] MEDS: SENNOSIDES/DOCUSATE 8.6-50 MG 1 EACH TABLET PO SCH ×2 (14:08→17:44)
[2018-08-25] MEDS: MULTIVITAMIN ORAL LIQUID 60 ML PO SCH (14:08)
[2018-08-25] MEDS: POLYETHYLENE GLYCOL 3350 POWDER 17 GM/1 PACKET PO SCH (14:08)
[2018-08-25] MEDS: CALCITRIOL 0.25 MCG CAPSULE PO SCH (14:09)
[2018-08-25] MEDS: METOPROLOL TARTRATE 50 MG TABLET PO SCH ×2 (14:09→21:42)
--- NOTE | 2018-08-25 14:35 | PDOC PROGRESS REPORT ---
Subjective Progress Note for:: 08/25/18 Subjective:: 87 years old female with multiple comorbidities including the chronic atrial fibrillation, CHF, hypertension, hyperlipidemia, hypothyroidism, dementia and CKD [facility] with chief complaint of lack of energy and shortness of breath. In ED her BNP is 42,500. Positive UA urine culture grew E. coli pansensitive completed a course of antibiotics. On19/08/18 she started complaining of chest pain on the left side and troponins were obtained 0.048, 0.047, 0.051. Was started on on Plavix and Lipitor and continue metoprolol and aspirin. Dr.Mehra driver ardiologist and recommended to optimize her medical management since patient did not a candidate for invasive cardiac workup. Plavix and Lipitor were discontinued because her daughter told history of bleeding with Plavix and situs due to Lipitor. She was complaining of shortness of breath and a chest x-ray was positive for possible multicentric pneumonia. Blood cultures start and patient started on cefepime and vancomycin. 08/22/2018 No acute events overnight. SBP low 100s, heart rate 82-118 afebrile, saturating low 90s on nasal cannula. On my encounter patient is alert and oriented does not seem to be in acute distress enjoying her breakfast. Answers my questions appropriately however with very low tone while she is playing at the same time. Denying any fever, chills, nausea, vomiting, diarrhea, constipation, chest pain, shortness of breath or any urinary symptoms. 08/23/2018. No acute events overnight. Patient alert oriented x3, in no apparent distress, denies any fever, chills, nausea, vomiting, diarrhea, constipation or any urinary symptoms. She is communicating better and cooperative with physical examination compared to yesterday. She still seems to be weak and cannot reposition herself without help. 08/24/2018. No acute events overnight however patient has been somnolent and lethargic all day. CT head did not show any acute stroke however an ABG showed elevated CO2 possibly causing her to be somnolent. Arousable but very lethargic. Started on BiPAP. Ammonia level within normal limits. 08/25/2018. No acute events overnight. Mild improvement of her mental status. He easily arousable but still somnolent. ABG shows improvement of her hypercapnia. Not been able to take her p.o. meds because of risk of aspiration. Blood pressure has been elevated. BP meds switched to clonidine transdermal and hydralazine IV until she is able to take p.o. meds. Does not seem to be in any acute distress. Reason For Visit: ACUTE ON CHRONIC CHF,HYPERKALEMIA,ACUTE KIDNEY Physical Exam Vital Signs: Temp Pulse Resp BP Pulse Ox 98.3 F 115 H 16 186/93 H 98 08/25/18 12:16 08/25/18 12:16 08/25/18 12:16 08/25/18 12:16 08/25/18 12:16 Intake & Output 08/24/18 08/25/18 08/26/18 06:59 06:59 06:59 Intake Total 570 50 50 Output Total 175 740 200 Balance 395 -690 -150 Weight 69.6 kg 70.9 kg General appearance: PRESENT: no acute distress, well-developed, well-nourished Head exam: PRESENT: atraumatic, normocephalic Respiratory exam: PRESENT: clear to auscultation roscoe, decreased breath sounds. ABSENT: rales, rhonchi, wheezes Cardiovascular exam: PRESENT: RRR. ABSENT: diastolic murmur, rubs, systolic murmur Neurological exam: PRESENT: awake, oriented to person, CN II-XII grossly intact Results Laboratory Results: 08/25/18 05:46 08/25/18 05:46 08/24/18 08/24/18 08/24/18 16:38 16:43 16:43 WBC RBC Hgb Hct MCV MCH MCHC RDW Plt Count Carbonic Acid 1.91 H HCO3/H2CO3 Ratio 16:1 ABG pH 7.32 L ABG pCO2 63.3 H ABG pO2 87.4 ABG HCO3 32.0 H ABG O2 Saturation 95.7 ABG Base Excess 3.8 FiO2 1.5L Sodium 142.3 Potassium 5.4 H Chloride 107 Carbon Dioxide 28 Anion Gap 7 BUN 75 H Creatinine 2.63 H Est GFR ( Amer) 21 L Est GFR (Non-Af Amer) 17 L Glucose 101 Calcium 9.1 Magnesium Total Bilirubin AST ALT Alkaline Phosphatase Ammonia 16.6 Total Protein Albumin 08/25/18 08/25/18 08/25/18 05:46 05:46 06:10 WBC 5.0 RBC 4.39 Hgb 12.7 Hct 40.1 MCV 91 MCH 29.0 MCHC 31.7 L RDW 18.5 H Plt Count 249 Carbonic Acid 1.41 H HCO3/H2CO3 Ratio 20:1 ABG pH 7.41 ABG pCO2 46.7 H ABG pO2 76.9 L ABG HCO3 28.7 H ABG O2 Saturation 95.3 ABG Base Excess 3.3 FiO2 24% Sodium 144.2 Potassium 4.7 Chloride 108 H Carbon Dioxide 28 Anion Gap 8 BUN 77 H Creatinine 2.89 H Est GFR ( Amer) 19 L Est GFR (Non-Af Amer) 15 L Glucose 94 Calcium 9.4 Magnesium 3.0 H Total Bilirubin 0.7 AST 33 ALT 22 Alkaline Phosphatase 74 Ammonia Total Protein 6.9 Albumin 3.3 L 08/13/18 08/13/18 08/13/18 14:48 14:48 16:00 Creatine Kinase Cancelled CK-MB (CK-2) Cancelled 1.81 Troponin I Cancelled 0.044 NT-Pro-B Natriuret Pep 08/13/18 08/13/18 08/17/18 16:00 16:00 05:39 Creatine Kinase 42 CK-MB (CK-2) Troponin I NT-Pro-B Natriuret Pep 07522 H 73170 H 08/18/18 08/18/18 08/18/18 11:05 15:58 22:05 Creatine Kinase CK-MB (CK-2) Troponin I 0.048 0.047 0.051 NT-Pro-B Natriuret Pep Impressions: Abdomen/Pelvis CT 08/13/18 17:07 IMPRESSION: Anasarca, ascites and bilateral pleural fluid collections could be secondary to cardiac decompensation versus renal disease. New finding when compared with the prior exam. Cardiomegaly. Atrophic kidneys, left greater than right. Renal Ultrasound 08/19/18 00:00 IMPRESSION: 1. No hydronephrosis. Medical renal disease. Left renal atrophy. 2. Small ascites. 3. Cholelithiasis. Chest X-Ray 08/21/18 00:00 IMPRESSION: Possible multicentric pneumonia. Small loculated right pleural effusion. Cardiomegaly without laura pulmonary edema. 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 Involutional changes of aging with microvascular ischemic changes. EVIDENCE OF ACUTE STROKE: NO. Assessment and Plan - Diagnosis (1) Metabolic encephalopathy Is this a current diagnosis for this admission?: Yes Plan: Likely due to hypercapnia, mild improvement. PCO2 46.7 down from 63.3 PO2 76.9 down from 87.4 Ammonia level within normal limits. CT head no acute stroke. Continue supplemental oxygen, BiPAP. Continue treatment for pneumonia. (2) Possible HCAP Is this a current diagnosis for this admission?: Yes Plan: Possibility due to gram-negative rods/MRSA. No leukocytosis or bandemia. Blood culture negative from. 08/21/2018 day 5 vancomycin and cefepime. (3) Acute on chronic diastolic CHF (congestive heart failure), NYHA class 3 Is this a current diagnosis for this admission?: Yes Plan: Has not been able to take her p.o. meds due to altered mental status. Currently On IV Lasix and transdermal clonidine. Continue cardiac diet, volume restriction, beta-blockers, and diuretics. Currently not on ILDA due to CKD. Patient will benefit from ILDA once kidney function is stable. Outpatient follow-up with nephrology. 07/27/2016. 2D echo normal ejection fraction. Mild diastolic dysfunction. Monitor volume status. (4) Chronic a-fib Is this a current diagnosis for this admission?: Yes Plan: Rate controlled. Continue diltiazem, metoprolol. Not on anticoagulation. 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 Electrolytes within normal limits. Monitor volume status. Outpatient nephrology appointment. Nonoliguric. Followed by Dr. Rashel Chew from nephrology. Outpatient nephrology follow-up. (6) Complicated UTI (urinary tract infection) Is this a current diagnosis for this admission?: Yes Plan: Completed a course of ceftriaxone. Denies any urinary symptoms. (7) Dementia Is this a current diagnosis for this admission?: Yes Plan: Supportive measures. [facility] to [facility] once patient is ready. (8) Elevated troponin Is this a current diagnosis for this admission?: Yes Plan: Denies any chest pain. Likely due to CKD. Continue aspirin, metoprolol, Lipitor. Cardiology was consulted and medical management was recommended. (9) Hyperkalemia Is this a current diagnosis for this admission?: Yes Plan: Within normal limits. Continue Veltassa. Titrate dosage as needed. Followed by Dr. Rashel Chew from nephrology. Outpatient nephrology follow-up. (10) Hypothyroidism Is this a current diagnosis for this admission?: Yes Plan: TSH within normal limits. Continue levothyroxine.
[2018-08-25] MEDS: PATIROMER 8.4 GM SUSP PACKET PO SCH (17:42)
[2018-08-25] MEDS ORDERED: VANCOMYCIN HCL 750 MG in DEXTROSE 5%-WATER 250 ML IV SCH (18:00)
[2018-08-25] MEDS ORDERED: METOPROLOL TARTRATE PF/INJ 5 MG/5 ML SDV IV PRN (18:46)
[2018-08-25] MEDS ORDERED: ENALAPRILAT DIHYDRATE INJ/PF 1.25 MG/1 ML SDV IV PRN (18:47)
[2018-08-25] MEDS: DILTIAZEM HCL/D5W 125 MG/125 ML RTUINJ IV PRN (19:13)
[2018-08-25] MEDS: FAMOTIDINE 20 MG TABLET PO SCH (21:45)
[2018-08-25] MEDS: PHARMACY COMMUNICATION ORDER MC SCH (21:45)
[2018-08-26] MEDS: HYDRALAZINE HCL INJ/PF 20 MG/1 ML SDV IV PRN (01:29)
[2018-08-26] MEDS: ACETAMINOPHEN 650 MG SUPP.RECT PR PRN (01:30)
[2018-08-26] MEDS: METOPROLOL TARTRATE PF/INJ 5 MG/5 ML SDV IV SCH ×3 (03:38→03:54)
[2018-08-26] MEDS: DILTIAZEM HCL/D5W 125 MG/125 ML RTUINJ IV PRN (04:53)
[2018-08-26] MEDS: HEPARIN SOD (PORCINE) 5,000 UNIT/ML 1 ML SYRINGE SUBCUT SCH ×3 (05:02→23:04)
[2018-08-26] MEDS: HYDRALAZINE HCL 25 MG TABLET PO SCH ×4 (05:03→23:14)
[2018-08-26] MEDS: PANTOPRAZOLE SODIUM 40 MG PACKET.DR PO SCH (05:04)
[2018-08-26] MEDS: LEVOTHYROXINE SODIUM 0.112 MG TABLET PO SCH (05:04)
[2018-08-26 05:39] LABS: ABSOLUTE LYMPHOCYTES (AUTO) 0.5 10^3/uL (0.5-4.7); ABSOLUTE MONOCYTES (AUTO) 0.7 10^3/uL (0.1-1.4); ABSOLUTE NEUT (AUTO) 4.6 10^3/uL (1.7-8.2); BASOPHILS % (AUTO) 0.5 % (0-2); EOSINOPHILS % (AUTO) 0.1 % (0-6); HEMATOCRIT 39.9 % (36.0-47.0); HEMOGLOBIN 12.6 g/dL (12.0-15.5); MEAN CORPUSCULAR HEMOGLOBIN 28.5 pg (27.0-33.4); MEAN CORPUSCULAR HGB CONC 31.7 g/dL (32.0-36.0); MEAN CORPUSCULAR VOLUME 90 fl (80-97); PLATELET COUNT 291 10^3/uL (150-450); RED BLOOD COUNT 4.43 10^6/uL (3.72-5.28); RED CELL DISTRIBUTION WIDTH 18.2 % (11.5-14.0); SEGMENTED NEUTROPHILS % (AUTO) 78.4 % (42-78); TOTAL CELLS COUNTED % (AUTO) 100 %; WHITE BLOOD COUNT 5.9 10^3/uL (4.0-10.5)
[2018-08-26 06:10] LABS: ALANINE AMINOTRANSFERASE 18 U/L (9-52); ALBUMIN 3.3 g/dL (3.5-5.0); ALKALINE PHOSPHATASE 69 U/L (38-126); ANION GAP 10 (5-19); ASPARTATE AMINO TRANSFERASE 32 U/L (14-36); BILIRUBIN,DIRECT 0.6 mg/dL (0.0-0.4); BILIRUBIN,TOTAL 0.7 mg/dL (0.2-1.3); BLOOD UREA NITROGEN 79 mg/dL (7-20); CALCIUM 9.1 mg/dL (8.4-10.2); CARBON DIOXIDE 25 mmol/L (22-30); CHLORIDE 108 mmol/L (98-107); GLUCOSE 121 mg/dL (75-110); POTASSIUM 5.1 mmol/L (3.6-5.0); SODIUM 142.8 mmol/L (137-145); TOTAL PROTEIN 6.7 g/dL (6.3-8.2)
[2018-08-26 07:07] LABS: ARTERIAL BLOOD BASE EXCESS 3.3 mmol/L; ARTERIAL BLOOD FIO2 28%; ARTERIAL BLOOD H2CO3 1.54 mmol/L (1.05-1.35); ARTERIAL BLOOD HCO3 29.4 mmol/L (20-24); ARTERIAL BLOOD O2 SATURATION 93.7 % (94-98); ARTERIAL BLOOD PCO2 51.2 mmHg (35-45); ARTERIAL BLOOD PH 7.38 (7.35-7.45); ARTERIAL BLOOD PO2 70.9 mmHg (80-100)
[2018-08-26] MEDS: FERROUS SULFATE LIQUID 300 MG/5 ML UDC PO SCH (09:02)
[2018-08-26] MEDS: FUROSEMIDE INJ/PF 20 MG/2 ML SDV IV SCH ×2 (09:02→17:58)
[2018-08-26] MEDS: MAGNESIUM OXIDE 400 MG TABLET PO SCH (09:03)
[2018-08-26] MEDS: SENNOSIDES/DOCUSATE 8.6-50 MG 1 EACH TABLET PO SCH ×2 (09:03→17:53)
[2018-08-26] MEDS: DILTIAZEM HCL 60 MG TABLET PO SCH ×3 (09:03→23:14)
[2018-08-26] MEDS: DOCUSATE SODIUM 100 MG/10 ML UDC PO SCH (09:03)
[2018-08-26] MEDS: ASPIRIN 81 MG TABLET, CHEWABLE PO SCH (09:03)
[2018-08-26] MEDS: ISOSORBIDE DINITRATE 20 MG TABLET PO SCH ×3 (09:03→23:14)
[2018-08-26] MEDS: CHOLECALCIFEROL (D3) 1,000 UNIT TABLET PO SCH (09:03)
[2018-08-26] MEDS: LORATADINE 10 MG TABLET PO SCH (09:04)
[2018-08-26] MEDS: LIDOCAINE 5% (700 MG) TRANSDERMAL ADH..PATCH TP SCH (09:04)
[2018-08-26] MEDS: METOPROLOL TARTRATE 50 MG TABLET PO SCH ×2 (09:05→23:02)
[2018-08-26] MEDS: MULTIVITAMIN ORAL LIQUID 60 ML PO SCH (09:05)
[2018-08-26] MEDS: CEFEPIME HCL 2 GM in DEXTROSE 5%-WATER 50 ML IV SCH (09:06)
[2018-08-26] MEDS: POLYETHYLENE GLYCOL 3350 POWDER 17 GM/1 PACKET PO SCH (09:06)
--- NOTE | 2018-08-26 11:55 | RADIOLOGY REPORT (SQ) ---
EXAM DESCRIPTION: VENOUS BILATERAL LOWER COMPLETED DATE/TIME: 08/26/2018 10:40 am REASON FOR STUDY: r/o DVT COMPARISON: None. TECHNIQUE: Dynamic and static patricia scale and color images acquired of both lower extremity venous sy stems. Selected spectral images acquired with additional compression and augmentation maneuvers. Imag es stored on PACS. LIMITATIONS: None. FINDINGS: RIGHT LEG COMMON FEMORAL AND FEMORAL: Normal phasicity, compression and augmentation. No visualized echogenic m aterial on patricia scale. No defects on color images. POPLITEAL: Normal compression and augmentation. No visualized echogenic material on patricia scale. No de fects on color images. CALF VESSELS: Normal compression and augmentation. No visualized echogenic material on patricia scale. No defects on color image. GSV AND SSV: Normal compression. No visualized echogenic material on patricia scale. No defects on color images. ANY DEEP VENOUS INSUFFICIENCY: Not evaluated. ANY EVIDENCE OF POPLITEAL CYST: No. OTHER: No other significant finding. LEFT LEG COMMON FEMORAL AND FEMORAL: Normal phasicity, compression and augmentation. No visualized echogenic m aterial on patricia scale. No defects on color images. POPLITEAL: Normal compression and augmentation. No visualized echogenic material on patricia scale. No de fects on color images. CALF VESSELS: Normal compression and augmentation. No visualized echogenic material on patricia scale. No defects on color images. GSV AND SSV: Normal compression. No visualized echogenic material on patricia scale. No defects on color images. ANY DEEP VENOUS INSUFFICIENCY: Not evaluated. ANY EVIDENCE POPLITEAL CYST: No. OTHER: No other significant finding. IMPRESSION: NO EVIDENCE DVT OR SVT IN EITHER LEG. TECHNICAL DOCUMENTATION: JOB ID: [id number] [employer]- All Rights Reserved Reading location - IP/workstation name: [email or web address]
--- NOTE | 2018-08-26 13:43 | PDOC PROGRESS REPORT ---
Subjective Progress Note for:: 08/26/18 Subjective:: 87 years old female with multiple comorbidities including the chronic atrial fibrillation, CHF, hypertension, hyperlipidemia, hypothyroidism, dementia and CKD [facility] with chief complaint of lack of energy and shortness of breath. In ED her BNP is 42,500. Positive UA urine culture grew E. coli pansensitive completed a course of antibiotics. On19/08/18 she started complaining of chest pain on the left side and troponins were obtained 0.048, 0.047, 0.051. Was started on on Plavix and Lipitor and continue metoprolol and aspirin. Dr.Mehra driver ardiologist and recommended to optimize her medical management since patient did not a candidate for invasive cardiac workup. Plavix and Lipitor were discontinued because her daughter told history of bleeding with Plavix and situs due to Lipitor. She was complaining of shortness of breath and a chest x-ray was positive for possible multicentric pneumonia. Blood cultures start and patient started on cefepime and vancomycin. 08/22/2018 No acute events overnight. SBP low 100s, heart rate 82-118 afebrile, saturating low 90s on nasal cannula. On my encounter patient is alert and oriented does not seem to be in acute distress enjoying her breakfast. Answers my questions appropriately however with very low tone while she is playing at the same time. Denying any fever, chills, nausea, vomiting, diarrhea, constipation, chest pain, shortness of breath or any urinary symptoms. 08/23/2018. No acute events overnight. Patient alert oriented x3, in no apparent distress, denies any fever, chills, nausea, vomiting, diarrhea, constipation or any urinary symptoms. She is communicating better and cooperative with physical examination compared to yesterday. She still seems to be weak and cannot reposition herself without help. 08/24/2018. No acute events overnight however patient has been somnolent and lethargic all day. CT head did not show any acute stroke however an ABG showed elevated CO2 possibly causing her to be somnolent. Arousable but very lethargic. Started on BiPAP. Ammonia level within normal limits. 08/25/2018. No acute events overnight. Mild improvement of her mental status. He easily arousable but still somnolent. ABG shows improvement of her hypercapnia. Not been able to take her p.o. meds because of risk of aspiration. Blood pressure has been elevated. BP meds switched to clonidine transdermal and hydralazine IV until she is able to take p.o. meds. Does not seem to be in any acute distress. 08/26/2018. No acute events overnight. Patient has improvement of her mental status, she is awake, oriented x2, follows some commands, was able to take her p.o. meds, she still moaning when asked if she is hurting anywhere she says no. Her pressure has been better controlled since being started on Cardizem drip and clonidine patch. On her labs CBC within normal limits, on ABG pH of 51.2, PO2 of 70.9, CO2 of 29.4. Venous Doppler of lower extremity was negative for any acute DVT. She denies any chest pain, nausea, vomiting, diarrhea, constipation or any urinary symptoms. Reason For Visit: ACUTE ON CHRONIC CHF,HYPERKALEMIA,ACUTE KIDNEY Physical Exam Vital Signs: Temp Pulse Resp BP Pulse Ox 97.6 F 92 18 154/44 H 98 08/26/18 11:52 08/26/18 12:00 08/26/18 11:52 08/26/18 12:00 08/26/18 11:52 Intake & Output 08/25/18 08/26/18 08/27/18 06:59 06:59 06:59 Intake Total 50 425 50 Output Total 740 900 Balance -690 -475 50 Weight 70.9 kg 72.5 kg General appearance: PRESENT: no acute distress Head exam: PRESENT: atraumatic, normocephalic Respiratory exam: PRESENT: clear to auscultation roscoe. ABSENT: rales, rhonchi, wheezes Cardiovascular exam: PRESENT: irregular rhythm. ABSENT: diastolic murmur, rubs, systolic murmur GI/Abdominal exam: PRESENT: normal bowel sounds, soft. ABSENT: distended, guarding, mass, organolmegaly, rebound, tenderness Neurological exam: PRESENT: alert, altered, awake, oriented to person, oriented to place, CN II-XII grossly intact Results Laboratory Results: 08/26/18 04:54 08/26/18 04:54 08/26/18 08/26/18 08/26/18 04:54 04:54 06:28 WBC 5.9 RBC 4.43 Hgb 12.6 Hct 39.9 MCV 90 MCH 28.5 MCHC 31.7 L RDW 18.2 H Plt Count 291 Seg Neutrophils % 78.4 H Lymphocytes % 9.0 L Monocytes % 12.0 Eosinophils % 0.1 Basophils % 0.5 Absolute Neutrophils 4.6 Absolute Lymphocytes 0.5 Absolute Monocytes 0.7 Absolute Eosinophils 0.0 Absolute Basophils 0.0 Carbonic Acid 1.54 H HCO3/H2CO3 Ratio 19:1 ABG pH 7.38 ABG pCO2 51.2 H ABG pO2 70.9 L ABG HCO3 29.4 H ABG O2 Saturation 93.7 L ABG Base Excess 3.3 FiO2 28% Sodium 142.8 Potassium 5.1 H Chloride 108 H Carbon Dioxide 25 Anion Gap 10 BUN 79 H Creatinine 2.73 H Est GFR ( Amer) 20 L Est GFR (Non-Af Amer) 16 L Glucose 121 H Calcium 9.1 Total Bilirubin 0.7 AST 32 ALT 18 Alkaline Phosphatase 69 Total Protein 6.7 Albumin 3.3 L 08/13/18 08/13/18 08/13/18 14:48 14:48 16:00 Creatine Kinase Cancelled CK-MB (CK-2) Cancelled 1.81 Troponin I Cancelled 0.044 NT-Pro-B Natriuret Pep 08/13/18 08/13/18 08/17/18 16:00 16:00 05:39 Creatine Kinase 42 CK-MB (CK-2) Troponin I NT-Pro-B Natriuret Pep 27055 H 90983 H 08/18/18 08/18/18 08/18/18 11:05 15:58 22:05 Creatine Kinase CK-MB (CK-2) Troponin I 0.048 0.047 0.051 NT-Pro-B Natriuret Pep Impressions: Abdomen/Pelvis CT 08/13/18 17:07 IMPRESSION: Anasarca, ascites and bilateral pleural fluid collections could be secondary to cardiac decompensation versus renal disease. New finding when compared with the prior exam. Cardiomegaly. Atrophic kidneys, left greater than right. Renal Ultrasound 08/19/18 00:00 IMPRESSION: 1. No hydronephrosis. Medical renal disease. Left renal atrophy. 2. Small ascites. 3. Cholelithiasis. Chest X-Ray 08/21/18 00:00 IMPRESSION: Possible multicentric pneumonia. Small loculated right pleural effusion. Cardiomegaly without laura pulmonary edema. 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 Involutional changes of aging with microvascular ischemic changes. EVIDENCE OF ACUTE STROKE: NO. Venous Doppler Study 08/26/18 00:00 IMPRESSION: NO EVIDENCE DVT OR SVT IN EITHER LEG. Assessment and Plan - Diagnosis (1) Metabolic encephalopathy Is this a current diagnosis for this admission?: Yes Plan: Improving. Likely due to hypercapnia and narcotics. Mild improvement of her blood gases. Continue treating underlying pneumonia, avoid benzos, opioid analgesics, anticholinergics, and Ambien. Continue supplemental oxygen, BiPAP. Continue treatment for pneumonia. (2) Possible HCAP Is this a current diagnosis for this admission?: Yes Plan: Possibility due to gram-negative rods/MRSA. No leukocytosis or bandemia. Blood culture negative from. 08/21/2018 day 6 vancomycin and cefepime. (3) Acute on chronic diastolic CHF (congestive heart failure), NYHA class 3 Is this a current diagnosis for this admission?: Yes Plan: Has not been able to take her p.o. meds due to altered mental status. Currently On IV Lasix and transdermal clonidine. Continue cardiac diet, volume restriction, beta-blockers, and diuretics. Currently not on ILDA due to CKD. Patient will benefit from ILDA once kidney function is stable. Outpatient follow-up with nephrology. 07/27/2016. 2D echo normal ejection fraction. Mild diastolic dysfunction. Monitor volume status. (4) Chronic a-fib Is this a current diagnosis for this admission?: Yes Plan: Rate controlled. Continue diltiazem, metoprolol. Not on anticoagulation. 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 Electrolytes within normal limits. Monitor volume status. Outpatient nephrology appointment. Nonoliguric. Followed by Dr. Rashel Chew from nephrology. Outpatient nephrology follow-up. (6) Complicated UTI (urinary tract infection) Is this a current diagnosis for this admission?: Yes Plan: Completed a course of ceftriaxone. Denies any urinary symptoms. (7) Dementia Is this a current diagnosis for this admission?: Yes Plan: Supportive measures. [facility] to [facility] once patient is ready. (8) Elevated troponin Is this a current diagnosis for this admission?: Yes Plan: Denies any chest pain. Likely due to CKD. Continue aspirin, metoprolol, Lipitor. Cardiology was consulted and medical management was recommended. (9) Hyperkalemia Is this a current diagnosis for this admission?: Yes Plan: Within normal limits. Continue Veltassa. Titrate dosage as needed. Followed by Dr. Rashel Chew from nephrology. Outpatient nephrology follow-up. (10) Hypothyroidism Is this a current diagnosis for this admission?: Yes Plan: TSH within normal limits. Continue levothyroxine.
[2018-08-26] MEDS: PATIROMER 8.4 GM SUSP PACKET PO SCH (17:53)
[2018-08-26] MEDS: FAMOTIDINE 20 MG TABLET PO SCH ×2 (23:02→23:15)
[2018-08-26] MEDS: PHARMACY COMMUNICATION ORDER MC SCH (23:03)
[2018-08-27] MEDS ORDERED: DILTIAZEM HCL INJ 25 MG/5 ML VIAL ONE (06:34)
[2018-08-27] MEDS: DILTIAZEM HCL INJ 25 MG/5 ML VIAL IV SCH ×2 (06:40→11:37)
[2018-08-27] MEDS: LEVOTHYROXINE SODIUM 0.112 MG TABLET PO SCH (06:43)
[2018-08-27] MEDS: HEPARIN SOD (PORCINE) 5,000 UNIT/ML 1 ML SYRINGE SUBCUT SCH ×3 (06:43→22:56)
[2018-08-27] MEDS: PANTOPRAZOLE SODIUM 40 MG PACKET.DR PO SCH (06:43)
[2018-08-27] MEDS: HYDRALAZINE HCL 25 MG TABLET PO SCH ×3 (06:43→22:56)
--- NOTE | 2018-08-27 10:23 | PDOC PROGRESS REPORT ---
Subjective Progress Note for:: 08/27/18 Subjective:: 87 years old female with multiple comorbidities including the chronic atrial fibrillation, CHF, hypertension, hyperlipidemia, hypothyroidism, dementia and CKD [facility] of lack of energy and shortness of breath. In ED her BNP is 42,500. Positive UA urine culture grew E. coli pansensitive completed a course of antibiotics. On19/08/18 she started complaining of chest pain on the left side and troponins were obtained 0.048, 0.047, 0.051. Was started on on Plavix and Lipitor and continue metoprolol and aspirin. Dr.Mehra driver ardiologist and recommended to optimize her medical management since patient did not a candidate for invasive cardiac workup. Plavix and Lipitor were discontinued because her daughter told history of bleeding with Plavix and situs due to Lipitor. She was complaining of shortness of breath and a chest x-ray was positive for possible multicentric pneumonia. Blood cultures start and patient started on cefepime and vancomycin. 08/22/2018 No acute events overnight. SBP low 100s, heart rate 82-118 afebrile, saturating low 90s on nasal cannula. On my encounter patient is alert and oriented does not seem to be in acute distress enjoying her breakfast. Answers my questions appropriately however with very low tone while she is playing at the same time. Denying any fever, chills, nausea, vomiting, diarrhea, constipation, chest pain, shortness of breath or any urinary symptoms. 08/27/2018. No acute events overnight. Patient has been more alert and responsive. Still refusing to take home physical medications. Heart rate has been uncontrolled and she has been given boluses of Cardizem. Pressures better controlled but still not optimized. She is on clonidine transdermal. She communicates better alert and oriented x2, talks in a very low voice and constantly moaning. Asking for her family. Complaining of abdominal pain otherwise, denying any fever, chills, nausea, vomiting, diarrhea, constipation or any urinary symptoms. Reason For Visit: ACUTE ON CHRONIC CHF,HYPERKALEMIA,ACUTE KIDNEY Physical Exam Vital Signs: Temp Pulse Resp BP Pulse Ox 97.9 F 127 H 20 174/80 H 97 08/27/18 07:53 08/27/18 07:53 08/27/18 07:53 08/27/18 07:53 08/27/18 08:00 Intake & Output 08/26/18 08/27/18 08/28/18 06:59 06:59 06:59 Intake Total 425 131 Output Total 900 575 Balance -475 -444 Weight 72.5 kg 70 kg Results Laboratory Results: 08/26/18 04:54 08/26/18 04:54 08/21/18 14:00 Blood Blood Culture - Final NO GROWTH IN 5 DAYS 08/21/18 14:20 Blood Blood Culture - Final NO GROWTH IN 5 DAYS 08/13/18 08/13/18 08/13/18 14:48 14:48 16:00 Creatine Kinase Cancelled CK-MB (CK-2) Cancelled 1.81 Troponin I Cancelled 0.044 NT-Pro-B Natriuret Pep 08/13/18 08/13/18 08/17/18 16:00 16:00 05:39 Creatine Kinase 42 CK-MB (CK-2) Troponin I NT-Pro-B Natriuret Pep 21155 H 05775 H 08/18/18 08/18/18 08/18/18 11:05 15:58 22:05 Creatine Kinase CK-MB (CK-2) Troponin I 0.048 0.047 0.051 NT-Pro-B Natriuret Pep Impressions: Abdomen/Pelvis CT 08/13/18 17:07 IMPRESSION: Anasarca, ascites and bilateral pleural fluid collections could be secondary to cardiac decompensation versus renal disease. New finding when compared with the prior exam. Cardiomegaly. Atrophic kidneys, left greater than right. Renal Ultrasound 08/19/18 00:00 IMPRESSION: 1. No hydronephrosis. Medical renal disease. Left renal atrophy. 2. Small ascites. 3. Cholelithiasis. Chest X-Ray 08/21/18 00:00 IMPRESSION: Possible multicentric pneumonia. Small loculated right pleural effusion. Cardiomegaly without laura pulmonary edema. 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 Involutional changes of aging with microvascular ischemic changes. EVIDENCE OF ACUTE STROKE: NO. Venous Doppler Study 08/26/18 00:00 IMPRESSION: NO EVIDENCE DVT OR SVT IN EITHER LEG. 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
--- NOTE | 2018-08-27 10:25 | PDOC PROGRESS REPORT ---
Subjective Progress Note for:: 08/27/18 Subjective:: 87 years old female with multiple comorbidities including the chronic atrial fibrillation, CHF, hypertension, hyperlipidemia, hypothyroidism, dementia and CKD transferred from custodial with chief complaint of lack of energy and shortness of breath. In ED her BNP is 42,500. Positive UA urine culture grew E. coli pansensitive completed a course of antibiotics. On19/08/18 she started complaining of chest pain on the left side and troponins were obtained 0.048, 0.047, 0.051. Was started on on Plavix and Lipitor and continue metoprolol and aspirin. Dr.Mehra driver ardiologist and recommended to optimize her medical management since patient did not a candidate for invasive cardiac workup. Plavix and Lipitor were discontinued because her daughter told history of bleeding with Plavix and situs due to Lipitor. She was complaining of shortness of breath and a chest x-ray was positive for possible multicentric pneumonia. Blood cultures start and patient started on cefepime and vancomycin. 08/22/2018 No acute events overnight. SBP low 100s, heart rate 82-118 afebrile, saturating low 90s on nasal cannula. On my encounter patient is alert and oriented does not seem to be in acute distress enjoying her breakfast. Answers my questions appropriately however with very low tone while she is playing at the same time. Denying any fever, chills, nausea, vomiting, diarrhea, constipation, chest pain, shortness of breath or any urinary symptoms. 08/23/2018. No acute events overnight. Patient alert oriented x3, in no apparent distress, denies any fever, chills, nausea, vomiting, diarrhea, constipation or any urinary symptoms. She is communicating better and cooperative with physical examination compared to yesterday. She still seems to be weak and cannot reposition herself without help. 08/24/2018. No acute events overnight however patient has been somnolent and lethargic all day. CT head did not show any acute stroke however an ABG showed elevated CO2 possibly causing her to be somnolent. Arousable but very lethargic. Started on BiPAP. Ammonia level within normal limits. 08/25/2018. No acute events overnight. Mild improvement of her mental status. He easily arousable but still somnolent. ABG shows improvement of her hypercapnia. Not been able to take her p.o. meds because of risk of aspiration. Blood pressure has been elevated. BP meds switched to clonidine transdermal and hydralazine IV until she is able to take p.o. meds. Does not seem to be in any acute distress. 08/26/2018. No acute events overnight. Patient has improvement of her mental status, she is awake, oriented x2, follows some commands, was able to take her p.o. meds, she still moaning when asked if she is hurting anywhere she says no. Her pressure has been better controlled since being started on Cardizem drip and clonidine patch. On her labs CBC within normal limits, on ABG pH of 51.2, PO2 of 70.9, CO2 of 29.4. Venous Doppler of lower extremity was negative for any acute DVT. She denies any chest pain, nausea, vomiting, diarrhea, constipation or any urinary symptoms. 08/27/2018. No acute events overnight. Patient is still refusing some of her meds. Pressure is better but not optimized. She has been given doses of IV Cardizem. She is more alert and responsive, can hold conversation however hard to understand what she saying she is mumbling, she is alert oriented x2, complaining of abdominal pain and asking for her family. Denies any fever, chills, nausea, vomiting, diarrhea, constipation or any urinary symptoms. Reason For Visit: ACUTE ON CHRONIC CHF,HYPERKALEMIA,ACUTE KIDNEY Physical Exam Vital Signs: Temp Pulse Resp BP Pulse Ox 97.9 F 127 H 20 174/80 H 97 08/27/18 07:53 08/27/18 07:53 08/27/18 07:53 08/27/18 07:53 08/27/18 08:00 Intake & Output 08/26/18 08/27/18 08/28/18 06:59 06:59 06:59 Intake Total 425 131 Output Total 900 575 Balance -475 -444 Weight 72.5 kg 70 kg General appearance: PRESENT: no acute distress, well-developed, well-nourished Head exam: PRESENT: atraumatic, normocephalic Respiratory exam: PRESENT: clear to auscultation roscoe. ABSENT: rales, rhonchi, wheezes Cardiovascular exam: PRESENT: RRR. ABSENT: diastolic murmur, rubs, systolic murmur GI/Abdominal exam: PRESENT: normal bowel sounds, tenderness - Generalized. Extremities exam: PRESENT: full ROM. ABSENT: calf tenderness, clubbing, pedal edema Neurological exam: PRESENT: alert, altered, awake, oriented to person, oriented to place, CN II-XII grossly intact Results Laboratory Results: 08/26/18 04:54 08/26/18 04:54 08/21/18 14:00 Blood Blood Culture - Final NO GROWTH IN 5 DAYS 08/21/18 14:20 Blood Blood Culture - Final NO GROWTH IN 5 DAYS 08/13/18 08/13/18 08/13/18 14:48 14:48 16:00 Creatine Kinase Cancelled CK-MB (CK-2) Cancelled 1.81 Troponin I Cancelled 0.044 NT-Pro-B Natriuret Pep 08/13/18 08/13/18 08/17/18 16:00 16:00 05:39 Creatine Kinase 42 CK-MB (CK-2) Troponin I NT-Pro-B Natriuret Pep 85448 H 29886 H 08/18/18 08/18/18 08/18/18 11:05 15:58 22:05 Creatine Kinase CK-MB (CK-2) Troponin I 0.048 0.047 0.051 NT-Pro-B Natriuret Pep Impressions: Abdomen/Pelvis CT 08/13/18 17:07 IMPRESSION: Anasarca, ascites and bilateral pleural fluid collections could be secondary to cardiac decompensation versus renal disease. New finding when compared with the prior exam. Cardiomegaly. Atrophic kidneys, left greater than right. Renal Ultrasound 08/19/18 00:00 IMPRESSION: 1. No hydronephrosis. Medical renal disease. Left renal atrophy. 2. Small ascites. 3. Cholelithiasis. Chest X-Ray 08/21/18 00:00 IMPRESSION: Possible multicentric pneumonia. Small loculated right pleural effusion. Cardiomegaly without laura pulmonary edema. 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 Involutional changes of aging with microvascular ischemic changes. EVIDENCE OF ACUTE STROKE: NO. Venous Doppler Study 08/26/18 00:00 IMPRESSION: NO EVIDENCE DVT OR SVT IN EITHER LEG. Assessment and Plan - Diagnosis (1) Metabolic encephalopathy Is this a current diagnosis for this admission?: Yes Plan: Improving back to baseline. Likely due to hypercapnia, narcotics and mirtazapine. Mild improvement of her blood gases. Continue treating underlying pneumonia, avoid benzos, opioid analgesics, anticholinergics, and Ambien. Continue supplemental oxygen, BiPAP. Continue treatment for pneumonia. (2) Possible HCAP Is this a current diagnosis for this admission?: Yes Plan: Possibility due to gram-negative rods/MRSA. No leukocytosis or bandemia. Blood culture negative from. 08/21/2018 day 7 vancomycin and cefepime. DC Abx (3) Acute on chronic diastolic CHF (congestive heart failure), NYHA class 3 Is this a current diagnosis for this admission?: Yes Plan: Refusing PO meds. Currently On IV Lasix and transdermal clonidine. Continue cardiac diet, volume restriction, beta-blockers, and diuretics. Currently not on ILDA due to CKD. Patient will benefit from ILDA once kidney function is stable. Outpatient follow-up with nephrology. 07/27/2016. 2D echo normal ejection fraction. Mild diastolic dysfunction. Monitor volume status. 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 Electrolytes within normal limits. Monitor volume status. Outpatient nephrology appointment. Nonoliguric. Followed by Dr. Rashel Chew from nephrology. Outpatient nephrology follow-up. (5) Chronic a-fib Is this a current diagnosis for this admission?: Yes Plan: Not controlled. Patient refusing her p.o. meds. Continue diltiazem IV. Encourage p.o. meds. Not on anticoagulation. (6) Complicated UTI (urinary tract infection) Is this a current diagnosis for this admission?: Yes Plan: Completed a course of ceftriaxone. Denies any urinary symptoms. (7) Dementia Is this a current diagnosis for this admission?: Yes Plan: Supportive measures. Transfer back to custodial once patient is ready. (8) Elevated troponin Is this a current diagnosis for this admission?: Yes Plan: Denies any chest pain. Likely due to CKD. Continue aspirin, metoprolol, Lipi tor. Cardiology was consulted and medical management was recommended. (9) Hyperkalemia Is this a current diagnosis for this admission?: Yes Plan: Resolved. (10) Hypothyroidism Is this a current diagnosis for this admission?: Yes Plan: TSH within normal limits. Continue levothyroxine.
[2018-08-27] MEDS: MAGNESIUM OXIDE 400 MG TABLET PO SCH (10:42)
[2018-08-27] MEDS: LORATADINE 10 MG TABLET PO SCH (10:43)
[2018-08-27] MEDS: ASPIRIN 81 MG TABLET, CHEWABLE PO SCH (10:43)
[2018-08-27] MEDS: CHOLECALCIFEROL (D3) 1,000 UNIT TABLET PO SCH (10:43)
[2018-08-27] MEDS: SENNOSIDES/DOCUSATE 8.6-50 MG 1 EACH TABLET PO SCH ×2 (10:43→17:56)
[2018-08-27] MEDS: DILTIAZEM HCL 60 MG TABLET PO SCH ×2 (10:43→22:56)
[2018-08-27] MEDS: FUROSEMIDE INJ/PF 20 MG/2 ML SDV IV SCH ×2 (10:44→17:58)
[2018-08-27] MEDS: DOCUSATE SODIUM 100 MG/10 ML UDC PO SCH (10:45)
[2018-08-27] MEDS: METOPROLOL TARTRATE 50 MG TABLET PO SCH (10:45)
[2018-08-27] MEDS: FERROUS SULFATE LIQUID 300 MG/5 ML UDC PO SCH (10:45)
[2018-08-27] MEDS: MULTIVITAMIN ORAL LIQUID 60 ML PO SCH (10:46)
[2018-08-27] MEDS: POLYETHYLENE GLYCOL 3350 POWDER 17 GM/1 PACKET PO SCH (10:47)
[2018-08-27] MEDS: ACETAMINOPHEN 325 MG TABLET PO PRN (10:49)
[2018-08-27] MEDS: LIDOCAINE 5% (700 MG) TRANSDERMAL ADH..PATCH TP SCH (10:56)
[2018-08-27] MEDS: ISOSORBIDE DINITRATE 20 MG TABLET PO SCH (10:58)
[2018-08-27] MEDS: CEFEPIME HCL 2 GM in DEXTROSE 5%-WATER 50 ML IV SCH (10:58)
[2018-08-27] MEDS ORDERED: NA PHOS,M-B/NA PHOS,DI-BA (ADULT) 133 ML ENEMA PR ONE (11:30)
[2018-08-27] MEDS: PATIROMER 8.4 GM SUSP PACKET PO SCH (17:56)
[2018-08-27] MEDS: PHARMACY COMMUNICATION ORDER MC SCH (22:56)
[2018-08-27] MEDS: FAMOTIDINE 20 MG TABLET PO SCH (22:56)
[2018-08-28] MEDS: HYDRALAZINE HCL 25 MG TABLET PO SCH ×3 (05:22→21:37)
[2018-08-28] MEDS: PANTOPRAZOLE SODIUM 40 MG PACKET.DR PO SCH (05:22)
[2018-08-28] MEDS: LEVOTHYROXINE SODIUM 0.112 MG TABLET PO SCH (05:22)
[2018-08-28] MEDS: HEPARIN SOD (PORCINE) 5,000 UNIT/ML 1 ML SYRINGE SUBCUT SCH ×3 (05:23→21:37)
[2018-08-28 05:46] LABS: HEMATOCRIT 36.8 % (36.0-47.0); HEMOGLOBIN 11.8 g/dL (12.0-15.5); MEAN CORPUSCULAR VOLUME 91 fl (80-97); PLATELET COUNT 242 10^3/uL (150-450); RED BLOOD COUNT 4.05 10^6/uL (3.72-5.28); RED CELL DISTRIBUTION WIDTH 17.9 % (11.5-14.0); WHITE BLOOD COUNT 5.4 10^3/uL (4.0-10.5)
[2018-08-28 06:16] LABS: ALANINE AMINOTRANSFERASE 22 U/L (9-52); ALKALINE PHOSPHATASE 68 U/L (38-126); ANION GAP 9 (5-19); ASPARTATE AMINO TRANSFERASE 26 U/L (14-36); BILIRUBIN,DIRECT 0.5 mg/dL (0.0-0.4); BILIRUBIN,TOTAL 0.5 mg/dL (0.2-1.3); BLOOD UREA NITROGEN 81 mg/dL (7-20); CALCIUM 8.9 mg/dL (8.4-10.2); CARBON DIOXIDE 31 mmol/L (22-30); CHLORIDE 106 mmol/L (98-107); GLUCOSE 92 mg/dL (75-110); POTASSIUM 4.2 mmol/L (3.6-5.0); SODIUM 146.4 mmol/L (137-145); TOTAL PROTEIN 6.1 g/dL (6.3-8.2)
[2018-08-28] MEDS: ACETAMINOPHEN 325 MG TABLET PO PRN ×3 (07:44→23:20)
[2018-08-28] MEDS ORDERED: DILTIAZEM HCL 60 MG TABLET PO ONE (08:00)
[2018-08-28] MEDS: LIDOCAINE 5% (700 MG) TRANSDERMAL ADH..PATCH TP SCH (09:36)
[2018-08-28] MEDS: CHOLECALCIFEROL (D3) 1,000 UNIT TABLET PO SCH (09:40)
[2018-08-28] MEDS: LORATADINE 10 MG TABLET PO SCH (09:41)
[2018-08-28] MEDS: MAGNESIUM OXIDE 400 MG TABLET PO SCH (09:41)
[2018-08-28] MEDS: SENNOSIDES/DOCUSATE 8.6-50 MG 1 EACH TABLET PO SCH ×2 (09:41→18:05)
[2018-08-28] MEDS: ASPIRIN 81 MG TABLET, CHEWABLE PO SCH (09:41)
[2018-08-28] MEDS: POLYETHYLENE GLYCOL 3350 POWDER 17 GM/1 PACKET PO SCH (09:42)
[2018-08-28] MEDS: FUROSEMIDE INJ/PF 20 MG/2 ML SDV IV SCH ×2 (09:42→18:05)
[2018-08-28] MEDS: MULTIVITAMIN ORAL LIQUID 60 ML PO SCH (09:42)
[2018-08-28] MEDS: DOCUSATE SODIUM 100 MG/10 ML UDC PO SCH (09:42)
[2018-08-28] MEDS: CALCITRIOL 0.25 MCG CAPSULE PO SCH (10:37)
[2018-08-28] MEDS: PATIROMER 8.4 GM SUSP PACKET PO SCH (16:08)
--- NOTE | 2018-08-28 16:44 | PDOC PROGRESS REPORT ---
Subjective Progress Note for:: 08/28/18 Subjective:: 87 years old female with multiple comorbidities including the chronic atrial fibrillation, CHF, hypertension, hyperlipidemia, hypothyroidism, dementia and CKD transferred from assisted with chief complaint of lack of energy and shortness of breath. In ED her BNP is 42,500. Positive UA urine culture grew E. coli pansensitive completed a course of antibiotics. On19/08/18 she started complaining of chest pain on the left side and troponins were obtained 0.048, 0.047, 0.051. Was started on on Plavix and Lipitor and continue metoprolol and aspirin. Dr.Mehra driver ardiologist and recommended to optimize her medical management since patient did not a candidate for invasive cardiac workup. Plavix and Lipitor were discontinued because her daughter told history of bleeding with Plavix and situs due to Lipitor. She was complaining of shortness of breath and a chest x-ray was positive for possible multicentric pneumonia. Blood cultures start and patient started on cefepime and vancomycin. 08/22/2018 No acute events overnight. SBP low 100s, heart rate 82-118 afebrile, saturating low 90s on nasal cannula. On my encounter patient is alert and oriented does not seem to be in acute distress enjoying her breakfast. Answers my questions appropriately however with very low tone while she is playing at the same time. Denying any fever, chills, nausea, vomiting, diarrhea, constipation, chest pain, shortness of breath or any urinary symptoms. 08/23/2018. No acute events overnight. Patient alert oriented x3, in no apparent distress, denies any fever, chills, nausea, vomiting, diarrhea, constipation or any urinary symptoms. She is communicating better and cooperative with physical examination compared to yesterday. She still seems to be weak and cannot reposition herself without help. 08/24/2018. No acute events overnight however patient has been somnolent and lethargic all day. CT head did not show any acute stroke however an ABG showed elevated CO2 possibly causing her to be somnolent. Arousable but very lethargic. Started on BiPAP. Ammonia level within normal limits. 08/25/2018. No acute events overnight. Mild improvement of her mental status. He easily arousable but still somnolent. ABG shows improvement of her hypercapnia. Not been able to take her p.o. meds because of risk of aspiration. Blood pressure has been elevated. BP meds switched to clonidine transdermal and hydralazine IV until she is able to take p.o. meds. Does not seem to be in any acute distress. 08/26/2018. No acute events overnight. Patient has improvement of her mental status, she is awake, oriented x2, follows some commands, was able to take her p.o. meds, she still moaning when asked if she is hurting anywhere she says no. Her pressure has been better controlled since being started on Cardizem drip and clonidine patch. On her labs CBC within normal limits, on ABG pH of 51.2, PO2 of 70.9, CO2 of 29.4. Venous Doppler of lower extremity was negative for any acute DVT. She denies any chest pain, nausea, vomiting, diarrhea, constipation or any urinary symptoms. 08/27/2018. No acute events overnight. Patient is still refusing some of her meds. Pressure is better but not optimized. She has been given doses of IV Cardizem. She is more alert and responsive, can hold conversation however hard to understand what she saying she is mumbling, she is alert oriented x2, complaining of abdominal pain and asking for her family. Denies any fever, chills, nausea, vomiting, diarrhea, constipation or any urinary symptoms. 08/28/2018. No acute events overnight. Patient still refusing some of her medications. Back to baseline as per family. Patient is alert oriented x3, however her conversation is very difficult to understand as she always speaks with moaning. When asked if she is in pain she says she is hurting all over but does not mention any specific region. Patient is allergic to opioids however no true allergy extremely sensitive to opioids and becomes very lethargic for several days even with 1 dose of opiates. She did receive 1 dose of opioid here on admission she was lethargic for several days. Patient denies any fever, chills, nausea, vomiting, diarrhea, constipation or any urinary symptoms. As per family this is patient's baseline but they say she seems to week. Physical therapy is consulted and patient hopefully be sent to rehab. Reason For Visit: ACUTE ON CHRONIC CHF,HYPERKALEMIA,ACUTE KIDNEY Physical Exam Vital Signs: Temp Pulse Resp BP Pulse Ox 97.8 F 95 18 146/74 H 99 08/28/18 12:04 08/28/18 14:00 08/28/18 12:04 08/28/18 12:04 08/28/18 12:15 Intake & Output 08/27/18 08/28/18 08/29/18 06:59 06:59 06:59 Intake Total 131 100 25 Output Total 575 575 225 Balance -444 -475 -200 Weight 70 kg 69.9 kg General appearance: PRESENT: no acute distress, well-developed, well-nourished Head exam: PRESENT: atraumatic, normocephalic Ear exam: PRESENT: normal external ear exam Mouth exam: PRESENT: moist, tongue midline Neck exam: ABSENT: carotid bruit, JVD, lymphadenopathy, thyromegaly Respiratory exam: PRESENT: clear to auscultation roscoe. ABSENT: rales, rhonchi, wheezes Cardiovascular exam: PRESENT: RRR. ABSENT: diastolic murmur, rubs, systolic murmur Pulses: PRESENT: normal dorsalis pedis pul Vascular exam: PRESENT: normal capillary refill GI/Abdominal exam: PRESENT: normal bowel sounds, soft. ABSENT: distended, guarding, mass, organolmegaly, rebound, tenderness Extremities exam: PRESENT: full ROM Neurological exam: PRESENT: alert, awake, oriented to person, oriented to place, CN II-XII grossly intact. ABSENT: motor sensory deficit Psychiatric exam: ABSENT: homicidal ideation, suicidal ideation Results Laboratory Results: 08/28/18 05:23 08/28/18 05:23 08/28/18 08/28/18 05:23 05:23 WBC 5.4 RBC 4.05 Hgb 11.8 L Hct 36.8 MCV 91 MCH 29.0 MCHC 32.0 RDW 17.9 H Plt Count 242 Sodium 146.4 H Potassium 4.2 Chloride 106 Carbon Dioxide 31 H Anion Gap 9 BUN 81 H Creatinine 2.92 H Est GFR ( Amer) 18 L Est GFR (Non-Af Amer) 15 L Glucose 92 Calcium 8.9 Magnesium 2.8 H Total Bilirubin 0.5 AST 26 ALT 22 Alkaline Phosphatase 68 Total Protein 6.1 L Albumin 3.0 L 08/13/18 08/13/18 08/13/18 14:48 14:48 16:00 Creatine Kinase Cancelled CK-MB (CK-2) Cancelled 1.81 Troponin I Cancelled 0.044 NT-Pro-B Natriuret Pep 08/13/18 08/13/18 08/17/18 16:00 16:00 05:39 Creatine Kinase 42 CK-MB (CK-2) Troponin I NT-Pro-B Natriuret Pep 89853 H 56621 H 08/18/18 08/18/18 08/18/18 11:05 15:58 22:05 Creatine Kinase CK-MB (CK-2) Troponin I 0.048 0.047 0.051 NT-Pro-B Natriuret Pep Impressions: Abdomen/Pelvis CT 08/13/18 17:07 IMPRESSION: Anasarca, ascites and bilateral pleural fluid collections could be secondary to cardiac decompensation versus renal disease. New finding when compared with the prior exam. Cardiomegaly. Atrophic kidneys, left greater than right. Renal Ultrasound 08/19/18 00:00 IMPRESSION: 1. No hydronephrosis. Medical renal disease. Left renal atrophy. 2. Small ascites. 3. Cholelithiasis. Chest X-Ray 08/21/18 00:00 IMPRESSION: Possible multicentric pneumonia. Small loculated right pleural effusion. Cardiomegaly without laura pulmonary edema. 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 Involutional changes of aging with microvascular ischemic changes. EVIDENCE OF ACUTE STROKE: NO. Venous Doppler Study 08/26/18 00:00 IMPRESSION: NO EVIDENCE DVT OR SVT IN EITHER LEG. Assessment and Plan - Diagnosis (1) Metabolic encephalopathy Is this a current diagnosis for this admission?: Yes Plan: Improved back to baseline. Most likely due to hypercapnia, narcotics and mirtazapine. Mild improvement of her blood gases. As per family she is extremely sensitive to opioids and she becomes lethargic 4 days whenever she receives any types of opioids. they do not want her to receive any opioids for that reason. Supportive measures , avoid benzos, opioid analgesics, anticholinergics, and Ambien. Continue supplemental oxygen, BiPAP. Pending placement to rehab. (2) Possible HCAP Is this a current diagnosis for this admission?: Yes Plan: Possibility due to gram-negative rods/MRSA. No leukocytosis or bandemia. Blood culture negative from. 08/21/2018 day 7 vancomycin and cefepime. DC Abx (3) Acute on chronic diastolic CHF (congestive heart failure), NYHA class 3 Is this a current diagnosis for this admission?: Yes Plan: Refusing PO meds . Continue IV Lasix, transdermal clonidine. Continue cardiac diet, volume restriction, beta-blockers, and diuretics. Currently not on ILDA due to CKD. Patient will benefit from ILDA once kidney function is stable. Outpatient follow-up with nephrology. 07/27/2016. 2D echo normal ejection fraction. Mild diastolic dysfunction. Monitor volume status. 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 Electrolytes within normal limits. Monitor volume status. Outpatient nephrology appointment. Nonoliguric. Followed by Dr. Rashel Chew from nephrology. Outpatient nephrology follow-up. (5) Chronic a-fib Is this a current diagnosis for this admission?: Yes Plan: Not controlled. Patient refusing her p.o. meds. Off of Cardizem drip. Continue p.o. Cardizem DS. Encourage p.o. meds. Not on anticoagulation. Patient's home regimen is Cardizem and beta-blockers, however she has been refusing her p.o. meds. For hypertension she was switched to clonidine transdermal and it is contraindicated with beta-blockers. Hold beta-blockers for right now. It can be restarted later once patient agrees to take her p.o. meds. Currently we will just continue Cardizem. (6) Complicated UTI (urinary tract infection) Is this a current diagnosis for this admission?: Yes Plan: Completed a course of ceftriaxone. Denies any urinary symptoms. (7) Dementia Is this a current diagnosis for this admission?: Yes Plan: Supportive measures. Transfer back to assisted once patient is ready. (8) Elevated troponin Is this a current diagnosis for this admission?: Yes Plan: Denies any chest pain. Likely due to CKD. Continue aspirin, metoprolol, Lipitor. Cardiology was consulted and medical management was recommended. (9) Hyperkalemia Is this a current diagnosis for this admission?: Yes Plan: Resolved. (10) Hypothyroidism Is this a current diagnosis for this admission?: Yes Plan: TSH within normal limits. Continue levothyroxine.
[2018-08-28] MEDS ORDERED: METOPROLOL SUCCINATE 50 MG TAB.SR.24H PO SCH (19:15)
[2018-08-28] MEDS: DILTIAZEM HCL 60 MG TABLET PO SCH (19:30)
[2018-08-28] MEDS ORDERED: DILTIAZEM HCL 120 MG CAP.SR.24H PO SCH (20:00)
[2018-08-28] MEDS: FAMOTIDINE 20 MG TABLET PO SCH (21:37)
[2018-08-28] MEDS: PHARMACY COMMUNICATION ORDER MC SCH (21:38)
[2018-08-29] MEDS: DILTIAZEM HCL 60 MG TABLET PO SCH ×3 (03:05→17:43)
[2018-08-29] MEDS: PANTOPRAZOLE SODIUM 40 MG PACKET.DR PO SCH (05:23)
[2018-08-29] MEDS: ACETAMINOPHEN 325 MG TABLET PO PRN ×2 (05:23→23:57)
[2018-08-29] MEDS: LEVOTHYROXINE SODIUM 0.112 MG TABLET PO SCH (05:23)
[2018-08-29] MEDS: HYDRALAZINE HCL 25 MG TABLET PO SCH ×3 (05:23→23:54)
[2018-08-29] MEDS: HEPARIN SOD (PORCINE) 5,000 UNIT/ML 1 ML SYRINGE SUBCUT SCH ×3 (05:23→23:56)
[2018-08-29] MEDS: POLYETHYLENE GLYCOL 3350 POWDER 17 GM/1 PACKET PO SCH (09:17)
[2018-08-29] MEDS: CHOLECALCIFEROL (D3) 1,000 UNIT TABLET PO SCH (09:17)
[2018-08-29] MEDS: SENNOSIDES/DOCUSATE 8.6-50 MG 1 EACH TABLET PO SCH ×2 (09:18→17:47)
[2018-08-29] MEDS: LIDOCAINE 5% (700 MG) TRANSDERMAL ADH..PATCH TP SCH (09:18)
[2018-08-29] MEDS: FUROSEMIDE 20 MG TABLET PO SCH ×2 (09:18→17:47)
[2018-08-29] MEDS: METOPROLOL TARTRATE 100 MG TABLET PO SCH ×2 (09:18→23:56)
[2018-08-29] MEDS: ASPIRIN 81 MG TABLET, CHEWABLE PO SCH (09:18)
[2018-08-29] MEDS: LORATADINE 10 MG TABLET PO SCH (09:18)
[2018-08-29] MEDS: DOCUSATE SODIUM 100 MG/10 ML UDC PO SCH (09:19)
[2018-08-29] MEDS: MULTIVITAMIN ORAL LIQUID 60 ML PO SCH (09:19)
[2018-08-29] MEDS: MAGNESIUM OXIDE 400 MG TABLET PO SCH (09:19)
[2018-08-29] MEDS ORDERED: METOPROLOL SUCCINATE 50 MG TAB.SR.24H PO SCH (10:00)
[2018-08-29] MEDS ORDERED: HYDROCORTISONE ACETATE 25 MG SUPP.RECT PR PRN (10:57)
--- NOTE | 2018-08-29 11:06 | RADIOLOGY REPORT (SQ) ---
EXAM DESCRIPTION: CT ABD/PELVIS NO ORAL OR IV COMPLETED DATE/TIME: 08/29/2018 10:36 am REASON FOR STUDY: back/abdominal pain COMPARISON: 08/13/2018. TECHNIQUE: CT scan of the abdomen and pelvis performed without intravenous or oral contrast. Images reviewed with lung, soft tissue, and bone windows. Reconstructed coronal and sagittal MPR images revi ewed. All images stored on PACS. All CT scanners at this facility use dose modulation, iterative reconstruction, and/or weight based d osing when appropriate to reduce radiation dose to as low as reasonably achievable (ALARA). [facility]: Dose Right [facility]: CareDose [facility]: Dose Right [facility]: Teradose 4D [facility]: [employer] RADIATION DOSE: CT Rad equipment meets quality standard of care and radiation dose reduction techniq ues were employed. CTDIvol: 12.2 mGy. DLP: 595 mGy-cm.mGy. LIMITATIONS: None. FINDINGS: LOWER CHEST: Cardiomegaly with bilateral pleural effusions, right greater than left. Basi lar airspace disease. NON-CONTRASTED LIVER, SPLEEN, ADRENALS: Evaluation limited by lack of IV contrast. Stable low-attenu ation mass in the right adrenal gland. No other identified significant masses. PANCREAS: No masses. No peripancreatic inflammatory changes. GALLBLADDER: No identified stones by CT criteria. No inflammatory changes to suggest cholecystitis. RIGHT KIDNEY AND URETER: No suspicious masses. Assessment limited by lack of IV contrast. No signif icant calcifications. No hydronephrosis or hydroureter. LEFT KIDNEY AND URETER: Atrophic kidney. No suspicious masses. Assessment limited by lack of IV cont rast. No significant calcifications. No hydronephrosis or hydroureter. AORTA AND RETROPERITONEUM: Extensive calcifications. No aneurysm. No retroperitoneal masses or adeno golden. BOWEL AND PERITONEAL CAVITY: Contrast in the colon. Colonic diverticulosis. No obvious masses or in flammatory changes. Moderate free fluid. APPENDIX: Normal. PELVIS, BLADDER, AND ABDOMINAL WALL:No abnormal masses. No free fluid. Catheter in the bladder. BONES: No significant findings. Degenerative changes in the spine. OTHER: No other significant finding. IMPRESSION: 1. COLONIC DIVERTICULOSIS. NO CT FINDINGS OF DIVERTICULITIS. 2. 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 3. ATROPHIC LEFT KIDNEY. 4. MODERATE FREE FLUID IN THE ABDOMEN. CARDIOMEGALY WITH BILATERAL PLEURAL EFFUSIONS AND BASILAR AIR SPACE DISEASE. 5. NO OTHER SIGNIFICANT OR ACUTE PROCESS IN THE ABDOMEN OR PELVIS. COMMENT: Quality ID # [id number]: Final reports with documentation of one or more dose reduction techniques (e.g., Automated exposure control, adjustment of the mA and/or kV according to patient size, use of iterative reconstruction technique) TECHNICAL DOCUMENTATION: JOB ID: [id number] [employer]- All Rights Reserved Reading location - IP/workstation name: [facility]
[2018-08-29] MEDS: DILTIAZEM HCL 90 MG TABLET PO SCH ×2 (16:43→23:56)
[2018-08-29] MEDS: PATIROMER 8.4 GM SUSP PACKET PO SCH (16:44)
--- NOTE | 2018-08-29 17:24 | PDOC PROGRESS REPORT ---
Subjective Progress Note for:: 08/29/18 Subjective:: 87 years old female with multiple comorbidities including the chronic atrial fibrillation, CHF, hypertension, hyperlipidemia, hypothyroidism, dementia and CKD transferred from longterm with chief complaint of lack of energy and shortness of breath. In ED her BNP is 42,500. Positive UA urine culture grew E. coli pansensitive completed a course of antibiotics. On19/08/18 she started complaining of chest pain on the left side and troponins were obtained 0.048, 0.047, 0.051. Was started on on Plavix and Lipitor and continue metoprolol and aspirin. Dr.Mehra driver ardiologist and recommended to optimize her medical management since patient did not a candidate for invasive cardiac workup. Plavix and Lipitor were discontinued because her daughter told history of bleeding with Plavix and situs due to Lipitor. She was complaining of shortness of breath and a chest x-ray was positive for possible multicentric pneumonia. Blood cultures start and patient started on cefepime and vancomycin. 08/22/2018 No acute events overnight. SBP low 100s, heart rate 82-118 afebrile, saturating low 90s on nasal cannula. On my encounter patient is alert and oriented does not seem to be in acute distress enjoying her breakfast. Answers my questions appropriately however with very low tone while she is playing at the same time. Denying any fever, chills, nausea, vomiting, diarrhea, constipation, chest pain, shortness of breath or any urinary symptoms. 08/23/2018. No acute events overnight. Patient alert oriented x3, in no apparent distress, denies any fever, chills, nausea, vomiting, diarrhea, constipation or any urinary symptoms. She is communicating better and cooperative with physical examination compared to yesterday. She still seems to be weak and cannot reposition herself without help. 08/24/2018. No acute events overnight however patient has been somnolent and lethargic all day. CT head did not show any acute stroke however an ABG showed elevated CO2 possibly causing her to be somnolent. Arousable but very lethargic. Started on BiPAP. Ammonia level within normal limits. 08/25/2018. No acute events overnight. Mild improvement of her mental status. He easily arousable but still somnolent. ABG shows improvement of her hypercapnia. Not been able to take her p.o. meds because of risk of aspiration. Blood pressure has been elevated. BP meds switched to clonidine transdermal and hydralazine IV until she is able to take p.o. meds. Does not seem to be in any acute distress. 08/26/2018. No acute events overnight. Patient has improvement of her mental status, she is awake, oriented x2, follows some commands, was able to take her p.o. meds, she still moaning when asked if she is hurting anywhere she says no. Her pressure has been better controlled since being started on Cardizem drip and clonidine patch. On her labs CBC within normal limits, on ABG pH of 51.2, PO2 of 70.9, CO2 of 29.4. Venous Doppler of lower extremity was negative for any acute DVT. She denies any chest pain, nausea, vomiting, diarrhea, constipation or any urinary symptoms. 08/27/2018. No acute events overnight. Patient is still refusing some of her meds. Pressure is better but not optimized. She has been given doses of IV Cardizem. She is more alert and responsive, can hold conversation however hard to understand what she saying she is mumbling, she is alert oriented x2, complaining of abdominal pain and asking for her family. Denies any fever, chills, nausea, vomiting, diarrhea, constipation or any urinary symptoms. 08/28/2018. No acute events overnight. Patient still refusing some of her medications. Back to baseline as per family. Patient is alert oriented x3, however her conversation is very difficult to understand as she always speaks with moaning. When asked if she is in pain she says she is hurting all over but does not mention any specific region. Patient is allergic to opioids however no true allergy extremely sensitive to opioids and becomes very lethargic for several days even with 1 dose of opiates. She did receive 1 dose of opioid here on admission she was lethargic for several days. Patient denies any fever, chills, nausea, vomiting, diarrhea, constipation or any urinary symptoms. As per family this is patient's baseline but they say she seems to week. Physical therapy is consulted and patient hopefully be sent to rehab. 08/29/2018. No acute events overnight. Patient has been more compliant with her medication however they need to be crushed for her to take them. Patient is still mourning whenever I have encountered her, when asked she says she is in pain, and asking for pain medication, she keeps saying that she has pain in her bottom parts upon careful examination by myself and the primary nurse I have failed to find any tender points in her back, she does not have any hemorrhoids, she has been placed on lidocaine patches unfortunately she is extremely sensitive to opioids and family does not want her to receive any opioids because she becomes very lethargic for several days. CT pelvis did not show any acute abnormalities which could explain her pain. As per family this is her baseline. She denies any fever, chills, nausea, vomiting, diarrhea, constipation or any urinary symptoms. She is quite weak and will benefit from some aggressive rehab once discharged. Patient can be DC'd back to longterm tomorrow if blood pressure is optimized. Reason For Visit: ACUTE ON CHRONIC CHF,HYPERKALEMIA,ACUTE KIDNEY Physical Exam Vital Signs: Temp Pulse Resp BP Pulse Ox 97.3 F 86 20 115/56 L 98 08/29/18 12:10 08/29/18 16:16 08/29/18 16:16 08/29/18 16:16 08/29/18 16:16 Intake & Output 08/28/18 08/29/18 08/30/18 06:59 06:59 06:59 Intake Total 100 25 Output Total 575 550 Balance -475 -525 Weight 69.9 kg 71.7 kg General appearance: PRESENT: no acute distress, well-developed, well-nourished Head exam: PRESENT: atraumatic, normocephalic Respiratory exam: PRESENT: clear to auscultation roscoe. ABSENT: rales, rhonchi, wheezes Cardiovascular exam: PRESENT: RRR. ABSENT: diastolic murmur, rubs, systolic murmur GI/Abdominal exam: PRESENT: normal bowel sounds, soft. ABSENT: distended, guarding, mass, organolmegaly, rebound, tenderness Extremities exam: PRESENT: full ROM. ABSENT: calf tenderness, clubbing, pedal edema Neurological exam: PRESENT: alert, awake, oriented to person, oriented to place, CN II-XII grossly intact. ABSENT: motor sensory deficit Results Laboratory Results: 08/28/18 05:23 08/28/18 05:23 08/13/18 08/13/18 08/13/18 14:48 14:48 16:00 Creatine Kinase Cancelled CK-MB (CK-2) Cancelled 1.81 Troponin I Cancelled 0.044 NT-Pro-B Natriuret Pep 08/13/18 08/13/18 08/17/18 16:00 16:00 05:39 Creatine Kinase 42 CK-MB (CK-2) Troponin I NT-Pro-B Natriuret Pep [id number] H 13587 H 08/18/18 08/18/18 08/18/18 11:05 15:58 22:05 Creatine Kinase CK-MB (CK-2) Troponin I 0.048 0.047 0.051 NT-Pro-B Natriuret Pep Impressions: Renal Ultrasound 08/19/18 00:00 IMPRESSION: 1. No hydronephrosis. Medical renal disease. Left renal atrophy. 2. Small ascites. 3. Cholelithiasis. Chest X-Ray 08/21/18 00:00 IMPRESSION: Possible multicentric pneumonia. Small loculated right pleural effusion. Cardiomegaly without laura pulmonary edema. 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 Involutional changes of aging with microvascular ischemic changes. EVIDENCE OF ACUTE STROKE: NO. Venous Doppler Study 08/26/18 00:00 IMPRESSION: NO EVIDENCE DVT OR SVT IN EITHER LEG. Abdomen/Pelvis CT 08/29/18 08:50 IMPRESSION: 1. COLONIC DIVERTICULOSIS. NO CT FINDINGS OF DIVERTICULITIS. 2. 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 3. ATROPHIC LEFT KIDNEY. 4. MODERATE FREE FLUID IN THE ABDOMEN. CARDIOMEGALY WITH BILATERAL PLEURAL EFFUSIONS AND BASILAR AIRSPACE DISEASE. 5. NO OTHER SIGNIFICANT OR ACUTE PROCESS IN THE ABDOMEN OR PELVIS. Assessment and Plan - Diagnosis (1) Metabolic encephalopathy Is this a current diagnosis for this admission?: Yes Plan: Resolved. Back to baseline. Most likely due to hypercapnia, narcotics and mirtazapine. Mild improvement of her blood gases. As per family she is extremely sensitive to opioids and she becomes lethargic for several days whenever she receives any types of opioids. they do not want her to receive any opioids for that reason. Supportive measures , avoid benzos, opioid analgesics, anticholinergics, and Ambien. Continue supplemental oxygen, BiPAP. Will DC home back to rehab if BP is optimized. (2) Possible HCAP Is this a current diagnosis for this admission?: Yes Plan: Possibility due to gram-negative rods/MRSA. No leukocytosis or bandemia. Blood culture negative from. 08/21/2018 day 7 vancomycin and cefepime. DC Abx (3) Acute on chronic diastolic CHF (congestive heart failure), NYHA class 3 Is this a current diagnosis for this admission?: Yes Plan: Taking p.o. meds now if they are crushed. DC clonidine, DC IV Lasix. Restart p.o. meds. Continue cardiac diet, volume restriction, beta-blockers, and diuretics. Currently not on ILDA due to CKD. Patient will benefit from ILDA once kidney function is stable. Outpatient follow-up with nephrology. 07/27/2016. 2D echo normal ejection fraction. Mild diastolic dysfunction. Monitor volume status. 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 Electrolytes within normal limits. Monitor volume status. Outpatient nephrology appointment. Nonoliguric. Followed by Dr. Rashel Chew from nephrology. Outpatient nephrology follow-up. (5) Chronic a-fib Is this a current diagnosis for this admission?: Yes Plan: Better control with a combination of short-acting Cardizem and beta-blockers. Patient is taking her p.o. meds if crushed. Possible Off of Cardizem drip. Continue p.o. Cardizem DS. Encourage p.o. meds. Not on anticoagulation. Note: Patient's home regimen is Cardizem and beta-blockers, however she was refusing her p.o. meds. For hypertension she was switched to clonidine transdermal and it is contraindicated with beta-blockers. Held beta-blockers till she was able to take PO meds. (6) Complicated UTI (urinary tract infection) Is this a current diagnosis for this admission?: Yes Plan: Completed a course of ceftriaxone. Denies any urinary symptoms. (7) Dementia Is this a current diagnosis for this admission?: Yes Plan: Supportive measures. Transfer back to longterm once patient is ready. (8) Elevated troponin Is this a current diagnosis for this admission?: Yes Plan: Denies any chest pain. Likely due to CKD. Continue aspirin, metoprolol, Lipitor. Cardiology was consulted and medical management was recommended. (9) Hyperkalemia Is this a current diagnosis for this admission?: Yes Plan: Resolved. (10) Hypothyroidism Is this a current diagnosis for this admission?: Yes Plan: TSH within normal limits. Continue levothyroxine.
[2018-08-29] MEDS ORDERED: DILTIAZEM HCL 240 MG CAPSULE.CR PO SCH (22:00)
[2018-08-29] MEDS: FAMOTIDINE 20 MG TABLET PO SCH (23:56)
[2018-08-29] MEDS: PHARMACY COMMUNICATION ORDER MC SCH (23:58)
[2018-08-30] MEDS: HYDRALAZINE HCL 25 MG TABLET PO SCH ×2 (05:18→13:50)
[2018-08-30] MEDS: DILTIAZEM HCL 90 MG TABLET PO SCH ×2 (05:18→13:51)
[2018-08-30] MEDS: PANTOPRAZOLE SODIUM 40 MG PACKET.DR PO SCH (05:19)
[2018-08-30] MEDS: HEPARIN SOD (PORCINE) 5,000 UNIT/ML 1 ML SYRINGE SUBCUT SCH ×2 (05:19→13:53)
[2018-08-30] MEDS: LEVOTHYROXINE SODIUM 0.112 MG TABLET PO SCH (05:19)
[2018-08-30] MEDS: ACETAMINOPHEN 325 MG TABLET PO PRN ×2 (06:06→17:05)
[2018-08-30 06:48] LABS: HEMATOCRIT 40.2 % (36.0-47.0); HEMOGLOBIN 12.7 g/dL (12.0-15.5); MEAN CORPUSCULAR HEMOGLOBIN 28.5 pg (27.0-33.4); MEAN CORPUSCULAR HGB CONC 31.6 g/dL (32.0-36.0); MEAN CORPUSCULAR VOLUME 90 fl (80-97); PLATELET COUNT 256 10^3/uL (150-450); RED BLOOD COUNT 4.45 10^6/uL (3.72-5.28); RED CELL DISTRIBUTION WIDTH 18.7 % (11.5-14.0); WHITE BLOOD COUNT 4.7 10^3/uL (4.0-10.5)
[2018-08-30] MEDS: LIDOCAINE 5% (700 MG) TRANSDERMAL ADH..PATCH TP SCH (09:42)
[2018-08-30] MEDS: POLYETHYLENE GLYCOL 3350 POWDER 17 GM/1 PACKET PO SCH (09:42)
[2018-08-30] MEDS: DOCUSATE SODIUM 100 MG/10 ML UDC PO SCH (09:42)
[2018-08-30] MEDS: CHOLECALCIFEROL (D3) 1,000 UNIT TABLET PO SCH (09:43)
[2018-08-30] MEDS: SENNOSIDES/DOCUSATE 8.6-50 MG 1 EACH TABLET PO SCH (09:43)
[2018-08-30] MEDS: MULTIVITAMIN ORAL LIQUID 60 ML PO SCH (09:43)
[2018-08-30] MEDS: LORATADINE 10 MG TABLET PO SCH (09:43)
[2018-08-30] MEDS: ASPIRIN 81 MG TABLET, CHEWABLE PO SCH (09:44)
[2018-08-30] MEDS: METOPROLOL TARTRATE 100 MG TABLET PO SCH (09:44)
[2018-08-30] MEDS: MAGNESIUM OXIDE 400 MG TABLET PO SCH (09:44)
[2018-08-30] MEDS: FUROSEMIDE 20 MG TABLET PO SCH (09:44)
--- NOTE | 2018-08-30 10:18 | PDOC TRANSFER SUMMARY ---
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 Is this a current diagnosis for this admission?: Yes (5) Chronic a-fib Is this a current diagnosis for this admission?: Yes (6) Complicated UTI (urinary tract infection) Is this a current diagnosis for this admission?: Yes (7) Dementia Is this a current diagnosis for this admission?: Yes (8) Elevated troponin Is this a current diagnosis for this admission?: Yes (9) Hyperkalemia Is this a current diagnosis for this admission?: Yes (10) Hypothyroidism Is this a current diagnosis for this admission?: Yes (11) Rectal pain, chronic Is this a current diagnosis for this admission?: Yes - Transfer Medications Home Medications: Acetaminophen [Tylenol] 650 mg PO Q6HP PRN 06/22/17 Docusate Sodium [Colace] 100 mg PO DAILY 06/22/17 Famotidine [Pepcid 20 mg Tablet] 20 mg PO QHS 06/22/17 Ipratropium/Albuterol Sulfate [Duoneb 3 ml Ampul] 1 vial NEB RTQ4HP PRN 06/22/17 Levothyroxine Sodium [Synthroid] 112 mcg PO Q6AM 06/22/17 Loratadine [Claritin 10 mg Tablet] 10 mg PO DAILY 06/22/17 Omeprazole Magnesium [Prilosec Otc] 20 mg PO DAILY 06/22/17 Ferrous Sulfate [Feosol] 325 mg PO DAILY 04/20/18 Polyethylene Glycol 3350 [Miralax Powder 17 gm/Packet] 1 packet PO DAILY 04/20/18 Allopurinol [Zyloprim 100 mg Tablet] 100 mg PO DAILY 08/14/18 Aspirin [Lo-Dose Aspirin EC] 81 mg PO DAILY 08/14/18 Calcitriol [Rocaltrol] 0.25 mcg PO MOWEFR 08/14/18 Melatonin [Melatonin 5 mg Tablet] 5 mg PO QHS 08/14/18 Mineral Oil/Petrolatum,White [Eucerin Cream 114 gm] 1 applic TOP BID 08/14/18 Transfer Medications: Current Medications Acetaminophen (Tylenol 325 Mg Tablet) 650 mg PO Q6HP PRN PRN Reason: PAIN OR TEMP Stop: 09/13/18 07:12 Last Admin: 08/30/18 06:06 Dose: 650 mg Documented by: Acetaminophen (Tylenol 650 Mg Supp) 650 mg MT Q6HP PRN PRN Reason: FOR PAIN OR TEMP Stop: 09/12/18 21:57 Last Admin: 08/26/18 01:30 Dose: 650 mg Documented by: Al Hydrox/Mg Hydrox/Simethicone (Maalox Plus Susp 30 Udcup) 15 ml PO Q6HP PRN PRN Reason: HEARTBURN Stop: 09/12/18 21:57 Albuterol/Ipratropium (Duoneb 3 Ml Ampul) 3 ml NEB RTQ6HP PRN PRN Reason: WHEEZING Stop: 09/12/18 22:10 Aspirin (Aspirin 81 Mg Chewable Tablet) 81 mg PO DAILY [facility] Stop: 09/19/18 11:59 Last Admin: 08/30/18 09:44 Dose: 81 mg Documented by: Calcitriol (Rocaltrol 0.25 Mcg Capsule) 0.25 mcg PO MOWEFR [facility] Stop: 09/13/18 10:59 Last Admin: 08/28/18 10:37 Dose: 0.25 mcg Documented by: Cholecalciferol (Vitamin D3 1000 Unit Tablet) 2,000 unit PO DAILY [facility] Stop: 09/16/18 11:59 Last Admin: 08/30/18 09:43 Dose: 2,000 unit Documented by: Diltiazem HCl (Cardizem 90 Mg Tablet) 90 mg PO Q8 [facility] Stop: 09/28/18 13:59 Last Admin: 08/30/18 05:18 Dose: 90 mg Documented by: Docusate Sodium (Colace Udc 100 Mg/10 Ml Oral Soln) 100 mg PO DAILY [facility] Stop: 09/19/18 11:59 Last Admin: 08/30/18 09:42 Dose: 100 mg Documented by: Famotidine (Pepcid 20 Mg Tablet) 20 mg PO QHS [facility] Stop: 09/13/18 21:59 Last Admin: 08/29/18 23:56 Dose: 20 mg Documented by: Furosemide (Lasix 20 Mg Tablet) 20 mg PO BID [facility] Stop: 09/28/18 09:59 Last Admin: 08/30/18 09:44 Dose: 20 mg Documented by: Heparin Sodium (Porcine) (Heparin Inj 5,000 Units/Ml 1 Ml Syringe) 5,000 unit SUBCUT Q8 [facility] Stop: 09/18/18 13:59 Last Admin: 08/30/18 05:19 Dose: 5,000 unit Documented by: Hydralazine HCl (Apresoline Inj/Pf 20 Mg/1 Ml Sdv) 10 mg IV Q3HP PRN PRN Reason: Give For Sbp > [150] Stop: 09/23/18 13:57 Last Admin: 08/26/18 01:29 Dose: 10 mg Documented by: Hydralazine HCl (Apresoline 25 Mg Tablet) 50 mg PO Q8 [facility] Stop: 09/26/18 13:59 Last Admin: 08/30/18 05:18 Dose: 50 mg Documented by: Hydrocortisone Acetate (Anusol Hc 25 Mg Supp.Rect) 25 mg MT BIDP PRN PRN Reason: RECTAL PAIN Stop: 09/28/18 10:56 Last Admin: 08/29/18 16:45 Dose: 25 mg Documented by: Levothyroxine Sodium (Synthroid 0.112 Mg Tablet) 0.112 mg PO Q6AM [facility] Stop: 09/13/18 05:59 Last Admin: 08/30/18 05:19 Dose: 0.112 mg Documented by: Lidocaine (Lidoderm 5% (700 Mg) Transdermal Patch) 1 patch TP DAILY [facility] Stop: 09/15/18 09:59 Last Admin: 08/30/18 09:42 Dose: 1 patch Documented by: Loratadine (Claritin 10 Mg Tablet) 10 mg PO DAILY [facility] Stop: 09/13/18 09:59 Last Admin: 08/30/18 09:43 Dose: 10 mg Documented by: Magnesium Hydroxide (Milk Of Magnesia 30 Ml Udcup) 30 ml PO HSP PRN PRN Reason: FOR CONSTIPATION Stop: 09/12/18 21:57 Last Admin: 08/23/18 21:15 Dose: 30 ml Documented by: Magnesium Oxide (Mag-Ox 400 Mg Tablet) 400 mg PO DAILY [facility] Stop: 09/13/18 09:59 Last Admin: 08/30/18 09:44 Dose: Not Given Documented by: Metoprolol Tartrate (Lopressor 100 Mg Tablet) 100 mg PO Q12 [facility] Stop: 09/28/18 09:59 Last Admin: 08/30/18 09:44 Dose: 100 mg Documented by: Multivitamins (Multiple Vitamin Liquid 60 Ml) 5 ml PO DAILY [facility] Stop: 09/17/18 09:59 Last Admin: 08/30/18 09:43 Dose: 5 ml Documented by: Nitroglycerin (Nitrostat 0.4 Mg (1/150 Gr) Tabs 25/Bottle) 1 tab SL Q5MP PRN PRN Reason: FOR CHEST PAIN Stop: 09/17/18 15:41 Ondansetron HCl (Zofran Inj/Pf 4 Mg/2 Ml Sdv) 4 mg IV Q4HP PRN PRN Reason: FOR NAUSEA/VOMITING Stop: 09/12/18 21:57 Pantoprazole Sodium (Protonix [address] Packet) 40 mg PO Q6AM [facility] Stop: 09/22/18 05:59 Last Admin: 08/30/18 05:19 Dose: 40 mg Documented by: Patiromer (Veltassa 8.4 Gm Susp Packet) 16.8 gm PO WSUPPER [facility] Stop: 09/14/18 18:59 Last Admin: 08/29/18 16:44 Dose: Not Given Documented by: Pharmacy Profile Note (Medication Communication Order) 1 each MC QHS [facility] Stop: 09/23/18 21:59 Last Admin: 08/29/18 23:58 Dose: Not Given Documented by: Polyethylene Glycol (Miralax Powder 17 Gm/Packet) 17 gm PO DAILY [facility] Stop: 09/13/18 09:59 Last Admin: 08/30/18 09:42 Dose: 17 gm Documented by: Senna/Docusate Sodium (Senna Plus Tablet) 1 each PO BID [facility] Stop: 09/13/18 09:59 Last Admin: 08/30/18 09:43 Dose: 1 each Documented by: - Allergies Allergies/Adverse Reactions: Opioids - Morphine Analogues Adverse Reaction (Severe, Verified 08/27/18 19:27) Opioids-Meperidine and Related Adverse Reaction (Severe, Verified 08/27/18 19:27) Opioids-Methadone and Related Adverse Reaction (Severe, Verified 08/27/18 19:27) Hospital Course Hospital Course: 87 years old female with multiple comorbidities including the chronic atrial fibrillation, CHF, hypertension, hyperlipidemia, hypothyroidism, dementia and CKD transferred from [facility] with chief complaint of lack of energy and shortness of breath. In ED her BNP is 42,500. Positive UA urine culture grew E. coli pansensitive completed a course of antibiotics. On19/08/18 she started complaining of chest pain on the left side and troponins were obtained 0.048, 0.047, 0.051. 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 She was complaining of shortness of breath and a chest x-ray was positive for possible multicentric pneumonia. Blood cultures start and patient started on cefepime and vancomycin. (1) Metabolic encephalopathy Resolved. Back to baseline. Most likely due to hypercapnia, narcotics and mirtazapine. As per family and our observation here in the hospital she is extremely sensitive to opioids and she becomes lethargic for several days whenever she receives any types of opioids. Family do not want her to receive any opioids for that reason. Supportive measures , avoid benzos, opioid analgesics, anticholinergics, and Ambien. The patient was refusing her meds initially. She is cooperative with her medication. She favors her medications to be crushed, therefore she could not be started on sustained-release medications. She needs rehab upon discharge. (2) Possible HCAP Possibility due to gram-negative rods/MRSA. No leukocytosis or bandemia. Blood culture negative from. 08/21/2018 day 7 vancomycin and cefepime. DC Abx (3) Acute on chronic diastolic CHF (congestive heart failure), NYHA class 3 Taking p.o. meds now if they are crushed. DC clonidine, DC IV Lasix. Restart p.o. meds. Continue cardiac diet, volume restriction, beta-blockers, and diuretics. Currently not on ILDA due to CKD. Patient will benefit from ILDA once kidney function is stable. Outpatient follow-up with nephrology. 07/27/2016. 2D echo normal ejection fraction. Mild diastolic dysfunction. Monitor volume status. 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 Electrolytes within normal limits. Monitor volume status. Outpatient nephrology appointment. Nonoliguric. Followed by Dr. Rashel Chew from nephrology. Outpatient nephrology follow-up. (5) Chronic a-fib Better control with a combination of short-acting Cardizem and beta-blockers. Patient is taking her p.o. meds if crushed. Initially had been placed on Cardizem drip as she was not able to take her medication due to being too lethargic. Cardizem drip is off and patient was switched to Cardizem DS patient defers her medications to be crushed on Cardizem DS could not be crossed so she had to be switched on short acting Cardizem. Encourage p.o. meds. Not on anticoagulation due to risk of falls. (6) Complicated UTI (urinary tract infection) Completed a course of ceftriaxone. Denies any urinary symptoms. (7) Dementia Supportive measures. Transfer back to [facility] once patient is ready. (8) Elevated troponin Denies any chest pain. Likely due to CKD. Continue aspirin, metoprolol, Lipitor. Cardiology was consulted and medical management was recommended. (9) Hyperkalemia Resolved. (10) Hypothyroidism TSH within normal limits. Continue levothyroxine. (11) Rectal pain, chronic Patient has been c/o " my bottom is hurting" and asking for pain medication, she keeps saying that she has pain in her bottom parts, but upon careful examination by myself and the primary nurse I have failed to find any tender points in her back, she does not have any hemorrhoids, she has been placed on lidocaine patches unfortunately she is extremely sensitive to opioids and family does not want her to receive any opioids because she becomes very lethargic for several days. CT pelvis did not show any acute abnormalities which could explain her pain. As per family this is her baseline. She denies any fever, chills, nausea, vomiting, diarrhea, constipation or any urinary symptoms. Physical Exam Vital Signs: Temp Pulse Resp BP Pulse Ox 97.2 F 72 18 113/54 L 96 08/30/18 03:57 08/30/18 07:00 08/30/18 03:57 08/30/18 03:57 08/30/18 03:57 Intake & Output 08/29/18 08/30/18 08/31/18 06:59 06:59 06:59 Intake Total 25 1513 Output Total 550 250 Balance -525 1263 Weight 71.7 kg 71.5 kg General appearance: PRESENT: no acute distress, well-developed, well-nourished Head exam: PRESENT: atraumatic, normocephalic Respiratory exam: PRESENT: clear to auscultation roscoe. ABSENT: rales, rhonchi, wheezes Cardiovascular exam: PRESENT: RRR. ABSENT: diastolic murmur, rubs, systolic murmur GI/Abdominal exam: PRESENT: normal bowel sounds, soft. ABSENT: distended, guarding, mass, organolmegaly, rebound, tenderness Neurological exam: PRESENT: alert, altered, awake, oriented to person Results Laboratory Results: 08/30/18 05:52 08/28/18 05:23 08/30/18 05:52 WBC 4.7 RBC 4.45 Hgb 12.7 Hct 40.2 MCV 90 MCH 28.5 MCHC 31.6 L RDW 18.7 H Plt Count 256 08/13/18 08/13/18 08/13/18 14:48 14:48 16:00 Creatine Kinase Cancelled CK-MB (CK-2) Cancelled 1.81 Troponin I Cancelled 0.044 NT-Pro-B Natriuret Pep 08/13/18 08/13/18 08/17/18 16:00 16:00 05:39 Creatine Kinase 42 CK-MB (CK-2) Troponin I NT-Pro-B Natriuret Pep 61143 H 16792 H 08/18/18 08/18/18 08/18/18 11:05 15:58 22:05 Creatine Kinase CK-MB (CK-2) Troponin I 0.048 0.047 0.051 NT-Pro-B Natriuret Pep Impressions: Renal Ultrasound 08/19/18 00:00 IMPRESSION: 1. No hydronephrosis. Medical renal disease. Left renal atrophy. 2. Small ascites. 3. Cholelithiasis. Chest X-Ray 08/21/18 00:00 IMPRESSION: Possible multicentric pneumonia. Small loculated right pleural effusion. Cardiomegaly without laura pulmonary edema. 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 Involutional changes of aging with microvascular ischemic changes. EVIDENCE OF ACUTE STROKE: NO. Venous Doppler Study 08/26/18 00:00 IMPRESSION: NO EVIDENCE DVT OR SVT IN EITHER LEG. Abdomen/Pelvis CT 08/29/18 08:50 IMPRESSION: 1. COLONIC DIVERTICULOSIS. NO CT FINDINGS OF DIVERTICULITIS. 2. 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 3. ATROPHIC LEFT KIDNEY. 4. MODERATE FREE FLUID IN THE ABDOMEN. CARDIOMEGALY WITH BILATERAL PLEURAL EFFUSIONS AND BASILAR AIRSPACE DISEASE. 5. NO OTHER SIGNIFICANT OR ACUTE PROCESS IN THE ABDOMEN OR PELVIS.
[2018-08-30] MEDS: CALCITRIOL 0.25 MCG CAPSULE PO SCH (11:45)
[2018-08-30 12:04] VITALS: BP 132/64
== END 2018-08-30 16:45 | DRG 291 ==
LOC: ER 14:33 → EH 22:55 → 3S 08-14 00:26
PROVIDERS: ADMIT Family Medicine; ATTEND Family Medicine
DX: I13.0 Hypertensive heart and chronic kidney disease with heart failure and stage 1 through stage 4 chronic kidney disease, or unspecified chronic kidney disease (principal); J96.01 Acute respiratory failure with hypoxia; I50.33 Acute on chronic diastolic (congestive) heart failure; J18.9 Pneumonia, unspecified organism; G93.41 Metabolic encephalopathy; N17.9 Acute kidney failure, unspecified; N39.0 Urinary tract infection, site not specified; Z66 Do not resuscitate; N18.3 Chronic kidney disease, stage 3 (moderate); E78.00 Pure hypercholesterolemia, unspecified; E87.5 Hyperkalemia; I35.0 Nonrheumatic aortic (valve) stenosis; E03.9 Hypothyroidism, unspecified; K21.9 Gastro-esophageal reflux disease without esophagitis; I48.0 Paroxysmal atrial fibrillation; B96.20 Unspecified Escherichia coli [E. coli] as the cause of diseases classified elsewhere; F01.50 Vascular dementia, unspecified severity, without behavioral disturbance, psychotic disturbance, mood disturbance, and anxiety; I69.392 Facial weakness following cerebral infarction; Z95.0 Presence of cardiac pacemaker; Z79.82 Long term (current) use of aspirin; Z79.51 Long term (current) use of inhaled steroids; Z79.899 Other long term (current) drug therapy
CPT/HCPCS: 36415; 36600; 70450; 71045; 74176; 76770; 80048; 80053; 81001; 82140; 82272; 82550; 82553; 82803; 82962; 83605; 83735; 83880; 84443; 84484; 85025; 85027; 85610; 85730; 87040; 87086; 87088; 87186; 93005; 93010; 93970; 94660; 96360; 99291; J0360; J0610; J0692; J0696; J1644; J1940; J3370; J3490; J7040; J7060